=== PATIENT | male | born 1980 | race Caucasian/White ===

== ENCOUNTER 2025-07-31 16:36 | Inpatient (IN) | payer MEDICARE, SELFPAY ==
--- OUTSIDE RECORDS SUMMARY | 2025-06-19 07:00 | XMS_ITS | Encounter Summary ---
Author Organization [facility] Address [address] [place] [address]. [place] [address] Care Team Providers Care Manager Portable Name Role Phone RenayBrooklynn landaverde MIKE CREDIT COORDINATOR Primary Care Provider Helen Monterroso RN Unavailable Unavailab Carmela Heath APRN CREDIT COORDINATOR Unavailable [phone] Adrienne Evans ASSISTANT PROFESSOR OF BUSINESS CREDIT COORDINATOR Unavailable (Fgs), [facility] - [facility] Unavailable Sariah Nunez RN Unavailable [phone] Reason for Visit * Reason Comments Hospital F/U Encounter Details Date Type Department Care Team (Late st Contact Info) Description 06/19/2025 7:00 AM CDT Transitional Care Unit Visit [facility] [address] [place] [address] [phone] Pelon Millard MD [address] [place] [address] Decubitus ulcer of right ischial area, stage IV (H) (Primary Dx); Quadriplegia following spinal cord injury Social History Tobacco Use Types Packs/Day Years Used Date Smoking Tobacco: Former Cigarettes Q uit: 04/08/2016 Smokeless Tobacco: Never Alcohol Use Standard Drinks/Week Comments Yes 0 (1 standard drink = 0.6 oz pur e alcohol) social PHQ-2 Answer Date Recorded PHQ-2 Score 1 06/14/2024 Adolescent Education Answer Date Record ed Getting School Help Needed Not on file 07/17 Food Insecurity Answer Date Recorded Within the past 12 months, d id you worry that your food would run out before you got money to buy more? No 05/30/2025 Within the past 12 months, d id the food you bought just not last and you didn t have money to get more? No 05/30/2025 Housing Stability Answer Date Recorded Do you have housing? (Lisa solares is defined as stable permanent housing and does not include staying outside in a car, in a tent, in an abandoned building, in an overnight alf, or couch-surfing.) Yes 05/30/2025 Are you worried about losing your housing? No 05/30/2025 Financial Resource Strain Answer Date R ecorded Within the past 12 months, h ave you or your family members you live with been unable to get utilities (heat, electricity) when it was really needed? Yes 05/30/2025 Transportation Needs Answer Date Record ed Within the past 12 months, h as lack of transportation kept you from medical appointments, getting your medicines, non-medical meetings or appointments, work, or from getting things that you need? No 05/30/2025 Interpersonal Safety Answer Date Record ed Do you feel physically and e motionally safe where you currently live? Yes 05/30/2025 Within the past 12 months, h ave you been hit, slapped, kicked or otherwise physically hurt by someone? No 05/30/2025 Within the past 12 months, h ave you been humiliated or emotionally abused in other ways by your partner or ex-partner? No 05/30/2025 Sex and Gender Information Value Date Recorded Sex Assigned at Male 09/04/2021 2:10 PM LIGHT EQUIPMENT OPERATOR Legal Sex Male 4:30 AM LIGHT EQUIPMENT OPERATOR Gender Identity Male 09/04/2021 2:10 PM LIGHT EQUIPMENT OPERATOR Sexual Orientation Straight 09/04/2021 2: 10 PM LIGHT EQUIPMENT OPERATOR documented as of this encounter Last Filed Vital Signs Vital Sign Reading Time Taken Comments Blood Pressure 140/98 06/19/2025 7:03 AM CDT Pulse 83 06/19/2025 7:03 AM CDT Temperature 36.4 C (97.6 F) 06/19/2025 7:03 AM CDT Respiratory Rate 18 06/19/2025 7:03 AM CDT Oxygen Saturation 98% 06/19/2025 7:03 AM CDT Inhaled Oxygen Concentration - - Weight 67.4 kg (148 lb 9.6 oz) 06/19/2025 7:03 A M CDT Height 157.5 cm (5' 2) 06/19/2025 7:03 AM CDT Body Mass Index 27.18 06/19/2025 7:03 AM CDT documented in this encounter Progress Notes * Pelon Millard MD - 06/19/2025 7:00 AM CDT [facility] PRIMARY CARE PROVIDER AND CLINIC: Brooklynn Niño APRN [facility], [id number] [place] [address] Chief Complaint Patient presents with Hospital F/U [facility] Place of Service where encounter took place: [facility] Srinivas Palafox is a 45 year old (1980), admitted to the above facility from [facility]. Hospital stay 05/29/25 through 06/06/25.. Hospital course was reviewed by me, is as per the hospital discharge summary and ASSOCIATE MANAGER AFFILIATE MARKETING note Patient has a past medical history of quadriplegia secondary to a spinal cord injury 25 years ago, history of infected left hip ulcer 3 years ago, recent hospitalization for sepsis secondary to a right sacral decubitus ulcer status post I&D with wound VAC placed on discharge, who was readmittedfor recurrent sepsis, with failure of wound VAC management. 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 It was felt thathe would benefit from cares in a TCU. He was seen by infect disease, was discharged on cefpodoxime and metronidazole through 06/12/2025 Patient lives independently. Patient's status has been stable since admission to the TCU. He is followed by the wound care team with report that wound is healing. He needs to have pressure mapping for his wheelchair cushion. He reports feeling well, denies abdominal or back discomfort. He does experience frequent chills and sweats over his body for which he uses a physical education department chair with benefit CODE STATUS/ADVANCE DIRECTIVES DISCUSSION: Full Code CPR/Full code ALLERGIES: Allergies Allergen Reactions Tegaderm Transparent Dressing (Informational Only) Rash PAST MEDICAL HISTORY: Past Medical History: Diagnosis Date History of spinal cord injury Quadriplegia (H) PAST SURGICAL HISTORY: has a past surgical history that includes Open reduction internal fixation hip nailing (Left, 12/21/2014); Remove hardware rodding intramedullary femur (Left, 03/07/2021); Openreduction internal fixation hip nailing (Left, 03/07/2021); Remove hardware hip nailing (Left, 06/04/2022); Irrigation and debridement hip, combined (Left, 06/04/2022); Irrigation and debridement hip, combined (Left, 06/08/2022); Irrigation and debridement hip, combined (Left, 06/11/2022); IR Fine Needle Aspiration w Ultrasound (06/25/2022); picc insertion (Left, 07/20/2022); and Irrigation and debridement trunk, combined (Right, 05/17/2025). FAMILY HISTORY: family history includes Cancer in his father, maternal grandfather, paternal aunt, paternal grandfather, and paternal uncle. SOCIAL HISTORY: reports that he quit smoking about 9 years ago. His smoking use included cigarettes. He has never used smokeless tobacco. He reports current alcohol use. He reports that he does not use drugs. Patient's living condition: lives alone Current medications reviewed by me today Current Outpatient Medications Medication Sig Dispense Refill acetaminophen (TYLENOL) 325 MG tablet Take 2 tablets (650 mg) by mouth every 4 hours as needed for mild pain or other (and adjunct with moderate or severe pain or per patient request). baclofen (LIORESAL) 20 MG tablet Take 1 tablet (20 mg) by mouth 3 times daily as needed for muscle spasms. loperamide (IMODIUM) 2 MG capsule Take 1 capsule (2 mg) by mouth 4 times daily as needed for diarrhea. 30 capsule 0 multivitamin w/minerals (THERA-VIT-M) tablet Take 1 tablet by mouth daily. oxyCODONE (ROXICODONE) 5 MG tablet Take 1 tablet (5 mg) by mouth every 4 hours as needed for severepain (IF pain not managed with non-pharmacological and non- opioid interventions). 30 tablet 0 senna-docusate (SENOKOT-S/PERICOLACE) 8.6-50 MG tablet Take 1 tablet by mouth 2 times daily as needed for constipation. wound support modular (EXPEDITE) LIQD bottle Take 60 mLs by mouth daily. No current facility-administered medications for this visit. ROS: 10 point ROS of systems including Constitutional, Eyes, Respiratory, Cardiovascular, Gastroenterology, Genitourinary, Integumentary, Musculoskeletal, Psychiatric were all negative except for pertinent positives noted in my HPI. Vitals: BP (!) 140/98 Pulse 83 Temp 97.6 ??F (36.4 ??C) Resp 18 Ht 1.575 m (5' 2) Wt 67.4 kg (148 lb 9.6 oz) SpO2 98% BMI 27.18 kg/m?? Exam: Very pleasant, well-nourished appearing male, lying in bed. He is sleepy, easily awakens and is fully oriented HEENT: Oral mucosa moist Lungs clear CV RRR Abdomen soft, protuberant Extremities: No edema. Sacral/ischial area not examined me. Neuro: Fully oriented. Quadriparetic with no movement lower extremities. Patient is able to use upper extremities Lab/Diagnostic data: Most Recent 3 CBC's: Recent Labs Lab Test 06/01/25 0819 05/31/25 0709 05/30/25 0753 WBC 6.60 7.37 9.31 HGB 12.3* 12.3* 12.1* MCV 85.1 84.6 84.2 PLT 546* 561* 518* Most Recent 3 BMP's: Recent Labs Lab Test 06/01/25 0819 05/31/25 0709 05/30/25 0753 NA 138 138 137 POTASSIUM 4.4 4.5 4.3 3.9 CHLORIDE 102 103 103 CO2 23 23 22 BUN 12.6 11.8 14.3 CR 0.64* 0.69 0.80 ANIONGAP 13 12 12 FRANCISCO JAVIER 9.5 9.2 9.4 GLC 104* 106* 94 Most Recent 2 LFT's: Recent Labs Lab Test 05/29/25 1904 05/17/25 0049 AST 26 15 ALT 25 17 ALKPHOS 65 60 BILITOTAL 0.3 0.3 Most Recent Anemia Panel: Recent Labs Lab Test 06/01/25 0819 05/28/22 0803 05/27/22 0836 WBC 6.60 < > -- HGB 12.3* < > -- HCT 37.6* < > -- MCV 85.1 < > -- PLT 546* < > -- IRON -- -- 13* IRONSAT -- -- 5* FEB -- -- 238* ANGELINE -- -- 100 < > = values in this interval not displayed. ASSESSMENT/PLAN: (L89.314) Decubitus ulcer of right ischial area, stage IV (H) (primary encounter diagnosis) (L89.94, L08.9) Pressure injury, stage 4, with infection (H) Status post debridement 05/17/2025, but with failure of outpatient management with wound VAC Has completed course of antibiotics. No more surgical intervention planned at this time Plan: Continue APM. Therapy for wheelchair cushion mapping. House wound team to follow while patient is in TCU (G82.50) Quadriplegia following spinal cord injury (R53.81) Physical deconditioning Per patient, he does function well at home independently Plan: Therapies to work with patient regarding safe transfers Continue nutritional supplements. Continue baclofen for spasticity Monitor bowel and bladder function Pelon Millard MD documented in this encounter Plan of Treatment Not on file documented as of this encounter Visit Diagnoses Diagnosis Decubitus ulcer of right ischial area, stage IV (H)- Primary Quadriplegia following spinal cord injury Quadriplegia, unspecified documented in this encounter Care Teams Manager Portable Relationship Specialty Start Date End Date Brooklynn Niño APRN CREDIT COORDINATOR [id number] [address] PCP - General Family Practice 05/27/16 Helen Monterroso, RN Registered Nurse Infectious Diseases 06/25/22 Carmela Kumar APRN CREDIT COORDINATOR [address] [id number] Assigned PCP 06/26/24 Adrienne Evans APRN CREDIT COORDINATOR [facility] [place] [address] Nurse Practitioner Family Medicine 06/06/25 06/29/25 (Fgs), [address] [phone] 06/06/25 06/29/25 Sariah Nunez, RN [facility] 06/07/2507/04 documented as of this encounter
--- OUTSIDE RECORDS SUMMARY | 2025-06-26 07:00 | XMS_ITS | Encounter Summary ---
Author Organization [facility] Address [address] [place] [address] Care Team Providers Care Multicultural Internship Name Role Phone Brooklynn Niño MIKE SERVICE STATION ATTENDANT Primary Care Provider Helen Monterroso RN Unavailable Unavailab Carmela Heath APRN SERVICE STATION ATTENDANT Unavailable [phone] Adrienne Evans APRN SERVICE STATION ATTENDANT Unavailable (Fgs), [facility] - [place] Unavailable Sariah Nunez RN Unavailable [phone] Manjit Swanson MD Unavailable [phone] Reason for Visit * Reason Comments Discharge Summary Jail Encounter Details Date Type Department Care Team (Late st Contact Info) Description 06/26/2025 7:00 AM CDT Discharge Summary Jail [facility] [address] [place] [phone] Adrienne Evans APRN SERVICE STATION ATTENDANT [address] [place] [address] Discharge Summary Jail Social History Tobacco Use Types Packs/Day Years [...] in an abandoned building, in an overnight prison, or couch-surfing.) Yes 05/30/2025 Are you worried [...] Sex Assigned at Male 09/04/2021 2:10 PM DIORAMA MODEL MAKER Legal Sex Male 4:30 AM DIORAMA MODEL MAKER Gender Identity Male 09/04/2021 2:10 PM DIORAMA MODEL MAKER Sexual Orientation Straight 09/04/2021 2: 10 PM DIORAMA MODEL MAKER documented as of this encounter Last Filed Vital Signs Vital Sign Reading Time Taken Comments Blood Pressure 126/77 06/26/2025 9:07 AM CDT Pulse 76 06/26/2025 9:07 AM CDT Temperature 36.4 C (97.6 F) 06/26/2025 9:07 AM CDT Respiratory Rate 18 06/26/2025 9:07 AM CDT Oxygen Saturation 96% 06/26/2025 9:07 AM CDT Inhaled Oxygen Concentration - - Weight 67.6 kg (149 lb 1.6 oz) 06/26/2025 9:07 A M CDT Height 157.5 cm (5' 2) 06/26/2025 9:07 AM CDT Body Mass Index 27.27 06/26/2025 9:07 AM CDT documented in this encounter Progress Notes * Adrienne Evans APRN CNP - 06/26/2025 7:00 AM CDT [facility] DISCHARGE SUMMARY PATIENT'S NAME: Srinivas Palafox DATE OF : 1980 Place of Service where encounter took place: [facility]) [[id number]] PRIMARY CARE PROVIDER AND CLINIC RESPONSIBLE AFTER TRANSFER: Brooklynn Niño APRN SERVICE STATION ATTENDANT, [address] [place] [address] [facility] Provider Transferring providers: Adrienne Evans APRN CNP, Pelon Millard MD Recent Hospitalization/ED: [facility] Hospital stay 05/29/25 to 06/06/25. Date of SNF Admission: June 06, 2025 Date of SNF (anticipated) Discharge: June 29, 2025 Discharged to: previous independent home Cognitive Scores: Not tested Physical Function: Transfer Min -SBA Ambulation 0 UB dressing SUP LB dressing Min A DME: No new DME needed CODE STATUS/ADVANCE DIRECTIVES DISCUSSION: Full Code ALLERGIES: Tegaderm transparent dressing (informational only) NURSING FACILITY COURSE Medication Changes/Rationale: - Restarted vitamin D 50,000 units weekly dx vitamin D deficiency - Ok to resume home supply of cranberry supplement, calcium-vitamin D, tumeric Summary of nursing facility stay: PMH: quadriplegia secondary to spinal cord injury 25 years ago, infected left hip ulcer 3 years ago, recent admission for sepsis secondary to right gluteal, sacral decubitus ulcer with abscess statuspost debridement who presents with wound check. Recently hospitalized at [facility] from 05/16-05/24/2025 for sepsis secondary to infected sacral decubitus ulcer for which he underwent debridement on 05/17/2025 by general surgery. He was treated with IV Zosyn, seen by infectious disease. He had a wound VAC placed and was discharged with additional Augmentin for [address]. [address] [facility] 05/29-06/06/25 from wound clinic due to recurrent sepsis due to known infected sacral decubitus ulcer s/p debridement 05/17/25. ID consulted, treated with ceftriaxone and metronidazole then transitioned to cefpodoxime 400mg BID and metronidazole 500mg BID through 06/12/25. Transferred [facility] on 06/06/25. (L89.314) Decubitus ulcer of right ischial area, stage IV (H) (primary encounter diagnosis) (L89.94, L08.9) Pressure injury, stage 4, with infection (H) Comment: Chronic stage IV sacral pressure ulcer with recurrent infection/sepsis, s/p debridement on05/17/25. Completed cefpodoxime and metronidazole on 06/12/25. Plan: - Continue wound care to sacral pressure ulcer BID; plan to be seen by house wound care team on 06/28/25 - goal is to decrease dressing changes to every day. [facility] in home sales representative to assist with daily dressing changes. - Therapy completed pressure mapping of wheelchair cushion - Follow-up with Dr. Swanson (Wound Clinic) as directed (S46.011D) Traumatic tear of right rotator cuff, unspecified tear extent, subsequent encounter Comment: Chronic R shoulder pain r/t rotator cuff tear Plan: - Continue tylenol PRN, baclofen PRN, oxycodone PRN (G82.50) Quadriplegia following spinal cord injury (R53.81) Physical deconditioning Comment: Chronic quadriplegia secondary to spinal cord injury 25 years ago [facility] lives in house alone. Plan: - Patient discharging home, as well as [facility] home care services, including home PT, OT, RN, HANDMADE TILE ARTIST. Discharge Medications: MED REC REQUIRED Post Medication Reconciliation Status: discharge medications reconciled and changed, per note/orders Current Outpatient Medications Medication Sig Dispense Refill [...] bottle Take 60 mLs by mouth daily. MED REC REQUIRED Post Medication Reconciliation Status: discharge medications reconciled and changed, per note/orders Controlled medications: Medication: oxycodone , 15 tabs given to patient at the time of discharge to take home Past Medical History: Past Medical History: Diagnosis Date History of spinal cord injury Quadriplegia (H) Physical Exam: Vitals: BP 126/77 Pulse 76 Temp 97.6 ??F (36.4 ??C) Resp 18 Ht 1.575 m (5' 2) Wt 67.6 kg(149 lb 1.6 oz) SpO2 96% BMI 27.27 kg/m?? BMI: Body mass index is 27.27 kg/m??. GENERAL APPEARANCE: Alert, in no distress, appears healthy, oriented, cooperative RESP: no respiratory distress CV: no edema M/S: Gait and station abnormal , resting in bed. Quadriplegic. SKIN: Inspection of skin and subcutaneous tissue baseline NEURO: Cranial nerves 2-12 are normal tested and grossly at patient's baseline PSYCH: oriented X 3, affect and mood normal SNF labs: Recent labs in [facility] reviewed by me today. Most Recent 3 CBC's: Recent Labs Lab [...] 9.5 9.2 9.4 GLC 104* 106* 94 DISCHARGE PLAN: Follow up labs: No labs orders/due Medical Follow Up: Follow up with primary care provider in 2 weeks Follow-up with Dr. Swanson/ Wound Clinic as directed Discharge Services: Home Care: Occupational Therapy, Physical Therapy, Registered Nurse, and From: [facility] Discharge Instructions Verbalized to Patient at Discharge: Wound Care (Right IT Pressure Ulcer): 1. Cleanse with Vashe, pat dry. 2. Generously paint periwoundwith skin prep. 3. Pack site with 1 sheet of Vashe- moistened Kerlix. 4. Cover with ABD. Change twice/day. Notify your PCP/wound clinic if you have increased redness, swelling, tenderness, or drainage at your incision site. Notify PCP if you have a fever greater than 100.5 degrees. TOTAL DISCHARGE TIME: Greater than 30 minutes Electronically signed by: Adrienne Evans APRN CNP Documentation of Face to Face and Certification for Home Health Services I certify that services are/were furnished while this patient was under the care of a physician andthat a physician or an allowed non-physician practitioner (NPP), had a [id number]-tr-nsvy encounter that meets the physician [id number] encounter requirements. The encounter was in whole, or in part, related to the primary reason for home health. The patient is confined to his/her home and needs intermittent nursing home, physical therapy, speech-language pathology, or the continued need for occupational therapy. A plan of care has been established by a physician and is periodically reviewed by a physician. Date of [id number]-[id number] Encounter: 06/26/25. I certify that, based on my findings, the following services are medically necessary home health services: Nursing, Occupational Therapy, and Physical Therapy. My clinical findings support the need for the above skilled services because: Patient is bedbound due to: quadriplegia.. Patient to re-establish plan of care with their PCP within 7-10 days after leaving the facility to reestablish care. Medicare certified PECOS provider: Adrienne Evans APRN CNP Date: June 27, 2025 * Adrienne Evans APRN CNP - 06/26/2025 7:00 AM CDT [facility] Discharge Orders Name: Srinivas Palafox : 1980 Planned Discharge Date: 06/29/25 Discharged to: previous independent home MEDICAL FOLLOW UP Follow up with primary care provider in 2 weeks Follow-up with Dr. Swanson/ Wound Clinic as directed FUTURE LABS: No labs orders/due ORDER CHANGES: - Restarted vitamin D 50,000 units weekly dx vitamin D deficiency - Ok to resume home supply of cranberry supplement, calcium-vitamin D, tumeric DISCHARGE MEDICATIONS: The patient???s pharmacy is authorized to dispense a 30-day supply of medications. Refill requests should be directed to the primary provider, Brooklynn Niño. At discharge, the facility may send patient's remaining supply of controlled substances, specifically oxycodone #15 tabs. Current Outpatient Medications Medication Sig Dispense Refill acetaminophen (TYLENOL) 325 MG tablet Take 2 tablets (650 mg) by mouth every 4 hours as needed for mild pain or other (and adjunct with moderate or severe pain or per patient request). baclofen (LIORESAL) 20 MG tablet Take 1 tablet (20 mg) by mouth 3 times daily as needed for muscle spasms. 60 tablet 0 loperamide (IMODIUM) 2 MG capsule Take 1 [...] bottle Take 60 mLs by mouth daily. SERVICES: Home Care: Occupational Therapy, Physical Therapy, Registered Nurse, and From: [facility] ADDITIONAL INSTRUCTIONS: Wound Care (Right IT Pressure Ulcer): 1. Cleanse with Vashe, pat dry. 2. Generously paint periwoundwith skin prep. 3. Pack site with 1 sheet of Vashe- moistened Kerlix. 4. Cover with ABD. Change twice/day. Notify your PCP/wound clinic if you have increased redness, swelling, tenderness, or drainage at your incision site. Notify PCP if you have a fever greater than 100.5 degrees. Adrienne Evans APRN CNP This document was electronically signed on June 27, 2025 documented in this encounter Plan of Treatment Not on file documented as of this encounter Visit Diagnoses Diagnosis Decubitus ulcer of right ischial area, stage IV (H) [L89.314]- Primary Pressure injury, stage 4, with infection (H) Traumatic tear of right rotator cuff, unspecified tear extent, subsequent encounter Quadriplegia following spinal cord injury Quadriplegia, unspecified Physical deconditioning Debility, unspecified documented in this encounter Care Teams Multicultural Internship Relationship Specialty Start Date End Date Brooklynn Niño APRN CNP [address] [place] [address] PCP - General Family Practice 05/27/16 Helen Monterroso RN Registered Nurse Infectious Diseases 06/25/22 Carmela Kumar APRN CNP [address] [place] [address] Assigned PCP 06/26/24 Adrienne Evans APRN CNP [address] [place] [address] Nurse Practitioner Family Medicine 06/06/25 06/29/25 (Fgs), [facility] [address], [place] [id number] 06/06/25 06/29/25 Sariah Nunez, RN Clinic Roll Tender 06/07/2507/04 Manjit Swanson MD [address] [place] [address] [address], [place] [address] Assigned Pediatric Specialist Provider 06/26/25 documented as of this encounter
--- OUTSIDE RECORDS SUMMARY | 2025-07-05 18:00 | XMS_ITS | Encounter Summary ---
Author Organization [place] Address [address] [facility] [place] [address] Care Team Providers Care Reliability Engineer Name Role Phone Renay Brooklynn MCKEON F[employer]ELANCE MAKEUP ARTIST Primary Care Provider Helen Monterroso RN Unavailable Unavailab Carmela Heath APRN, CNP Unavailable [phone] Manjit Swanson MD Unavailable [phone] Reason for Visit * Reason Comments Urgent Care Sweating, fatigue, b griselda chills, fluctuating BP- 210/180. Pt states he not feeling well because of his pressure sores and he was seen 2 months ago for the same reason. Encounter Details Date Type Department Care Team (Late st Contact Info) Description 07/05/2025 6:00 PM CDT Office Visit [facility] [place] [address] [facility] [address] [place] [address] Jenelle Martinez MD [address] [place] [address] [place] [address] Quadriplegia following spinal cord injury (Primary Dx); Pressure injury of skin of right buttock, unspecified injury stage; Autonomic instability; Diaphoresis Social History Tobacco Use Types Packs/Day Years [...] in an abandoned building, in an overnight chcf, or couch-surfing.) Yes 05/30/2025 Are you worried [...] motionally safe where you currently live? Yes 07/06/2025 Within the past 12 months, h ave you been hit, slapped, kicked or otherwise physically hurt by someone? No 07/06/2025 Within the past 12 months, h ave you been humiliated or emotionally abused in other ways by your partner or ex-partner? No 07/06/2025 Sex and Gender Information Value Date Recorded Sex Assigned at Male 09/04/2021 2:10 PM LAW LIBRARIAN Legal Sex Male 4:30 AM LAW LIBRARIAN Gender Identity Male 09/04/2021 2:10 PM LAW LIBRARIAN Sexual Orientation Straight 09/04/2021 2: 10 PM LAW LIBRARIAN documented as of this encounter Last Filed Vital Signs Vital Sign Reading Time Taken Comments Blood Pressure 127/90 07/05/2025 6:28 PM CDT Pulse 112 07/05/2025 6:28 PM CDT Temperature 37.1 C (98.8 F) 07/05/2025 6:28 PM CDT Respiratory Rate 18 07/05/2025 6:28 PM CDT Oxygen Saturation 95% 07/05/2025 6:28 PM CDT Inhaled Oxygen Concentration - - Weight 72.6 kg (160 lb) 07/05/2025 6:28 PM CDT Height - - Body Mass Index 29.26 06/26/2025 9:07 AM CDT documented in this encounter Progress Notes * Shelbie Vallejo MA - 07/05/2025 6:00 PM CDT Urgent Care Clinic Visit Chief Complaint Patient presents with Urgent Care Sweating, fatigue, body chills, fluctuating BP- 210/180. Pt states he not feeling well because of his pressure sores. 07/05/2025 6:24 PM Additional Questions Roomed by shelbie russell Accompanied by Friend * Jenelle Martinez MD - 07/05/2025 6:00 PM CDT ASSESSMENT AND PLAN: ICD-10-CM 1. Quadriplegia following spinal cord injury G82.50 2. Pressure injury of skin of right buttock, unspecified injury stage L89.319 3. Autonomic instability G90.9 4. Diaphoresis R61 Patient paraplegia with symptoms of autonomic instability suggesting active serious infection. Currently diaphoretic for which he is using a blow dryer for his symptoms here in urgent care. Recent discharge for decubital ulcer care and more symptomatic when sitting up applying pressure tothe ulcer area. He is also more symptomatic throughout activities today that normally do not stresshis body. Referred to the ER for more thorough evaluation that can be offered here in urgent care especially since may be related to deep cubitus ulcers for which he may need a special wound nurse evaluation at the hospital and beyond scope of practice of providers here also discussed he may need to for other evaluation such as bladder infection and blood test that would need to be evaluated and reviewed today Assessment & Plan Pressure injury of skin of right buttock, unspecified injury stage: - Decubitus ulcer of right buttock present, previously debrided and currently appears improved per nursing assessment, but remains in a high-risk location. Potential for serious complications including tissue loss and need for surgical intervention if not properly managed. Advised transfer to emergency department for comprehensive assessment and possible inpatient care. Temperature and blood pressure instability with diaphoresis and dizziness: - Temperature instability, diaphoresis, and blood pressure fluctuations may indicate underlying acute illness requiring urgent evaluation. Advised transfer to emergency department for further workup. Patient referred to the emergency room. His friend will drive him by private transport. CC chart to PCP Jenelle Martinez MD [facility] Subjective Srinivas Palafox is a 45 year old who presents for Patient presents with: Urgent Care: Sweating, fatigue, body chills, fluctuating BP- 210/180. Pt states he not feeling wellbecause of his pressure sores and he was seen 2 months ago for the same reason. an established patient of [facility]. Consent was obtained from the patient to use an AI documentation tool in the creation of this note. Today's visit with a friend. Admitted from the ER May 29 for decubitus ulcer to the hospital. Subsequently transition to transitional care unit and discharged June 26, 2025 approximately 2 weeks ago He states this is the second time he was admitted for this ulcer. To the hospital History of Present Illness- Nikhil Palafox, 45 years with history of paraplegia Here today with concerns of symptoms that may suggest illness Possibly related to his decubitus ulcer - Current symptoms include sweating, shakes, dizziness (including sudden dizziness when lying down), decreased appetite over last two days - Large cut/pressure ulcer present on buttocks, previously debrided, described as shrinking but still in a bad spot - Sweats and shakes occur when sitting up on buttocks, resolve when lying down - Blood pressure was very high after shower, wound care, and dressing change; not usually affected by activity - In-home nurses advised seeking medical evaluation due to ulcer He has also had a history of UTIs. For treatment of his sweats he has been using a blow dryer. He brought a blow dryer here today during his clinic visit and had it running to help dry the wetness on his body and neck Review of Systems Patient Active Problem List Diagnosis Quadriplegia following spinal cord injury Closed displaced transverse fracture of shaft of left femur (H) Urethral catheter present for long-term use Osteomyelitis (H) Thigh abscess PICC line infection Left arm cellulitis Complication associated with peripherally inserted central catheter (PICC), initial encounter Decubitus ulcer of right ischial area, stage IV (H) Chills Sepsis (H) Objective BP (!) 127/90 (BP Location: Left arm, Patient Position: Sitting, Cuff Size: Adult Large) Pulse 112 Temp 98.8 ??F (37.1 ??C) (Oral) Resp 18 Wt 72.6 kg (160 lb) SpO2 95% BMI 29.26 kg/m?? Physical Exam Vitals reviewed. Constitutional: Appearance: He is diaphoretic. Comments: In wheelchair. Has blow dryer actively on pointing towards his upper chest and neck Neurological: Mental Status: He is alert. Physical Exam - Physical exam: - Diaphoretic - Clammy skin - Visible perspiration documented in this encounter Plan of Treatment Not on file documented as of this encounter Visit Diagnoses Diagnosis Quadriplegia following spinal cord injury- Primary Quadriplegia, unspecified Pressure injury of skin of right buttock, unspecified injury stage Autonomic instability Unspecified disorder of autonomic nervous system Diaphoresis Generalized hyperhidrosis documented in this encounter Care Teams Reliability Engineer Relationship Specialty Start Date End Date Brooklynn Niño APRN F[employer]ANCE [employer]UP ARTIST [address] [place] [address] PCP - General Family Practice 05/27/16 Helen Monterroso RN Registered Nurse Infectious Diseases 06/25/22 Carmela Kumar APRN [employer]IST [address] [place] [address] Assigned PCP 06/26/24 Manjit Swanson MD [facility] [address] Assigned Pediatric Specialist Provider 06/26/25 documented as of this encounter
--- OUTSIDE RECORDS SUMMARY | 2025-07-05 21:30 | XMS_ITS | Encounter Summary ---
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 see MAR Current care needs: IV abx, surgery consult for osteo, daily wound care, ID following. Oxygen requirements (liters/min and/or FiO2): none Respiratory status: Room air Vital signs (within last 30 minutes): Vitals: 07/06/25 0015 07/06/25 0030 07/06/25 0429 07/06/25 0838 BP: (!) 133/92 (!) 118/97 102/58 134/74 BP Location: Right arm Right arm Patient Position: Semi-Eng's Pulse: 88 97 100 79 Resp: 20 20 Temp: 98 ??F (36.7 ??C) 98.4 ??F (36.9 ??C) TempSrc: Oral Oral SpO2: 97% 98% 98% Focused assessment within last 30 minutes: A&Ox4. Denies pain. Patient quadriplegic, able to reposition self with arms, little use of hands due to contractures but is fairly independent. Wound care to right IT completed by WO. Patient uses condom cath at home and reports frequent issues with it falling off, so far we have been unsuccessful with using condom cath or our male external cath. Tolerating diet. ED Boarding Nurse name: Yojana Caceres RN RECEIVING UNIT ED HANDOFF REVIEW Above ED Nurse Handoff Report was reviewed: Yes Reviewed by: Natali Sotelo, RN on July 06, 2025 at 4:03 PM Hector Sky called the ED to inform them the note was read: No * Britta Peña DO - 07/06/2025 7:36 AM CDT Pt seen and examined in the ED. He was admitted earlier today [facility] was concerned about developing sepsis. H&P and admission notes reviewed in detail.Reports that he had some increased drainage from his wound but not malodorous. He reports he has felt sweaty for months while up on decub wound - no new change in these symptoms. No Fevers, SCHULTE, GI symptoms or URI symptoms. Gen surgery and ID consulted and pending. Will hold on abx for now. * Roopa Coyne RN - 07/06/2025 7:25 AM CDT Pt alert and orientedx4, RA.VSS. On Vancomycin, PIV infusing NS 100ml/hr. NPO for surgery consult. documented in this encounter H&P Notes * Kuldip Guerrero MD - 07/06/2025 4:28 AM CDT [facility] History and Physical - Hospitalist Service Date of Admission: 07/05/2025 Assessment & Plan Srinivas Palafox is a 45 year old male PMH significant for quadriplegia secondary to spinal cord injury 25 years ago, infected left hip ulcer 3 years ago, recent admission for sepsis secondary to right gluteal, sacral decubitus ulcer with abscess who presented to ED with 2 days history of not feeling well, fever, chilling sensation, profuse sweating, dizziness, loss of appetite and decreased urine output while using condom catheter and being admitted as an inpatient on 07/06/2025. Infected stage IV right sacral decubitus ulcer: POA Right ischial decubitus ulceration, with associated chronic osteomyelitis of the right ischial tuberosity Quadriplegia - Patient with known infected right ischial decubitus ulceration and associated osteomyelitis of the right ischial tuberosity. - He had prior debridement and also had wound VAC in the past. - He was treated with different antibiotics in the IV form in hospital and oral antibiotic as an outpatient. - The osteomyelitis seem to be chronic due to overlying stage IV decubitus ulcer. -Patient was afebrile, hemodynamically stable, on presentation was tachycardic now resolved with - Will treat with IV antibiotic vancomycin and Zosyn for now, likely will need antibiotic de-escalation soon as this is chronic osteomyelitis. He may need bone debridement and incision debridement ofthe wound. - Infectious disease and surgery will be consulted. - Will keep patient n.p.o. until he is seen by surgery. - Continue gentle IV fluid hydration. - CRP increased to 157, baseline was 19. - Procalcitonin 0.09, unlikely for patient to have systemic infection as lactate is also normal. -Patient also has chilling sensation and profuse sweating. - Not clear if this is related to infection or due to dysautonomia. - WOC consult. - Quadriplegia following a spinal cord injury about 25 years ago. 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 -He is able to use his arms, however has contracture of his hands, not able to use his fingers. -He is wheelchair-bound. -Social service for safe discharge plan and needs. - Patient was sitting sensation PHN induration, Diet: NPO at the patient is seen by surgery. DVT Prophylaxis: Enoxaparin (Lovenox) SQ Marshall Catheter: Not present Lines: None Cardiac Monitoring: None Code Status: Full code Clinically Significant Risk Factors Present on Admission # Hyponatremia: Lowest Na = 132 mmol/L in last 2 days, will monitor as appropriate # Hypochloremia: Lowest Cl = 94 mmol/L in last 2 days, will monitor as appropriate # Overweight: Estimated body mass index is 29.26 kg/m?? as calculated from the following: Height as of 06/26/25: 1.575 m (5' 2). Weight as of an earlier encounter on 07/05/25: 72.6 kg (160 lb). # Financial/Environmental Concerns: Disposition Plan Medically Ready for Discharge: Anticipated in 2-4 Days I discussed with patient at length the plan of care, all patient's question and concerns addressed. Kuldip Guerrero MD Hospitalist Service [facility] Securely message with [employer] (more info) Text page via [facility] Paging/Directory Chief Complaint Chilling sensation, decubitus ulcer check. History is obtained from the patient. History of Present Illness Srinivas Palafox is a 45 year old male with PMH significant for quadriplegia secondary to spinal cord injury 25 years ago, infected left hip ulcer 3 years ago, recent admission for sepsis secondary to right gluteal, sacral decubitus ulcer with abscess. He was admitted to this hospital from 05/29 to 06/06 with recurrent sepsis in setting of known infected sacral decubitus ulcer and underwent debridement. MRI done at the time also showed ischial decubitus ulceration with associated osteomyelitis of the right ischial tuberosity. Patient was also evaluated by surgery and also by ID at the time. He was treated with IV Rocephin and Flagyl while in the hospital and transition to oral cefpodoxime and Flagyl and discharged to TCU where he completed his oral antibiotic on 06/12. Patient was then discharged to home from [facility] where he lives alone, does most of his daily activities by himself. He is quadriplegic, able to use his arms, but has significant contracture of his handsand unable to use his fingers. Patient was relatively at his baseline state of health until 2 days ago when he started to feel unwell he developed chilling sensation, profuse sweating, dizziness, loss of appetite and decreased urine output and concerned and came to the ED for evaluation. Patient uses a condom catheter at home, there was no associated flank pain, dysuria or urinary urgency. He also denied any nausea, vomiting, or diarrhea. No cough, runny nose or sore throat. He denied any significant discharge or any foul-smelling from his decubitus ulcer. ED workup: Sodium 132, potassium 4.2, bicarb 20, BUN 17, creatinine 0.6. Anion gap is 18, calcium 9.6. CBC unremarkable. UA negative. Blood culture pending, CRP increased to 157 from baseline of 19 during his recent admission. Lactate is 1.6, procalcitonin 0.09. ED treatment: Zosyn and vancomycin Past Medical History Past Medical History: Diagnosis Date History of spinal cord injury Quadriplegia (H) Recurrent sepsis. Osteomyelitis and infected sacral decubitus. Quadriplegia. Spinal cord injury. Decubital ulcer. Osteomyelitis. Sepsis. Thigh abscess Ureteral catheter Past Surgical History Past Surgical History: Procedure Laterality Date IR FINE NEEDLE ASPIRATION W ULTRASOUND 06/25/2022 IRRIGATION AND DEBRIDEMENT HIP, COMBINED Left 06/04/2022 Procedure: IRRIGATION AND DEBRIDEMENT, LEFT HIP, Wound Vac Placement; Surgeon: Jose Cherry MD; Location: [facility] IRRIGATION AND DEBRIDEMENT HIP, COMBINED Left 06/08/2022 Procedure: Left hip irrigation and debridement with wound vac application x 2; Surgeon: Jose Cherry MD; Location: [facility] IRRIGATION AND DEBRIDEMENT HIP, COMBINED Left 06/11/2022 Procedure: IRRIGATION AND DEBRIDEMENT, LEFT HIP; Surgeon: Jose Cherry MD; Location: [facility] OR IRRIGATION AND DEBRIDEMENT TRUNK, COMBINED Right 05/17/2025 Procedure: Debridement of right gluteal abscess; Surgeon: Surendra Amato MD; Location: [facility] OR OPEN REDUCTION INTERNAL FIXATION HIP NAILING Left 12/21/2014 Procedure: OPEN REDUCTION INTERNAL FIXATION HIP NAILING; Surgeon: Ari Wells MD; Location: [facility] OPEN REDUCTION INTERNAL FIXATION HIP NAILING Left 03/07/2021 Procedure: TO ANTEGRADE NAILING FOR CLOSED DISPLACED SUBTROCHANTERIC FRACTURE OF LEFT FEMUR; Surgeon: Aannt Camacho MD; Location: [facility] OR PICC INSERTION Left 07/20/2022 basilic 46 cm total REMOVE HARDWARE HIP NAILING Left 06/04/2022 Procedure: REMOVAL, LEFT ORTHOPEDIC NAIL, HIP; Surgeon: Jose Cherry MD; Location: [facility] OR REMOVE HARDWARE RODDING INTRAMEDULLARY FEMUR Left 03/07/2021 Procedure: REMOVAL OF LEFT FEMUR INTRAMEDULLARY; Surgeon: Anant Camacho MD; Location: [facility] OR Prior to Admission Medications Prior to Admission Medications Prescriptions Last Dose Informant Patient Reported? Taking? acetaminophen (TYLENOL) 325 MG tablet No No Sig: Take 2 tablets (650 mg) by mouth every 4 hours as needed for mild pain or other (and adjunct with moderate or severe pain or per patient request). Patient not taking: Reported on 07/05/2025 baclofen (LIORESAL) 20 MG tablet No No Sig: Take 1 tablet (20 mg) by mouth 3 times daily as needed for muscle spasms. Patient not taking: Reported on 07/05/2025 loperamide (IMODIUM) 2 MG capsule No No Sig: Take 1 capsule (2 mg) by mouth 4 times daily as needed for diarrhea. Patient not taking: Reported on 07/05/2025 multivitamin w/minerals (THERA-VIT-M) tablet No No Sig: Take 1 tablet by mouth daily. Patient not taking: Reported on 07/05/2025 oxyCODONE (ROXICODONE) 5 MG tablet No No Sig: Take 1 tablet (5 mg) by mouth every 4 hours as needed for severe pain (IF pain not managed with non-pharmacological and non-opioid interventions). Patient not taking: Reported on 07/05/2025 senna-docusate (SENOKOT-S/PERICOLACE) 8.6-50 MG tablet No No Sig: Take 1 tablet by mouth 2 times daily as needed for constipation. Patient not taking: Reported on 07/05/2025 wound support modular (EXPEDITE) LIQD bottle No No Sig: Take 60 mLs by mouth daily. Patient not taking: Reported on 07/05/2025 Facility-Administered Medications: None Review of Systems The 5 point Review of Systems is negative other than noted in the HPI or here. Physical Exam Vital Signs: Temp: 97 ??F (36.1 ??C) Temp src: Temporal BP: (!) 118/97 Pulse: 97 Resp: 22 SpO2: 97 % Weight: 0 lbs 0 oz General Appearance: Awake and alert, comfortable, pleasant and cooperative, not in distress Respiratory: Good air entry bilaterally, no wheezing, crackles or rhonchi Cardiovascular: Sinus tubular, no gallop or murmur GI: Soft, nontender, nondistended, positive bowel sound Skin: No rash or exanthems Extremity: Quadriplegic, able to use his arms, significant contracture of his hands. Medical Decision Making 65 MINUTES SPENT BY ME on the date of service doing chart review, history, exam, documentation & further activities per the note. Data Imaging results reviewed over the past 24 hrs: Recent Results (from the past 24 hours) CT Abdomen Pelvis w Contrast Narrative EXAM: CT ABDOMEN PELVIS W CONTRAST LOCATION: [facility] DATE: 07/05/2025 INDICATION: Abdominal pain, eval for sepsis. COMPARISON: 05/16/2025. TECHNIQUE: CT scan of the abdomen and pelvis was performed following injection of IV contrast. Multiplanar reformats were obtained. Dose reduction techniques were used. CONTRAST: 86 mL Omnipaque-350. FINDINGS: LOWER CHEST: Normal. HEPATOBILIARY: Normal. PANCREAS: Normal. SPLEEN: Normal. ADRENAL GLANDS: Normal. KIDNEYS/BLADDER: There is no hydronephrosis. The urinary bladder is very distended. There is mild diffuse urinary bladder wall thickening. BOWEL: There is a large amount of gas and stool throughout the colon. No bowel obstruction or inflammation. No free intraperitoneal gas or fluid. LYMPH NODES: Normal. VASCULATURE: Atherosclerotic calcification of the aorta and its branches. No aneurysm. PELVIC ORGANS: Normal. MUSCULOSKELETAL: There is a decubitus ulcer over the right ischium. There is sclerosis of the bone of the ischium suggesting osteomyelitis. There is a 3.7 x 1.3 cm gas and fluid collection along the ulcer tract. Postoperative change in the left femur. Impression IMPRESSION: 1. Right decubitus ulcer with possible osteomyelitis of the ischium. 2. Large amount of gas and stool throughout the colon. No bowel obstruction or inflammation. 3. Mild diffuse urinary bladder wall thickening is a nonspecific finding but can be seen with cystitis. There is no hydronephrosis. XR Chest 1 View Narrative EXAM: XR CHEST 1 VIEW LOCATION: [facility] DATE: 07/05/2025 INDICATION: Fever COMPARISON: 06/17/2022 Impression IMPRESSION: Negative chest. Recent Labs Lab 07/05/25 2157 WBC 9.49 HGB 13.8 MCV 82.2 PLT 587* NA 132* POTASSIUM 4.2 CHLORIDE 94* CO2 20* BUN 17.8 CR 0.60* ANIONGAP 18* FRANCISCO JAVIER 9.6 GLC 111* documented in this encounter Consult Notes * Cely Madison LSW - 07/07/2025 11:59 AM CDTAssociated Order(s): CARE MANAGEMENT / SOCIAL WORK IP CONSULT Care Management Initial Consult General Information Assessment completed with: Nikhil Renteria Type of CM/SW Visit: Initial Assessment Primary Care Provider verified and updated as needed: Yes Readmission within the last 30 days: no previous admission in last 30 days, current reason for admission unrelated to previous admission Return Category: Exacerbation of disease Reason for Consult: discharge planning Advance Care Planning: Advance Care Planning Reviewed: no concerns identified Communication Assessment Patient's communication style: spoken language (Sammarinese or Bilingual) Hearing Difficulty or Deaf: no Wear Glasses or Blind: no Cognitive Cognitive/Neuro/Behavioral: WDL Living Environment: People in home: alone Current living Arrangements: house Able to return to prior arrangements: yes Family/Social Support: Care provided by: self Provides care for: no one Marital Status: Support system: Parent(s), Sibling(s) Description of Support System: Involved, Supportive Support Assessment: Adequate family and caregiver support, Adequate social supports Current Resources: Patient receiving home care services: Yes Skilled Home Care Services: Prison, Occupational Therapy (WOC RN) Community Resources: Home Care Equipment currently used at home: wheelchair, power Supplies currently used at home: Wound Care Supplies Employment/Financial: Financial Concerns: none Referral to Financial Worker: No Does the patient's insurance plan have a 3 day qualifying hospital stay waiver? No Lifestyle & Psychosocial Needs: Social Drivers of Health Food Insecurity: Low Risk (05/30/2025) Food Insecurity Within the past 12 months, did you worry that your food would run out before you got money to buy more?: No Within the past 12 months, did the food you bought just not last and you didn???t have money to getmore?: No Depression: Not at risk (06/14/2024) PHQ-2 PHQ-2 Score: 1 Housing Stability: Low Risk (05/30/2025) Housing Stability Do you have housing? : Yes Are you worried about losing your housing?: No Tobacco Use: Medium Risk (07/05/2025) Patient History Smoking Tobacco Use: Former Smokeless Tobacco Use: Never Passive Exposure: Not on file Financial Resource Strain: High Risk (05/30/2025) Financial Resource Strain Within the past 12 months, have you or your family members you live with been unable to get utilities (heat, electricity) when it was really needed?: Yes Alcohol Use: Not on file Transportation Needs: Low Risk (05/30/2025) Transportation Needs Within the past 12 months, has lack of transportation kept you from medical appointments, getting your medicines, non-medical meetings or appointments, work, or from getting things that you need?: No Physical Activity: Not on file Interpersonal Safety: Low Risk (07/06/2025) Interpersonal Safety Do you feel physically and emotionally safe where you currently live?: Yes Within the past 12 months, have you been hit, slapped, kicked or otherwise physically hurt by someone?: No Within the past 12 months, have you been humiliated or emotionally abused in other ways by your partner or ex-partner?: No Stress: Not on file Social Connections: Not on file Health Literacy: Not on file Functional Status: Prior to admission patient needed assistance: Dependent ADLs:: Wheelchair-independent Dependent IADLs:: Independent Mental Health Status: Mental Health Status: No Current Concerns Chemical Dependency Status: Chemical Dependency Status: No Current Concerns Values/Beliefs: Spiritual, Cultural Beliefs, Yarsani Practices, Values that affect care: Values/Beliefs Comment: Philip Discussed ???Partnership in Safe Discharge Planning??? document with patient/family: No Additional Information: Sw met with the pt for baseline status information and discharge planning. Pt was resting in bed when Sw arrived. Pt contributed appropriately to the conversation. Pt is independent at baseline. He uses a power w/c for mobility. Pt stated that he recently discharged from [facility] and is open to [facility] for WOC RN and OT services. Sw explained that if he were to go back to [facility]CU, he would have a copay. He reported that he cannot afford that. He is agreeable to going back home with resumption of HCRN, OT, and adding a HC Sw. He receives daily wound care services from HC. He said that he is establishing care at the [facility] clinic in [place]. Sw sent the referral to [facility] and requested increased services P: [phone] F: [phone]. Pt reports that his van and electric w/c are at the hospital, so he can drive himself home. Sw also provided him with additional [facility] resources, per his request. Sw addressed his questions and concerns. Next Steps: Sw will continue with discharge planning and will be available as needed until discharge. NATE Arreola, [facility] Inpatient Care Coordination [facility] [phone] * Frank Joy RN - 07/06/2025 10:27 AM CDTAssociated Order(s): WOUND OSTOMY CONTINENCE NURSE IP CONSULT Images from the original note were not included. [facility] Nurse Inpatient Assessment Consulted for: Right buttocks [facility] nurse follow-up plan: weekly Patient History (according to provider note(s): Srinivas Palafox is a 45 year old male H significant for quadriplegia secondary to spinal cord injury 25 years ago, infected left hip ulcer 3 years ago, recent admission for sepsis secondary to right gluteal, sacral decubitus ulcer with abscess who presented to ED with 2 days history of not feeling well, fever, chilling sensation, profuse sweating, dizziness, loss of appetite and decreased urine output while using condom catheter and being admitted as an inpatient on 07/06/2025. Assessment: Areas visualized during today's visit: Focused: Pressure Injury Location: Right IT Last photo: 07/06/25 Wound type: Pressure Injury Pressure Injury Stage: 4, present on admission Wound history/plan of care: Patient with wound starting about 2 and half months ago. Wound was debrided on 05/17/25. Patient reports wound was doing ok but had a large increase in drainage over the last week. Wound base: 95 % Granulation tissue and Fibrin, 5 % Bone Palpation of the wound bed: normal Drainage: large Description of drainage: serosanguinous Measurements (length x width x depth, in cm) 3 x 4 x 7 cm Tunneling N/A Undermining (deep in base of wound) up to 3 cm from 9-12 o'clock Periwound skin: Scar tissue Color: pink Temperature: normal Odor: none Pain: moderate Pain intervention prior to dressing change: slow and gentle cares Treatment goal: Heal and Infection control/prevention STATUS: initial assessment Supplies ordered: ordered Vashe, Mextra My PI Risk Assessment Sensory Perception: 2 - Very Limited Moisture: 2 - Very moist Activity: 2 - Chairfast Mobility: 3 - Slightly limited Nutrition: 3 - Adequate Friction/Shear: 2 - Potential problem TOTAL: 14 Treatment Plan: Right IT wound(s): Daily and prn if saturated Cleanse with Vashe Pack with Vashe moistened gauze (making sure to pack into undermining in base of wound) Cover with Metra 5x5 ([facility]#[id number]) Pressure Injury Prevention (PIP) Plan: If patient is declining pressure injury prevention interventions: Explore reason why and address patient's concerns, Educate on pressure injury risk and prevention intervention(s), If patient is still declining, document informed refusal , and Ensure Care team is aware ( provider, charge nurse, etc) Mattress: Follow bed algorithm, add Low Air Loss (Air+) mattress pump if skin is very moist or constantly moist. HOB: Maintain at or below 30 degrees, unless contraindicated Repositioning in bed: Left/right positioning; avoid supine Heels: Pillows under calves Protective Dressing: None Chair positioning: Chair cushion (#[id number]) If patient has a buttock pressure injury, or high risk for PI use chair cushion or SPS. Moisture Management: Avoid brief in bed Under Devices: Inspect skin under all medical devices during skin inspection , Ensure tubes are stabilized without tension, and Ensure patient is not lying on medical devices or equipment when repositioned Ask provider to discontinue device when no longer needed. Orders: Written RECOMMEND PRIMARY TEAM ORDER: None, at this time Education provided: importance of repositioning, plan of care, and Off-loading pressure Discussed plan of care with: Patient and Nurse Notify WOC if wound(s) deteriorate. Nursing to notify the Provider(s) and re-consult the [facility] Nurse if new skin concern. DATA: Current support surface: Standard ED cart Containment of urine/stool: Incontinence Protocol BMI: There is no height or weight on file to calculate BMI. Active diet order: Orders Placed This Encounter Regular Diet Adult Output: No intake/output data recorded. Labs: Recent Labs Lab 07/05/25 2157 HGB 13.8 WBC 9.49 Pressure injury risk assessment: Sensory Perception: 2-->very limited Moisture: 3-->occasionally moist Activity: 2-->chairfast Mobility: 2-->very limited Nutrition: 3-->adequate Friction and Shear: 2-->potential problem Mario Score: 14 Frank Joy RN CWOCN Contact Via [facility] Nurse ([place]) Dept. Office Number: [phone] * Alberto Zuniga MD - 07/06/2025 9:24 AM CDTAssociated Order(s): INFECTIOUS DISEASES IP CONSULT [facility] Infectious Disease Consultation Date of Admission: 07/05/2025 Date of Consult (When I saw the patient): 07/06/25 Assessment & Plan Srinivas Palafox is a 45 year old male who was admitted on 07/05/2025. 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 Discharged on 14 days of cefpodoxime and metronidazole. Readmitted on 07/05 for sepsis, chills, and urinary retention. Imaging with CT showing possible osteo in the ischium. Potential bladder wall thickening, concern for potential cystitis. UA grossly normal. COVID, RSV, flu negative. Patient was started on vancomycin and piperacillin/tazobactam. Wound looks grossly clean at this time without drainage or erythema. Would switch to ampicillin/sulbactam at this time. At time of discharge could switch to amoxicillin/clavulanic acid to complete a 10 day course in total. Recommendations: Discontinue vancomycin Discontinue piperacillin/tazobactam Start ampicillin/sulbactam 3g Q 6 Hrs Can switch to amoxicillin/clavulanic acid 875/125 BID at time of discharge to complete 10 day course - end date of 07/14/25 ID to follow Limited availability to see over weekend If still in hospital on 07/09 will see Alberto Zuniga MD Infectious Diseases [facility] [phone] 07/06/25 Reason for Consult Reason for consult: I was asked to evaluate this patient for sweats, chills, potential infection. Primary Care Physician Brooklynn Madsen Chief Complaint Chills, sweats History is obtained from the patient and medical records History of Present Illness Srinivas Palafox is a 45 year old male who presents with chills, sweats, lakc of appetite who presented to the ED. 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 Completed 14 days of oral antibiotics on 06/12 post debridement. Cultures were growing bacteroides and fusobacterium. Past Medical History I have reviewed this patient's medical history and updated it with pertinent information if needed. Past Medical History: Diagnosis Date History of spinal cord injury Quadriplegia (H) Past Surgical History I have reviewed this patient's surgical history and updated it with pertinent information if needed. Past Surgical History: Procedure Laterality Date IR FINE NEEDLE ASPIRATION W ULTRASOUND 06/25/2022 IRRIGATION AND DEBRIDEMENT HIP, COMBINED Left 06/04/2022 Procedure: IRRIGATION AND DEBRIDEMENT, LEFT HIP, Wound Vac Placement; Surgeon: Jose Cherry MD; Location: [facility] IRRIGATION AND DEBRIDEMENT HIP, COMBINED Left 06/08/2022 Procedure: Left hip irrigation and debridement with wound vac application x 2; Surgeon: Jose Cherry MD; Location: [facility] IRRIGATION AND DEBRIDEMENT HIP, COMBINED Left 06/11/2022 Procedure: IRRIGATION AND DEBRIDEMENT, LEFT HIP; Surgeon: Jose Cherry MD; Location: [facility] IRRIGATION AND DEBRIDEMENT TRUNK, COMBINED Right 05/17/2025 Procedure: Debridement of right gluteal abscess; Surgeon: Surendra Amato MD; Location: [facility] OPEN REDUCTION INTERNAL FIXATION HIP NAILING Left 12/21/2014 Procedure: OPEN REDUCTION INTERNAL FIXATION HIP NAILING; Surgeon: Ari Wells MD; Location: [facility] OPEN REDUCTION INTERNAL FIXATION HIP NAILING Left 03/07/2021 Procedure: TO ANTEGRADE NAILING FOR CLOSED DISPLACED SUBTROCHANTERIC FRACTURE OF LEFT FEMUR; Surgeon: Anant Camacho MD; Location: [facility] OR PICC INSERTION Left 07/20/2022 basilic 46 cm total REMOVE HARDWARE HIP NAILING Left 06/04/2022 Procedure: REMOVAL, LEFT ORTHOPEDIC NAIL, HIP; Surgeon: Jose Cherry MD; Location: [facility] REMOVE HARDWARE RODDING INTRAMEDULLARY FEMUR Left 03/07/2021 Procedure: REMOVAL OF LEFT FEMUR INTRAMEDULLARY; Surgeon: Anant Camacho MD; Location: [facility] OR Prior to Admission Medications Prior to Admission Medications Prescriptions Last Dose Informant Patient Reported? Taking? CRANBERRY PO Past Week Yes Yes Sig: Take 1 tablet by mouth daily. TURMERIC PO Past Week Yes Yes Sig: Take 1 capsule by mouth daily. UNKNOWN TO PATIENT Past Week Yes Yes Sig: Take 1 tablet by mouth daily. Patient unsure of name but thought something like Hibiscus - uses for urinary issues VITAMIN D PO Past Week Yes Yes Sig: Take 1 tablet by mouth every 7 days. Takes on Wednesday-doesn't know strength Facility-Administered Medications: None Allergies Allergies Allergen Reactions Tegaderm Transparent Dressing (Informational Only) Rash Immunization History Immunization History Administered Date(s) Administered Flu, Unspecified 06/16/2019 Historical DTP/aP 1978, 1978, 02/18/1979, 04/11/1980, 03/14/1984 Influenza Vaccine, 6+MO IM (QUADRIVALENT W/PRESERVATIVES) 09/04/2014 MMR (MMRII) 01/18/1980, 12/29/1995 OPV, trivalent, live 1978, 1978, 04/11/1980, 04/15/1984 TDAP (Adacel,Boostrix) 06/14/2024 TDAP Vaccine (Adacel) 06/12/2010 Td (Adult), Adsorbed 12/29/1995 Social History I have reviewed this patient's social history and updated it with pertinent information if needed. Srinivas Palafox reports that he quit smoking about 9 years ago. His smoking use included cigarettes. He has never used smokeless tobacco. He reports current alcohol use. He reports that he does not use drugs. Family History I have reviewed this patient's family history and updated it with pertinent information if needed. Family History Problem Relation Age of Onset Cancer Father Skin cancer Cancer Paternal Grandfather Skin Cancer Paternal Aunt 2 aunts-Skin Cancer Paternal Uncle 2 uncles-Skin Cancer Maternal Grandfather Review of Systems The 10 point Review of Systems is negative Physical Exam Temp: 98.4 ??F (36.9 ??C) Temp src: Oral BP: 134/74 Pulse: 79 Resp: 20 SpO2: 98 % O2 Device: None (Room air) Vital Signs with Ranges Temp: [97 ??F (36.1 ??C)-98.8 ??F (37.1 ??C)] 98.4 ??F (36.9 ??C) Pulse: [79-118] 79 Resp: [18-22] 20 BP: (102-134)/(58-97) 134/74 SpO2: [95 %-100 %] 98 % 0 lbs 0 oz There is no height or weight on file to calculate BMI. GENERAL APPEARANCE: awake EYES: Eyes grossly normal to inspection NECK: no adenopathy RESP: lungs clear CV: regular rates and rhythm LYMPHATICS: normal ant/post cervical and supraclavicular nodes ABDOMEN: soft, nontender MS: extremities normal SKIN: Right buttocks wound covered - opened. Wound without purulent drainage or surrounding erythema Data All laboratory and imaging data in the past 24 hours reviewed No results for input(s): CULT in the last 168 hours. Recent Labs Lab Test 03/27/20 1300 11/30/19 0906 06/19/19 1539 05/18/19 0300 05/15/19 1225 10/13/18 1424 12/31/17 0031 12/30/17 2318 12/30/17 2258 CULT >100,000 colonies/mL Citrobacter koseri * >100,000 colonies/mL Enterococcus faecalis * <10,000 colonies/mL mixed urogenital wili Susceptibility testing not routinely done 50,000 to 100,000 colonies/mL Enterococcus faecalis * <10,000 colonies/mL mixed urogenital wili No growth 10,000 to 50,000 colonies/mL Proteus mirabilis * >100,000 colonies/mL Proteus mirabilis * 10,000 to 50,000 colonies/mL mixed urogenital wili Susceptibility testing not routinely done No growth Single colony Coagulase negative Staphylococcus Susceptibility testing not routinely done * All cultures: No results for input(s): CULTURE in the last 168 hours. Blood culture: Results for orders placed or performed during the hospital encounter of 05/29/25 Blood Culture Peripheral blood (BC) Arm, Left Collection Time: 05/29/25 9:28 PM Specimen: Arm, Left; Peripheral blood (BC) Result Value Ref Range Culture No Growth Blood Culture Peripheral blood (BC) Arm, Right Collection Time: 05/29/25 8:55 PM Specimen: Arm, Right; Peripheral blood (BC) Result Value Ref Range Culture No Growth Results for orders placed or performed during the hospital encounter of 05/16/25 Blood Culture Peripheral blood (BC) Arm, Right Collection Time: 05/17/25 12:27 AM Specimen: Arm, Right; Peripheral blood (BC) Result Value Ref Range Culture No Growth Blood Culture Peripheral blood (BC) Arm, Left Collection Time: 05/16/25 11:04 PM Specimen: Arm, Left; Peripheral blood (BC) Result Value Ref Range Culture No Growth Results for orders placed or performed during the hospital encounter of 07/03/22 Blood Culture Line, venous Collection Time: 07/03/22 3:56 PM Specimen: Line, venous; Blood Result Value Ref Range Culture No Growth Blood Culture Arm, Right Collection Time: 07/03/22 3:36 PM Specimen: Arm, Right; Blood Result Value Ref Range Culture No Growth Results for orders placed or performed during the hospital encounter of 06/24/22 Blood Culture Arm, Right Collection Time: 06/29/22 8:29 PM Specimen: Arm, Right; Blood Result Value Ref Range Culture No Growth Blood Culture Arm, Left Collection Time: 06/29/22 8:29 PM Specimen: Arm, Left; Blood Result Value Ref Range Culture No Growth Results for orders placed or performed in visit on 06/16/22 Blood Culture Line, Other Collection Time: 06/16/22 2:26 PM Specimen: Line, Other; Blood Result Value Ref Range Culture No Growth Results for orders placed or performed during the hospital encounter of 05/26/22 Blood Culture Arm, Left Collection Time: 05/26/22 9:23 PM Specimen: Arm, Left; Blood Result Value Ref Range Culture No Growth Blood Culture Peripheral Blood Collection Time: 05/26/22 9:00 PM Specimen: Peripheral Blood Result Value Ref Range Culture No Growth Results for orders placed or performed during the hospital encounter of 12/30/17 Blood culture Collection Time: 12/30/17 11:18 PM Specimen: Arm, Left; Blood Left Arm Result Value Ref Range Specimen Description Blood Left Arm Special Requests Aerobic and anaerobic bottles received Culture Micro No growth Blood culture Collection Time: 12/30/17 10:50 PM Specimen: Arm, Right; Blood Right Arm Result Value Ref Range Specimen Description Blood Right Arm Special Requests Aerobic and anaerobic bottles received Culture Micro No growth Results for orders placed or performed during the hospital encounter of 12/20/14 Blood culture Collection Time: 12/20/14 8:18 PM Specimen: Blood Result Value Ref Range Specimen Description Blood Left Arm Special Requests Aerobic and anaerobic bottles received Culture Micro No growth Micro Report Status FINAL 12/26/2014 Urine culture: Results for orders placed or performed in visit on 04/24/25 Urine Culture Collection Time: 04/24/25 6:40 PM Specimen: Urine, Clean Catch Result Value Ref Range Culture >100,000 CFU/mL Klebsiella oxytoca (A) Culture 50,000-100,000 CFU/mL Streptococcus anginosus (A) Susceptibility Klebsiella oxytoca - VISHNU Ampicillin* Resistant * Intrinsically Resistant Ampicillin/ Sulbactam 16 Intermediate ug/mL Piperacillin/Tazobactam <=4 Susceptible ug/mL Cefazolin >=32 Resistant ug/mL Ceftazidime <=0.5 Susceptible ug/mL Ceftriaxone <=0.25 Susceptible ug/mL Cefepime <=0.12 Susceptible ug/mL Gentamicin <=1 Susceptible ug/mL Ciprofloxacin <=0.06 Susceptible ug/mL Levofloxacin <=0.12 Susceptible ug/mL Nitrofurantoin <=16 Susceptible ug/mL Trimethoprim/Sulfamethoxazole <=1/19 Susceptible ug/mL Results for orders placed or performed in visit on 08/10/23 Urine Culture Collection Time: 08/10/23 5:30 PM Specimen: Urine, Catheter Result Value Ref Range Culture 10,000-50,000 CFU/mL Gram negative bacilli (A) Culture 10,000-50,000 CFU/mL Gram negative bacilli (A) Culture 10,000-50,000 CFU/mL Gram negative bacilli (A) Culture 10,000-50,000 CFU/mL Gram negative bacilli (A) Results for orders placed or performed during the hospital encounter of 05/27/22 Urine Culture Collection Time: 05/30/22 8:35 AM Specimen: Urine, Marshall Catheter Result Value Ref Range Culture No Growth Results for orders placed or performed in visit on 03/18/22 Urine Culture Collection Time: 03/18/22 5:53 PM Specimen: Urine, Clean Catch Result Value Ref Range Culture >100,000 CFU/mL Mixture of urogenital wili Results for orders placed or performed in visit on 12/18/21 Urine Culture Collection Time: 12/19/21 5:37 PM Specimen: Urine, Clean Catch Result Value Ref Range Culture 10,000-50,000 CFU/mL Providencia rettgeri (A) Susceptibility Providencia rettgeri - VISHNU Ampicillin* Resistant * Intrinsically Resistant Ampicillin/ Sulbactam 4.0 Susceptible ug/mL Piperacillin/Tazobactam <=4.0 Susceptible ug/mL Cefazolin* >=64.0 Resistant ug/mL * Cefazolin VISHNU breakpoints are for the treatment of uncomplicated urinary tract infections. For the treatment of systemic infections, please contact the laboratory for additional testing. Intrinsically Resistant Ceftazidime <=1.0 Susceptible ug/mL Ceftriaxone <=1.0 Susceptible ug/mL Cefepime <=1.0 Susceptible ug/mL Gentamicin <=1.0 Susceptible ug/mL Tobramycin <=1.0 Susceptible ug/mL Ciprofloxacin <=0.25 Susceptible ug/mL Levofloxacin 0.25 Susceptible ug/mL Nitrofurantoin* 128.0 Resistant ug/mL * Intrinsically Resistant Trimethoprim/Sulfamethoxazole <=1/19 Susceptible ug/mL Results for orders placed or performed in visit on 03/27/20 Urine Culture Aerobic Bacterial Collection Time: 03/27/20 1:00 PM Specimen: Midstream Urine Result Value Ref Range Specimen Description Midstream Urine Culture Micro >100,000 colonies/mL Citrobacter koseri (A) Susceptibility Citrobacter koseri - VISHNU Cefazolin* <=4 Susceptible ug/mL * Cefazolin VISHNU breakpoints are for the treatment of uncomplicated urinary tract infections. For the treatment of systemic infections, please contact the laboratory for additional testing. Cefoxitin <=4 Susceptible ug/mL Ceftazidime <=1 Susceptible ug/mL Ceftriaxone <=1 Susceptible ug/mL Ciprofloxacin <=0.25 Susceptible ug/mL Gentamicin <=1 Susceptible ug/mL Levofloxacin <=0.12 Susceptible ug/mL Nitrofurantoin 32 Susceptible ug/mL Tobramycin <=1 Susceptible ug/mL Trimethoprim/Sulfamethoxazole <=1/19 Susceptible ug/mL Piperacillin/Tazo <=4 Susceptible ug/mL Cefepime <=1 Susceptible ug/mL Results for orders placed or performed in visit on 11/30/19 Urine Culture Aerobic Bacterial Collection Time: 11/30/19 9:06 AM Specimen: Midstream Urine Result Value Ref Range Specimen Description Midstream Urine Culture Micro >100,000 colonies/mL Enterococcus faecalis (A) Culture Micro <10,000 colonies/mL mixed urogenital wili Susceptibility testing not routinely done Susceptibility Enterococcus faecalis - VISHNU Ampicillin <=2 Susceptible ug/mL Nitrofurantoin <=16 Susceptible ug/mL Penicillin 8 Susceptible ug/mL Vancomycin 1 Susceptible ug/mL Results for orders placed or performed in visit on 06/19/19 Urine Culture Aerobic Bacterial Collection Time: 06/19/19 3:39 PM Specimen: Urine clean catch; Midstream Urine Result Value Ref Range Specimen Description Midstream Urine Culture Micro (A) 50,000 to 100,000 colonies/mL Enterococcus faecalis Culture Micro <10,000 colonies/mL mixed urogenital wili Susceptibility Enterococcus faecalis - VISHNU Ampicillin <=2 Susceptible ug/mL Nitrofurantoin <=16 Susceptible ug/mL Penicillin 4 Susceptible ug/mL Vancomycin <=0.5 Susceptible ug/mL Results for orders placed or performed during the hospital encounter of 05/18/19 Urine Culture Aerobic Bacterial Collection Time: 05/18/19 3:00 AM Specimen: Catheterized Urine Result Value Ref Range Specimen Description Catheterized Urine Special Requests Specimen received in preservative Culture Micro No growth Results for orders placed or performed in visit on 05/15/19 Urine Culture Aerobic Bacterial Collection Time: 05/15/19 12:25 PM Specimen: Midstream Urine Result Value Ref Range Specimen Description Midstream Urine Culture Micro 10,000 to 50,000 colonies/mL Proteus mirabilis (A) Susceptibility Proteus mirabilis - VISHNU Ampicillin <=2 Susceptible ug/mL Cefazolin* <=4 Susceptible ug/mL * Cefazolin VISHNU breakpoints are for the treatment of uncomplicated urinary tract infections. For the treatment of systemic infections, please contact the laboratory for additional testing. Cefoxitin <=4 Susceptible ug/mL Ceftazidime <=1 Susceptible ug/mL Ceftriaxone <=1 Susceptible ug/mL Ciprofloxacin <=0.25 Susceptible ug/mL Gentamicin <=1 Susceptible ug/mL Levofloxacin <=0.12 Susceptible ug/mL Nitrofurantoin* 128 Resistant ug/mL * Intrinsically Resistant Tobramycin <=1 Susceptible ug/mL Trimethoprim/Sulfamethoxazole <=1/ Susceptible ug/mL Ampicillin/Sulbactam <=2 Susceptible ug/mL Piperacillin/Tazo <=4 Susceptible ug/mL Cefepime <=1 Susceptible ug/mL Results for orders placed or performed in visit on 10/13/18 Urine Culture Aerobic Bacterial Collection Time: 10/13/18 2:24 PM Specimen: Catheterized Urine Result Value Ref Range Specimen Description Catheterized Urine Culture Micro >100,000 colonies/mL Proteus mirabilis (A) Susceptibility Proteus mirabilis - VISHNU Ampicillin <=2 Susceptible ug/mL Cefazolin* <=4 Susceptible ug/mL * Cefazolin VISHNU breakpoints are for the treatment of uncomplicated urinary tract infections. For the treatment of systemic infections, please contact the laboratory for additional testing. Cefoxitin <=4 Susceptible ug/mL Ceftazidime <=1 Susceptible ug/mL Ceftriaxone <=1 Susceptible ug/mL Ciprofloxacin <=0.25 Susceptible ug/mL Gentamicin <=1 Susceptible ug/mL Levofloxacin <=0.12 Susceptible ug/mL Nitrofurantoin* 256 Resistant ug/mL * Intrinsically Resistant Tobramycin <=1 Susceptible ug/mL Trimethoprim/Sulfamethoxazole <=10/22 Susceptible ug/mL Ampicillin/Sulbactam <=2 Susceptible ug/mL Piperacillin/Tazo <=4 Susceptible ug/mL Cefepime <=1 Susceptible ug/mL Results for orders placed or performed during the hospital encounter of 12/30/17 Urine Culture Aerobic Bacterial Collection Time: 12/31/17 12:31 AM Specimen: Midstream Urine Result Value Ref Range Specimen Description Midstream Urine Special Requests Specimen received in preservative Culture Micro 10,000 to 50,000 colonies/mL mixed urogenital wili Susceptibility testing not routinely done Results for orders placed or performed in visit on 10/01/17 Urine Culture Aerobic Bacterial Collection Time: 10/01/17 11:17 AM Specimen: Midstream Urine Result Value Ref Range Specimen Description Midstream Urine Culture Micro (A) >100,000 colonies/mL Providencia (Proteus) rettgeri Culture Micro (A) >100,000 colonies/mL Strain 2 Providencia (Proteus) rettgeri Susceptibility Providencia rettgeri - VISHNU Ampicillin >=32 Resistant ug/mL Cefazolin* >=64 Resistant ug/mL * Cefazolin VISHNU breakpoints are for the treatment of uncomplicated urinary tract infections. For the treatment of systemic infections, please contact the laboratory for additional testing. Cefoxitin <=4 Susceptible ug/mL Ceftazidime <=1 Susceptible ug/mL Ceftriaxone <=1 Susceptible ug/mL Ciprofloxacin 0.5 Susceptible ug/mL Gentamicin <=1 Susceptible ug/mL Levofloxacin 2 Susceptible ug/mL Nitrofurantoin 256 Resistant ug/mL Tobramycin <=1 Susceptible ug/mL Trimethoprim/Sulfamethoxazole <=1/19 Susceptible ug/mL Ampicillin/Sulbactam 4 Susceptible ug/mL Piperacillin/Tazo <=4 Susceptible ug/mL Cefepime <=1 Susceptible ug/mL Providencia rettgeri - VISHNU Ampicillin >=32 Resistant ug/mL Cefazolin* >=64 Resistant ug/mL * Cefazolin VISHNU breakpoints are for the treatment of uncomplicated urinary tract infections. For the treatment of systemic infections, please contact the laboratory for additional testing.Cefazolin VISHNU breakpoints are for the treatment of uncomplicated urinary tract infections. For the treatment of systemic infections, please contact the laboratory for additional testing. Cefoxitin <=4 Susceptible ug/mL Ceftazidime <=1 Susceptible ug/mL Ceftriaxone <=1 Susceptible ug/mL Ciprofloxacin 0.5 Susceptible ug/mL Gentamicin <=1 Susceptible ug/mL Levofloxacin 2 Susceptible ug/mL Nitrofurantoin 256 Resistant ug/mL Tobramycin <=1 Susceptible ug/mL Trimethoprim/Sulfamethoxazole <=1/19 Susceptible ug/mL Ampicillin/Sulbactam 4 Susceptible ug/mL Piperacillin/Tazo <=4 Susceptible ug/mL Cefepime <=1 Susceptible ug/mL Results for orders placed or performed in visit on 05/28/16 Urine Culture Aerobic Bacterial Collection Time: 05/28/16 9:17 AM Specimen: Urine Result Value Ref Range Specimen Description Midstream Urine Culture Micro (A) >100,000 colonies/mL Serratia marcescens 10,000 to 50,000 colonies/mL urogenital wili Susceptibility testing not routinely done Micro Report Status FINAL 05/31/2016 Organism: >100,000 colonies/mL Serratia marcescens Susceptibility >100,000 colonies/ml serratia marcescens (vishnu) - (no method available) Ampicillin >=32 Resistant ug/mL Cefazolin Value in next row ug/mL >=64 ResistantCefazolin VISHNU breakpoints are for the treatment of uncomplicated urinary tract infections. For the treatment of systemic infections, please contact the laboratory for additional testing. Cefoxitin Value in next row ug/mL >=64 ResistantCefazolin VISHNU breakpoints are for the treatment of uncomplicated urinary tract infections. For the treatment of systemic infections, please contact the laboratory for additional testing. Ceftazidime Value in next row ug/mL >=64 ResistantCefazolin VISHNU breakpoints are for the treatment of uncomplicated urinary tract infections. For the treatment of systemic infections, please contact the laboratory for additional testing. Ceftriaxone Value in next row ug/mL >=64 ResistantCefazolin VISHNU breakpoints are for the treatment of uncomplicated urinary tract infections. For the treatment of systemic infections, please contact the laboratory for additional testing. Ciprofloxacin Value in next row ug/mL >=64 ResistantCefazolin VISHNU breakpoints are for the treatment of uncomplicated urinary tract infections. For the treatment of systemic infections, please contact the laboratory for additional testing. Gentamicin Value in next row ug/mL >=64 ResistantCefazolin VISHNU breakpoints are for the treatment of uncomplicated urinary tract infections. For the treatment of systemic infections, please contact the laboratory for additional testing. Levofloxacin Value in next row ug/mL >=64 ResistantCefazolin VISHNU breakpoints are for the treatment of uncomplicated urinary tract infections. For the treatment of systemic infections, please contact the laboratory for additional testing. Nitrofurantoin Value in next row ug/mL >=64 ResistantCefazolin VISHNU breakpoints are for the treatment of uncomplicated urinary tract infections. For the treatment of systemic infections, please contact the laboratory for additional testing. Tobramycin Value in next row ug/mL >=64 ResistantCefazolin VISHNU breakpoints are for the treatment of uncomplicated urinary tract infections. For the treatment of systemic infections, please contact the laboratory for additional testing. Trimethoprim/Sulfamethoxazole Value in next row ug/mL >=64 ResistantCefazolin VISHNU breakpoints are for the treatment of uncomplicated urinary tract infections. For the treatment of systemic infections, please contact the laboratory for additional testing. Ampicillin/Sulbactam Value in next row ug/mL >=64 ResistantCefazolin VISHNU breakpoints are for the treatment of uncomplicated urinary tract infections. For the treatment of systemic infections, please contact the laboratory for additional testing. Cefepime Value in next row ug/mL >=64 ResistantCefazolin VISHNU breakpoints are for the treatment of uncomplicated urinary tract infections. For the treatment of systemic infections, please contact the laboratory for additional testing. Piperacillin/Tazo Value in next row ug/mL >=64 ResistantCefazolin VISHNU breakpoints are for the treatment of uncomplicated urinary tract infections. For the treatment of systemic infections, please contact the laboratory for additional testing. Results for orders placed or performed in visit on 04/11/15 Urine Culture Aerobic Bacterial Collection Time: 04/11/15 2:49 PM Specimen: Urine Result Value Ref Range Specimen Description Midstream Urine Culture Micro (A) 50,000 to 100,000 colonies/mL Escherichia coli 10,000 to 50,000 colonies/mL Strain 2 Escherichia coli Micro Report Status FINAL 04/15/2015 Organism: 50,000 to 100,000 colonies/mL Escherichia coli Organism: 10,000 to 50,000 colonies/mL Strain 2 Escherichia coli Susceptibility 10,000 to 50,000 colonies/ml strain 2 escherichia coli (vishnu) - (no method available) Ampicillin >=32 Resistant ug/mL Cefazolin <=4 Susceptible ug/mL Cefoxitin <=4 Susceptible ug/mL Ceftazidime <=1 Susceptible ug/mL Ceftriaxone <=1 Susceptible ug/mL Ciprofloxacin <=0.25 Susceptible ug/mL Gentamicin >=16 Resistant ug/mL Levofloxacin <=0.12 Susceptible ug/mL Nitrofurantoin <=16 Susceptible ug/mL Tobramycin 4 Susceptible ug/mL Trimethoprim/Sulfamethoxazole >=16/304 Resistant ug/mL Ampicillin/Sulbactam 4 Susceptible ug/mL Piperacillin/Tazo <=4 Susceptible ug/mL Cefepime <=1 Susceptible ug/mL 50,000 to 100,000 colonies/ml escherichia coli (vishnu) - (no method available) Ampicillin >=32 Resistant ug/mL Cefazolin <=4 Susceptible ug/mL Cefoxitin <=4 Susceptible ug/mL Ceftazidime <=1 Susceptible ug/mL Ceftriaxone <=1 Susceptible ug/mL Ciprofloxacin <=0.25 Susceptible ug/mL Gentamicin >=16 Resistant ug/mL Levofloxacin <=0.12 Susceptible ug/mL Nitrofurantoin <=16 Susceptible ug/mL Tobramycin 8 Intermediate ug/mL Trimethoprim/Sulfamethoxazole >=16/304 Resistant ug/mL Ampicillin/Sulbactam 16 Intermediate ug/mL Piperacillin/Tazo <=4 Susceptible ug/mL Cefepime <=1 Susceptible ug/mL Results for orders placed or performed during the hospital encounter of 12/20/14 Urine Culture Aerobic Bacterial Collection Time: 12/21/14 2:55 AM Result Value Ref Range Specimen Description Catheterized Urine Special Requests Specimen received in preservative Culture Micro <10,000 colonies/mL Escherichia coli (A) Micro Report Status FINAL 12/24/2014 Organism: <10,000 colonies/mL Escherichia coli Susceptibility <10,000 colonies/ml escherichia coli (vishnu) - (no method available) Ampicillin >=32 Resistant ug/mL Cefazolin 32 Resistant ug/mL Cefoxitin <=4 Susceptible ug/mL Ceftazidime <=1 Susceptible ug/mL Ceftriaxone <=1 Susceptible ug/mL Ciprofloxacin >=4 Resistant ug/mL Gentamicin >=16 Resistant ug/mL Levofloxacin >=8 Resistant ug/mL Nitrofurantoin <=16 Susceptible ug/mL Tobramycin >=16 Resistant ug/mL Trimethoprim/Sulfamethoxazole <=1/19 Susceptible ug/mL Ampicillin/Sulbactam >=32 Resistant ug/mL Piperacillin/Tazo 64 Intermediate ug/mL Cefepime <=1 Susceptible ug/mL Urine Culture Aerobic Bacterial Collection Time: 12/20/14 11:00 PM Result Value Ref Range Specimen Description Unspecified Urine Special Requests Specimen received in preservative Culture Micro >100,000 colonies/mL Escherichia coli (A) Micro Report Status FINAL 12/23/2014 Organism: >100,000 colonies/mL Escherichia coli Susceptibility >100,000 colonies/ml escherichia coli (vishnu) - (no method available) Ampicillin >=32 Resistant ug/mL Cefazolin 32 Resistant ug/mL Cefoxitin <=4 Susceptible ug/mL Ceftazidime <=1 Susceptible ug/mL Ceftriaxone <=1 Susceptible ug/mL Ciprofloxacin >=4 Resistant ug/mL Gentamicin >=16 Resistant ug/mL Levofloxacin >=8 Resistant ug/mL Nitrofurantoin <=16 Susceptible ug/mL Tobramycin >=16 Resistant ug/mL Trimethoprim/Sulfamethoxazole <=1/19 Susceptible ug/mL Ampicillin/Sulbactam >=32 Resistant ug/mL Piperacillin/Tazo 64 Intermediate ug/mL Cefepime <=1 Susceptible ug/mL Results for orders placed or performed in visit on 02/05/11 URINE CULTURE Collection Time: 02/05/11 11:05 AM Result Value Ref Range Specimen Description Midstream Urine Culture Micro >100,000 colonies/mL Citrobacter freundii Micro Report Status FINAL 02/07/2011 Susceptibility >100,000 colonies/ml citrobacter freundii (vishnu) - (no method available) Cefazolin 32 Resistant Cefoxitin >=64 Resistant Ceftriaxone <=1 Susceptible Ciprofloxacin <=0.25 Susceptible Gentamicin <=1 Susceptible Levofloxacin <=0.12 Susceptible Nitrofurantoin 32 Susceptible Tobramycin <=1 Susceptible Trimethoprim/Sulfamethoxazole <=1/19 Susceptible Results for orders placed or performed in visit on 02/15/09 Urine culture Collection Time: 02/15/09 7:46 PM Result Value Ref Range Specimen Description Catheterized Urine Culture Micro >100,000 colonies/mL Klebsiella pneumoniae Micro Report Status FINAL 02/17/2009 Susceptibility >100,000 colonies/ml klebsiella pneumoniae (vishnu) - (no method available) Ampicillin >=32 Resistant Amoxicillin/Clav Susceptible AMPICILLIN/SUBLACTAM 8 Susceptible Ceftriaxone <=1 Susceptible Cefotaxime Susceptible Cefoxitin <=4 Susceptible Cefazolin <=4 Susceptible Ciprofloxacin <=0.25 Susceptible Nitrofurantoin 128 Resistant Gentamicin <=1 Susceptible Levofloxacin <=0.12 Susceptible Piperacillin/Tazo <=4 Susceptible Trimethoprim/Sulfamethoxazole <=1/19 Susceptible Tobramycin <=1 Susceptible Results for orders placed or performed in visit on 03/19/08 Urine culture Collection Time: 03/19/08 3:35 PM Result Value Ref Range Specimen Description Midstream Urine Culture Micro >100,000 colonies/mL Proteus vulgaris Micro Report Status FINAL 03/23/2008 Susceptibility 10 to 50,000 colonies/ml escherichia coli (vishnu) - (no method available) Ampicillin 8 Susceptible Amoxicillin/Clav 4 Susceptible Ceftriaxone <=1 Susceptible Cefotaxime Deduced Susceptible Cefazolin <=4 Susceptible Ciprofloxacin <=0.25 Susceptible Nitrofurantoin 32 Susceptible Gentamicin <=1 Susceptible Levofloxacin <=0.25 Susceptible Trimethoprim/Sulfamethoxazole <=1/19 Susceptible Ticarcillin <=8 Susceptible Ticarcillin/Clav <=8 Susceptible Tobramycin <=1 Susceptible Cefuroxime Axetil 16 Intermediate >100,000 colonies/ml proteus vulgaris (vishnu) - (no method available) Ampicillin >=32 Resistant Amoxicillin/Clav 4 Susceptible Ceftriaxone <=1 Susceptible Cefotaxime Deduced Susceptible Cefazolin >=64 Resistant Ciprofloxacin <=0.25 Susceptible Nitrofurantoin 128 Resistant Gentamicin <=1 Susceptible Levofloxacin <=0.25 Susceptible Trimethoprim/Sulfamethoxazole <=1/19 Susceptible Ticarcillin <=8 Susceptible Ticarcillin/Clav <=8 Susceptible Tobramycin <=1 Susceptible Cefuroxime Sodium >=64 Resistant Cefuroxime Axetil >=64 Resistant Results for orders placed or performed in visit on 12/06/06 Urine culture Collection Time: 12/06/06 1:10 PM Result Value Ref Range Specimen Description Catheterized Urine Culture Micro >100,000 colonies/mL Staphylococcus aureus Micro Report Status FINAL [id number] Susceptibility >100,000 colonies/ml staphylococcus aureus (vishnu) - (no method available) Cefazolin <=4 Susceptible Clindamycin <=0.25 Susceptible Erythromycin 0.5 Susceptible Nitrofurantoin <=16 Susceptible Gentamicin <=0.5 Susceptible Levofloxacin >=8 Resistant Oxacillin <=0.25 Susceptible Penicillin >=0.5 Resistant Trimethoprim/Sulfamethoxazole Susceptible Comment:* See comment below * Clindamycin and Erythromycin are not routinely prescribed for isolates from the urinary tract. Vancomycin <=1 Susceptible * Viviana Connell MD - 07/06/2025 8:19 AM CDTAssociated Order(s): SURGERY GENERAL IP CONSULT General Surgery Consultation Srinivas Palafox Age: [age] year old Date of : 1980 Date of Admission: 07/05/2025 Reason for consult: Decubitus ulcer Requesting physician: Gunjan Yan Assessment and Plan: Assessment: Srinivas Palafox is a 45 year old male with a chronic decubitus wound. Patient having subjective fevers and fatigue. He underwent debridement with Dr. Amato on 05/17 and has been having excellent wound cares since then. Wound appears healthy and no indication for soft tissue debridement Comorbidities: has a past medical history of History of spinal cord injury and Quadriplegia (H). Plan: No plans for debridement from general surgery Discussed case with orthopedic colleges, no indication for bone debridment Agree with consult to infectious disease and WOC Chief Complaint: Wound History is obtained from the patient History of Present Illness: Srinivas Palafox is a 45 year old who developed worsening fatigue and subjective fevers. Denies issues with wound as noted from his wound care team. Past Medical History: has a past medical history of History of spinal cord injury and Quadriplegia (H). Past Surgical History: Past Surgical History: Procedure Laterality Date IR FINE NEEDLE ASPIRATION W ULTRASOUND 06/25/2022 IRRIGATION AND DEBRIDEMENT HIP, COMBINED Left 06/04/2022 Procedure: IRRIGATION AND DEBRIDEMENT, LEFT HIP, Wound Vac Placement; Surgeon: Jose Cherry MD; Location: [facility] IRRIGATION AND DEBRIDEMENT HIP, COMBINED Left 06/08/2022 Procedure: Left hip irrigation and debridement with wound vac application x 2; Surgeon: Jose Cherry MD; Location: [facility] IRRIGATION AND DEBRIDEMENT HIP, COMBINED Left 06/11/2022 Procedure: IRRIGATION AND DEBRIDEMENT, LEFT HIP; Surgeon: Jose Cherry MD; Location: [facility] IRRIGATION AND DEBRIDEMENT TRUNK, COMBINED Right 05/17/2025 Procedure: Debridement of right gluteal abscess; Surgeon: Surendra Amato MD; Location: [facility] OR OPEN REDUCTION INTERNAL FIXATION HIP NAILING Left 12/21/2014 Procedure: OPEN REDUCTION INTERNAL FIXATION HIP NAILING; Surgeon: Ari Wells MD; Location: [facility] OPEN REDUCTION INTERNAL FIXATION HIP NAILING Left 03/07/2021 Procedure: TO ANTEGRADE NAILING FOR CLOSED DISPLACED SUBTROCHANTERIC FRACTURE OF LEFT FEMUR; Surgeon: Anant Camacho MD; Location: [facility] OR PICC INSERTION Left 07/20/2022 basilic 46 cm total REMOVE HARDWARE HIP NAILING Left 06/04/2022 Procedure: REMOVAL, LEFT ORTHOPEDIC NAIL, HIP; Surgeon: Jose Cherry MD; Location: [facility] REMOVE HARDWARE RODDING INTRAMEDULLARY FEMUR Left 03/07/2021 Procedure: REMOVAL OF LEFT FEMUR INTRAMEDULLARY; Surgeon: Anant Camacho MD; Location: OR Social History: Social History Tobacco Use Smoking status: Former Current packs/day: 0.00 Types: Cigarettes Quit date: 04/08/2016 Years since quittin.2 Smokeless tobacco: Never Substance Use Topics Alcohol use: Yes Comment: social Family History: Family history reviewed and is not pertinent. Allergies: Allergies Allergen Reactions Tegaderm Transparent Dressing (Informational Only) Rash Medications: Current Facility-Administered Medications Medication Dose Route Frequency Provider Last Rate Last Admin acetaminophen (TYLENOL) tablet 650 mg 650 mg Oral Q4H PRN Kuldip Guerrero MD Or acetaminophen (TYLENOL) Suppository 650 mg 650 mg Rectal Q4H PRN Kuldip Guerrero MD artificial saliva (BIOTENE MT) solution 1 spray 1 spray Mouth/Throat 4x Daily Kuldip Guerrero MD baclofen (LIORESAL) tablet 20 mg 20 mg Oral TID PRN Kuldip Guerrero MD benzocaine-menthol (CHLORASEPTIC) 6-10 MG lozenge 1 lozenge 1 lozenge Buccal Q1H PRN Kuldip Guerrero MD calcium carbonate (TUMS) chewable tablet 1,000 mg 1,000 mg Oral 4x Daily PRN Kuldip Guerrero MD enoxaparin ANTICOAGULANT (LOVENOX) injection 40 mg 40 mg Subcutaneous Q24H Kuldip Guerrero MD lidocaine (LMX4) cream Topical Q1H PRN Kuldip Guerrero MD lidocaine 1 % 0.1-1 mL 0.1-1 mL Other Q1H PRN Kuldip Guerrero MD melatonin tablet 5 mg 5 mg Oral At Bedtime PRN Kuldip Guerrero MD menthol-zinc oxide (CALMOSEPTINE) 0.44-20.6 % ointment OINT Topical 4x Daily PRN Kuldip Guerrero MD miconazole (MICATIN) 2 % powder Topical BID PRN Kuldip Guerrero MD ondansetron (ZOFRAN ODT) ODT tab 4 mg 4 mg Oral Q6H PRN Kuldip Guerrero MD Or ondansetron (ZOFRAN) injection 4 mg 4 mg Intravenous Q6H PRN Kuldip Guerrero MD piperacillin-tazobactam (ZOSYN) 3.375 g vial to attach to NS 100 mL bag 3.375 g Intravenous Q6H Kuldip Guerrero MD prochlorperazine (COMPAZINE) injection 10 mg 10 mg Intravenous Q6H PRN Kuldip Guerrero MD Or prochlorperazine (COMPAZINE) tablet 10 mg 10 mg Oral Q6H PRN Kuldip Guerrero MD senna-docusate (SENOKOT-S/PERICOLACE) 8.6-50 MG per tablet 1 tablet 1 tablet Oral BID PRN Kuldip Guerrero MD Or senna-docusate (SENOKOT-S/PERICOLACE) 8.6-50 MG per tablet 2 tablet 2 tablet Oral BID PRN Kuldip Guerrero MD sodium chloride (PF) 0.9% PF flush 3 mL 3 mL Intracatheter Q8H Kuldip Guerrero MD 3 mL at 07/06/25 0451 sodium chloride (PF) 0.9% PF flush 3 mL 3 mL Intracatheter q1 min prn Kuldip Guerrero MD sodium chloride (PF) 0.9% PF flush 3 mL 3 mL Intracatheter q1 min prn Anthony Rocha MD sodium chloride (PF) 0.9% PF flush 3 mL 3 mL Intracatheter Q8H Anthony Rocha MD sodium chloride 0.9 % infusion Intravenous Continuous Kuldip Guerrero MD 100 mL/hr at 07/06/25 0616 New Bag at 07/06/25 0616 vancomycin (VANCOCIN) 1,500 mg in 0.9% NaCl 250 mL intermittent infusion 1,500 mg Intravenous Q12H Kuldip Guerrero MD wound support modular (EXPEDITE) bottle 60 mL 60 mL Oral Daily Kuldip Guerrero MD Current Outpatient Medications Medication Sig Dispense Refill acetaminophen (TYLENOL) 325 MG tablet Take 2 tablets (650 mg) by mouth every 4 hours as needed for mild pain or other (and adjunct with moderate or severe pain or per patient request). (Patient not taking: Reported on 07/05/2025) baclofen (LIORESAL) 20 MG tablet Take 1 tablet (20 mg) by mouth 3 times daily as needed for muscle spasms. (Patient not taking: Reported on 07/05/2025) 60 tablet 0 loperamide (IMODIUM) 2 MG capsule Take 1 capsule (2 mg) by mouth 4 times daily as needed for diarrhea. (Patient not taking: Reported on 07/05/2025) 30 capsule 0 multivitamin w/minerals (THERA-VIT-M) tablet Take 1 tablet by mouth daily. (Patient not taking: Reported on 07/05/2025) oxyCODONE (ROXICODONE) 5 MG tablet Take 1 tablet (5 mg) by mouth every 4 hours as needed for severepain (IF pain not managed with non-pharmacological and non- opioid interventions). (Patient not taking: Reported on 07/05/2025) 30 tablet 0 senna-docusate (SENOKOT-S/PERICOLACE) 8.6-50 MG tablet Take 1 tablet by mouth 2 times daily as needed for constipation. (Patient not taking: Reported on 07/05/2025) wound support modular (EXPEDITE) LIQD bottle Take 60 mLs by mouth daily. (Patient not taking: Reported on 07/05/2025) Current Facility-Administered Medications Medication Dose Route Frequency Provider Last Rate Last Admin artificial saliva (BIOTENE MT) solution 1 spray 1 spray Mouth/Throat 4x Daily Kuldip Guerrero MD enoxaparin ANTICOAGULANT (LOVENOX) injection 40 mg 40 mg Subcutaneous Q24H Kuldip Guerrero MD piperacillin-tazobactam (ZOSYN) 3.375 g vial to attach to NS 100 mL bag 3.375 g Intravenous Q6H Kuldip Guerrero MD sodium chloride (PF) 0.9% PF flush 3 mL 3 mL Intracatheter Q8H Kuldip Guerrero MD 3 mL at 07/06/25 0451 sodium chloride (PF) 0.9% PF flush 3 mL 3 mL Intracatheter Q8H Anthony Rocha MD vancomycin (VANCOCIN) 1,500 mg in 0.9% NaCl 250 mL intermittent infusion 1,500 mg Intravenous Q12H Kuldip Guerrero MD wound support modular (EXPEDITE) bottle 60 mL 60 mL Oral Daily Kuldip Guerrero MD Review of Systems: The 10 point review of systems is negative other than noted in the HPI. Physical Exam: BP 102/58 (BP Location: Right arm, Patient Position: Semi-Eng's) Pulse 100 Temp 98 ??F (36.7??C) (Oral) Resp 20 SpO2 98% General - Well developed, well nourished male in no apparent distress HEENT: Head normocephalic and atraumatic, pupils equal and round, conjunctivae clear, no scleral icterus, mucous membranes moist, external ears and nose normal Neck: Supple without thyromegaly or masses Lymphatic: No cervical, or supraclavicular lymphadenopathy Lungs: Clear to auscultation bilaterally Heart: regular rate and rhythm, no murmurs Abdomen: Soft, nontender Extremities: Warm without edema, 3x3x5 cm wound with large amount of exudate over chronic granulation tissue, no obvious necrosis Neurologic: nonfocal Psychiatric: Mood and affect appropriate Skin: Without lesions, rashes, or juandice Data: Lab Results Component Value Date WBC 9.49 07/05/2025 WBC 8.7 03/07/2021 Lab Results Component Value Date HGB 13.8 07/05/2025 HGB 7.9 03/09/2021 Lab Results Component Value Date PLT 587 07/05/2025 PLT 285 03/07/2021 Last Basic Metabolic Panel: Lab Results Component Value Date NA 132 07/05/2025 NA 137 03/06/2021 Lab Results Component Value Date POTASSIUM 4.2 07/05/2025 POTASSIUM 3.9 06/29/2022 POTASSIUM 3.9 03/06/2021 Lab Results Component Value Date CHLORIDE 94 07/05/2025 CHLORIDE 107 06/29/2022 CHLORIDE 106 03/06/2021 Lab Results Component Value Date FRANCISCO JAVIER 9.6 07/05/2025 FRANCISCO JAVIER 8.3 03/06/2021 Lab Results Component Value Date CO2 20 07/05/2025 CO2 23 06/29/2022 CO2 25 03/06/2021 Lab Results Component Value Date BUN 17.8 07/05/2025 BUN 16 06/29/2022 BUN 14 03/06/2021 Lab Results Component Value Date CR 0.60 07/05/2025 CR 0.57 03/08/2021 Lab Results Component Value Date GLC 111 07/05/2025 GLC 189 05/17/2025 GLC 107 06/29/2022 GLC 121 03/08/2021 Imaging: All imaging studies reviewed by me. Results for orders placed or performed during the hospital encounter of 07/05/25 CT Abdomen Pelvis w Contrast Narrative EXAM: CT ABDOMEN PELVIS W CONTRAST LOCATION: [facility] DATE: 07/05/2025 INDICATION: Abdominal pain, eval for sepsis. COMPARISON: 05/16/2025. TECHNIQUE: CT scan of the abdomen and pelvis was performed following injection of IV contrast. Multiplanar reformats were obtained. Dose reduction techniques were used. CONTRAST: 86 mL Omnipaque-350. FINDINGS: LOWER CHEST: Normal. HEPATOBILIARY: Normal. PANCREAS: Normal. SPLEEN: Normal. ADRENAL GLANDS: Normal. KIDNEYS/BLADDER: There is no hydronephrosis. The urinary bladder is very distended. There is mild diffuse urinary bladder wall thickening. BOWEL: There is a large amount of gas and stool throughout the colon. No bowel obstruction or inflammation. No free intraperitoneal gas or fluid. LYMPH NODES: Normal. VASCULATURE: Atherosclerotic calcification of the aorta and its branches. No aneurysm. PELVIC ORGANS: Normal. MUSCULOSKELETAL: There is a decubitus ulcer over the right ischium. There is sclerosis of the bone of the ischium suggesting osteomyelitis. There is a 3.7 x 1.3 cm gas and fluid collection along the ulcer tract. Postoperative change in the left femur. Impression IMPRESSION: 1. Right decubitus ulcer with possible osteomyelitis of the ischium. 2. Large amount of gas and stool throughout the colon. No bowel obstruction or inflammation. 3. Mild diffuse urinary bladder wall thickening is a nonspecific finding but can be seen with cystitis. There is no hydronephrosis. XR Chest 1 View Narrative EXAM: XR CHEST 1 VIEW LOCATION: [facility] DATE: 07/05/2025 INDICATION: Fever COMPARISON: 06/17/2022 Impression IMPRESSION: Negative chest. This note was created using voice recognition software. Undetected word substitutions or other errors may have occurred. Viviana Connell MD Time spent with the patient, reviewing the EMR, reviewing laboratory and imaging studies, more than50% of which was counseling and coordinating care: 30 minutes. documented in this encounter ED Notes * Marilee King RN - 07/06/2025 3:48 AM CDT Bed: ED30 Expected date: Expected time: Means of arrival: Comments: ED 09 * Howard Reinoso RN - 07/06/2025 2:52 AM CDT [facility] ED Nurse Handoff Report ED Chief complaint: No chief complaint on file. . ED Diagnosis: Final diagnoses: Osteomyelitis of other site, unspecified type (H) Pressure injury of sacral region, stage 4 (H) Allergies: Allergies Allergen Reactions Tegaderm Transparent Dressing (Informational Only) Rash Code Status: Full Code Activity level - Baseline/Home: in bed. Activity Level - Current: in bed. Lift room needed: No. Bariatric: No Log Handler Needed: No Isolation: No. Infection: Not Applicable. Respiratory status: Room air Vital Signs (within 30 minutes): Vitals: 07/05/25 2345 07/06/25 0000 07/06/25 0015 07/06/25 0030 BP: 119/76 (!) 123/90 (!) 133/92 (!) 118/97 Pulse: 98 99 88 97 Resp: Temp: TempSrc: SpO2: 96% 95% 97% Cardiac Rhythm: , Pain level: Patient confused: No. Patient Falls Risk: mobility aid in reach. Elimination Status: Has voided Patient Report - Initial Complaint: Chills. Focused Assessment: Srinivas Palafox is a 45 year old male with a history of a spinal cord injury and sepsis who presents to the ED for evaluation of chills and urinary retention. The patient reportsthat two days ago he began to feel unwell. He states that yesterday he developed an onset of chills, profuse sweating, abdominal pain, dizziness, loss of appetite, and urinary retention, prompting his visit to the ED today. Of note, the patient uses a condom catheter at home. He has had no urinary output even when using the catheter. The patient denies rashes, irregular bowel movements, nausea, vomiting, and shortness of breath. He has not had any complications with his decubital ulcer. Abnormal Results: Labs Ordered and Resulted from Time of ED Arrival to Time of ED Departure BASIC METABOLIC PANEL (LIMITED OCCURRENCES) - Abnormal Result Value Sodium 132 (*) Potassium 4.2 Chloride 94 (*) Carbon Dioxide (CO2) 20 (*) Anion Gap 18 (*) Urea Nitrogen 17.8 Creatinine 0.60 (*) GFR Estimate >90 Calcium 9.6 Glucose 111 (*) CBC WITH PLATELETS AND DIFFERENTIAL - Abnormal WBC Count 9.49 RBC Count 4.83 Hemoglobin 13.8 Hematocrit 39.7 (*) MCV 82.2 MCH 28.6 MCHC 34.8 RDW 15.2 (*) Platelet Count 587 (*) % Neutrophils 70.8 % Lymphocytes 16.0 % Monocytes 11.3 % Eosinophils 0.9 % Basophils 0.6 % Immature Granulocytes 0.4 NRBCs per 100 WBC 0.0 Absolute Neutrophils 6.71 Absolute Lymphocytes 1.52 Absolute Monocytes 1.07 Absolute Eosinophils 0.09 Absolute Basophils 0.06 Absolute Immature Granulocytes 0.04 Absolute NRBCs <0.03 ISTAT GASES LACTATE VENOUS POCT - Abnormal Lactic Acid POCT 1.6 Bicarbonate Venous POCT 23 O2 Sat, Venous POCT 87 (*) pCO2 Venous POCT 27 (*) pH Venous POCT 7.53 (*) pO2 Venous POCT 46 ROUTINE UA WITH MICROSCOPIC REFLEX TO CULTURE - Abnormal Color Urine Yellow Appearance Urine Clear Glucose Urine Negative Bilirubin Urine Negative Ketones Urine Negative Specific [place]seley Urine 1.005 Blood Urine Negative pH Urine 6.5 Protein Albumin Urine 30 (*) Urobilinogen Urine Normal Nitrite Urine Negative Leukocyte Esterase Urine Negative Bacteria Urine Few (*) Mucus Urine Present (*) RBC Urine 2 WBC Urine 1 Squamous Epithelials Urine <1 ERYTHROCYTE SEDIMENTATION RATE AUTO - Abnormal Erythrocyte Sedimentation Rate 64 (*) CRP INFLAMMATION - Abnormal CRP Inflammation 157.08 (*) PROCALCITONIN - Normal Procalcitonin 0.09 INFLUENZA A/B, RSV AND SARS-COV2 PCR - Normal Influenza A PCR Negative Influenza B PCR Negative RSV PCR Negative SARS CoV2 PCR Negative BLOOD CULTURE BLOOD CULTURE XR Chest 1 View Final Result IMPRESSION: Negative chest. CT Abdomen Pelvis w Contrast Final Result IMPRESSION: 1. Right decubitus ulcer with possible osteomyelitis of the ischium. 2. Large amount of gas and stool throughout the colon. No bowel obstruction or inflammation. 3. Mild diffuse urinary bladder wall thickening is a nonspecific finding but can be seen with cystitis. There is no hydronephrosis. Treatments provided: IVF, IV Antibiotics Family Comments: NA OBS brochure/video discussed/provided to patient: N/A ED Medications: Medications sodium chloride (PF) 0.9% PF flush 3 mL (has no administration in time range) sodium chloride (PF) 0.9% PF flush 3 mL (has no administration in time range) piperacillin-tazobactam (ZOSYN) 4.5 g vial to attach to NS 100 mL bag (has no administration in time range) sodium chloride 0.9% BOLUS 1,000 mL (0 mLs Intravenous Stopped 07/06/25 0151) Followed by sodium chloride 0.9% BOLUS 1,000 mL (0 mLs Intravenous Stopped 07/06/25 0151) Followed by sodium chloride 0.9% BOLUS 250 mL (0 mLs Intravenous Stopped 07/06/25 0151) sodium chloride 0.9 % bag for CT scan flush (61 mLs Intravenous $Given 07/05/25 2313) iohexol (OMNIPAQUE) 350 MG/ML injectable solution 500 mL (86 mLs Intravenous $Given 07/05/25 2312) Drips infusing: No For the majority of the shift this patient was Green. Interventions performed were NA. Sepsis treatment initiated: No Cares/treatment/interventions/medications to be completed following ED care: IV Antibiotic, See Admit Orders ED Nurse Name: Howard Reinoso RN 2:53 AM * Bethany Gerber RN - 07/06/2025 2:17 AM CDT Bed: ED09 Expected date: Expected time: Means of arrival: Comments: ED36 * Anthony Rocha MD - 07/05/2025 10:48 PM CDT Emergency Department Note History of Present Illness Chief Complaint Chills and Urinary Retention HPI Srinivas Palafox is a 45 year old male with a history of a spinal cord injury and sepsis who presents to the ED for evaluation of chills and urinary retention. The patient reports that two days ago he began to feel unwell. He states that yesterday he developed an onset of chills, profuse sweating, a bdominal pain, dizziness, loss of appetite, and urinary retention, prompting his visit to the ED today. Of note, the patient uses a condom catheter at home. He has had no urinary output even when using the catheter. The patient denies rashes, irregular bowel movements, nausea, vomiting, and shortness of breath. He has not had any complications with his decubital ulcer. Independent Historian None Review of External Notes 06/06 discharge summary for osteo. Past Medical History Medical History and Problem List Quadriplegia Spinal cord injury Decubital ulcer Osteomyelitis Sepsis Thigh abscess Ureteral catheter Medications The patient is currently on no regular medications. Surgical History Left Hip ORIF Left Femur ORIF Hardware Removal, Left Hip and Femur PICC Insertion Fine Needle Aspiration Physical Exam Patient Vitals for the past 24 hrs: BP Temp Temp src Pulse Resp SpO2 07/06/25 0030 (!) 118/97 -- -- 97 -- -- 07/06/25 0015 (!) 133/92 -- -- 88 -- 97 % 07/06/25 0000 (!) 123/90 -- -- 99 -- 95 % 07/05/25 2345 119/76 -- -- 98 -- 96 % 07/05/25 2330 113/80 -- -- 102 -- 97 % 07/05/254 (!) 105/95 97 ??F (36.1 ??C) Temporal 118 22 100 % 07/05/253 (!) 105/95 -- -- 118 22 -- Physical Exam Constitutional: General: He is not in acute distress. Appearance: Normal appearance. He is diaphoretic. He is not ill-appearing. HENT: Head: Normocephalic and atraumatic. Nose: Nose normal. No congestion. Mouth/Throat: Mouth: Mucous membranes are moist. Pharynx: Oropharynx is clear. Eyes: Extraocular Movements: Extraocular movements intact. Conjunctiva/sclera: Conjunctivae normal. Pupils: Pupils are equal, round, and reactive to light. Cardiovascular: Rate and Rhythm: Normal rate and regular rhythm. Pulses: Normal pulses. Heart sounds: Normal heart sounds. No murmur heard. Pulmonary: Effort: Pulmonary effort is normal. No respiratory distress. Breath sounds: Normal breath sounds. No wheezing. Abdominal: General: Abdomen is flat. Bowel sounds are normal. Tenderness: There is no abdominal tenderness. There is no guarding or rebound. Musculoskeletal: General: No swelling or tenderness. Normal range of motion. Cervical back: Normal range of motion. No rigidity. Right lower leg: No edema. Left lower leg: No edema. Skin: General: Skin is warm. Capillary Refill: Capillary refill takes less than 2 seconds. Findings: No erythema or lesion. Comments: Right sacral decubitus ulcer similar to previous photos is >5cm deep, has packing in place no purulent drainage Neurological: General: No focal deficit present. Mental Status: He is alert and oriented to person, place, and time. Cranial Nerves: No cranial nerve deficit. Motor: No weakness. Diagnostics Lab Results Labs Ordered and Resulted from Time of ED Arrival to Time of ED Departure BASIC METABOLIC PANEL (LIMITED OCCURRENCES) - Abnormal Result Value Sodium 132 (*) Potassium 4.2 Chloride 94 (*) Carbon Dioxide (CO2) 20 (*) Anion Gap 18 (*) Urea Nitrogen 17.8 Creatinine 0.60 (*) GFR Estimate >90 Calcium 9.6 Glucose 111 (*) CBC WITH PLATELETS AND DIFFERENTIAL - Abnormal WBC Count 9.49 RBC Count 4.83 Hemoglobin 13.8 Hematocrit 39.7 (*) MCV 82.2 MCH 28.6 MCHC 34.8 RDW 15.2 (*) Platelet Count 587 (*) % Neutrophils 70.8 % Lymphocytes 16.0 % Monocytes 11.3 % Eosinophils 0.9 % Basophils 0.6 % Immature Granulocytes 0.4 NRBCs per 100 WBC 0.0 Absolute Neutrophils 6.71 Absolute Lymphocytes 1.52 Absolute Monocytes 1.07 Absolute Eosinophils 0.09 Absolute Basophils 0.06 Absolute Immature Granulocytes 0.04 Absolute NRBCs <0.03 ISTAT GASES LACTATE VENOUS POCT - Abnormal Lactic Acid POCT 1.6 Bicarbonate Venous POCT 23 O2 Sat, Venous POCT 87 (*) pCO2 Venous POCT 27 (*) pH Venous POCT 7.53 (*) pO2 Venous POCT 46 ROUTINE UA WITH MICROSCOPIC REFLEX TO CULTURE - Abnormal Color Urine Yellow Appearance Urine Clear Glucose Urine Negative Bilirubin Urine Negative Ketones Urine Negative Specific Broseley Urine 1.005 Blood Urine Negative pH Urine 6.5 Protein Albumin Urine 30 (*) Urobilinogen Urine Normal Nitrite Urine Negative Leukocyte Esterase Urine Negative Bacteria Urine Few (*) Mucus Urine Present (*) RBC Urine 2 WBC Urine 1 Squamous Epithelials Urine <1 ERYTHROCYTE SEDIMENTATION RATE AUTO - Abnormal Erythrocyte Sedimentation Rate 64 (*) CRP INFLAMMATION - Abnormal CRP Inflammation 157.08 (*) PROCALCITONIN - Normal Procalcitonin 0.09 INFLUENZA A/B, RSV AND SARS-COV2 PCR - Normal Influenza A PCR Negative Influenza B PCR Negative RSV PCR Negative SARS CoV2 PCR Negative BLOOD CULTURE BLOOD CULTURE Imaging XR Chest 1 View Final Result IMPRESSION: Negative chest. CT Abdomen Pelvis w Contrast Final Result IMPRESSION: 1. Right decubitus ulcer with possible osteomyelitis of the ischium. 2. Large amount of gas and stool throughout the colon. No bowel obstruction or inflammation. 3. Mild diffuse urinary bladder wall thickening is a nonspecific finding but can be seen with cystitis. There is no hydronephrosis. Independent Interpretation None ED Course Medications Administered Medications sodium chloride (PF) 0.9% PF flush 3 mL (has no administration in time range) sodium chloride (PF) 0.9% PF flush 3 mL (has no administration in time range) piperacillin-tazobactam (ZOSYN) 4.5 g vial to attach to NS 100 mL bag (has no administration in time range) sodium chloride 0.9% BOLUS 1,000 mL (0 mLs Intravenous Stopped 07/06/25 015) Followed by sodium chloride 0.9% BOLUS 1,000 mL (0 mLs Intravenous Stopped 07/06/25 015) Followed by sodium chloride 0.9% BOLUS 250 mL (0 mLs Intravenous Stopped 07/06/25150) sodium chloride 0.9 % bag for CT scan flush (61 mLs Intravenous $Given 07/05/252312) iohexol (OMNIPAQUE) 350 MG/ML injectable solution 500 mL (86 mLs Intravenous $Given 07/05/252311) Procedures Procedures Discussion of Management Infectious disease, Dr. Zuniga Hospitalist, Will admit ED Course ED Course as of 07/06/25 0250 Krystina Jul 05, [id number] I obtained history and examined the patient as noted above. 2232 Lactic Acid POCT: 1.6 2241 WBC: 9.49 224 Hemoglobin: 13.8 Fri Jul 06, 2025 0007 Temp: 97 ??F (36.1 ??C) 0017 06/06 discharge summary -MRI shows right ischial decubitus ulceration with associated osteomyelitis of the right ischial tuberosity with no evidence of abscess or osteonecrosis. -Consulted general surgery to evaluate the wound. Soft tissue/wound bed appears clean without necrosis. No plans for bone debridement at this time. At the very least, patient will need increased cares outside of the hospital which at this point he cannot provide for himself at home with daily dressing changes recommended by his outpatient wound care nurse. Discharged to TCU for ongoing wound care. -ID consulted, was on ceftriaxone and metronidazole but now transitioned to cefpodoxime 400 mg PO BID and metronidazole 500 mg PO BID through end of 06/12. -WOC Consulted. Per wound clinic physician: The wound appears healthy with no sign of infection. Wound bed: granulation tissue. Periwound: healthy intact skin. He has a cavitary wound over the rightischial tuberosity. I do not palpate any exposed bone at the base of the wound today. 0049 UA with Microscopic reflex to Culture(!) No evidence of UTI 0231 Unable to reach infectious disease. Will admit for observation and recommendations in the AM. Additional Documentation None Medical Decision Making / Diagnosis [facility] Diagnoses: IV Antibiotics given and/or elevated Lactate of 1.6 and no sepsis note found - Delete this reminder and enter the sepsis note or '.edcms' before signing chart.>>>None MIPS None [facility] Srinivas Palafox is a 45 year old male presenting emergency department with concerns for infection.Vitals reviewed he is mildly tachycardic on presentation to 118 bpm providers vitals otherwise stable and he is afebrile. Patient is diaphoretic on examination but otherwise well-appearing. No abdominal pain. History of UTI in the past. Denies cough. Sacral decubitus ulcer overall well- appearing. Acute differential could include urinary tract infection, viral infection, pneumonia, intra-abdominalinfection, osteomyelitis. Will obtain CT scan of his abdomen pelvis for evaluation of ongoing infection CBC CMP lactic acid reviewed overall workup. CT scan did come back positive for possible osteomyelitis which patient was just treated for in the hospital and discharged on 06/06 and continued antibiotics until 06/12. Added on CRP and sed rate for evaluation. Patient has had elevation of his CRP to157 and ESR of 64 here in the emergency department Pro-Francisco Javier is 0.09. Patient continued with cefpodoxime mean for 100 mg twice daily as well as Flagyl 500 mg twice daily through 06/12. Following up with wound care as planned, had noted improvement of the wound. will discuss care with infectious diseasegiven complex recent history and elevated inflammatory markers. I do not see evidence of sepsis with his normal lactic and normal white blood cell count. Did order fluids for resuscitation. Discussed care with hospitalist who is agreement to admit patient to inpatient status until furtherevaluation by infectious disease or surgical specialties. Will give him a dose of Zosyn as well as vancomycin in the emergency department empirically for treatment. Patient agreeable with admission. Disposition The patient was admitted to the hospital. Diagnosis ICD-10-CM 1. Osteomyelitis of other site, unspecified type (H) M86.9 2. 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 Anthony Rocha MD 07/06/25 0250 * Mayra Joseph RN - 07/05/2025 9:25 PM CDT Patient presents to ED d/t possible infection. Reports has been having symptoms of autonomic instability symptoms . Hx quadriplegia .Blood pressure upto 200's. Has been complaining of diaphoresis, chills . Denies fever. Recently discharged from TCU on Wednesday d/t decubital ulcer care . C/o dizzinesswith positional changes Denies urinary symptoms, but reported dark urine. Denies nausea, vomiting, SOB. documented in this encounter Miscellaneous Notes * Plan of Care - Swapna Salvador RN - 07/08/2025 3:23 PM CDT End of Shift Summary For vital signs and complete assessments, please see documentation flowsheets. Pertinent assessments: Pt A&Ox4. VSS on RA. Afebrile. Denies pain, N/V, SOB. Wound cares done to R IT. R lateral blister intact and receeding from outline. Pt transferring self to wheelchair. Discharge Note Patient discharged to: home Accompanied by: none Prescriptions: filled and sent with pt Belongings reviewed and sent with patient. Discharge instructions given to patient, questions answered. Problem: Adult Inpatient Plan of Care Goal: Plan of Care Review Description: The Plan of Care Review/Shift note should be completed every shift. The Outcome Evaluation is a brief statement about your assessment that the patient is improving, declining, or no change. This information will be displayed automatically on your shift note. Outcome: Met Flowsheets (Taken 07/08/2025 1523) Outcome Evaluation: afebrile, denies pain. Plan of Care Reviewed With: patient Overall Patient Progress: improving Goal: Patient-Specific Goal (Individualized) Description: You can add care plan individualizations to a care plan. Examples of Individualizationmight be: Parent requests to be called daily at 9am for status, I have a hard time hearing out of my right ear, or Do not touch me to wake me up as it startles me. Outcome: Met Goal: Absence of Hospital-Acquired Illness or Injury Outcome: Met Intervention: Identify and Manage Fall Risk Recent Flowsheet Documentation Taken 07/08/2025 09 by Swapna Salvador RN Safety Promotion/Fall Prevention: activity supervised assistive device/personal items within reach clutter free environment maintained nonskid shoes/slippers when out of bed patient and family education room near nurse's station room organization consistent safety round/check completed supervised activity Intervention: Prevent Skin Injury Recent Flowsheet Documentation Taken 07/08/2025899 by Swapna Salvador RN Body Position: position changed independently Intervention: Prevent Infection Recent Flowsheet Documentation Taken 07/08/2025899 by Swapna Salvador RN Infection Prevention: hand hygiene promoted rest/sleep promoted single patient room provided Goal: Optimal Comfort and Wellbeing Outcome: Met Goal: Readiness for Transition of Care Outcome: Met Problem: Wound Goal: Optimal Coping Outcome: Met Goal: Optimal Functional Ability Outcome: Met Goal: Absence of Infection Signs and Symptoms Outcome: Met Goal: Improved Oral Intake Outcome: Met Goal: Optimal Pain Control and Function Outcome: Met Goal: Skin Health and Integrity Outcome: Met Intervention: Optimize Skin Protection Recent Flowsheet Documentation Taken 07/08/2025899 by Swapna Salvador RN Head of Bed (HOB) Positioning: HOB at 20-30 degrees Goal: Optimal Wound Healing Outcome: Met Problem: Infection Goal: Absence of Infection Signs and Symptoms Outcome: Met Problem: Skin Injury Risk Increased Goal: Skin Health and Integrity Outcome: Met Intervention: Plan: Nurse Driven Intervention: Moisture Management Recent Flowsheet Documentation Taken 07/08/2025899 by Swapna Salvador RN Moisture Interventions: Encourage regular toileting Incontinence pad Intervention: Plan: Nurse Driven Intervention: Friction and Shear Recent Flowsheet Documentation Taken 07/08/2025899 by Swapna Salvador RN Friction/Shear Interventions: HOB 30 degrees or less Intervention: Optimize Skin Protection Recent Flowsheet Documentation Taken 07/08/2025899 by Swapna Salvador RN Head of Bed (HOB) Positioning: HOB at 20-30 degrees Goal Outcome Evaluation: Plan of Care Reviewed With: patient Overall Patient Progress: improvingOverall Patient Progress: improving Outcome Evaluation: afebrile, denies pain. * Plan of Care - Karen Muhammad RN - 07/08/2025 6:10 AM CDT End of Shift Summary For vital signs and complete assessments, please see documentation flowsheets. Pertinent assessments: Care assumed [id number]. A&O x4. VSS on RA. Denies N/V, SOB. Reporting minimal R shoulder and sacrum pain, declined intervention. Up Ax2 with lift, WC bound at baseline. Incont. Pt diaphoretic, bear hug in place. Right side back redness with weeping blister, site marked. Right sacrum wound dressing CDI, packing replaced. Tolerating a regular diet. No PIV access, MD aware. Major Shift Events: Uneventful Treatment Plan: Wound cares, pain management, Augmentin, discharge pending Bedside Nurse: Karen Muhammad RN Goal Outcome Evaluation: Overall Patient Progress: no changeOverall Patient Progress: no change Outcome Evaluation: Denies pain, PO abx Problem: Adult Inpatient Plan of Care Goal: Plan of Care Review Description: The Plan of Care Review/Shift note should be completed every shift. The Outcome Evaluation is a brief statement about your assessment that the patient is improving, declining, or no change. This information will be displayed automatically on your shift note. Outcome: Progressing Flowsheets (Taken 07/08/2025608) Outcome Evaluation: Denies pain, PO abx Overall Patient Progress: no change Goal: Patient-Specific Goal (Individualized) Description: You can add care plan individualizations to a care plan. Examples of Individualizationmight be: Parent requests to be called daily at 9am for status, I have a hard time hearing out of my right ear, or Do not touch me to wake me up as it startles me. Outcome: Progressing Goal: Absence of Hospital-Acquired Illness or Injury Outcome: Progressing Intervention: Identify and Manage Fall Risk Recent Flowsheet Documentation Taken 07/08/2025244 by Karen Muhammad RN Safety Promotion/Fall Prevention: activity supervised assistive device/personal items within reach clutter free environment maintained nonskid shoes/slippers when out of bed patient and family education room near nurse's station room organization consistent safety round/check completed supervised activity Intervention: Prevent Skin Injury Recent Flowsheet Documentation Taken 07/08/2025244 by Karen Muhammad RN Body Position: position changed independently Skin Protection: adhesive use limited incontinence pads utilized Intervention: Prevent and Manage VTE (Venous Thromboembolism) Risk Recent Flowsheet Documentation Taken 07/08/2025244 by Karen Muhammad RN VTE Prevention/Management: SCDs off (sequential compression devices) Intervention: Prevent Infection Recent Flowsheet Documentation Taken 07/08/2025244 by Karen Muhammad RN Infection Prevention: cohorting utilized hand hygiene promoted rest/sleep promoted single patient room provided Goal: Optimal Comfort and Wellbeing Outcome: Progressing Intervention: Monitor Pain and Promote Comfort Recent Flowsheet Documentation Taken 07/08/2025244 by Karen Muhammad RN Pain Management Interventions: declines Goal: Readiness for Transition of Care Outcome: Progressing Problem: Wound Goal: Optimal Coping Outcome: Progressing Intervention: Support Patient and Family Response Recent Flowsheet Documentation Taken 07/08/2025244 by Karen Muhammad RN Family/Support System Care: self-care encouraged Goal: Optimal Functional Ability Outcome: Progressing Intervention: Optimize Functional Ability Recent Flowsheet Documentation Taken 07/08/2025244 by Karen Muhammad RN Assistive Device Utilized: lift device Activity Management: activity adjusted per tolerance Activity Assistance Provided: assistance, 1 person Goal: Absence of Infection Signs and Symptoms Outcome: Progressing Goal: Improved Oral Intake Outcome: Progressing Intervention: Promote and Optimize Oral Intake Recent Flowsheet Documentation Taken 07/08/2025244 by Karen Muhammad RN Oral Nutrition Promotion: rest periods promoted Goal: Optimal Pain Control and Function Outcome: Progressing Intervention: Prevent or Manage Pain Recent Flowsheet Documentation Taken 07/08/2025244 by Karen Muhammad RN Pain Management Interventions: declines Sleep/Rest Enhancement: awakenings minimized consistent schedule promoted noise level reduced regular sleep/rest pattern promoted room darkened Goal: Skin Health and Integrity Outcome: Progressing Intervention: Optimize Skin Protection Recent Flowsheet Documentation Taken 07/08/2025244 by Karen Muhammad RN Pressure Reduction Devices: positioning supports utilized Activity Management: activity adjusted per tolerance Head of Bed (HOB) Positioning: HOB at 20-30 degrees Goal: Optimal Wound Healing Outcome: Progressing Intervention: Promote Wound Healing Recent Flowsheet Documentation Taken 07/08/2025244 by Karen Muhammad RN Sleep/Rest Enhancement: awakenings minimized consistent schedule promoted noise level reduced regular sleep/rest pattern promoted room darkened Problem: Infection Goal: Absence of Infection Signs and Symptoms Outcome: Progressing Problem: Skin Injury Risk Increased Goal: Skin Health and Integrity Outcome: Progressing Intervention: Plan: Nurse Driven Intervention: Positioning Recent Flowsheet Documentation Taken 07/08/2025244 by Karen Muhammad RN Plan: Positioning Interventions: REPOSITION Left/Right (No supine) q2h HOB 30 degrees or less Intervention: Plan: Nurse Driven Intervention: Moisture Management Recent Flowsheet Documentation Taken 07/08/2025244 by Karen Muhammad RN Moisture Interventions: Encourage regular toileting Incontinence pad Intervention: Plan: Nurse Driven Intervention: Friction and Shear Recent Flowsheet Documentation Taken 07/08/2025244 by Karen Muhammad RN Friction/Shear Interventions: HOB 30 degrees or less Intervention: Optimize Skin Protection Recent Flowsheet Documentation Taken 07/08/2025244 by Karen Muhammad RN Pressure Reduction Devices: positioning supports utilized Skin Protection: adhesive use limited incontinence pads utilized Activity Management: activity adjusted per tolerance Head of Bed (HOB) Positioning: HOB at 20-30 degrees Intervention: Promote and Optimize Oral Intake Recent Flowsheet Documentation Taken 07/08/2025244 by Karen Muhammad RN Oral Nutrition Promotion: rest periods promoted * Plan of Care - Keith Luevano RN - 07/07/2025 10:51 PM CDT To Do: End of Shift Summary For vital signs and complete assessments, please see documentation flowsheets. Pertinent assessments: A&O x4. VSS on RA. Up Ax2 with lift, w/c at baseline. Denies n/v, SOB. PRN baclofen given for spasms. Incontinent bowel and bladder, had x1 bm. Blister on right side slightly weeping, MICHAEL. Treatment Plan: Wound cares, pain management, Augmentin, discharge 07/09 Bedside Nurse: Keith Luevano RN Problem: Adult Inpatient Plan of Care Goal: Plan of Care Review Description: The Plan of Care Review/Shift note should be completed every shift. The Outcome Evaluation is a brief statement about your assessment that the patient is improving, declining, or no change. This information will be displayed automatically on your shift note. Outcome: Progressing Flowsheets (Taken 07/07/2025 2251) Plan of Care Reviewed With: patient Overall Patient Progress: improving Goal: Patient-Specific Goal (Individualized) Description: You can add care plan individualizations to a care plan. Examples of Individualizationmight be: Parent requests to be called daily at 9am for status, I have a hard time hearing out of my right ear, or Do not touch me to wake me up as it startles me. Outcome: Progressing Goal: Absence of Hospital-Acquired Illness or Injury Outcome: Progressing Intervention: Identify and Manage Fall Risk Recent Flowsheet Documentation Taken 07/07/20251548 by Keith Luevano RN Safety Promotion/Fall Prevention: activity supervised safety round/check completed assistive device/personal items within reach Intervention: Prevent Skin Injury Recent Flowsheet Documentation Taken 07/07/20252035 by Keith Luevano RN Body Position: turned Taken 07/07/20251548 by Keith Luevano RN Body Position: position changed independently turned side-lying Intervention: Prevent and Manage VTE (Venous Thromboembolism) Risk Recent Flowsheet Documentation Taken 07/07/20251548 by Keith Luevano RN VTE Prevention/Management: SCDs off (sequential compression devices) Intervention: Prevent Infection Recent Flowsheet Documentation Taken 07/07/2025 154 by Keith Luevano RN Infection Prevention: rest/sleep promoted Goal: Optimal Comfort and Wellbeing Outcome: Progressing Goal: Readiness for Transition of Care Outcome: Progressing Problem: Wound Goal: Optimal Coping Outcome: Progressing Goal: Optimal Functional Ability Outcome: Progressing Intervention: Optimize Functional Ability Recent Flowsheet Documentation Taken 07/07/20252035 by Keith Luevano RN Activity Assistance Provided: assistance, 1 person Taken 07/07/20251548 by Keith Luevano RN Activity Assistance Provided: assistance, 1 person Goal: Absence of Infection Signs and Symptoms Outcome: Progressing Goal: Improved Oral Intake Outcome: Progressing Goal: Optimal Pain Control and Function Outcome: Progressing Goal: Skin Health and Integrity Outcome: Progressing Intervention: Optimize Skin Protection Recent Flowsheet Documentation Taken 07/07/20251548 by Keith Luevano RN Head of Bed (HOB) Positioning: HOB at 20-30 degrees Goal: Optimal Wound Healing Outcome: Progressing Problem: Infection Goal: Absence of Infection Signs and Symptoms Outcome: Progressing Problem: Skin Injury Risk Increased Goal: Skin Health and Integrity Outcome: Progressing Intervention: Plan: Nurse Driven Intervention: Moisture Management Recent Flowsheet Documentation Taken 07/07/20252035 by Keith Leuvano RN Bathing/Skin Care: incontinence care Taken 07/07/2025 1549 by Keith Luevano RN Bathing/Skin Care: incontinence care Intervention: Optimize Skin Protection Recent Flowsheet Documentation Taken 07/07/2025 1549 by Keith Luevano RN Head of Bed (HOB) Positioning: HOB at 20-30 degrees Goal Outcome Evaluation: Plan of Care Reviewed With: patient Overall Patient Progress: improving * Plan of Care - Natali Sotelo RN - 07/07/2025 2:13 PM CDT Goal Outcome Evaluation: Pertinent assessments: Pt A&O x4. VSS on RA. Up Ax2 with lift, W/C baseline. Denies N/V, SOB. Reporting minimal R shoulder and sacrum pain, declined intervention. Incont, BS active. Pt diaphoretic at times, bear hug in place. Right side back redness with blister, site marked. Right sacrum woundcares done, dressing CDI. Tolerating a regular diet. No PIV access, MD aware. Right back red with large blister, open to air. Major Shift Events: none Treatment Plan: Wound cares, pain management, Augmentin, discharge 07/09 Bedside Nurse: Natali Sotelo RN Problem: Adult Inpatient Plan of Care Goal: Plan of Care Review Description: The Plan of Care Review/Shift note should be completed every shift. The Outcome Evaluation is a brief statement about your assessment that the patient is improving, declining, or no change. This information will be displayed automatically on your shift note. Outcome: Progressing Flowsheets (Taken 07/07/2025 1413) Outcome Evaluation: no pain or nausea. Plan of Care Reviewed With: patient Overall Patient Progress: improving Goal: Patient-Specific Goal (Individualized) Description: You can add care plan individualizations to a care plan. Examples of Individualizationmight be: Parent requests to be called daily at 9am for status, I have a hard time hearing out of my right ear, or Do not touch me to wake me up as it startles me. Outcome: Progressing Goal: Absence of Hospital-Acquired Illness or Injury Outcome: Progressing Intervention: Identify and Manage Fall Risk Recent Flowsheet Documentation Taken 07/07/2025 1000 by Natali Sotelo RN Safety Promotion/Fall Prevention: activity supervised room near nurse's station safety round/check completed Intervention: Prevent Skin Injury Recent Flowsheet Documentation Taken 07/07/2025 1000 by Natali Sotelo RN Body Position: position changed independently Intervention: Prevent and Manage VTE (Venous Thromboembolism) Risk Recent Flowsheet Documentation Taken 07/07/2025 1000 by Natali Sotelo RN VTE Prevention/Management: SCDs off (sequential compression devices) Intervention: Prevent Infection Recent Flowsheet Documentation Taken 07/07/2025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 and stool throughout the colon. No bowelobstruction or inflammation. 3. Mild diffuse urinary bladder wall thickening is a nonspecific findingbut can be seen with cystitis. There is no hydronephrosis. Anthony Rocha MD IM CT ORDERABLES Final Result * Influenza A/B, RSV and SARS-CoV2 PCR (COVID-19) Nasopharyngeal (07/05/2025 10:47 PM CDT) Pathologist [facility] Influenza A PCR Negative Negative 07/05/2025 11:34 PM CDT [facility] Influenza B PCR Negative Negative 07/05/2025 11:34 PM CDT [facility] RSV PCR Negative Negative 07/05/2025 11:34 PM CDT [facility] SARS CoV2 PCR Negative Negative 07/05/2025 11:34 PM CDT LABORATORY Comment:NEGATIVE: SARS-CoV-2 (COVID-19) RNA not detected, presumed negative. Swab NASOPHARYNGEAL STRUCTURE / Unknown Non-blood Collection / Unknown 07/05/2025 10:47 PM CDT 07/05/2025 10:56 PM CDT [facility] - 07/05/2025 11:34 PM CDT Testing was performed using the Xpert Xpress CoV2/Flu/RSV Assay on the [employer] GeneXpert Instrument. This test should be ordered for the detection of SARS- CoV2, influenza, and RSV viruses in individuals with signs and symptoms of respiratory tract infection. This test is for in vitro diagnostic use under the [place] FDA for laboratories certified under CLIA to perform high or moderate complexity testing. This test has been [place] FDA cleared. A negative result does not rule out the presence of PCR inhibitors in the specimen or target RNA in concentration below the limit of detection for the assay. If only one viral target is positive but coinfection with multiple targets is suspected, the sample should be re-tested with another FDA cleared, approved, or authorized test, if coninfection would change clinical management. This test was validated by the [facility]. These laboratories are certified under the Clinical Laboratory Improvement Amendments of 1988 (CLIA-88) as qualified to perfom high complexity laboratory testing. Anthony Rocha MD LAB - MICRO GENERAL ORDERABLES F inal Result [facility] [address] Lab (1st floor, no room number) [place] [address], [facility] * Blood Culture Peripheral blood (BC) Arm, Right (07/05/2025 10:46 PM CDT) Culture No Growth 07/11/2025 2:46 AM CDT [facility] Peripheral blood (BC) STRUCTURE OF RIGHT UPPER LIMB / Unknown Venipuncture / Unknown 07/05/2025 10:46 PM CDT 07/05/2025 10:54 PM CDT Anthony Rocha MD LAB - MICRO GENERAL ORDERABLES F inal Result [facility] Inf. Diseases Diag. Lab [address] [facility], [address] [address] * Blood Culture Peripheral blood (BC) Wrist, Left (07/05/2025 10:44 PM CDT) Culture No Growth 07/11/2025 12:16 AM CDT [facility] Peripheral blood (BC) STRUCTURE OF LEFT WRIST REGION / Unknown Venipuncture / Unknown 07/05/2025 10:44 PM CDT 07/05/2025 10:49 PM CDT Narrative [facility] - 07/11/2025 12:16 AM CDT Only an Aerobic Blood Culture Bottle was collected, interpret results with caution. Anthony Rocha MD LAB - MICRO GENERAL ORDERABLES F inal Result [facility] Inf. Diseases Diag. Lab [address] [facility], [address] [address] * (ABNORMAL) iStat Gases (lactate) venous, POCT (07/05/2025 10:03 PM CDT) Lactic Acid POCT 1.6 0.7 - 2.0 mmol/L 07/05/2025 10:10 PM CDT [facility] POC Bicarbonate Venous POCT 23 21 - 28 mmol/L 07/05/2025 10:10 PM CDT [facility] POC O2 Sat, Venous POCT 87(H) 70 - 75 % 07/05/2025 10:10 PM CDT [facility] POC pCO2 Venous POCT 27(L) 40 - 50 mm Hg 07/05/2025 10:10 PM CDT [facility] POC pH Venous POCT 7.53(H) 7.32 - 7.43 07/05/2025 10:10 PM CDT [facility] POC pO2 Venous POCT 46 25 - 47 mm Hg 07/05/2025 10:10 PM CDT [facility] POC Blood, venous BLOOD SPECIMEN / Unknown 07/05/2025 10:03 PM CDT 07/05/2025 10:10 PM CDT us Anthony Rocha MD LAB - BEAKER POCT Final Result LABORATORY [facility] Lab [address] Lab (1st floor, no room number) [place] [address] * (ABNORMAL) CRP inflammation (07/05/2025 9:57 PM CDT) CRP Inflammation 157.08(H) <5.00 mg/L 07/06/2025 12:51 AM CDT [facility] Blood BLOOD SPECIMEN / Unknown Venipuncture / Unknown 07/05/2025 9:57 PM CDT 07/05/2025 10:11 PM CDT us Anthony Rocha MD LAB - BLOOD ORDERABLES Final Res ult LABORATORY [facility] Lab [address] Lab (1st floor, no room number) [place] [address] * (ABNORMAL) Erythrocyte sedimentation rate auto (07/05/2025 9:57 PM CDT) Erythrocyte Sedimentation Rate 64(H) 0 - 15 mm/hr 07/06/2025 12:54 AM CDT LABORATORY Blood BLOOD SPECIMEN / Unknown Venipuncture / Unknown 07/05/2025 9:57 PM CDT 07/05/2025 10:11 PM CDT us Anthony Rocha MD LAB - BLOOD ORDERABLES Final Res ult LABORATORY [facility] [address] [facility] Lab (1st floor, no room number) [place] [address] * Procalcitonin (07/05/2025 9:57 PM CDT) Pathologist [facility] Procalcitonin 0.09 <0.50 ng/mL 07/05/2025 11:46 PM CDT LABORATORY Comment: Interpretation and Recommendations <0.5 ng/mL: Systemic bacterial infection unlikely. Local bacterial infection is possible. 0.5-1.99 ng/mL: Systemic bacterial infection possible, but various other conditions are known to induce PCT as well. >=2.00 ng/mL: Systemic bacterial infection likely, unless other causes are known. Decision to start antibiotics should not be based on procalcitonin level alone. See Procalcitonin Guidance document for more details. [email or web address] Factors that may affect PCT levels (not all-inclusive): - Increased PCT level Severe trauma/angela Invasive surgery Cooling therapy after cardiac arrest/surgery Treatment with agents which stimulate cytokines Acute kidney injury Chronic kidney disease and end stage renal disease Acute graft vs host disease Non-specific shock causing decreased organ perfusion and/or infarction - Normal or unchanged PCT level Early in infections (if low and infection is suspected, repeating in 6-12 hours is recommended) Chronic infections (endocarditis, osteomyelitis, prosthetic device/graft infections) Localized infections (cellulitis, wound infections, intra-abdominal abscess) Note: PCT has not been extensively studied in /, pediatrics, severe immunosuppression, and cystic fibrosis. Blood BLOOD SPECIMEN / Unknown Venipuncture / Unknown 07/05/2025 9:57 PM CDT 07/05/2025 10:11 PM CDT us Anthony Rocha MD LAB - BLOOD ORDERABLES Final Res ult [facility] [address] Lab (1st floor, no room number) [place] [address] * Extra Green Top ([place] Heparin) ON ICE (07/05/2025 9:57 PM CDT) Hold Specimen [facility] 07/05/2025 11:18 PM CDT [facility] Blood STRUCTURE OF RIGHT UPPER LIMB / Unknown Venipuncture / Unknown 07/05/2025 9:57 PM CDT 07/05/2025 10:11 PM CDT us Anthony Rocha MD LAB - BLOOD ORDERABLES Final Res ult Performing Organization Address City/[facility]/ZIP Co de Phone Number [facility] Lab [address] Lab (1st floor, no room number) [place] [address], [facility] * Extra Red Top Tube (07/05/2025 9:57 PM CDT) Hold Specimen [facility] 07/05/2025 11:18 PM CDT LABORATORY Blood STRUCTURE OF RIGHT UPPER LIMB / Unknown Venipuncture / Unknown 07/05/2025 9:57 PM CDT 07/05/2025 10:11 PM CDT us Anthony Rocha MD LAB - BLOOD ORDERABLES Final Res ult [facility] Lab [address] Lab (1st floor, no room number) [place] [address] * Extra Blue Top Tube (07/05/2025 9:57 PM CDT) Hold Specimen [facility] 07/05/2025 11:18 PM CDT [facility] Blood STRUCTURE OF RIGHT UPPER LIMB / Unknown Venipuncture / Unknown 07/05/2025 9:57 PM CDT 07/05/2025 10:11 PM CDT us Anthony Rocha MD LAB - BLOOD ORDERABLES Final Res ult [facility] [address] Lab (1st floor, no room number) [place] [address] * (ABNORMAL) CBC with platelets and differential (07/05/2025 9:57 PM CDT) WBC Count 9.49 4.00 - 11.00 10e3/uL 07/05/2025 10:15 PM CDT [facility] RBC Count 4.83 4.40 - 5.90 10e6/uL 07/05/2025 10:15 PM CDT [facility] Hemoglobin 13.8 13.3 - 17.7 g/dL 07/05/2025 10:15 PM CDT [facility] Hematocrit 39.7(L) 40.0 - 53.0 % 07/05/2025 10:15 PM CDT [facility] MCV 82.2 78.0 - 100.0 fL 07/05/2025 10:15 PM CDT [facility] MCH 28.6 26.5 - 33.0 pg 07/05/2025 10:15 PM CDT [facility] MCHC 34.8 31.5 - 36.5 g/dL 07/05/2025 10:15 PM CDT [facility] RDW 15.2(H) 10.0 - 15.0 % 07/05/2025 10:15 PM CDT [facility] Platelet Count 587(H) 150 - 450 10e3/uL 07/05/2025 10:15 PM CDT [facility] % Neutrophils 70.8 % 07/05/2025 10:15 PM CDT [facility] % Lymphocytes 16.0 % 07/05/2025 10:15 PM CDT [facility] % Monocytes 11.3 % 07/05/2025 10:15 PM CDT [facility] % Eosinophils 0.9 % 07/05/2025 10:15 PM CDT [facility] % Basophils 0.6 % 07/05/2025 10:15 PM CDT [facility] % Immature Granulocytes 0.4 % 07/05/2025 10:15 PM CDT [facility] NRBCs per 100 WBC 0.0 <1.0 /100 025 10:15 PM CDT [facility] Absolute Neutrophils 6.71 1.60 - 8.30 10e3/uL 07/05/2025 10:15 PM CDT [facility] Absolute Lymphocytes 1.52 0.80 - 5.30 10e3/uL 07/05/2025 10:15 PM CDT [facility] Absolute Monocytes 1.07 0.00 - 1.30 10e3/uL 07/05/2025 10:15 PM CDT [facility] Absolute Eosinophils 0.09 0.00 - 0.70 10e3/uL 07/05/2025 10:15 PM CDT [facility] Absolute Basophils 0.06 0.00 - 0.20 10e3/uL 07/05/2025 10:15 PM CDT [facility] Absolute Immature Granulocytes 0.04 <=0.40 10e3/uL 07/05/2025 10:15 PM CDT [facility] Absolute NRBCs <0.03 10e3/uL 07/05/2025 10:15 PM CDT [facility] Blood BLOOD SPECIMEN / Unknown Venipuncture / Unknown 07/05/2025 9:57 PM CDT 07/05/2025 10:11 PM CDT us Anthony Rocha MD LAB - BLOOD ORDERABLES Final Res ult [facility] [address] Lab (1st floor, no room number) [place] [address], [facility] * (ABNORMAL) Basic Metabolic Panel (Limited Occurrences) (07/05/2025 9:57 PM CDT) Sodium 132(L) 135 - 145 mmol/L 07/05/2025 10:51 PM CDT LABORATORY Potassium 4.2 3.4 - 5.3 mmol/L 07/05/2025 10:51 PM CDT LABORATORY Chloride 94(L) 98 - 107 mmol/L 07/05/2025 10:51 PM CDT LABORATORY Carbon Dioxide (CO2) 20(L) 22 - 29 mmol/L 07/05/2025 10:51 PM CDT LABORATORY Anion Gap 18(H) 7 - 15 mmol/L 07/05/2025 10:51 PM CDT LABORATORY Urea Nitrogen 17.8 6.0 - 20.0 mg/dL 07/05/2025 10:51 PM CDT LABORATORY Creatinine 0.60(L) 0.67 - 1.17 mg/dL 07/05/2025 10:51 PM CDT LABORATORY GFR Estimate >90 >60 mL/min/1.7 3m2 07/05/2025 10:51 PM CDT LABORATORY Comment:eGFR calculated usin g 2020 CKD-EPI equation. Calcium 9.6 8.8 - 10.4 mg/dL 07/05/2025 10:51 PM CDT LABORATORY Glucose 111(H) 70 - 99 mg/dL 07/05/2025 10:51 PM CDT LABORATORY Blood BLOOD SPECIMEN / Unknown Venipuncture / Unknown 07/05/2025 9:57 PM CDT 07/05/2025 10:11 PM CDT us Anthony Rocha MD LAB - BLOOD ORDERABLES Final Res ult [facility] [address] [facility] Lab (1st floor, no room number) [place] [address], [facility] documented in this encounter Visit Diagnoses Diagnosis Osteomyelitis of other site, unspecified type (H)- Primary Osteomyelitis of other site, unspecified type (H) Pressure injury of sacral region, 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 ischial area, stage IV (H) [L89.314] documented in this encounter Admitting Diagnoses Diagnosis Osteomyelitis of other site, unspecified type (H) documented in this encounter Administered Medications Inactive Administered Medications - up to 3 most recent administrations Medication Order MAR Action Action Date Dose Rate Site 0.9% sodium chloride + KCl 20 mEq/L infusion at 75 mL/hr, Intravenous, CONTINUOUS, Starting on Wed07/06/25 at 1800, Until 07/07/25 at 0027 Restarted 07/06/2025 10:00 PM CDT 75 mL/hr $New Bag 07/06/2025 6:30 PM CDT 75 mL/hr acetaminophen (TYLENOL) Suppository 650 mg 650 mg, Rectal, EVERY 4 HOURS PRN, mild pain, and adjunct with moderate or severe pain or per patient request, Starting on Wed07/06/25 at 0429, Alternate with ibuprofen if ordered. Maximum acetaminophen dose from all sources = 75 mg/kg/day not to exceed 4 grams/day. acetaminophen (TYLENOL) tablet 650 mg 650 mg, Oral, EVERY 4 HOURS PRN, mild pain, and adjunct with moderate or severe pain or per patient request, Starting on Wed07/06/25 at 0429, Alternate with ibuprofen if ordered. Maximum acetaminophen dose from all sources = 75 mg/kg/day not to exceed 4 grams/day. amoxicillin-clavulanate (AUGMENTIN) 875-125 MG per tablet 1 tablet Routine, 1 tablet, Oral, EVERY 12 HOURS SCHEDULED, First dose on 07/07/25 at 0030, Indications: Skin and Soft Tissue InfectionIndications:Skin and Soft Tissue Infection $Given 07/08/2025 10:29 AM CDT 1 tablet $Given 07/07/2025 8:24 PM CDT 1 tablet $Given 07/07/2025 9:48 AM CDT 1 tablet ampicillin-sulbactam (UNASYN) 3 g vial to attach to NS 100 mL bag Routine, 3 g, Intravenous, EVERY 6 HOURS, First dose on Wed07/06/25 at 1210, Indications: Skin and Soft Tissue InfectionIndications:Skin and Soft Tissue Infection $New Bag 07/06/2025 6:02 PM CDT 3 g $New Bag 07/06/2025 1:07 PM CDT 3 g baclofen (LIORESAL) tablet 20 mg 20 mg, Oral, 3 TIMES DAILY PRN, muscle spasms, Starting on 07/07/25 at 2001 $Given 07/07/2025 10:15 PM CDT 20 mg enoxaparin ANTICOAGULANT (LOVENOX) injection 40 mg 40 mg, Subcutaneous, EVERY 24 HOURS, First dose on Wed07/06/25 at 0800, Contact provider if platelet count drops by 50% or more after enoxaparin initiation OR if platelet count falls below 50 x 10e3/uL $Given 07/07/2025 9:48 AM CDT 40 m g $Given 07/06/2025 10:17 AM CDT 40 mg HYDROmorphone (DILAUDID) injection 0.2 mg 0.2 mg, Intravenous, EVERY 3 HOURS PRN, severe pain, Starting on Wed07/06/25 at 1730, For 3 doses iohexol (OMNIPAQUE) 350 MG/ML injectable solution 500 mL 500 mL, Intravenous, ONCE, On Krystina 07/05/25 at 2315, For 1 dose $Given 07/05/2025 11:12 PM CDT 86 mLs naloxone (NARCAN) injection 0.2 mg 0.2 mg, Intravenous, EVERY 2 MIN PRN, opioid reversal, Starting on Wed07/06/25 at 1729, Administer intravenous route when available and notify provider when administered. For unintended sedation or respiratory depression if all of the below criteria are met: ~ respiratory rate LESS than or EQUAL to 8. ~SaO2 less than 92% and or/end-tidal CO2 is greater than 50. ~ the patient is receiving an opioid, has unintended sedations assessed as RASS (-3), and is currently not on mechanical ventilation. RASS scale moderate (-3) is movement or eye opening to voice but no eye contact. Patient Monitoring Once the patient has demonstrated a response to the naloxone, continue to monitor respiratory rate, depth, oxygen saturation and end-tidal CO2 (if available) every 15 minutes x 2, then every 30 minutes x 2, then every 1 hour x 1 after each naloxone dose. Consider transfer to ICU if patient respiratory parameters have not improved after 4 naloxone doses. naloxone (NARCAN) injection 0.2 mg 0.2 mg, Intramuscular, EVERY 2 MIN PRN, opioid reversal, Starting on Wed07/06/25 at 1729, Administer intramuscular if an intravenous route is not available and notify provider when administered. For unintended sedation or respiratory depression if all of the below criteria are met: ~ respiratory rate LESS than or EQUAL to 8. ~SaO2 less than 92% and or/end-tidal CO2 is greater than 50. ~ the patient is receiving an opioid, has unintended sedations assessed as RASS (-3), and is currently not on mechanical ventilation. RASS scale moderate (-3) is movement or eye opening to voice but no eye contact. Patient Monitoring Once the patient has demonstrated a response to the naloxone, continue to monitor respiratory rate, depth, oxygen saturation and end-tidal CO2 (if available) every 15 minutes x 2, then every 30 minutes x 2, then every 1 hour x 1 after each naloxone dose. Consider transfer to ICU if patient respiratory parameters have not improved after 4 naloxone doses. naloxone (NARCAN) injection 0.4 mg 0.4 mg, Intravenous, EVERY 2 MIN PRN, opioid reversal, Starting on Wed07/06/25 at 1729, Administer intravenous route when available and notify provider when administered. For unintended sedation or respiratory depression if all of the below criteria are met: ~ respiratory rate LESS than or EQUAL to 8. ~ SaO2 less than 92% and or/end-tidal CO2 is greater than 50. ~ the patient is receiving an opioid, has unintended sedation assessed as RASS (-4) or (-5) and patient is currently not on mechanical ventilation. RASS scale (-4) is deep sedation with no response to voice but movement or eye opening to physical stimulation. RASS scale (-5) is unarousable. Patient Monitoring Once the patient has demonstrated a response to the naloxone, continue to monitor respiratory rate, depth, oxygen saturation and end-tidal CO2 (if available) every 15 minutes x 2, then every 30 minutes x 2, then every 1 hour x 1 after each naloxone dose. Consider transfer to ICU if patient respiratory parameters have not improved after 4 naloxone doses. naloxone (NARCAN) injection 0.4 mg 0.4 mg, Intramuscular, EVERY 2 MIN PRN, opioid reversal, Starting on Wed07/06/25 at 1729, Administer intramuscular if an intravenous route is not available and notify provider when administered. For unintended sedation or respiratory depression if all of the below criteria are met: ~ respiratory rate LESS than or EQUAL to 8. ~ SaO2 less than 92% and or/end-tidal CO2 is greater than 50. ~ the patient is receiving an opioid, has unintended sedation assessed as RASS (-4) or (-5) and patient is currently not on mechanical ventilation. RASS scale (-4) is deep sedation with no response to voice but movement or eye opening to physical stimulation. RASS scale (-5) is unarousable. Patient Monitoring Once the patient has demonstrated a response to the naloxone, continue to monitor respiratory rate, depth, oxygen saturation and end-tidal CO2 (if available) every 15 minutes x 2, then every 30 minutes x 2, then every 1 hour x 1 after each naloxone dose. Consider transfer to ICU if patient respiratory parameters have not improved after 4 naloxone doses. ondansetron (ZOFRAN ODT) ODT tab 4 mg 4 mg, Oral, EVERY 6 HOURS PRN, nausea/vomiting - 1st line, Starting on Wed07/06/25 at 0429, This is Step 1 of nausea and vomiting management. If nausea not resolved in 15 minutes, go to Step 2 prochlorperazine (COMPAZINE). With dry hands, peel back foil backing and gently remove tablet. Do not push oral disintegrating tablet through foil backing. Administer immediately on tongue and oral disintegrating tablet dissolves in seconds, then swallow with saliva. Liquid not required. ondansetron (ZOFRAN) injection 4 mg 4 mg, Intravenous, EVERY 6 HOURS PRN, nausea/vomiting - 1st line, Administer over 2-5 Minutes, Starting on Wed07/06/25 at 0429, Give IF patient unable to tolerate oral medication. This is Step 1 of nausea and vomiting management. If nausea not resolved in 15 minutes, go to Step 2 prochlorperazine (COMPAZINE). oxyCODONE (ROXICODONE) tablet 5 mg 5 mg, Oral, EVERY 4 HOURS PRN, moderate pain, Starting on Wed07/06/25 at 1727 $Given 07/06/2025 5:59 PM CDT 5 mg oxyCODONE IR (ROXICODONE) 2.5 mg, oxyCODONE (ROXICODONE) 5 mg 7.5 mg, Oral, EVERY 4 HOURS PRN, severe pain, Starting on Wed07/06/25 at 1727 piperacillin-tazobactam (ZOSYN) 4.5 g vial to attach to NS 100 mL bag Routine, 4.5 g, Intravenous, ONCE, On Wed07/06/25 at 0250, For 1 dose, Lactated Ringer's solution is not compatible with piperacillin-tazobactam for injection., Indications: OsteomyelitisIndications:Osteomyelitis $New Bag 07/06/2025 3:01 AM CDT 4.5 g prochlorperazine (COMPAZINE) injection 10 mg 10 mg, Intravenous, EVERY 6 HOURS PRN, nausea/vomiting - 2nd line, Administer over 1-2 Minutes, Starting on Wed07/06/25 at 0429, IF patient unable to tolerate oral medication. This is Step 2 of nausea and vomiting management. Give if nausea not resolved 15 minutes after giving ondansetron (ZOFRAN). prochlorperazine (COMPAZINE) tablet 10 mg 10 mg, Oral, EVERY 6 HOURS PRN, nausea/vomiting - 2nd line, Starting on Wed07/06/25 at 0429, This is Step 2 of nausea and vomiting management. Give if nausea not resolved 15 minutes after giving ondansetron (ZOFRAN). senna-docusate (SENOKOT-S/PERICOLACE) 8.6-50 MG per tablet 1 tablet 1 tablet, Oral, 2 TIMES DAILY PRN, constipation, Starting on Wed07/06/25 at 0429, If no bowel movement in 24 hours, increase to 2 tablets by mouth. IF more than 1 constipation PRN medication is ordered, administer step-riley as indicated, moving to the next step ONLY if prior step ineffective. Step 1: senna-docusate (SENOKOT-S; PERICOLACE) OR bisacodyl (DULCOLAX) EC tablet Step 2: polyethylene glycol (MIRALAX/GLYCOLAX) Step 3: bisacodyl (DULCOLAX) suppository Step 4: enema Hold for loose stools. senna-docusate (SENOKOT-S/PERICOLACE) 8.6-50 MG per tablet 2 tablet 2 tablet, Oral, 2 TIMES DAILY PRN, constipation, Starting on Wed07/06/25 at 0429, IF more than 1 constipation PRN medication is ordered, administer step-riley as indicated, moving to the next step ONLY if prior step ineffective. Step 1: senna-docusate (SENOKOT-S; PERICOLACE) OR bisacodyl (DULCOLAX) EC tablet Step 2: polyethylene glycol (MIRALAX/GLYCOLAX) Step 3: bisacodyl (DULCOLAX) suppository Step 4: enema Hold for loose stools. sodium chloride (PF) 0.9% PF flush 3 mL 3 mL, Intracatheter, EVERY 1 MIN PRN, line flush, for peripheral IV flush post IV meds or to ensure patency., Starting on Krystina 07/05/25 at 2232 sodium chloride (PF) 0.9% PF flush 3 mL 3 mL, Intracatheter, EVERY 8 HOURS, First dose on Krystina 07/05/25 at 2235, And PRN, to lock peripheral IV dormant line. sodium chloride (PF) 0.9% PF flush 3 mL 3 mL, Intracatheter, EVERY 8 HOURS, First dose on Wed07/06/25 at 0430, to lock peripheral IV dormant line $Given 07/06/2025 1:07 PM CDT 3 mLs $Given 07/06/2025 4:51 AM CDT 3 mLs sodium chloride 0.9 % bag for CT scan flush Intravenous, 100 mL, ONCE, On Krystina 07/05/25 at 2315, For 1 dose, This entry is for use by Radiology to intermittently used as a flush in patients receiving a CT scan. $Given 07/05/2025 11:13 PM CDT 61 mLs sodium chloride 0.9 % infusion at 100 mL/hr, Intravenous, CONTINUOUS, With n.p.o., Starting on Wed07/06/25 at 0430, Until Wed07/06/25 at 1804, On hold since Wed07/06/2025 at 0951 until manually unheld Rate/Dose Verify 07/06/2025 7:30 AM CDT 100 mL/hr $New Bag 07/06/2025 6:16 AM CDT 100 mL/hr sodium chloride 0.9% BOLUS 1,000 mL Intravenous, 1,000 mL, ONCE, at 1,000 mL/hr, Administer over 1 Hours, On Krystina 07/05/25 at 2235, For 1 dose, Bolus 1 L at a time as rapidly as possible. Reassess for symptoms of fluid overload (hypoxia, crackles, worsening pulse ox) after each liter and notify provider with concerns. Target Volume: Multiple bags ordered for total of 2250 mL. $New Bag 07/05/2025 11:49 PM CDT 1,000 mLs 1000 mL/hr sodium chloride 0.9% BOLUS 1,000 mL Intravenous, 1,000 mL, ONCE, at 1,000 mL/hr, Administer over 1 Hours, On Krystina 07/05/25 at 2235, For 1 dose, Bolus 1 L at a time as rapidly as possible. Reassess for symptoms of fluid overload (hypoxia, crackles, worsening pulse ox) after each liter and notify provider with concerns. Target Volume: Multiple bags ordered for total of 2250 mL. $New Bag 07/05/2025 10:42 PM CDT 1,000 mLs 1000 mL/hr sodium chloride 0.9% BOLUS 250 mL Intravenous, 250 mL, ONCE, at 1,000 mL/hr, Administer over 15 Minutes, On Krystina 07/05/25 at 2235, For 1 dose, Bolus as rapidly as possible. Reassess for symptoms of fluid overload (hypoxia, crackles, worsening pulse ox) and notify provider with concerns. Target Volume: Multiple bags ordered for total of 2250 mL. $T4 Media 07/05/2025 11:50 PM CDT 250 mLs 1000 mL/hr vancomycin (VANCOCIN) 1,750 mg in 0.9% NaCl 500 mL intermittent infusion Routine, 1,750 mg (rounded from 1,815 mg = 25 mg/kg 72.6 kg), Intravenous, ONCE, On Wed07/06/25 at 0255, For 1 dose, Per Pharmacy Vancomycin Dosing Service. Infuse doses less than 1,250 mg over 1 hour. Infuse doses between 1,250 mg and less than 1,750 mg over 90 minutes. Infuse doses 1,750 mg and above over 2 hours., Indications: OsteomyelitisIndications:Osteomy elitis $New Bag 07/06/2025 4:46 AM CDT 1,750 mg wound support modular (EXPEDITE) bottle 60 mL 60 mL, Oral, DAILY, First dose on Wed07/06/25 at 0800, Oral: Administer dose directly or pour into a cup depending upon patient/resident need/preference. No mixing/diluting required. Tube Feeding: Administer dose into a cup. Mix with 30 mL of water, stir to combine/disperse. Use a syringe and infuse through feeding tube slowly. Flush with 30 mL of water before and after administration. SUPPLIED BY NUTRITION DEPARTMENT. $Given 07/07/2025 11:37 AM CDT 60 mLs $Given 07/06/2025 10:48 AM CDT 60 mLs documented in this encounter Active and Recently Administered Medications Times are shown in CDT. Scheduled Medication Order 07/06/2025 07/07/2025 07/08/2025 amoxicillin-clavulanate (AUGMENTIN) 875-125 MG per tablet 1 tablet Routine, 1 tablet, Oral, EVERY 12 HOURS SCHEDULED, First dose on Wed07/07/25 at 0030, Indications: Skin and Soft Tissue Infection 0058 ($Given - Provider: Karen Muhammad RN)0948 ($Given - Provider: Natali Sotelo RN)202 ($Given - Provider: Keith Luevano RN) 1029 ($Given - Provider: Swapna Salvador RN) ampicillin-sulbactam (UNASYN) 3 g vial to attach to NS 100 mL bag (CANCELED) Routine, 3 g, Intravenous, EVERY 6 HOURS, First dose on Wed07/06/25 at 1210, Indications: Skin and Soft Tissue Infection 1307 ($New Bag - Provider: Yojana Caceres RN)1348 (Stopped - Provider: Yojana Caceres RN)1802 ($New Bag - Provider: Natali Sotelo RN) 0039 (Canceled Entry - Provider: Karen Muhammad RN) artificial saliva (BIOTENE MT) solution 1 spray 1 spray, Mouth/Throat, 4 TIMES DAILY, First dose on Wed07/06/25 at 0800 1019 (Not Given - Provider: Yojana Caceres RN - Reason: Medication not available)1311 (Not Given - Provider: Yojana Caceres RN - Reason: Patient/family refused)1600 (Not Given - Provider: Amy Cuevas RN - Reason: Patient/family refused)202 (Not Given - Provider: Karen Muhammad RN - Reason: Patient/family refused) 1014 (Not Given - Provider: Natali Sotelo RN - Reason: Patient/family refused)1139 (Not Given - Provider: Natali Sotelo RN - Reason: Patient/family refused)1548 (Not Given - Provider: Keith Luevano RN - Reason: Patient/family refused)2026 (Not Given - Provider: Keith Luevano RN - Reason: Patient/family refused) 0733 (Not Given - Provider: Swapna Salvador RN - Reason: Patient/family refused)1200 (Not Given - Provider: Swapna Salvador RN - Reason: Patient/family refused)1600 (Not Given - Provider: Swapna Salvador RN - Reason: Patient/family refused) enoxaparin ANTICOAGULANT (LOVENOX) injection 40 mg 40 mg, Subcutaneous, EVERY 24 HOURS, First dose on Wed07/06/25 at 0800, Contact provider if platelet count drops by 50% or more after enoxaparin initiation OR if platelet count falls below 50 x 10e3/uL 1017 ($Given - Provider: Yojana Caceres RN) 0948 ($Given - Provider: Natali Sotelo RN) 1038 (Not Given - Provider: Swapna Salvador RN - Reason: Patient/family refused) piperacillin-tazobactam (ZOSYN) 4.5 g vial to attach to NS 100 mL bag (COMPLETED) Routine, 4.5 g, Intravenous, ONCE, On Wed07/06/25 at 0250, For 1 dose, Lactated Ringer's solution is not compatible with piperacillin-tazobactam for injection., Indications: Osteomyelitis 0301 ($New Bag - Provider: Howard Reinoso RN)0700 (Stopped - Provider: Yojana Caceres RN - Comment: stopped prior to shift) sodium chloride (PF) 0.9% PF flush 3 mL 3 mL, Intracatheter, EVERY 8 HOURS, First dose on Wed07/05/25 at 2235, And PRN, to lock peripheral IV dormant line. 0700 (Not Given - Provider: Yojana Caceres RN - Reason: IV Infusing)1600 (Canceled Entry - Provider: Amy Cuevas RN)2235 (Not Given - Provider: Karen Muhammad RN - Reason: Other - Comment: duplicate order) 0635 (Not Given - Provider: Karen Muhammad RN - Reason: No IV Access)1356 (Canceled Entry - Provider: Natali Sotelo RN)2143 (Not Given - Provider: Keith Luevano RN - Reason: No IV Access) 0635 (Not Given - Provider: Karen Muhammad RN - Reason: No IV Access)1435 (Not Given - Provider: Swapna Salvador RN - Reason: No IV Access) sodium chloride (PF) 0.9% PF flush 3 mL 3 mL, Intracatheter, EVERY 8 HOURS, First dose on Wed07/06/25 at 0430, to lock peripheral IV dormant line 0451 ($Given - Provider: Roopa Coyne RN)1307 ($Given - Provider: Yojana Caceres RN)202 (Not Given - Provider: Karen Muhammad RN - Reason: IV Infusing) 0430 (Not Given - Provider: Karen Muhammad RN - Reason: No IV Access)1139 (Canceled Entry - Provider: Natali Sotelo RN)2026 (Not Given - Provider: Keith Luevano RN - Reason: No IV Access) 0430 (Not Given - Provider: Karen Muhammad RN - Reason: No IV Access)1230 (Not Given - Provider: Swapna Salvador RN - Reason: No IV Access) vancomycin (VANCOCIN) 1,750 mg in 0.9% NaCl 500 mL intermittent infusion (COMPLETED) Routine, 1,750 mg (rounded from 1,815 mg = 25 mg/kg 72.6 kg), Intravenous, ONCE, On Wed07/06/25 at 0255, For 1 dose, Per Pharmacy Vancomycin Dosing Service. Infuse doses less than 1,250 mg over 1 hour. Infuse doses between 1,250 mg and less than 1,750 mg over 90 minutes. Infuse doses 1,750 mg and above over 2 hours., Indications: Osteomyelitis 0446 ($New Bag - Provider: Roopa Coyne RN)0700 (Stopped - Provider: Yojana Caceres RN) wound support modular (EXPEDITE) bottle 60 mL 60 mL, Oral, DAILY, First dose on Wed07/06/25 at 0800, Oral: Administer dose directly or pour into a cup depending upon patient/resident need/preference. No mixing/diluting required. Tube Feeding: Administer dose into a cup. Mix with 30 mL of water, stir to combine/disperse. Use a syringe and infuse through feeding tube slowly. Flush with 30 mL of water before and after administration. SUPPLIED BY NUTRITION DEPARTMENT. 1048 ($Given - Provider: Yojana Caceres RN) 1137 ($Given - Provider: Natali Sotelo RN) 0900 (Not Given - Provider: Swapna Salvador RN - Reason: Medication not available) Continuous Medication Order 07/06/2025 07/07/2025 07/08/2025 0.9% sodium chloride + KCl 20 mEq/L infusion (CANCELED) at 75 mL/hr, Intravenous, CONTINUOUS, Starting on Wed07/06/25 at 1800, Until Wed07/07/25 at 0027 1830 ($New Bag - Provider: Natali Sotelo, ZIGGY)2050 (Stopped - Provider: Karen Muhammad RN)2200 (Restarted - Provider: Karen Muhammad RN)2354 (Stopped - Provider: Karen Muhammad RN) sodium chloride 0.9 % infusion (CANCELED) at 100 mL/hr, Intravenous, CONTINUOUS, With n.p.o., Starting on Wed07/06/25 at 0430, Until Wed07/06/25 at 1804, On hold since Wed07/06/2025 at 0951 until manually unheld 0616 ($New Bag - Provider: Roopa Coyne RN)0730 (Rate/Dose Verify - Provider: Yojana Caceres RN)0951 (Held by provider - Provider: Britta Peña DO - Reason: Other)1016 (Stopped - Provider: Yojana Caceres RN)1804 (Unheld by provider - Provider: Britta Peña DO) PRN Medication Order 07/06/2025 07/07/2025 07/08/2025 acetaminophen (TYLENOL) Suppository 650 mg(Linked Group 1) 650 mg, Rectal, EVERY 4 HOURS PRN, mild pain, and adjunct with moderate or severe pain or per patient request, Starting on Wed07/06/25 at 0429, Alternate with ibuprofen if ordered. Maximum acetaminophen dose from all sources = 75 mg/kg/day not to exceed 4 grams/day. acetaminophen (TYLENOL) tablet 650 mg(Linked Group 1) 650 mg, Oral, EVERY 4 HOURS PRN, mild pain, and adjunct with moderate or severe pain or per patient request, Starting on Wed07/06/25 at 0429, Alternate with ibuprofen if ordered. Maximum acetaminophen dose from all sources = 75 mg/kg/day not to exceed 4 grams/day. baclofen (LIORESAL) tablet 20 mg 20 mg, Oral, 3 TIMES DAILY PRN, muscle spasms, Starting on Wed07/07/25 at 2001 2215 ($Given - Provider: Keith Luevano RN) benzocaine-menthol (CHLORASEPTIC) 6-10 MG lozenge 1 lozenge 1 lozenge, Buccal, EVERY 1 HOUR PRN, sore throat, without fever, Starting on Wed07/06/25 at 0429 calcium carbonate (TUMS) chewable tablet 1,000 mg 1,000 mg, Oral, 4 TIMES DAILY PRN, heartburn, Starting on Wed07/06/25 at 0429 HYDROmorphone (DILAUDID) injection 0.2 mg 0.2 mg, Intravenous, EVERY 3 HOURS PRN, severe pain, Starting on Wed07/06/25 at 1730, For 3 doses lidocaine (LMX4) cream Topical, EVERY 1 HOUR PRN, pain, with VAD insertion, Starting on Wed07/06/25 at 042, Apply at least 30 minutes prior to VAD insertion in divided doses as needed for size of site for insertion. MAX Dose: 2.5 g ( of 5 g tube) Do NOT give if patient has a history of allergy to any local anesthetic or any aaron product. Do NOT use both lidocaine intradermal/subcutaneous injection and the lidocaine cream on the same site. lidocaine 1 % 0.1-1 mL 0.1-1 mL, Other, EVERY 1 HOUR PRN, mild pain with VAD insertion, Starting on Wed07/06/25 at 0429, MAX dose 1 mL subcutaneous OR intradermal along the side of the vein in divided doses as needed for VAD insertion. Do NOT give if patient has a history of allergy to any local anesthetic or any aaron product. Do NOT use both lidocaine intradermal/subcutaneous injection and the lidocaine cream on the same site. melatonin tablet 5 mg 5 mg, Oral, AT BEDTIME PRN, sleep, Starting on Wed07/06/25 at 0429, Do not give unless at least 6 hours of uninterrupted sleep is expected. If patient has multiple medications ordered PRN sleep/insomnia, offer melatonin first. menthol-zinc oxide (CALMOSEPTINE) 0.44-20.6 % ointment OINT Topical, 4 TIMES DAILY PRN, skin protection, Starting on Wed07/06/25 at 0429, Apply pea-size amount for skin irritation. miconazole (MICATIN) 2 % powder Topical, 2 TIMES DAILY PRN, candidiasis/intertrigo, Starting on Wed07/06/25 at 042, To skin folds naloxone (NARCAN) injection 0.2 mg(Linked Group 2) 0.2 mg, Intravenous, EVERY 2 MIN PRN, opioid reversal, Starting on Wed07/06/25 at 172, Administer intravenous route when available and notify provider when administered. For unintended sedation or respiratory depression if all of the below criteria are met: ~ respiratory rate LESS than or EQUAL to 8. ~SaO2 less than 92% and or/end-tidal CO2 is greater than 50. ~ the patient is receiving an opioid, has unintended sedations assessed as RASS (-3), and is currently not on mechanical ventilation. RASS scale moderate (-3) is movement or eye opening to voice but no eye contact. Patient Monitoring Once the patient has demonstrated a response to the naloxone, continue to monitor respiratory rate, depth, oxygen saturation and end-tidal CO2 (if available) every 15 minutes x 2, then every 30 minutes x 2, then every 1 hour x 1 after each naloxone dose. Consider transfer to ICU if patient respiratory parameters have not improved after 4 naloxone doses. naloxone (NARCAN) injection 0.2 mg(Linked Group 2) 0.2 mg, Intramuscular, EVERY 2 MIN PRN, opioid reversal, Starting on Wed07/06/25 at 172, Administer intramuscular if an intravenous route is not available and notify provider when administered. For unintended sedation or respiratory depression if all of the below criteria are met: ~ respiratory rate LESS than or EQUAL to 8. ~SaO2 less than 92% and or/end-tidal CO2 is greater than 50. ~ the patient is receiving an opioid, has unintended sedations assessed as RASS (-3), and is currently not on mechanical ventilation. RASS scale moderate (-3) is movement or eye opening to voice but no eye contact. Patient Monitoring Once the patient has demonstrated a response to the naloxone, continue to monitor respiratory rate, depth, oxygen saturation and end-tidal CO2 (if available) every 15 minutes x 2, then every 30 minutes x 2, then every 1 hour x 1 after each naloxone dose. Consider transfer to ICU if patient respiratory parameters have not improved after 4 naloxone doses. naloxone (NARCAN) injection 0.4 mg(Linked Group 2) 0.4 mg, Intravenous, EVERY 2 MIN PRN, opioid reversal, Starting on Wed07/06/25 at 1729, Administer intravenous route when available and notify provider when administered. For unintended sedation or respiratory depression if all of the below criteria are met: ~ respiratory rate LESS than or EQUAL to 8. ~ SaO2 less than 92% and or/end-tidal CO2 is greater than 50. ~ the patient is receiving an opioid, has unintended sedation assessed as RASS (-4) or (-5) and patient is currently not on mechanical ventilation. RASS scale (-4) is deep sedation with no response to voice but movement or eye opening to physical stimulation. RASS scale (-5) is unarousable. Patient Monitoring Once the patient has demonstrated a response to the naloxone, continue to monitor respiratory rate, depth, oxygen saturation and end-tidal CO2 (if available) every 15 minutes x 2, then every 30 minutes x 2, then every 1 hour x 1 after each naloxone dose. Consider transfer to ICU if patient respiratory parameters have not improved after 4 naloxone doses. naloxone (NARCAN) injection 0.4 mg(Linked Group 2) 0.4 mg, Intramuscular, EVERY 2 MIN PRN, opioid reversal, Starting on Wed07/06/25 at 1729, Administer intramuscular if an intravenous route is not available and notify provider when administered. For unintended sedation or respiratory depression if all of the below criteria are met: ~ respiratory rate LESS than or EQUAL to 8. ~ SaO2 less than 92% and or/end-tidal CO2 is greater than 50. ~ the patient is receiving an opioid, has unintended sedation assessed as RASS (-4) or (-5) and patient is currently not on mechanical ventilation. RASS scale (-4) is deep sedation with no response to voice but movement or eye opening to physical stimulation. RASS scale (-5) is unarousable. Patient Monitoring Once the patient has demonstrated a response to the naloxone, continue to monitor respiratory rate, depth, oxygen saturation and end-tidal CO2 (if available) every 15 minutes x 2, then every 30 minutes x 2, then every 1 hour x 1 after each naloxone dose. Consider transfer to ICU if patient respiratory parameters have not improved after 4 naloxone doses. ondansetron (ZOFRAN ODT) ODT tab 4 mg(Linked Group 3) 4 mg, Oral, EVERY 6 HOURS PRN, nausea/vomiting - 1st line, Starting on Wed07/06/25 at 0429, This is Step 1 of nausea and vomiting management. If nausea not resolved in 15 minutes, go to Step 2 prochlorperazine (COMPAZINE). With dry hands, peel back foil backing and gently remove tablet. Do not push oral disintegrating tablet through foil backing. Administer immediately on tongue and oral disintegrating tablet dissolves in seconds, then swallow with saliva. Liquid not required. ondansetron (ZOFRAN) injection 4 mg(Linked Group 3) 4 mg, Intravenous, EVERY 6 HOURS PRN, nausea/vomiting - 1st line, Administer over 2-5 Minutes, Starting on Wed07/06/25 at 0429, Give IF patient unable to tolerate oral medication. This is Step 1 of nausea and vomiting management. If nausea not resolved in 15 minutes, go to Step 2 prochlorperazine (COMPAZINE). oxyCODONE (ROXICODONE) tablet 5 mg 5 mg, Oral, EVERY 4 HOURS PRN, moderate pain, Starting on Wed07/06/25 at 1727 1759 ($Given - Provider: Natali Sotelo RN) oxyCODONE IR (ROXICODONE) 2.5 mg, oxyCODONE (ROXICODONE) 5 mg 7.5 mg, Oral, EVERY 4 HOURS PRN, severe pain, Starting on Wed07/06/25 at 1727 1845 (Not Given - Provider: Natali Sotelo RN - Reason: Other - Comment: gave 5 mg) prochlorperazine (COMPAZINE) injection 10 mg(Linked Group 4) 10 mg, Intravenous, EVERY 6 HOURS PRN, nausea/vomiting - 2nd line, Administer over 1-2 Minutes, Starting on Wed07/06/25 at 0429, IF patient unable to tolerate oral medication. This is Step 2 of nausea and vomiting management. Give if nausea not resolved 15 minutes after giving ondansetron (ZOFRAN). prochlorperazine (COMPAZINE) tablet 10 mg(Linked Group 4) 10 mg, Oral, EVERY 6 HOURS PRN, nausea/vomiting - 2nd line, Starting on Wed07/06/25 at 0429, This is Step 2 of nausea and vomiting management. Give if nausea not resolved 15 minutes after giving ondansetron (ZOFRAN). senna-docusate (SENOKOT-S/PERICOLACE) 8.6-50 MG per tablet 1 tablet(Linked Group 5) 1 tablet, Oral, 2 TIMES DAILY PRN, constipation, Starting on Wed07/06/25 at 0429, If no bowel movement in 24 hours, increase to 2 tablets by mouth. IF more than 1 constipation PRN medication is ordered, administer step-riley as indicated, moving to the next step ONLY if prior step ineffective. Step 1: senna-docusate (SENOKOT-S; PERICOLACE) OR bisacodyl (DULCOLAX) EC tablet Step 2: polyethylene glycol (MIRALAX/GLYCOLAX) Step 3: bisacodyl (DULCOLAX) suppository Step 4: enema Hold for loose stools. senna-docusate (SENOKOT-S/PERICOLACE) 8.6-50 MG per tablet 2 tablet(Linked Group 5) 2 tablet, Oral, 2 TIMES DAILY PRN, constipation, Starting on Wed07/06/25 at 0429, IF more than 1 constipation PRN medication is ordered, administer step-riley as indicated, moving to the next step ONLY if prior step ineffective. Step 1: senna-docusate (SENOKOT-S; PERICOLACE) OR bisacodyl (DULCOLAX) EC tablet Step 2: polyethylene glycol (MIRALAX/GLYCOLAX) Step 3: bisacodyl (DULCOLAX) suppository Step 4: enema Hold for loose stools. sodium chloride (PF) 0.9% PF flush 3 mL 3 mL, Intracatheter, EVERY 1 MIN PRN, line flush, for peripheral IV flush post IV meds or to ensure patency., Starting on Wed07/05/25 at 2232 sodium chloride (PF) 0.9% PF flush 3 mL 3 mL, Intracatheter, EVERY 1 MIN PRN, line flush, other, to ensure patency or to lock dormant line, Starting on Wed07/06/25 at 0429 Linked Groups Order Group 1: acetaminophen (TYLENOL) tablet 650 mgJump to med 650 mg, Oral, EVERY 4 HOURS PRN, mild pain, and adjunct with moderate or severe pain or per patient request, Starting on Wed07/06/25 at 042, Alternate with ibuprofen if ordered. Maximum acetaminophen dose from all sources = 75 mg/kg/day not to exceed 4 grams/day. Or acetaminophen (TYLENOL) Suppository 650 mgJump to med 650 mg, Rectal, EVERY 4 HOURS PRN, mild pain, and adjunct with moderate or severe pain or per patient request, Starting on Wed07/06/25 at 042, Alternate with ibuprofen if ordered. Maximum acetaminophen dose from all sources = 75 mg/kg/day not to exceed 4 grams/day. Group 2: naloxone (NARCAN) injection 0.2 mgJump to med 0.2 mg, Intravenous, EVERY 2 MIN PRN, opioid reversal, Starting on Wed07/06/25 at 172, Administer intravenous route when available and notify provider when administered. For unintended sedation or respiratory depression if all of the below criteria are met: ~ respiratory rate LESS than or EQUAL to 8. ~SaO2 less than 92% and or/end-tidal CO2 is greater than 50. ~ the patient is receiving an opioid, has unintended sedations assessed as RASS (-3), and is currently not on mechanical ventilation. RASS scale moderate (-3) is movement or eye opening to voice but no eye contact. Patient Monitoring Once the patient has demonstrated a response to the naloxone, continue to monitor respiratory rate, depth, oxygen saturation and end-tidal CO2 (if available) every 15 minutes x 2, then every 30 minutes x 2, then every 1 hour x 1 after each naloxone dose. Consider transfer to ICU if patient respiratory parameters have not improved after 4 naloxone doses. Or naloxone (NARCAN) injection 0.4 mgJump to med 0.4 mg, Intravenous, EVERY 2 MIN PRN, opioid reversal, Starting on Wed07/06/25 at 172, Administer intravenous route when available and notify provider when administered. For unintended sedation or respiratory depression if all of the below criteria are met: ~ respiratory rate LESS than or EQUAL to 8. ~ SaO2 less than 92% and or/end-tidal CO2 is greater than 50. ~ the patient is receiving an opioid, has unintended sedation assessed as RASS (-4) or (-5) and patient is currently not on mechanical ventilation. RASS scale (-4) is deep sedation with no response to voice but movement or eye opening to physical stimulation. RASS scale (-5) is unarousable. Patient Monitoring Once the patient has demonstrated a response to the naloxone, continue to monitor respiratory rate, depth, oxygen saturation and end-tidal CO2 (if available) every 15 minutes x 2, then every 30 minutes x 2, then every 1 hour x 1 after each naloxone dose. Consider transfer to ICU if patient respiratory parameters have not improved after 4 naloxone doses. Or naloxone (NARCAN) injection 0.2 mgJump to med 0.2 mg, Intramuscular, EVERY 2 MIN PRN, opioid reversal, Starting on Wed07/06/25 at 1729, Administer intramuscular if an intravenous route is not available and notify provider when administered. For unintended sedation or respiratory depression if all of the below criteria are met: ~ respiratory rate LESS than or EQUAL to 8. ~SaO2 less than 92% and or/end-tidal CO2 is greater than 50. ~ the patient is receiving an opioid, has unintended sedations assessed as RASS (-3), and is currently not on mechanical ventilation. RASS scale moderate (-3) is movement or eye opening to voice but no eye contact. Patient Monitoring Once the patient has demonstrated a response to the naloxone, continue to monitor respiratory rate, depth, oxygen saturation and end-tidal CO2 (if available) every 15 minutes x 2, then every 30 minutes x 2, then every 1 hour x 1 after each naloxone dose. Consider transfer to ICU if patient respiratory parameters have not improved after 4 naloxone doses. Or naloxone (NARCAN) injection 0.4 mgJump to med 0.4 mg, Intramuscular, EVERY 2 MIN PRN, opioid reversal, Starting on Wed07/06/25 at 1729, Administer intramuscular if an intravenous route is not available and notify provider when administered. For unintended sedation or respiratory depression if all of the below criteria are met: ~ respiratory rate LESS than or EQUAL to 8. ~ SaO2 less than 92% and or/end-tidal CO2 is greater than 50. ~ the patient is receiving an opioid, has unintended sedation assessed as RASS (-4) or (-5) and patient is currently not on mechanical ventilation. RASS scale (-4) is deep sedation with no response to voice but movement or eye opening to physical stimulation. RASS scale (-5) is unarousable. Patient Monitoring Once the patient has demonstrated a response to the naloxone, continue to monitor respiratory rate, depth, oxygen saturation and end-tidal CO2 (if available) every 15 minutes x 2, then every 30 minutes x 2, then every 1 hour x 1 after each naloxone dose. Consider transfer to ICU if patient respiratory parameters have not improved after 4 naloxone doses. Group 3: ondansetron (ZOFRAN ODT) ODT tab 4 mgJump to med 4 mg, Oral, EVERY 6 HOURS PRN, nausea/vomiting - 1st line, Starting on Wed07/06/25 at 0429, This is Step 1 of nausea and vomiting management. If nausea not resolved in 15 minutes, go to Step 2 prochlorperazine (COMPAZINE). With dry hands, peel back foil backing and gently remove tablet. Do not push oral disintegrating tablet through foil backing. Administer immediately on tongue and oral disintegrating tablet dissolves in seconds, then swallow with saliva. Liquid not required. Or ondansetron (ZOFRAN) injection 4 mgJump to med 4 mg, Intravenous, EVERY 6 HOURS PRN, nausea/vomiting - 1st line, Administer over 2-5 Minutes, Starting on Wed07/06/25 at 0429, Give IF patient unable to tolerate oral medication. This is Step 1 of nausea and vomiting management. If nausea not resolved in 15 minutes, go to Step 2 prochlorperazine (COMPAZINE). Group 4: prochlorperazine (COMPAZINE) injection 10 mgJump to med 10 mg, Intravenous, EVERY 6 HOURS PRN, nausea/vomiting - 2nd line, Administer over 1-2 Minutes, Starting on Wed07/06/25 at 0429, IF patient unable to tolerate oral medication. This is Step 2 of nausea and vomiting management. Give if nausea not resolved 15 minutes after giving ondansetron (ZOFRAN). Or prochlorperazine (COMPAZINE) tablet 10 mgJump to med 10 mg, Oral, EVERY 6 HOURS PRN, nausea/vomiting - 2nd line, Starting on Wed07/06/25 at 0429, This is Step 2 of nausea and vomiting management. Give if nausea not resolved 15 minutes after giving ondansetron (ZOFRAN). Group 5: senna-docusate (SENOKOT-S/PERICOLACE) 8.6-50 MG per tablet 1 tabletJump to med 1 tablet, Oral, 2 TIMES DAILY PRN, constipation, Starting on Wed07/06/25 at 0429, If no bowel movement in 24 hours, increase to 2 tablets by mouth. IF more than 1 constipation PRN medication is ordered, administer step-riley as indicated, moving to the next step ONLY if prior step ineffective. Step 1: senna-docusate (SENOKOT-S; PERICOLACE) OR bisacodyl (DULCOLAX) EC tablet Step 2: polyethylene glycol (MIRALAX/GLYCOLAX) Step 3: bisacodyl (DULCOLAX) suppository Step 4: enema Hold for loose stools. Or senna-docusate (SENOKOT-S/PERICOLACE) 8.6-50 MG per tablet 2 tabletJump to med 2 tablet, Oral, 2 TIMES DAILY PRN, constipation, Starting on Wed07/06/25 at 0429, IF more than 1 constipation PRN medication is ordered, administer step-riley as indicated, moving to the next step ONLY if prior step ineffective. Step 1: senna-docusate (SENOKOT-S; PERICOLACE) OR bisacodyl (DULCOLAX) EC tablet Step 2: polyethylene glycol (MIRALAX/GLYCOLAX) Step 3: bisacodyl (DULCOLAX) suppository Step 4: enema Hold for loose stools. documented in this encounter Additional Health Concerns Infection Onset Date Last Indicated Resolved Time Rule Out COVID-19 07/05/2025 07/05/2025 07/05/2025 11:34 PM CDT documented as of this encounter Care Teams Retail Reset Merchandiser Relationship Specialty Start Date End Date Brooklynn Madsen APRN CHIEF PROJECTIONIST [id number] [address] PCP - General Family Practice 05/27/16 Helen Monterroso, RN Registered Nurse Infectious Diseases 06/25/22 Carmela Kumar APRN CHIEF PROJECTIONIST [address] [address] Assigned PCP 06/26/24 Manjit Swanson MD Pending sale to [facility] [address] Assigned Pediatric Specialist Provider 06/26/25 documented as of this encounter
--- OUTSIDE RECORDS SUMMARY | 2025-07-23 08:30 | XMS_ITS | Encounter Summary ---
Author Organization [facility] Address [address] [facility] [address] Care Team Providers Care Litharge Supervisor Name Role Phone Brooklynn Niño APRN, CNP Primary Care Provider Helen Monterroso RN Unavailable Unavailab Carmela Heath APRN, CNP Unavailable [phone] Manjit Swanson MD Unavailable [phone] Reason for Referral * Care Coordination (Routine: Next available opening) - Pending Review Specialty Diagnoses / Procedures Referred By Contac t Referred To Contact Diagnoses Quadriplegia, unspecified (H) Decubitus ulcer of right ischial area, stage IV (H) Osteomyelitis of other site, unspecified type (H) Brooklynn Niño APRN CNP [address] [place] [address] Phone: tel: fax: Referral ID Status Reason Start Date Expiration Date V isits Requested Visits Authorized [id number] Pending Review 07/23/2025 07/23/2026 1 1 Question Answer Reason for Referral: Other My Clinical Question Is: pt needs assistance scheduling with plastics and arranging a medical ride. he is wheelchair bound. currently the lift in his van is broken. are there any services available to help with repairs Clinical Staff have discussed the Care Coordination Referral with the patient and/or caregiver: Yes Comments Reason for Visit * Reason Comments Hospital F/U Encounter Details Date Type Department Care Team (Late st Contact Info) Description 07/23/2025 8:30 AM CDT Virtual Visit [facility] [address] [facility] [place] [address] Brooklynn Niño APRN BEREAVEMENT COORDINATOR [address] [place] [address] Quadriplegia following spinal cord injury (Primary Dx); Decubitus ulcer of right ischial area, stage IV (H); Osteomyelitis of other site, unspecified type (H) Social History Tobacco Use Types Packs/Day Years Used Date Smoking Tobacco: Former Cigarettes Q uit: 04/08/2016 Smokeless Tobacco: Never Alcohol Use Standard Drinks/Week Comments Yes 0 (1 standard drink = 0.6 oz pur e alcohol) social PHQ-2 Answer Date Recorded PHQ-2 Score 2 07/23/2025 Adolescent Education Answer Date Record ed Getting [...] Answer Date Recorded Do you have housing? (Housin g is defined as stable permanent housing [...] Sex Assigned at Male 09/04/2021 2:10 PM RADIAGRAPH OPERATOR Legal Sex Male 4:30 AM RADIAGRAPH OPERATOR Gender Identity Male 09/04/2021 2:10 PM RADIAGRAPH OPERATOR Sexual Orientation Straight 09/04/2021 2: 10 PM RADIAGRAPH OPERATOR documented as of this encounter Progress Notes * Brooklynn Niño APRN BEREAVEMENT COORDINATOR - 07/23/2025 8:30 AM CDT Nikhil is a 45 year old who is being evaluated via a billable video visit. How would you like to obtain your AVS? MyChart If the video visit is dropped, the invitation should be resent by: Text to cell phone: [phone] Will anyone else be joining your video visit? No Assessment & Plan Quadriplegia, unspecified (H): - Quadriplegia with ongoing functional limitations and need for assistance with activities of dailyliving. - Continued daily home care services through [facility]. spa experience coordinator to explore additional [facility] services for housekeeping support. Recommendation to arrange medical rides for follow-up appointments. Noted need for assistance with wheelchair lift repair. Will have our critical care registered nurse reach out to help arrange these supports. Decubitus ulcer of right ischial area, stage IV (H): - Stage IV decubitus ulcer of right ischial area with ongoing wound care and daily repacking. - Continued daily wound care and repacking by [facility]. I will sign paperwork to maintain daily home care services. Monitor for signs of infection or worsening. Recommendation for follow-up with plastics specialist; critical care registered nurse to assist with scheduling and transportation. Osteomyelitis of other site, unspecified type (H): - Ongoing infection with drainage, possible contribution to excessive thirst. - Recommendation to recheck laboratory studies. Labs to be drawn in home if possible. Home care and support needs: - Need for ongoing home care, housekeeping assistance, and transportation support due to functionallimitations. - Physician to sign paperwork for continued [facility] services. spa experience coordinator to investigate county services for housekeeping and arrange medical rides for appointments. Noted need for assistancewith wheelchair lift repair. Consent was obtained from the patient to use an AI documentation tool in the creation of this note. MED REC REQUIRED Post Medication Reconciliation Status: BMI Estimated body mass index is 29.26 kg/m?? as calculated from the following: Height as of 06/26/25: 1.575 m (5' 2). Weight as of 07/05/25: 72.6 kg (160 lb). The longitudinal plan of care for the diagnosis(es)/condition(s) as documented were addressed during this visit. Due to the added complexity in care, I will continue to support Nikhil in the subsequentmanagement and with ongoing continuity of care. Rojelio Tejeda is a 45 year old, presenting for the following health issues: Hospital F/U 07/23/2025 8:25 AM Additional Questions Roomed by MR Accompanied by Self Video Start Time: 8:40 AM HPI Status now: Its been tough. Bed sore iis really hard to manage. Lost a lot of energy and motivation due to this and hard to do certain tasks Nurses are coming to his house to help The ointment given doesn't stick very well to his skin due to perspiration Hospital Follow-up Visit: Hospital/Care Home/IP Rehab Facility: [facility] Most Recent Admission Date: 07/05/2025 Most Recent Admission Diagnosis: Decubitus ulcer of right ischial area, stage IV (H) - L89.314 Osteomyelitis of other site, unspecified type (H) - M86.9 Pressure injury of sacral region, stage 4 (H) - L89.154 Most Recent Discharge Date: 07/08/2025 Most Recent Discharge Diagnosis: Osteomyelitis of other site, unspecified type (H) - M86.9 Pressure injury of sacral region, stage 4 (H) - L89.154 Decubitus ulcer of right ischial area, stage IV (H) - L89.314 Decubitus ulcer of right ischial area, stage IV (H) - L89.314 Do you have any other stressors you would like to discuss with your provider? No Problems taking medications regularly: None Medication changes since discharge: Stopped taking Baclofen Started taking Augmentin and Calmoseptine ointment Problems adhering to non-medication therapy: None Summary of hospitalization: [facility] hospital discharge summary reviewed Diagnostic Tests/Treatments reviewed. Follow up needed: plastic surgery Other Healthcare Providers Involved in Patient???s Care: Homecare Update since discharge: stable. Plan of care communicated with patient History of Present Illness Nikhil Palafox, 45-year-old male - Home for 2 weeks prior to visit today - Ongoing wound requiring daily cleaning, repacking, and dressing changes by home care ([facility]) - Reports exhaustion, lack of motivation, and intermittent periods of increased activity followed by fatigue - Occasional sweats and chills, especially after prolonged sitting or bowel movements. Stable. - Finished 10-day course of amoxicillin, last dose taken 07/14 - Reports increased thirst, drinking 3 two-liter bottles of ice water daily, ongoing since hospitalization - Alternates ibuprofen and acetaminophen twice daily for pain; occasional use of oxycodone, tries to avoid regular use - Urinary flow improved, no foul odor - Difficulty maintaining condom catheter, relies on absorbent pads (Chucks) and assistance from nurses for hygiene - Reports significant wound drainage - Torn rotator cuff affecting transfers, dressing adherence, and mobility - Enjoys cooking, does not require meal prep assistance, but overwhelmed by household tasks telecommunications linesworker was into the home to assess for eligibility for services through the [facility]. He has not heard back from them yet. - Reports inability to leave home due to broken wheelchair lift on van, limiting access to follow-up appointments Has not scheduled with plastics yet. He is eating and drinking. Review of Systems Constitutional, HEENT, cardiovascular, pulmonary, gi and gu systems are negative, except as otherwise noted. Objective Vitals: No vitals were obtained today due to virtual visit. Physical Exam GENERAL: alert and no distress EYES: Eyes grossly normal to inspection. No discharge or erythema, or obvious scleral/conjunctival abnormalities. RESP: No audible wheeze, cough, or visible cyanosis. SKIN: Visible skin clear. No significant rash, abnormal pigmentation or lesions. NEURO: Cranial nerves grossly intact. Mentation and speech appropriate for age. PSYCH: Appropriate affect, tone, and pace of words Video-Visit Details Type of service: Video Visit Video End Time:8:53 AM Originating Location (pt. Location): Home Distant Location (provider location): On-site Platform used for Video Visit: [employer] Signed Electronically by: Brooklynn Niño APRN CNP documented in this encounter Plan of Treatment Scheduled Orders Name Type Priority Associated Diagnoses Orde r Schedule Basic metabolic panel (Ca, Cl, CO2, Creat, Gluc, K, Na, BUN) Lab Routine Decubitus ulcer of right ischial area, stage IV (H) Expected: 07/23/2025 (Approximate), Expires: 07/23/2026 CBC with platelets and differential Lab Panel Routine Decubitus ulcer of right ischial area, stage IV (H) Expected: 07/23/2025 (Approximate), Expires: 07/23/2026 CRP, inflammation Lab Routine Decubitus ulcer of right ischial area, stage IV (H) Expected: 07/23/2025 (Approximate), Expires: 07/23/2026 Scheduled Referrals Name Type Priority Associated Diagnoses Orde r Schedule Primary Care - Care Coordination Referral Referral Routine: Next available opening Quadriplegia following spinal cord injury Decubitus ulcer of right ischial area, stage IV (H) Osteomyelitis of other site, unspecified type (H) Expected: 07/23/2025 (Approximate), Expires: 07/23/2026 documented as of this encounter Visit Diagnoses Diagnosis Quadriplegia following spinal cord injury- Primary Quadriplegia, unspecified Decubitus ulcer of right ischial area, stage IV (H) Osteomyelitis of other site, unspecified type (H) documented in this encounter Care Teams Litharge Supervisor Relationship Specialty Start Date End Date Brooklynn Niño APRN CNP [address] [place] [address] PCP - General Family Practice 05/27/16 Helen Monterroso, RN Registered Nurse Infectious Diseases 06/25/22 Carmela Kumar APRN CNP [address] [place] [address] Assigned PCP 06/26/24 Manjit Swanson MD [facility] [address] [place] [address] Assigned Pediatric Specialist Provider 06/26/25 documented as of this encounter
[2025-07-31] VITALS (12 sets, daily range): BP systolic 69–147; BP diastolic 50–108; PULSE 99–126; RESP 16–20; TEMP 35.8–37.1; O2SAT 95–100; BMI 25.6; BMI 26.9
--- NOTE | 2025-07-31 17:13 | ED.GENADULT ---
HPI - General Adult General Chief complaint: Laceration/Wound Stated complaint: bedsore, shoulder pain Time Seen by Provider: 07/31/25 17:11 History of Present Illness HPI narrative: c/o bed sore pt present to the ED today with concerns over a bed sore , on right buttock. pt. states that the wound is smelly, producing green sludge and tunneling. pt . denies any fevers but does endorse chills . pt thinks wound originated in April but did not start treatment/ interventions until may. pt. also endorses pain in both shoulders worse in the left, and states if I don't stay up on the pain meds. I am unable to move them. pt. denies any trauma or injury to the shoulders pain has been 45 year old man presenting to the ER with concern of sacral ulcer/buttock infection. History of incomplete quadriplegia. In April of this year was diagnosed with a tunneling sacral ulcer. There was admission around May. Concern of osteomyelitis. Did have debridement. Reports not receiving more than amoxicillin. Earlier this week began to note a smell. Does have a home health nurse who comes daily. Apparently the wound which had decreased to about 2-3 cm in depth now to at least 4 cm as I understand it. Has not had measured fever but has been chilled and sweating. Increased pain and some of this is in the shoulders. Does have known rotator cuff? injury to right shoulder and left shoulder is waiting further evaluation. Marked increasing green drainage from the sacral/buttock wound. Has been treating pain with acetaminophen and ibuprofen. Was last discharged from [facility] about 3 weeks ago receiving 10 days of Augmentin. Wound VAC was unsuccessful lasting only briefly sounds like due to difficulty with adherence/maintaining suction. Does not self cath; uses condom cath but with diaphoresis recently it has been not staying well placed and using attends otherwise A found summary below from last hospitalization --- Sepsis due to infected sacral decubitus ulcer - Status post surgical debridement this admission - Operative cultures growing Fusobacterium - Being discharged on 10-day course of Augmentin -Being discharged with wound VAC - Referral placed to wound healing [facility] in [place] on discharge Related Data Allergies Allergy/AdvReac Type Severity Reaction Status Date / Time No Known Drug Allergies Allergy Verified 07/31/25 19:31 Review of Systems Status of ROS: Reports: 6 or more systems reviewed and unremarkable except as noted in History and below [facility] Medical History (Updated 07/31/25 @ 22:30 by Gilma Mohr MD) Decubitus ulcer of right ischium, stage 4 ?L89.314 - Pressure ulcer of right buttock, stage 4 (ICD-10) Quadriplegia ?G82.50 - Quadriplegia, unspecified (ICD-10) Surgical History (Updated 07/31/25 @ 22:23 by Gilma Mohr MD) S/P debridement ?Z98.890 - Other specified postprocedural states (ICD-10) Social History (Updated 07/31/25 @ 22:29 by Gilma Mohr MD) Narrative: Lives independently in [place]. Vapes daily. No concerning ETOH use. Sister Kathy would be MDM if needed. Requests Full Code status. Smoking Status: Never smoker How often do you have a drink containing alcohol: never AUDIT-C Alcohol total score: 0 Non-prescribed substance use: denies use Exam Narrative: Exam Narrative: Very pleasant. Contractures noted at the wrists. Does have movement of his arms good strength. Ankles with some trace edema. Appears well perfused. Skin is warm and dry with intermittent goosebumps. Lungs appear clear. Heart in elevated rate and regular rhythm. Abdomen is soft protuberant. Nontender. Rolling to his right on to his worse left shoulder he assists with this. Area in question shows a large dressing placed over the lower sacrum right buttock. Removing this shows copious green drainage and markedly more odiferous with large about 3 cm diameter deep wound. Erythema in the area seems more an irritant than frankly a cellulitis Const: Vital Signs, click to edit/add: Vital Signs - 24 hr 07/31/25 16:40 07/31/25 21:09 07/31/25 21:30 Temperature 96.5 F L 98.7 F Pulse Rate 114 H Pulse Rate [Pulse Oximeter] 108 H Respiratory Rate 16 20 Blood Pressure 146/108 H Blood Pressure [Ri ght Upper Arm] 147/54 H Pulse Oximetry 100 97 Oxygen Delivery Me thod Room Air Documenting provider has reviewed patient's vital signs: yes Course Consultations Consultation #1: Upon leaving the emergency department was noted to be persistently hypotensive. Request from hospitalist to place central line. Please see procedure note Vital Signs Vital signs: Initial Vital Signs Temperature 96.5 F L 07/31/25 16:40 Temperature Source Temporal Artery Scan 07/31/25 16:40 Pulse Rate 108 H 07/31/25 16:40 Respiratory Rate 16 07/31/25 16:40 Blood Pressure 147/54 H 07/31/25 16:40 Blood Pressure Mean 85 07/31/25 16:40 Blood Pressure Position Sitting 07/31/25 16:40 Pulse Oximetry 100 07/31/25 16:40 Oxygen Delivery Method Room Air 07/31/25 16:40 Vital Signs Temperature 96.5 F L 07/31/25 16:40 Pulse Rate 108 H 07/31/25 16:40 Respiratory Rate 16 07/31/25 16:40 Blood Pressure 147/54 H 07/31/25 16:40 Pulse Oximetry 100 07/31/25 16:40 Oxygen Delivery Method Room Air 07/31/25 16:40 Temperature 97.8 F 07/31/25 23:45 Pulse Rate 126 H 07/31/25 23:45 Respiratory Rate 20 07/31/25 23:55 Blood Pressure 125/65 07/31/25 23:45 Pulse Oximetry 100 07/31/25 23:55 Oxygen Delivery Method Room Air 07/31/25 23:55 Medications Administered Medications: Generic Name Dose Route Start Last Admin Trade Name Freq PRN Reason Stop Dose Admin Hydromorphone HCl 0.5 mg 07/31/25 21:48 07/31/25 22:01 Hydromorphone 0.5 Mg/0.5 Ml Inj IVP 0.5 mg Q2H PRN Administration Pain Discontinued Medications Generic Name Dose Route Start Last Admin Trade Name Freq PRN Reason Stop Dose Admin Hydromorphone HCl 0.5 mg 07/31/25 19:10 07/31/25 19:17 Hydromorphone 0.5 Mg/0.5 Ml Inj IVP 07/31/25 19:11 0.5 mg ONCE ONE Administration Sodium Chloride 1,000 mls @ 1,000 mls/hr 07/31/25 17:20 07/31/25 20:46 0.9 % Sodium Chloride 1000 Ml IV 07/31/25 18:19 Infused .Q1H ONE Infusion Piperacillin Sod/Tazobactam 100 mls @ 200 mls/hr 07/31/25 20:52 07/31/25 22:07 Sod 4.5 gm/ Sodium Chloride IVPB 07/31/25 20:53 Infused ONCE ONE Infusion Vancomycin/PEG/NADA/Lysine/Water 1.5 gm in 300 mls @ 200 mls/hr 07/31/25 20:52 07/31/25 22:47 Vancomycin 1.5 Gm/300 Ml IVPB 07/31/25 22:21 200 mls/hr ONCE ONE Administration Protocol Sodium Chloride 1,000 mls @ 1,000 mls/hr 07/31/25 20:53 07/31/25 22:54 0.9 % Sodium Chloride 1000 Ml IV 07/31/25 21:52 Infused .Q1H ONE Infusion Ketorolac Tromethamine 15 mg 07/31/25 17:43 07/31/25 18:47 Ketorolac 15 Mg/Ml Inj IVP 07/31/25 17:44 15 mg ONCE ONE Administration Morphine Sulfate 4 mg 07/31/25 17:43 07/31/25 18:43 Morphine 4 Mg/Ml Inj IVP 07/31/25 17:44 4 mg ONCE ONE Administration Medical Decision Making MDM Narrative Medical decision making narrative: I do not think has cl's gangrene but I would a image looking for this potential along with any other evidence of cellulitis, extension of this wound. Likely continued osteomyelitis. Might require repeat surgical debridement. Assess/monitor for further evidence of sepsis. Initiating IV fluids. I did discuss this case briefly with General surgery anticipating need for admission. Anticipate consultation upon admission. CT of the pelvis with IV contrast reviewed by me with notable subcutaneous air and edema. Radiology over-read of pelvis CT with IV contrast SACRAL TUNNELING WOUND Technique: CT pelvis with IV contrast utilizing 69 mL Isovue 370 Comparison: None Findings: No bowel obstruction or inflammation. Circumferential bladder wall thickening which can be seen with cystitis, correlate with urinalysis. No intra-abdominal or intrapelvic free air, free fluid, or abscess. No abdominopelvic lymphadenopathy. Mild calcific atherosclerosis of the infrarenal abdominal aorta; otherwise, the vasculature is unremarkable. Right perianal/upper posterior thigh skin thickening with subcutaneous gas and edema extending from the skin to the right ischial tuberosity and the soft tissues posterior to the right femoroacetabular joint in addition to punctate foci of gas seen adjacent to the right obturator internus muscle. No focal fluid collections with peripheral enhancement to suggest abscess formation. There is a small calcified granuloma at the area of inflation/subcutaneous gas measuring approximately 8 millimeters in greatest dimension. No right hip joint effusion. Cortical erosion with regions of underlying osteopenia/focal lysis of the right ischial tuberosity, consistent with osteomyelitis. Osseous tunnel in the left femoral head and neck, likely sequela of prior ORIF hardware. There is some heterotopic ossification in the soft tissues adjacent to the bilateral hips and proximal femurs. Impression: 1. Right perianal/upper posterior thigh skin thickening with subcutaneous gas and edema extending from the skin to the right ischial tuberosity and the soft tissues posterior to the right femoroacetabular joint and along the medial aspect of the right pelvic wall. 2. There are no peripherally enhancing fluid collections to suggest the presence of an abscess. 3. Osteomyelitis of the right ischial tuberosity. Please note that all CT scans at this facility use dose modulation, iterative reconstruction, and/or weight-based dosing when appropriate to reduce radiation dose to as low as reasonably achievable. Dictated by Angel Barker MD @ 07/31/2025 8:23:25 PM With high white count and presenting tachycardia along with source being likely sacral wound/abscess/osteomyelitis does meet criteria for sepsis. Finally imaging is available. No cl's noted. Initiating IV antibiotics Discussed with hospitalist for admission. Rechecking pressures prior to departure at 140s/100 Medical Records Medical records reviewed: Yes I reviewed the patient's medical records Lab Data Lab results reviewed: Yes I reviewed the patient's lab results Labs: Lab Results 07/31/25 07/31/25 Range/Units 18:50 19:21 WBC 17.36 H (4.50-11.00) K/uL RBC 4.00 L (4.30-5.90) m/uL Hgb 10.7 L (13.5-17.5) gm/dL Hct 32.9 L (37.0-53.0) % MCV 82 (80-100) fL MCH 27 (26-34) pg MCHC 33 (32-36) gm/dL RDW Coeff of Lisandra 15.6 H (11.5-15.5) % Plt Count 811 H (140-440) K/uL Neut % (Auto) 87.4 H (42.0-72.0) % Lymph % (Auto) 6.2 L (20-44) % Frio % (Auto) 4.6 (0.0-11.0) % Eos % (Auto) 0.6 (0.0-7.0) % Baso % (Auto) 0.2 (0.0-3.0) % Neut # (Auto) 15.20 H (1.7-7.0) K/uL Lymph # (Auto) 1.10 (0.90-2.90) K/uL Frio # (Auto) 0.80 (0.00-0.90) K/UL Eos # (Auto) 0.10 (0.00-0.50) K/uL Baso # (Auto) 0.00 (0.00-0.30) K/uL Abs Immat Gran (auto) 0.20 (0.00-0.30) K/uL Imm/Tot Granulo (auto) 1.0 % Sodium 132 L (135-149) mmol/L Potassium 4.1 (3.6-5.1) mmol/L Chloride 99 (96-114) mmol/L Carbon Dioxide 25 (20-32) mmol/L Anion Gap 8 (7-15) mEq/L BUN 26 H (5-24) mg/dL Creatinine 0.4 L (0.5-1.5) mg/dL Estimated Creat Clear 176.31 Estimated GFR 135 ml/min Glucose 97 (60-115) mg/dL Lactate 1.5 (0.5-1.9) mmol/L Calcium 8.8 (8.4-10.6) mg/dL Total Bilirubin 0.6 (0.1-1.5) mg/dL Direct Bilirubin 0.4 (0.0-0.5) mg/dL AST 32 (12-35) U/L ALT 31 (4-50) U/L Alkaline Phosphatase 87 (40-150) U/L C-Reactive Protein 27.1 H (0.5-1.0) mg/dL Total Protein 7.0 (6.0-8.3) g/dL Albumin 3.1 L (3.3-5.0) g/dL Critical Care Time Critical Care Time Critical Care Time: Yes Attestation: The patient required my highest level preparedness to intervene emergently and I personally spent this critical care time directly and personally managing the patient. This critical care time included: Obtaining a history; Examining the patient; Pulse oximetry; Ordering and reviewing of studies; Arranging urgent treatment with development of a management plan; Evaluation of patients response to treatment; Frequent reassessment discussions with other providers. This critical care time was performed to assess and manage the high probability of imminent life-threatening deterioration that could result in multiorgan failure. It was exclusive of separate billable procedures and treating other patients and teaching time. Total Critical Care Time in Minutes: 80 Discharge Plan Discharge Clinical Impression: Sepsis, Abscess, Osteomyelitis Patient Disposition: Admitted As Inpatient Condition: Stable Procedures Central Line Placement Right IJ: Pre procedure diagnosis: Sepsis and hypotension Post procedure diagnosis: Sepsis and hypotension Written consent by: patient Site marking: site marked Image guidance used: US guidance Verification/time out: correct patient, correct site, correct procedure and time out performed Name of person performing procedure: Raj Sheehan Director [place] [facility], if any: Dr. Salvador Anesthesia: lidocaine 1% Amount of anesthesia used (mL): 5 Patient Placed on Monitor/Pulse Ox: Yes MD Prep: mask, gown, gloves and other (hat) Central Line Prep: Chlorhexidine scrub and sterile drapes applied Ultrasound Used for Placement: Yes Central Line Lumen Inserted: triple Post Procedure: sutured in place, good blood return, all ports aspirated, flushed, capped and sterile dressing applied Post Procedure X-Ray: tip of catheter in good position and no pneumothorax seen Estimated blood loss (if any): less than 5mls (4 mls) Complications: none Patient Tolerated Procedure: well (Secondary to quadriplegia hypesthetic over the right side of his neck in particular. )
--- NOTE | 2025-07-31 17:38 | CRLHL7_ITS ---
For Patients: As a result of the Century Cures Act, medical imaging exams and procedure reports are released immediately into your electronic medical record. You may view this report before your referring provider. If you have questions, please contact your health care provider. Indication: SACRAL TUNNELING WOUND Technique: CT pelvis with IV contrast utilizing 69 mL Isovue 370 Comparison: None Findings: No bowel obstruction or inflammation. Circumferential bladder wall thickening which can be seen with cystitis, correlate with urinalysis. No intra-abdominal or intrapelvic free air, free fluid, or abscess. No abdominopelvic lymphadenopathy. Mild calcific atherosclerosis of the infrarenal abdominal aorta; otherwise, the vasculature is unremarkable. Right perianal/upper posterior thigh skin thickening with subcutaneous gas and edema extending from the skin to the right ischial tuberosity and the soft tissues posterior to the right femoroacetabular joint in addition to punctate foci of gas seen adjacent to the right obturator internus muscle. No focal fluid collections with peripheral enhancement to suggest abscess formation. There is a small calcified granuloma at the area of inflation/subcutaneous gas measuring approximately 8 millimeters in greatest dimension. No right hip joint effusion. Cortical erosion with regions of underlying osteopenia/focal lysis of the right ischial tuberosity, consistent with osteomyelitis. Osseous tunnel in the left femoral head and neck, likely sequela of prior ORIF hardware. There is some heterotopic ossification in the soft tissues adjacent to the bilateral hips and proximal femurs. Impression: 1. Right perianal/upper posterior thigh skin thickening with subcutaneous gas and edema extending from the skin to the right ischial tuberosity and the soft tissues posterior to the right femoroacetabular joint and along the medial aspect of the right pelvic wall. 2. There are no peripherally enhancing fluid collections to suggest the presence of an abscess. 3. Osteomyelitis of the right ischial tuberosity. Please note that all CT scans at this facility use dose modulation, iterative reconstruction, and/or weight-based dosing when appropriate to reduce radiation dose to as low as reasonably achievable. Dictated by Angel Barker MD @ 07/31/2025 8:23:25 PM (Electronically Signed)
--- OUTSIDE RECORDS SUMMARY | 2025-07-31 17:54 | XMS_ITS | Encounter Summary ---
Author Organization [facility] Address [address] [place] [address] Care Team Providers Care Energy Risk Management Analyst Name Role Phone Brooklynn Niño APRN TELEVISION RECEIVER ANALYZER Primary Care Provider Helen Monterroso RN Unavailable Unavailab Carmela Heath APRN, CNP Unavailable [phone] Sariah Nunez RN Unavailable [phone] Manjit Swanson MD Unavailable [phone] Anna Terrell Unavailable [phone] Reason for Visit * Reason Onset Date Comments Home Care/Hospice 07/03/2025 Encounter Details Date Type Department Care Team (Late st Contact Info) Description 07/03/2025 Telephone [facility] [address] [place] [address] Brooklynn Niño APRN [facility] [address] [place] [address] Home Care/Hospice Social History Tobacco Use Types Packs/Day Years [...] in an abandoned building, in an overnight custodial, or couch-surfing.) Yes 05/30/2025 Are you worried [...] Sex Assigned at Male 09/04/2021 2:10 PM GAGE DESIGNER Legal Sex Male 4:30 AM GAGE DESIGNER Gender Identity Male 09/04/2021 2:10 PM GAGE DESIGNER Sexual Orientation Straight 09/04/2021 2: 10 PM GAGE DESIGNER documented as of this encounter Miscellaneous Notes * Telephone Encounter - Eugenia Enciso RN - 07/05/2025 8:43 AM CDT Called patient, left voicemail, and asked patient to call back. Attempt # 3. [email or web address] message was not read. RN called [facility] home appliance installer and LVM. Routing to PCP for next steps. Eugenia Enciso RN 07/05/2025 [facility] * Telephone Encounter - Marito Bangura MD - 07/05/2025 8:26 AM CDT Routing to PCP now that she is back Marito Bangura MD * Telephone Encounter - Eugenia Enciso RN - 07/03/2025 5:25 PM CDT Routing to POD to review. Recommend UC evaluation tonight, but patient has not answered call or read [employer] message. Eugenia Enciso RN [facility] * Telephone Encounter - Eugenia Enciso RN - 07/03/2025 5:01 PM CDT Called patient, left voicemail, and asked patient to call back. Attempt # 1. MyChart sent. Attempt 2/3. Eugenia Enciso RN 07/03/2025 [facility] * Telephone Encounter - Denise Sexton RN - 07/03/2025 4:44 PM CDT Received a call from ZIGGY Rg with [employer] [facility] - ZIGGY Rg providing an update on the condition change - ZIGGY Rg reports that the patient has prieto colored urine, denies odor to the urine - Patient complaining of feeling clammy, intermittent dizziness and some abdominal cramps - Vitals: BP: 90/50 Pulse: 104 R 18 O2: 97% T: 96.8 - Patient was recently hospitalization for sepsis and osteomyelitis - urgent care nurse practitioner advised that the patient be seen by a provider and patient is refusing to be seen - ZIGGY Rg states that the patient's wound does not look infected Routing high priority to the [place] Nurse pool to please huddle with Brooklynn Niño APRN TELEVISION RECEIVER ANALYZER or POD to please review and advise. Should patient be seen in Urgent Care tonight for labs and UA/UC? Denise Kahn RN [employer] documented in this encounter Plan of Treatment Not on file documented as of this encounter Visit Diagnoses Not on filedocumented in this encounter Additional Health Concerns Infection Onset Date Last Indicated Resolved Time Rule Out COVID-19 07/05/2025 07/05/2025 07/05/2025 11:34 PM CDT documented as of this encounter Care Teams Energy Risk Management Analyst Relationship Specialty Start Date End Date Brooklynn Niño APRN TELEVISION RECEIVER ANALYZER [address] [place] [address] PCP - General Family Practice 05/27/16 Helen Monterroso RN Registered Nurse Infectious Diseases 06/25/22 Carmela Kumar APRN TELEVISION RECEIVER ANALYZER [address] [place] [address] Assigned PCP 06/26/24 Sariah Nunez, RN Clinic Boat Dispatcher 06/07/2507/04 Manjit Swanson MD [address] [place] [address] [address], [place] [address] Assigned Pediatric Specialist Provider 06/26/25 Anna Terrell CHW Community Health Worker 07/24/25 documented as of this encounter
--- OUTSIDE RECORDS SUMMARY | 2025-07-31 17:54 | XMS_ITS | Encounter Summary ---
Author Organization [facility] Address [address] [facility] [place] [address] Care Team Providers Care Dry Transfer Worker Name Role Phone Brooklynn Niño APRN, CNP Primary Care Provider Helen Monterroso RN Unavailable Unavailab Carmela Heath APRN, CNP Unavailable [phone] Sariah Nunez RN Unavailable [phone] Manjit Swanson MD Unavailable [phone] Reason for Referral * Med Therapy Management (Routine: Next available opening) - Authorized Specialty Diagnoses / Procedures Referred By Sherwin london Referred To Contact Pharmacist Diagnoses Hospital discharge follow-up Brooklynn Niño APRN CNP [address] [place] [address] Phone: tel: fax: Referral ID Status Reason Start Date Expiration Date V isits Requested Visits Authorized [id number] Authorized 07/02/2025 07/02/2026 1 1 Question Answer Type of MTM: Primary Care Course of Action: Transitions of Care Reason for Referral: Transitions of Care Comments Bulk referral order from discharge report. Encounter Details Date Type Department Care Team (Late st Contact Info) Description 07/02/2025 Orders Only [facility] Pharm D Project [address] [place] [id number] Brooklynn Niño APRN CNP [address] [place] [address] Hospital discharge follow-up Social History Tobacco Use Types Packs/Day Years [...] Date Recorded Do you have housing? (Lisa g is defined as stable permanent housing and does not include staying outside in a car, in a tent, in an abandoned building, in an overnight halfway, or couch-surfing.) Yes 05/30/2025 Are you worried [...] Sex Assigned at Male 09/04/2021 2:10 PM BLENDER HELPER Legal Sex Male 4:30 AM BLENDER HELPER Gender Identity Male 09/04/2021 2:10 PM BLENDER HELPER Sexual Orientation Straight 09/04/2021 2: 10 PM BLENDER HELPER documented as of this encounter Plan of Treatment Scheduled Referrals Name Type Priority Associated Diagnoses Order Schedule MTM Referral - Primary Care - Transitions of Care Referral Routine: Next available opening Hospital discharge follow-up Ordered: 07/02/2025 documented as of this encounter Visit Diagnoses Diagnosis Hospital discharge follow-up Other follow-up examination documented in this encounter Care Teams Dry Transfer Worker Relationship Specialty Start Date End Date Brooklynn Niño APRN HR MANAGER [address] [place] [address] PCP - General Family Practice 05/27/16 Helen Monterroso, RN Registered Nurse Infectious Diseases 06/25/22 Carmela Kumar APRN HR MANAGER [address] [place] [address] Assigned PCP 06/26/24 Sariah Nunez, RN Clinic Principal Planner 06/07/2507/04 Manjit Swanson MD [address] [place] [id number] Assigned Pediatric Specialist Provider 06/26/25 documented as of this encounter
--- OUTSIDE RECORDS SUMMARY | 2025-07-31 17:54 | XMS_ITS ---
Author Organization [facility] enter Care Team Providers Care Drawing Supervisor Name Role Phone Pelon Millard Unavailable Unavailable Adrienne Evans Unavailable Unavailable Allergies and adverse reactions Code CodeSystem Substance Reaction Severity StartDate Concern Status Tegaderm Transparent Dressing (Informational Only) Eruption (code- 647646920, SNOMED CT) Unknown 05/21/2025 active Care Team Name Role Address Phone Organization Dates Adrienne Evans PCP [address] [place] [address] [address], [place], [address], [place] (Office): : : [facility] 06/07/2025 - 06/30/2025 Pelon Mill[facility] [address], [place], [address], [place] (Office): : (Pager): [facility] 06/07/2025 - 06/30/2025 Imaging Narrative Note Date Imaging Narrative No te 06/09/2025 See NotePATIENT REPO RTPhone Fax PATIENT NAMELORENTZ JOSEPHDATE OF BIRTHDATE OF EXAM MRNLPREFFERRING FRAN CORREA DESCRIPTIONCHEST SINGLE VIEWHISTORY PROVIDEDindetermined QFTPage of INDICATIONS Rule out TBFINDINGSThe heart size and mediastinal contours are within normal limits The pulmonary parenchyma is clear without infiltrate or consolidation There is no massidentified There is no pleural effusionSee NoteThere is no acute bone abnormalityIMPRESSIONNo infiltrate effusion or acute findings identified No radiographic evidence for active TBReading PhysicianElectronically Signed by LIBIA ARMENTA at [email or web address] Encounters EncounterType Code CodeSystem Description Performer ServiceDe liveryLocation Date Ambulatory Encounter CPT Code = 66203 L89.154 ICD 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 06/06 Ambulatory Encounter CPT Code = [address] Localized infection of skin AND/OR subcutaneous tissue [facility] Address: [address] [place] [address], [address] [place] [address]. 06/06 Ambulatory Encounter CPT Code = 67472 A41.9 ICD 10 SEPSIS, UNSPECIFIED ORGANISM [facility] Address: [address] [place] [address], [address] [place] [address], [facility]. 06/06 Ambulatory Encounter CPT Code = [address] Tetraplegia [facility] Address: [address] [place] [address], [address] [place] [address], [facility]. 06/06 Ambulatory Encounter CPT Code = [address] Infectious disease [facility] Address: [address] [place] [address], [address] [place] [address]. 06/06 Ambulatory Encounter CPT Code = [address] Nontraumatic rotator cuff tear [facility] Address: [address] [place] [address]. 06/06 Ambulatory Encounter CPT Code = [address] Overweight [facility] Address: [address] [place] [address]. 06/06 Ambulatory Encounter CPT Code = [address] Body mass index 25-29 - overweight [facility] Address: [address] [place] [address]. 06/06 Ambulatory Encounter CPT Code = [address] Malaise [facility] Address: [address] [place] [address]. 06/06 Ambulatory Encounter CPT Code = [address] Muscle weakness [facility] Address: [address] [place] [address]. 06/06 Ambulatory Encounter CPT Code = [address] Abnormal gait [facility] Address: [address] [place] [address]. 06/06 Ambulatory Encounter CPT Code = 40069 Z86.19 ICD 10 PERSONAL HISTORY OF OTHER INFECTIOUS AND PARASITIC DISEASES [facility] Address: [address] [place] [address]. 06/06 Ambulatory Encounter CPT Code = 01224 A41.89 ICD 10 OTHER SPECIFIED SEPSIS [facility] Address: [address] [place] [address], [address] [place] [address]. 06/06 Goals Section Goals Description Status Target Date -Consume 100% of Expedite once daily. Active 09/16/2025 -Consume >/= 50% of at least 2 meals/day. Active 09/16/2025 -Maintain weight, admit weight +/- 5 lb. Active 09/16/2025 Hector will remain free from any physical, mental and emotional harm by review date. Active 09/16/2025 Nikhil will remain free of mood symptoms by the ne xt review date. Active 09/16/2025 Srinivas will be free of any d iscomfort or adverse side effects from pain medication through the review date. Active 09/16/2025 Srinivas will be free of any d iscomfort or adverse side effects of antibiotic therapy through the review date. Active 09/16/2025 Srinivas will improve current level of function Ac tive 09/16/2025 Srinivas will increase level of mobility from base line. Active 09/16/2025 Srinivas will maintain involve ment in cognitive stimulation, social activities as desired through review date. Active 09/16/2025 Srinivas will remain free from pain through the re view date. Active 09/16/2025 Srinivas will show no s/sx of Urinary infection th rough review date. Active 09/16/2025 Res will return to previous living arrangement with necessary services and support as appropriate Active 09/16/2025 Resident will remain safe while device is being used Active 09/16/2025 Will be free of falls through the review date. A ctive 09/16/2025 Will maintain current level of cognitive function through the review date. Active 09/16/2025 Will show no signs of infection by review date A ctive 09/16/2025 Will verbalize adequate reli ef of pain or ability to cope with incompletely relieved pain through the review date. Active Functional Status Code Name Recorded Time Value Entered By Bathing 06/24/2025 Extensive Assistance [id number] 3 Chair/lvg-pr-atiet transfer 06/28/2025 Setup or sneha n-up assistance [id number] Does the resident use a wheelchair and/or scooter? 06/28/2025 Yes (qualifier value) [id number] Dressing 06/28/2025 Supervision [id number] Eating 06/28/2025 Independent [id number] Feeding or Eating 06/28/2025 Independent [id number] Indicate the type of wheelch air or scooter used 06/28/2025 Manual wheelchair (physical object) [id number] Lower body dressing 06/28/2025 Setup or clean-up ass istance [id number] Lying to sitting on side of bed 06/28/2025 Setup or clean-up assistance [id number] Oral hygiene 06/28/2025 Setup or clean-up assistance [id number] Personal hygiene 06/28/2025 Setup or clean-up assist ance [id number] Putting on/taking off footwear 06/28/2025 Setup or c lean-up assistance [id number] Roll left and right 06/28/2025 Setup or clean-up ass istance [id number] Shower/bathe self 06/28/2025 Not assessed [id number] Sit to lying 06/28/2025 Setup or clean-up assistance [id number] Sit to stand 06/28/2025 Setup or clean-up assistance [id number] Toilet transfer 06/28/2025 Setup or clean-up assista nce [id number] Toileting 06/28/2025 Supervision [id number] Toileting hygiene 06/28/2025 Setup or clean-up yuliya tance [id number] Transferring 06/28/2025 Not assessed [id number] Upper body dressing 06/28/2025 Setup or clean-up ass istance [id number] Walk 10 feet 06/28/2025 Not assessed [id number] Walk 150 feet 06/28/2025 Independent [id number] Walk 50 feet 06/28/2025 Independent [id number] Wheel 150 feet 06/28/2025 Setup or clean-up assistan ce [id number] Wheel 50 feet with two turns 06/28/2025 Setup or alex an-up assistance [id number] Immunizations Immunization Status Vaccine Details Vaccine Code CodeSystem Date Notes Tdap completed tetanus toxoid, reduced diphtheria toxoid, and acellular pertussis vaccine, adsorbed lotNumber: [id number] Mfg: [employer] Given 0.5 intramuscularly 115 CVX created date: 06/08/2025 administer ed date: 06/14/2024 doseUOMN oncoded: mL Prevnar 20 cancelled Pneumococcal conjugate vaccine 20-valent (PCV20), polysaccharide [id number] conjugate, adjuvant, preservative free 216 CVX created date: 06/08/2025 consent date: 06/08/2025 Covid Pfizer Formula cancelled SARS-COV-2 (COVID-19) vaccine, mRNA, spike protein, LNP, preservative free, marcos-sucrose, 30 mcg/0.3 mL dose 309 CVX created date: 06/08/2025 consent date: 06/08/2025 Afluria cancelled Influenza, split virus, trivalent, injectable, contains preservative 141 CVX created date: 06/08/2025 consent date: 06/08/2025 Medications Section Medication Name Status Code CodeSystem Dose Route Frequency Admin Type Sig Text Start Date End Date Indication Loperamide HCl Oral Capsule 2 MG active 47795 6 RXNORM 2 mg Oral as needed PRN Give 2 mg orall y as neede d for Diarr hea Four Times Daily PRN 2024 - Diarrhea Acetaminoph en Oral Tablet active 650 mg Oral as needed PRN Give 650 mg by mouth every 4 hours as neede d for Pain 2024 - Pain Cefpodoxime Proxetil Oral Tablet complet ed 400 mg Oral two times a day Routin e Give 400 mg by mouth two times a day for Infec tion for 6 Days 06/13 Infection metroNIDAZO LE Oral Tablet 500 [place] [address] 1 RXNORM 500 mg Oral two times a day Routin e Give 500 mg orall y two times a day for Infec tion for 6 Days 06/13 Infection Sennosides- Docusate Sodium Oral Tablet 8.6-50 MG active 49684 0 RXNORM 1 table t Oral as needed PRN Give 1 table t orall y as neede d for Const ipati on Twice Daily PRN 2024 - Constipatio n oxyCODONE HCl Oral Tablet 5 MG active 37691 21 RXNORM 5 mg Oral as needed PRN Give 5 mg orall y every 4 hours as neede d for Sever e Pain Prior to admin , selec t by saeed r, non-p harm inter venti on tried /offe red:1 . Heat 2.col d 3. repos ition ing 4. distr actio n 5. massa ge 6.Moon p breat melinda 7. Relax ation 8. non opioi d ie, Tylen ol 9. Resid ent decli sophie all offer s of non-p harm 2024 - Severe Pain Baclofen Oral Tablet active 20 mg Oral as needed PRN Give 20 mg by mouth as neede d for Muscl e Spasm s Three Times Daily PRN 2024 - Muscle Spasms Cerovite Senior Oral Tablet active 1 table t Oral one time a day Routin e Give 1 table t by mouth one time a day for Suppl twanent 2024 - Supplement Clotrimazol e AF External Cream 1 % aborted n/a n/a Topica l two times a day Routin e Apply to [facility] [employer] Press ure Ulcer topic ally two times a day for Rash 06/15 Rash Cholecalcif gaye Oral Tablet aborted 53827 unit Oral one time a day Routin e Give 58116 unit by mouth one time a day for Vitam in D Defic iency 06/15 Vitamin D Deficiency Cranberry Oral Tablet aborted 1 table t Oral one time a day Routin e Give 1 table t by mouth one time a day for Suppl twanent OK for home suppl y 06/15 Supplement Calcium-Vit hicks D Oral Tablet active 1 table t Oral one time a day Routin e Give 1 table t by mouth one time a day for Suppl twanent OK for home suppl y 2024 - Supplement Turmeric Oral Tablet aborted 1 table t Oral one time a day Routin e Give 1 table t by mouth one time a day for Suppl twanent OK for home suppl y 06/15 Supplement Cholecalcif gaye Oral Tablet active 83965 unit Oral one time a day Routin e Give 96396 unit by mouth one time a day every Mon for Vitam in D Defic iency 2024 - Vitamin D Deficiency Mental Status Section Date Assessment Total Score Description 06/12/2025 BIMS 15 cognitively int act PHQ-9 00 06/12/2025 BIMS 15 cognitively int act CAM 0 No delirium ind icated PHQ-9 00 Plan of Treatment Section Interventions Intervention Code Code System Display Name Proposed D ate Problems Problem # Description Date of onset Resolved Date Code CodeSystem Concern Status 1 BODY MASS INDEX [BMI] 28.0-28.9, ADULT 113216013 SNOMED CT active 2 LOCAL INFECTION OF THE SKIN AND SUBCUTANEOUS TISSUE, UNSPECIFIED [address] active 3 MUSCLE WEAKNESS (GENERALIZED) [address] active 4 OTHER MALAISE [address] active 5 OVERWEIGHT [address] active 6 PERSONAL HISTORY OF OTHER INFECTIOUS AND PARASITIC DISEASES [address] active 7 PRESSURE ULCER OF RIGHT BUTTOCK, STAGE [address] active 8 QUADRIPLEGIA, UNSPECIFIED [address] active 9 UNSPECIFIED ABNORMALITIES OF GAIT AND MOBILITY [address] active 10 UNSPECIFIED ROTATOR CUFF TEAR OR RUPTURE OF RIGHT SHOULDER, NOT SPECIFIED TRAUMATIC [address] active Reason for Referral No Reasons for Referral Entered Diagnostic Results Result Code Code System Date Test Result Interpretation Reference Range Status Notes 73822-6 [facility] 06/09 Chest, single view Completed Result for: Srinivas Palafox ( 1980, M) 98236-4 [facility] 06/08 Chest, single view Final See NotePATIENT REPORTPhone Fax PATIENT NAMELORCLAUDIA SOLISDATE OF BIRTHDATE OF EXAM MRNLPREFFERRI NG PHYSICIANBINO TTO PHYLICIAEXAM DESCRIPTIONCH EST SINGLE VIEWHISTORY PROVIDEDindet ermined QFTPage of INDICATIONS Rule out TBFINDINGSThe heart size and mediastinal contours are within normal limits The pulmonary parenchyma is clear without infiltrate or consolidation There is no massidentifie d There is no pleural effusionSee NoteThere is no acute bone abnormalityIM PRESSIONNo infiltrate effusion or acute findings identified No radiographic evidence for active TBReading PhysicianElec tronically Signed by LIBIA ARMENTA at [employer] [id number] [facility] 06/08 Quantiferon -TB Gold Plus Collection Cancelled Result for: SRINIVAS PALAFOX Keshia ( 1980, M) [facility] 06/08 Value: Units: Normal Test Code Code System Name Date 06/08/2025 06/08/2025 Social History Social History Observation Description Start Date End Date Code Code System Current Smoking Status Tobacco smoking consumption unknown 588153001 SNOMED CT Sex Assigned At Male 1980 51923-9 [facility] Gender Identity Sexual Orientation Vital Signs Code Code System Vitals Name Values and Units Timing Information 9279-1 [facility] Respiratory Rate Value=16.0 Units=/m in 06/29/2025 8462-4 [facility] Blood Pressure-Diastolic Value=66 Un its=mmHg 06/29/2025 8480-6 [facility] Blood Pressure-Systolic Fkure=456 Un its=mmHg 06/29/2025 8310-5 [facility] Body Temperature Value=97.7 Units= F 06/29/2025 8867-4 [facility] Heart rate Value=74.0 Units=/min 61479-1 [facility] O2 % BldC Oximetry Value=96.0 Units= % 06/29/2025 78287-3 [facility] Pain Level Value=2.0 06/29/2025 49214-8 [facility] Weight Xatqc=150.1 Units=Lbs 8302-2 [facility] Height Value=62.0 Units=Inches 06/08/2025
--- OUTSIDE RECORDS SUMMARY | 2025-07-31 17:54 | XMS_ITS | Encounter Summary ---
Author Organization [facility] Address [address] [place] [address]. [place] [address] Care Team Providers Care Health Unit Clerk Name Role Phone Brooklynn Niño APRN ROCKET MOTOR TESTER Primary Care Provider Helen Monterroso RN Unavailable Unavailab Carmela Heath APRN, CNP Unavailable [phone] Sariah Nunez RN Unavailable [phone] Manjit Swanson MD Unavailable [phone] Anna Terrell Unavailable [phone] Reason for Visit * Reason Onset Date Comments Patient/info Update 06/30/2025 Encounter Details Date Type Department Care Team (Late st Contact Info) Description 06/30/2025 Telephone [facility] [address] [place] [address] Debbie Schwartz RN Patient/info Update Social History Tobacco Use Types Packs/Day Years [...] Sex Assigned at Male 09/04/2021 2:10 PM HISTORY DEPARTMENT CHAIR Legal Sex Male 4:30 AM HISTORY DEPARTMENT CHAIR Gender Identity Male 09/04/2021 2:10 PM HISTORY DEPARTMENT CHAIR Sexual Orientation Straight 09/04/2021 2: 10 PM HISTORY DEPARTMENT CHAIR documented as of this encounter Miscellaneous Notes * Telephone Encounter - Debbie Schwartz RN - 06/30/2025 6:19 PM CDT Patient home care nurse calling in with FYI for patient PCP. Reports patient's pulse today was 120-during this time patient was rolling around in bed and transferred to chair. Nurse states was goingto check pulse again but patient refused. Nurse states other vital signs stable. Patient asymptomatic. Will route to patient PCP as FYI. documented in this encounter Plan of Treatment Not on file documented as of this encounter Visit Diagnoses Not on filedocumented in this encounter Additional Health Concerns Infection Onset Date Last Indicated Resolved Time Rule Out COVID-19 07/05/2025 07/05/2025 07/05/2025 11:34 PM CDT documented as of this encounter Care Teams Health Unit Clerk Relationship Specialty Start Date End Date Brooklynn Niño APRN ROCKET MOTOR TESTER [address] [facility] [place] [address] PCP - General Family Practice 05/27/16 Helen Monterroso, RN Registered Nurse Infectious Diseases 06/25/22 Carmela Kumar APRN ROCKET MOTOR TESTER [address] [place] [address] Assigned PCP 06/26/24 Sariah Nunez, RN Clinic Ward Attendant 06/07/2507/04 Manjit Swanson MD [facility] [address] [place] [address] Assigned Pediatric Specialist Provider 06/26/25 Anna Terrell CHW Community Health Worker 07/24/25 documented as of this encounter
--- OUTSIDE RECORDS SUMMARY | 2025-07-31 17:54 | XMS_ITS | Encounter Summary ---
Author Organization [place] Address [address] [place] [address]. [place] [address] Care Team Providers Care Final Inspection Supervisor Name Role Phone Brooklynn Niño APRN TILE SETTER APPRENTICE Primary Care Provider Helen Monterroso RN Unavailable Unavailab Carmela Heath APRN, CNP Unavailable [phone] Manjit Swanson MD Unavailable [phone] Encounter Details Date Type Department Care Team (Latest Contact Info) Description 07/05/2025 Travel Social History Tobacco Use Types Packs/Day Years [...] in an abandoned building, in an overnight skilled nursing, or couch-surfing.) Yes 05/30/2025 Are you worried [...] Sex Assigned at Male 09/04/2021 2:10 PM INDEX EDITOR Legal Sex Male 4:30 AM INDEX EDITOR Gender Identity Male 09/04/2021 2:10 PM INDEX EDITOR Sexual Orientation Straight 09/04/2021 2: 10 PM INDEX EDITOR documented as of this encounter Plan of Treatment Not on file documented as of this encounter Visit Diagnoses Not on filedocumented in this encounter Additional Health Concerns Infection Onset Date Last Indicated Resolved Time Rule Out COVID-19 07/05/2025 07/05/2025 07/05/2025 11:34 PM CDT documented as of this encounter Care Teams Final Inspection Supervisor Relationship Specialty Start Date End Date Brooklynn Niño APRN TILE SETTER APPRENTICE [address] [place] [address] PCP - General Family Practice 05/27/16 Helen Monterroso RN Registered Nurse Infectious Diseases 06/25/22 Carmela Kumar APRN TILE SETTER APPRENTICE [address] [place] [address] Assigned PCP 06/26/24 Manjit Swanson MD [address] [address] Assigned Pediatric Specialist Provider 06/26/25 documented as of this encounter
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
--- OUTSIDE RECORDS SUMMARY | 2025-07-31 17:55 | XMS_ITS | Encounter Summary ---
Author Organization [place] Address [address] [facility] [place] [address] Care Team Providers Care Rope Silica Machine Operator Name Role Phone Brooklynn Niño APRN INVOICE CHECKER Primary Care Provider Helen Monterroso RN Unavailable Unavailab Carmela Heath APRN INVOICE CHECKER Unavailable [phone] Manjit Swanson MD Unavailable [phone] Anna Terrell CHW Unavailable [phone] Encounter Details Date Type Department Care Team (Late st Contact Info) Description 07/18/2025 [facility] [address] [place] [address] Brooklynn Niño APRN INVOICE CHECKER [address] [place] [address] Social History Tobacco Use Types Packs/Day Years [...] in an abandoned building, in an overnight intermediate, or couch-surfing.) Yes 05/30/2025 Are you worried [...] Sex Assigned at Male 09/04/2021 2:10 PM MODEL AND MOLD MAKER PLASTER Legal Sex Male 4:30 AM MODEL AND MOLD MAKER PLASTER Gender Identity Male 09/04/2021 2:10 PM MODEL AND MOLD MAKER PLASTER Sexual Orientation Straight 09/04/2021 2: 10 PM MODEL AND MOLD MAKER PLASTER documented as of this encounter Miscellaneous Notes * Telephone Encounter - Niru Akhtar - 07/25/2025 4:20 PM CDT Form signed by Provider and faxed to: [employer] Order#[id number] Fax #: [phone] Faxed to cate Akhtar Manufacturing Plant Controller * Telephone Encounter - Candida Chicas - 07/19/2025 8:57 AM CDT Placed in Lara José's in basket. Per 05/28 Home Care encounter, provider agreed to follow patient. Candida Perkins, Manufacturing Plant Controller- [place] [address] Primary Care- Lio Christensen [facility] * Telephone Encounter - Tanika Salvador - 07/18/2025 11:38 AM CDT Forms received from [employer] for Brooklynn Renay. Forms placed in provider 'sign me' folder. Please fax forms to [phone] after completion. Tanika Manufacturing Plant Controller * Telephone Encounter - Unique Maria - 07/18/2025 9:42 AM CDT Forms/Letter Request Type of form/letter: OTHER: [employer] [facility] Order # [id number] Do we have the form/letter: Yes: toll test desk worker in basket Who is the form from? Home care Where did/will the form come from? form was faxed in When is form/letter needed by: CESAR How would you like the form/letter returned: Patient Notified form requests are processed in 5-7 business days:No Could we send this information to you in [facility] or would you prefer to receive a phone call?: No preference Okay to leave a detailed message?: N/A at Other phone number: Unique Maria Patient Bath Steward/Stewardess [facility] Yogi documented in this encounter Plan of Treatment Not on file documented as of this encounter Visit Diagnoses Not on filedocumented in this encounter Care Teams Rope Silica Machine Operator Relationship Specialty Start Date End Date Brooklynn Niño APRN INVOICE CHECKER [address] [address] PCP - General Family Practice 05/27/16 Helen Monterroso, RN Registered Nurse Infectious Diseases 06/25/22 Carmela Kumar APRN [facility] [address] [place] [address] Assigned PCP 06/26/24 Manjit Swanson MD [address] [place] [address] Assigned Pediatric Specialist Provider 06/26/25 Anna Terrell Artur Community Health Worker 07/24/25 documented as of this encounter
--- OUTSIDE RECORDS SUMMARY | 2025-07-31 17:55 | XMS_ITS | Encounter Summary ---
Author Organization [place] Address [address] [place] [address]. [place] [address] Care Team Providers Care Farm Equipment Assembler Name Role Phone Brooklynn Niño APRN FISCAL CLERK Primary Care Provider Helen Monterroso RN Unavailable Unavailab Carmela Heath APRN, CNP Unavailable [phone] Sariah Nunez RN Unavailable [phone] Manjit Swanson MD Unavailable [phone] Reason for Visit * Reason Onset Date Comments Referral 07/04/2025 Unable to reach to schedule MTM Encounter Details Date Type Department Care Team (Late st Contact Info) Description 07/04/2025 Telephone [facility] [address] [place] [address] No Ref-Primary, Physician Referral (Unable to reach to schedule MTM/) Social History Tobacco Use Types Packs/Day Years [...] in an abandoned building, in an overnight residential, or couch-surfing.) Yes 05/30/2025 Are you worried [...] Sex Assigned at Male 09/04/2021 2:10 PM BAGGAGE SCREENER Legal Sex Male 4:30 AM BAGGAGE SCREENER Gender Identity Male 09/04/2021 2:10 PM BAGGAGE SCREENER Sexual Orientation Straight 09/04/2021 2: 10 PM BAGGAGE SCREENER documented as of this encounter Miscellaneous Notes * Telephone Encounter - Odette Dill CMA - 07/04/2025 10:00 AM CDT MTM referral from: Transitions of Care (recent hospital discharge, TCU discharge, or ED visit) MTM referral outreach attempt #2 on July 04, 2025 at 10:00 AM Outcome: Left Message yesterday Use rosemount, Use VBC, TCU Discharge Date: 06/29/25 (sched primary, no recent specialty appt) for the carrier/Plan on the flowsheet Definition 6 Message Sent Moon Kahn Drafting Supervisor-[facility] [phone] documented in this encounter Plan of Treatment Not on file documented as of this encounter Visit Diagnoses Not on filedocumented in this encounter Care Teams Farm Equipment Assembler Relationship Specialty Start Date End Date Brooklynn Niño APRN FISCAL CLERK [address] [place] [address] PCP - General Family Practice 05/27/16 Helen Monterroso, RN Registered Nurse Infectious Diseases 06/25/22 Carmela Kumar APRN FISCAL CLERK [address] [address] [address] Assigned PCP 06/26/24 Sariah Nunez, RN Clinic Tassel Making Machine Operator 06/07/2507/04 Manjit Swanson MD [address] [place] [address] Assigned Pediatric Specialist Provider 06/26/25 documented as of this encounter
--- OUTSIDE RECORDS SUMMARY | 2025-07-31 17:55 | XMS_ITS | Encounter Summary ---
Author Organization [place] Address [address] [place] [place] [address] Care Team Providers Care Millinery Worker Name Role Phone Brooklynn Niño APRN DIRECTOR AIRPORT Primary Care Provider Helen Monterroso RN Unavailable Unavailab Carmela Heath APRN, CNP Unavailable [phone] Manjit Swanson MD Unavailable [phone] Encounter Details Date Type Department Care Team (Late st Contact Info) Description 07/09/2025 Medical Correspondence [facility] Health Information Management [address] [facility] [address] [facility] [address] [place] [address] Scan, Non-Provider Social History Tobacco Use Types Packs/Day Years [...] in an abandoned building, in an overnight longterm, or couch-surfing.) Yes 05/30/2025 Are you worried [...] Sex Assigned at Male 09/04/2021 2:10 PM BIT GRINDER Legal Sex Male 4:30 AM BIT GRINDER Gender Identity Male 09/04/2021 2:10 PM BIT GRINDER Sexual Orientation Straight 09/04/2021 2: 10 PM BIT GRINDER documented as of this encounter Plan of Treatment Not on file documented as of this encounter Visit Diagnoses Not on filedocumented in this encounter Care Teams Millinery Worker Relationship Specialty Start Date End Date Brooklynn Niño APRN DIRECTOR AIRPORT [address] [place] [address] PCP - General Family Practice 05/27/16 Helen Monterroso RN Registered Nurse Infectious Diseases 06/25/22 Carmela Kumar APRN DIRECTOR AIRPORT [address] [place] [address] Assigned PCP 06/26/24 Manjit Swanson MD [address] [place] [address] Assigned Pediatric Specialist Provider 06/26/25 documented as of this encounter
--- OUTSIDE RECORDS SUMMARY | 2025-07-31 17:55 | XMS_ITS | Encounter Summary ---
Author Organization [place] Address [address] [facility] [place] [address] Care Team Providers Care Mental Health Counselor Name Role Phone Brooklynn Niño APRN MILLINERY WORKER Primary Care Provider Helen Monterroso RN Unavailable Unavailab Carmela Heath APRN, CNP Unavailable [phone] Manjit Swanson MD Unavailable [phone] Reason for Visit * Reason Onset Date Comments Forms 07/09/2025 [facility] & Order [id number] [facility] Encounter Details Date Type Department Care Team (Late st Contact Info) Description 07/09/2025 [facility] [address] [place] [address] Brooklynn Niño APRN [facility] [address] [place] [address] Forms ([facility] & Order [id number]- [facility]) Social History Tobacco Use Types Packs/Day Years [...] in an abandoned building, in an overnight half-way, or couch-surfing.) Yes 05/30/2025 Are you worried [...] Sex Assigned at Male 09/04/2021 2:10 PM BOXCAR WEIGHER Legal Sex Male 4:30 AM BOXCAR WEIGHER Gender Identity Male 09/04/2021 2:10 PM BOXCAR WEIGHER Sexual Orientation Straight 09/04/2021 2: 10 PM BOXCAR WEIGHER documented as of this encounter Miscellaneous Notes * Telephone Encounter - Candida Chicas - 07/10/2025 8:06 AM CDT Faxed back to [employer] and abstracting. Placed in tc basket at [email or web address] [facility]. Candida Perkins, [facility]- [place] [address] Primary Care- Lio Christensen [facility] * Telephone Encounter - Giovana Niru L - 07/09/2025 10:35 AM CDT Form placed in Provider basket for review and signature. Form: [employer] [id number] [facility] * Telephone Encounter - Erendira Perera - 07/09/2025 9:19 AM CDT Forms/Letter Request Type of form/letter: OTHER: [employer] [id number] Do we have the form/letter: No Who is the form from? Home Care Where did/will the form come from? form was faxed in When is form/letter needed by: How would you like the form/letter returned: Erendira Perera Patient Feather Separator documented in this encounter Plan of Treatment Not on file documented as of this encounter Visit Diagnoses Not on filedocumented in this encounter Care Teams Mental Health Counselor Relationship Specialty Start Date End Date Brooklynn Niño APRN MILLINERY WORKER [address] [facility] [place] [address] PCP - General Family Practice 05/27/16 Helen Monterroso RN Registered Nurse Infectious Diseases 06/25/22 Carmela Kumar APRN MILLINERY WORKER [address] [place] [address] Assigned PCP 06/26/24 Manjit Swanson MD [address] [place] [address] [place], [place] [address] Assigned Pediatric Specialist Provider 06/26/25 documented as of this encounter
--- OUTSIDE RECORDS SUMMARY | 2025-07-31 17:55 | XMS_ITS | Encounter Summary ---
Author Organization [place] Address [address] [place] [address] Care Team Providers Care Explosives Mixer Operator Name Role Phone Brooklynn Niño APRN WAGON DRIVER Primary Care Provider Helen Monterroso RN Unavailable Unavailab Carmela Heath APRN, CNP Unavailable [phone] Manjit Swanson MD Unavailable [phone] Encounter Details Date Type Department Care Team (Late st Contact Info) Description 07/05/2025 Telephone [facility] [address] [place] [address] Brooklynn Niño APRN [facility] [address] [place] [address] Social History Tobacco Use Types [...] Sex Assigned at Male 09/04/2021 2:10 PM DETAILER Legal Sex Male 4:30 AM DETAILER Gender Identity Male 09/04/2021 2:10 PM DETAILER Sexual Orientation Straight 09/04/2021 2: 10 PM DETAILER documented as of this encounter Miscellaneous Notes * Telephone Encounter - Hansa Chong RN - 07/05/2025 11:35 AM CDT Home Care is calling regarding an established patient with [facility]. Requesting orders from: Brooklynn Niño RN APPROVED: RN able to provide verbal orders. Home Care will send orders for signature. RN will close encounter. Is this a request for a temporary pause in the home care episode? No Orders Requested Occupational Therapy Request for initial certification (first set of orders) Frequency: once a week x 4 weeks RN gave verbal order: Yes Phone number Home Care can be reached at: [phone] Okay to leave a detailed message?: Yes Contacts Contact Date/Time Type Contact Phone/Fax 07/05/2025 11:35 AM CDT Phone (Incoming) [facility] (Home Care) [phone] [facility] Per chart review, patient overdue for appointment. TC has been attempting to contact. Hansa Chong, RN documented in this encounter Plan of Treatment Not on file documented as of this encounter Visit Diagnoses Not on filedocumented in this encounter Care Teams Explosives Mixer Operator Relationship Specialty Start Date End Date Brooklynn Niño APRN WAGON DRIVER [address] [place] [address] PCP - General Family Practice 05/27/16 Helen Monterroso RN Registered Nurse Infectious Diseases 06/25/22 Carmela Kumar APRN WAGON DRIVER [address] [place] [address] Assigned PCP 06/26/24 Manjit Swanson MD [address] [place] [address] Assigned Pediatric Specialist Provider 06/26/25 documented as of this encounter
--- OUTSIDE RECORDS SUMMARY | 2025-07-31 17:55 | XMS_ITS | Encounter Summary ---
Author Organization [place] Address [address] [place] [address]. [place] [address] Care Team Providers Care Food Porter Name Role Phone Brooklynn Niño APRN CARPET INSPECTOR FINISHED Primary Care Provider Helen Monterroso RN Unavailable Unavailab Carmela Heath APRN, CNP Unavailable [phone] Sariah Nunez RN Unavailable [phone] Manjit Swanson MD Unavailable [phone] Anna Terrell Unavailable [phone] Reason for Visit * Reason Onset Date Comments Home care orders 06/30/2025 Encounter Details Date Type Department Care Team (Late st Contact Info) Description 06/30/2025 Telephone [facility] Nurse Advisors [address] [place] [address] Debbie Schwartz RN Home care orders Social History Tobacco Use Types Packs/Day Years [...] in an abandoned building, in an overnight nursing home, or couch-surfing.) Yes 05/30/2025 Are you worried [...] Sex Assigned at Male 09/04/2021 2:10 PM ACETYLENE BURNER Legal Sex Male 4:30 AM ACETYLENE BURNER Gender Identity Male 09/04/2021 2:10 PM ACETYLENE BURNER Sexual Orientation Straight 09/04/2021 2: 10 PM ACETYLENE BURNER documented as of this encounter Miscellaneous Notes * Telephone Encounter - Debbie Schwartz RN - 06/30/2025 6:09 PM CDT Home Care is calling regarding an established patient with [facility]. Requesting orders from: Brooklynn Niño RN APPROVED: RN able to provide verbal orders. Home Care will send orders for signature. RN will close encounter. Is this a request for a temporary pause in the home care episode? No Orders Requested Home Visit by Stratigraphy Teacher (WOC) Daily for two weeks Three times a week for 6 weeks 1 time a week for 1 week With 3 prn visits RN gave verbal order: Yes Physical Therapy Request for initial evaluation and treatment (one time) RN gave verbal order: Yes Occupational Therapy Request for initial evaluation and treatment (one time) RN gave verbal order: Yes AREA ATTENDANT (Home Health Aide) Request for resumption in care. Once a week for 8 weeks RN gave verbal order: Yes Phone number Home Care can be reached at: Okay to leave a detailed message?: Yes Contacts Contact Date/Time Type Contact Phone/Fax 06/30/2025 06:09 PM CDT Phone (Incoming) [facility] (Other) [phone] nurse with [employer]. Ok to leave detailed VM. Debbie Schwartz RN documented in this encounter Plan of Treatment Not on file documented as of this encounter Visit Diagnoses Not on filedocumented in this encounter Additional Health Concerns Infection Onset Date Last Indicated Resolved Time Rule Out COVID-19 07/05/2025 07/05/2025 07/05/2025 11:34 PM CDT documented as of this encounter Care Teams Food Porter Relationship Specialty Start Date End Date Brooklynn Niño APRN CARPET INSPECTOR FINISHED [address] [place] [address] PCP - General Family Practice 05/27/16 Helen Monterroso RN Registered Nurse Infectious Diseases 06/25/22 Carmela Kumar APRN CARPET INSPECTOR FINISHED [address] [place] [address] Assigned PCP 06/26/24 Sariah Nunez, RN Clinic Cnc Mechanic 06/07/2507/04 Manjit Swanson MD [address] [place] [address] [address] [address] Assigned Pediatric Specialist Provider 06/26/25 Anna Terrell CHW Community Health Worker 07/24/25 documented as of this encounter
--- OUTSIDE RECORDS SUMMARY | 2025-07-31 17:55 | XMS_ITS | Encounter Summary ---
Author Organization [place] Address [address] [facility] [place] [address] Care Team Providers Care Licensed Occupational Therapist Name Role Phone Brooklynn Niño APRN HL7 DEVELOPER Primary Care Provider Helen Monterroso RN Unavailable Unavailab Carmela Heath APRN, CNP Unavailable [phone] Manjit Swanson MD Unavailable [phone] Encounter Details Date Type Department Care Team (Late st Contact Info) Description 07/17/2025 Telephone [facility] [address] [place] [address] Brooklynn Niño APRN [facility] [address] [place] [address] Social History Tobacco Use Types [...] Sex Assigned at Male 09/04/2021 2:10 PM OUTBOUND TELEMARKETER Legal Sex Male 4:30 AM OUTBOUND TELEMARKETER Gender Identity Male 09/04/2021 2:10 PM OUTBOUND TELEMARKETER Sexual Orientation Straight 09/04/2021 2: 10 PM OUTBOUND TELEMARKETER documented as of this encounter Miscellaneous Notes * Telephone Encounter - Annie Laura RN - 07/17/2025 2:55 PM CDT Received a call from Dawn a nurse with [facility] [employer] [phone], ok to . See telephone call of 07/16/25. She said she was updating pcp. Advised the pt last saw Brooklynn Niño 03/27/2020. He needs an appt. See telephone call of 05/28/25 also. Advised he needs a hospital follow up - has been in the hospital 3 times since May and an appt for a physical. Dawn was giving an FYI - He had a high heart rate at his visit - 112. He is asymptomatic. She said that is his norm. Advised if he has symptoms or his heart rate continues at this rate or any problems, he should be seen. documented in this encounter Plan of Treatment Not on file documented as of this encounter Visit Diagnoses Not on filedocumented in this encounter Care Teams Licensed Occupational Therapist Relationship Specialty Start Date End Date Brooklynn Niño APRN HL7 DEVELOPER [address] [place] [address] PCP - General Family Practice 05/27/16 Helen Monterroso RN Registered Nurse Infectious Diseases 06/25/22 Carmela Kumar APRN HL7 DEVELOPER [address] [place] [address] Assigned PCP 06/26/24 Manjit Swanson MD [address] [place] [address] [place] [address] Assigned Pediatric Specialist Provider 06/26/25 documented as of this encounter
--- OUTSIDE RECORDS SUMMARY | 2025-07-31 17:55 | XMS_ITS | Encounter Summary ---
Author Organization [place] Address [address] [facility] [place] [address] Care Team Providers Care Wildlife And Game Protector Name Role Phone Brooklynn Niño APRN DISEASE INTERVENTION SPECIALIST Primary Care Provider Helen Monterroso RN Unavailable Unavailab Carmela Heath APRN DISEASE INTERVENTION SPECIALIST Unavailable [phone] Adrienne Evans APRN DISEASE INTERVENTION SPECIALIST Unavailable (Fgs), [facility] Tcu - Servando Unavailable Sariah Nunez RN Unavailable [phone] Encounter Details Date Type Department Care Team (Late st Contact Info) Description 06/18/2025 Orders Only [facility] [address] [place] [address] Brooklynn Niño APRN DISEASE INTERVENTION SPECIALIST [address] [place] [address] DIAGNOSIS NOT YET DEFINED (Primary Dx) Social History Tobacco Use Types Packs/Day Years [...] in an abandoned building, in an overnight fci, or couch-surfing.) Yes 05/30/2025 Are you worried [...] Sex Assigned at Male 09/04/2021 2:10 PM BEEF SPLITTER Legal Sex Male 4:30 AM BEEF SPLITTER Gender Identity Male 09/04/2021 2:10 PM BEEF SPLITTER Sexual Orientation Straight 09/04/2021 2: 10 PM BEEF SPLITTER documented as of this encounter Plan of Treatment Not on file documented as of this encounter Procedures Procedure Name Priority Date/Time Associated Diagnosis Comments IL MD CERTIFICATION PALLIATIVE CARE NURSE PATIENT Routine 06/18/2025 DIAGNOSIS NOT YET DEFINED documented in this encounter Results * MD CERTIFICATION PALLIATIVE CARE NURSE PATIENT (06/18/2025) us Brooklynn Niño APRN DISEASE INTERVENTION SPECIALIST SPECIAL REPORTS Final R esult documented in this encounter Visit Diagnoses Diagnosis DIAGNOSIS NOT YET DEFINED- Primary documented in this encounter Care Teams Wildlife And Game Protector Relationship Specialty Start Date End Date Brooklynn Niño APRN DISEASE INTERVENTION SPECIALIST [address] [place] [address] PCP - General Family Practice 05/27/16 Helen Monterroso RN Registered Nurse Infectious Diseases 06/25/22 Carmela Kumar APRN DISEASE INTERVENTION SPECIALIST [address] [place] [address] Assigned PCP 06/26/24 Adrienne Evans APRN DISEASE INTERVENTION SPECIALIST [address] [place] [address] Nurse Practitioner Family Medicine 06/06/25 06/29/25 (Fgs), [facility] Josy [employer]ando [address] [place] [phone] 06/06/25 06/29/25 Sariah Nunez, RN Clinic Agriculture Consultant 06/07/2507/04 documented as of this encounter
--- OUTSIDE RECORDS SUMMARY | 2025-07-31 17:55 | XMS_ITS | Encounter Summary ---
Author Organization [place] Address [address] [place] [address]. [place] [address] Care Team Providers Care Broadcast Designer Name Role Phone Brooklynn Niño APRN LEGAL TRANSCRIBER Primary Care Provider Helen Monterroso RN Unavailable Unavailab Carmela Heath APRN, CNP Unavailable [phone] Sariah Nunez RN Unavailable [phone] Manjit Swanson MD Unavailable [phone] Anna Trerell Unavailable [phone] Encounter Details Date Type Department Care Team (Late st Contact Info) Description 07/04/2025 MyC Medical Advice [facility] Pharm D Project [address] [place] [address] Odette Dill, CORPORATE ATTORNEY Social History Tobacco Use Types Packs/Day Years [...] in an abandoned building, in an overnight group home, or couch-surfing.) Yes 05/30/2025 Are you [...] Sex Assigned at Male 09/04/2021 2:10 PM CORPORATE SAFETY COORDINATOR Legal Sex Male 4:30 AM CORPORATE SAFETY COORDINATOR Gender Identity Male 09/04/2021 2:10 PM CORPORATE SAFETY COORDINATOR Sexual Orientation Straight 09/04/2021 2: 10 PM CORPORATE SAFETY COORDINATOR documented as of this encounter Plan of Treatment Not on file documented as of this encounter Visit Diagnoses Not on filedocumented in this encounter Additional Health Concerns Infection Onset Date Last Indicated Resolved Time Rule Out COVID-19 07/05/2025 07/05/2025 07/05/2025 11:34 PM CDT documented as of this encounter Care Teams Broadcast Designer Relationship Specialty Start Date End Date Brooklynn Niño APRN LEGAL TRANSCRIBER [address] [address] PCP - General Family Practice 05/27/16 Helen Monterroso RN Registered Nurse Infectious Diseases 06/25/22 Carmela Kumar APRN LEGAL TRANSCRIBER [address] [place] [address] Assigned PCP 06/26/24 Sariah Nunez, RN Clinic Legal Consultant 06/07/2507/04 Manjit Swanson MD [address] [place] [address] Assigned Pediatric Specialist Provider 06/26/25 Anna Terrell CHW Community Health Worker 07/24/25 documented as of this encounter
--- OUTSIDE RECORDS SUMMARY | 2025-07-31 17:55 | XMS_ITS | Encounter Summary ---
Author Organization [place] Address [address] [facility] [place] [address] Care Team Providers Care Transportation Specialist Name Role Phone Brooklynn Niño APRN MECHANICAL ENERGY ENGINEER Primary Care Provider Helen Monterroso RN Unavailable Unavailab Carmela Heath APRN MECHANICAL ENERGY ENGINEER Unavailable [phone] Manjit Swanson MD Unavailable [phone] Anna Terrell Artur Unavailable [phone] Reason for Visit * Reason Onset Date Comments Forms 07/18/2025 [employer] [facility] [id number] Encounter Details Date Type Department Care Team (Late st Contact Info) Description 07/18/2025 Telephone [facility] [address] [place] [address] Brooklynn Niño APRN [facility] [address] [place] [address] Forms ([employer]/[id number]) Social History Tobacco Use Types Packs/Day Years [...] in an abandoned building, in an overnight senior care, or couch-surfing.) Yes 05/30/2025 Are you worried [...] Sex Assigned at Male 09/04/2021 2:10 PM DATA MINING ANALYST Legal Sex Male 4:30 AM DATA MINING ANALYST Gender Identity Male 09/04/2021 2:10 PM DATA MINING ANALYST Sexual Orientation Straight 09/04/2021 2: 10 PM DATA MINING ANALYST documented as of this encounter Miscellaneous Notes * Telephone Encounter - Niru Akhtar - 07/25/2025 3:59 PM CDT Form signed by Provider and faxed to: [employer] [phone] Fax #: [phone] Faxed to cate Akhtar Senior Officer * Telephone Encounter - Carmela Kumar APRN CNP - 07/25/2025 3:31 PM CDT Signed and in my outbox. Thanks- Lara * Telephone Encounter - Candiad Chicas - 07/19/2025 8:54 AM CDT Placed in Lara José's in basket. Per 05/28 Home Care encounter, provider agreed to follow patient. Candida Perkins, Senior Officer- [place] [address] Primary Care- [facility] [facility] * Telephone Encounter - Tanika Salvador - 07/18/2025 8:36 AM CDT Forms received from [employer] for Brooklynn Niño. Forms placed in provider 'sign me' folder. Please fax forms to [phone] after completion. Tanika Senior Officer * Telephone Encounter - Erendira Perera - 07/18/2025 7:39 AM CDT Forms/Letter Request Type of form/letter: OTHER: [facility] [id number] Do we have the form/letter: Yes: Who is the form from? Home care Where did/will the form come from? form was faxed in When is form/letter needed by: How would you like the form/letter returned: Erendira Perera Patient Saturation Equipment Operator documented in this encounter Plan of Treatment Not on file documented as of this encounter Visit Diagnoses Not on filedocumented in this encounter Care Teams Transportation Specialist Relationship Specialty Start Date End Date Brooklynn Niño APRN MECHANICAL ENERGY ENGINEER [address] [address] PCP - General Family Practice 05/27/16 Helen Monterroso, RN Registered Nurse Infectious Diseases 06/25/22 Carmela Kumar APRN MECHANICAL ENERGY ENGINEER [address] [place] [address] Assigned PCP 06/26/24 Manjit Swanson MD [address] [place] [address] Assigned Pediatric Specialist Provider 06/26/25 Anna Terrell, MIGUEL Community Health Worker 07/24/25 documented as of this encounter
--- OUTSIDE RECORDS SUMMARY | 2025-07-31 17:55 | XMS_ITS | Encounter Summary ---
Author Organization [place] Address [address] [facility] [place] [address] Care Team Providers Care Computer Operations Analyst Name Role Phone Brooklynn Niño APRN DIVERSIONAL THERAPIST Primary Care Provider Helen Monterroso RN Unavailable Unavailab Carmela Heath APRN, CNP Unavailable [phone] Manjit Swanson MD Unavailable [phone] Encounter Details Date Type Department Care Team (Late st Contact Info) Description 07/09/[address] [facility] [address] [place] [address] Brooklynn Niño APRN [facility] [address] [place] [address] DIAGNOSIS NOT YET DEFINED (Primary [...] Sex Assigned at Male 09/04/2021 2:10 PM FILLER SHREDDING MACHINE LOADER Legal Sex Male 4:30 AM FILLER SHREDDING MACHINE LOADER Gender Identity Male 09/04/2021 2:10 PM FILLER SHREDDING MACHINE LOADER Sexual Orientation Straight 09/04/2021 2: 10 PM FILLER SHREDDING MACHINE LOADER documented as of this encounter Plan of Treatment Not on file documented as of this encounter Procedures Procedure Name Priority Date/Time Associated Diagnosis Comments [place] MD CERTIFICATION GAME PROTECTOR PATIENT Routine 07/09/2025 DIAGNOSIS NOT YET DEFINED documented in this encounter Results * MD CERTIFICATION GAME PROTECTOR PATIENT (07/09/2025) us Brooklynn Niño APRN, CNP SPECIAL REPORTS Final R esult documented in this encounter Visit Diagnoses Diagnosis DIAGNOSIS NOT YET DEFINED- Primary documented in this encounter Care Teams Computer Operations Analyst Relationship Specialty Start Date End Date Brooklynn Niño APRN CNP [address] [place] [address] PCP - General Family Practice 05/27/16 Helen Monterroso, RN Registered Nurse Infectious Diseases 06/25/22 Carmela Kumar APRN [facility] [address] [place] [address] Assigned PCP 06/26/24 Manjit Swanson MD [address] [place] [address] Assigned Pediatric Specialist Provider 06/26/25 documented as of this encounter
--- OUTSIDE RECORDS SUMMARY | 2025-07-31 17:55 | XMS_ITS | Encounter Summary ---
Author Organization [place] Address [address] [place] [address]. [place] [address] Care Team Providers Care Capsule Filling Machine Operator Name Role Phone RenayMichelle landaverdebeny MCKEON IN CLASS SPECIAL EDUCATION TEACHER Primary Care Provider Helen Monterroso RN Unavailable Unavailab Carmela Heath APRN IN CLASS SPECIAL EDUCATION TEACHER Unavailable [phone] Adrienne Evans PROCESS IMPROVEMENT MANAGER IN CLASS SPECIAL EDUCATION TEACHER Unavailable (Fgs), [facility] Tcu - Servando Unavailable Sariah Nunez RN Unavailable [phone] Manjit Swanson MD Unavailable [phone] Anna Terrell CHArtur Unavailable [phone] Encounter Details Date Type Department Care Team (Late st Contact Info) Description 11/30/2024 MyC Medical Advice [facility] [address] [place] [address] Keri Medina MA Social History Tobacco Use Types Packs/Day Years Used Date Smoking Tobacco: Former Cigarettes Q uit: 04/08/2016 Smokeless Tobacco: Never Alcohol Use Standard Drinks/Week Comments Yes 0 (1 standard drink = 0.6 oz pur e alcohol) social PHQ-2 Answer Date Recorded PHQ-2 Score 1 06/14/2024 Adolescent Education Answer Date Record ed Getting School Help Needed Not on file 07/17 Interpersonal Safety Answer Date Record ed Do you feel physically and e motionally safe where you currently live? Yes 06/14/2024 Within the past 12 months, h ave you been hit, slapped, kicked or otherwise physically hurt by someone? No 06/14/2024 Within the past 12 months, h ave you been humiliated or emotionally abused in other ways by your partner or ex-partner? No 06/14/2024 Sex and Gender Information Value Date Recorded Sex Assigned at Male 09/04/2021 2:10 PM SHOP ESTIMATOR Legal Sex Male 4:30 AM SHOP ESTIMATOR Gender Identity Male 09/04/2021 2:10 PM SHOP ESTIMATOR Sexual Orientation Straight 09/04/2021 2: 10 PM SHOP ESTIMATOR documented as of this encounter Plan of Treatment Not on file documented as of this encounter Visit Diagnoses Not on filedocumented in this encounter Additional Health Concerns Infection Onset Date Last Indicated Resolved Time Rule Out C-difficile 05/22/2025 05/23/2025 025 7:27 PM CDT Rule Out COVID-19 07/05/2025 07/05/2025 07/05/2025 11:34 PM CDT documented as of this encounter Care Teams Capsule Filling Machine Operator Relationship Specialty Start Date End Date Brooklynn Niño APRN IN CLASS SPECIAL EDUCATION TEACHER [address] [place] [address] PCP - General Family Practice 05/27/16 Helen Monterroso RN Registered Nurse Infectious Diseases 06/25/22 Carmela Kumar APRN IN CLASS SPECIAL EDUCATION TEACHER [address] [place] [address] Assigned PCP 06/26/24 Adrienne Evans APRN IN CLASS SPECIAL EDUCATION TEACHER [address] [place] [address] Nurse Practitioner Family Medicine 06/06/25 06/29/25 (Fgs), [facility] Josy Al [address] [phone] 06/06/25 06/29/25 Sariah Nunez, RN Clinic [place] Machine Operator 06/07/2507/04 Manjit Swanson MD [address] [place] [address] Assigned Pediatric Specialist Provider 06/26/25 Anna Terrell, MIGUEL Community Health Worker 07/24/25 documented as of this encounter
--- OUTSIDE RECORDS SUMMARY | 2025-07-31 17:55 | XMS_ITS | Encounter Summary ---
Author Organization [place] Address [address] [facility] [address] Care Team Providers Care Dean Of Instruction Name Role Phone Brooklynn Niño APRN MEDICAL ASSISTANT PER DIEM Primary Care Provider Helen Monterroso RN Unavailable Unavailab Carmela Heath APRN MEDICAL ASSISTANT PER DIEM Unavailable [phone] Adrienne Evans APRN MEDICAL ASSISTANT PER DIEM Unavailable (Fgs), [facility] Tcu - Servando Unavailable Sariah Nunez RN Unavailable [phone] Reason for Visit * Reason Onset Date Comments Forms [facility]/13/[id number] Encounter Details Date Type Department Care Team (Late st Contact Info) Description 06/13/2025 Telephone [facility] [address] [place] [address] Brooklynn Niño APRN MEDICAL ASSISTANT PER DIEM [address] [place] [address] Forms ([facility] center[facility]/[id number]) Social History Tobacco Use Types Packs/Day Years [...] in an abandoned building, in an overnight care home, or couch-surfing.) Yes 05/30/2025 Are you [...] Sex Assigned at Male 09/04/2021 2:10 PM DIRECTOR ONLINE MARKETING Legal Sex Male 4:30 AM DIRECTOR ONLINE MARKETING Gender Identity Male 09/04/2021 2:10 PM DIRECTOR ONLINE MARKETING Sexual Orientation Straight 09/04/2021 2: 10 PM DIRECTOR ONLINE MARKETING documented as of this encounter Miscellaneous Notes * Telephone Encounter - Niru Akhtar - 06/18/2025 4:18 PM CDT Form signed by Provider and faxed to: Form: [facility] [id number] Form faxed to cate. Casandra Akhtar Third Rail Installer * Telephone Encounter - Carmela Kumar APRN CNP - 06/18/2025 3:07 PM CDT Signed and in my outbox. Thanks- Lara * Telephone Encounter - Candida Chicas - 06/18/2025 8:38 AM CDT After chart review- appears that patient is in TCU. Attempts have been made to contact for appointment however no return call or MyChart from patient. RE: 05/28 Home Care TE Carmela Kumar APRN CNP Yes I am following him and will continue to do so. However he also needs to schedule a routine physical with me. Will place orders in Lara's basket for signature. Candida Fernandez Third Rail Installer- [place] [address] Primary Care- [facility] * Telephone Encounter - Candida Chicas - 06/15/2025 8:00 AM CDT Sent MyChart x2 attempt. Candida Fernandez Third Rail Installer- [place] [address] Primary Care- [facility] * Telephone Encounter - Candida Chicas - 06/14/2025 1:48 PM CDT LVM x1 Contacts Contact Date/Time Type Contact Phone/Fax 06/13/2025 07:07 AM CDT Fax (Incoming) Jose Siddiqui [phone] [facility] [id number] 06/14/2025 01:47 PM CDT Phone (Outgoing) Nikhil Palafox (Self) [phone] (M) Left Message Attempted to reach patient to: Schedule an appointment When patient returns call, please take this action: Assist with scheduling Reason for the visit: Hospital/ED Follow-up When to schedule: Within 14 days Additional comments/info: Needs hospital follow up visit- can be VIDEO. - patient has MEDICARE- appt can only be in person or VIDEO to satisfy medicare's face to face policy. If unable to schedule: Transfer to [facility] (or update telephone encounter in after-hours) Candida Fernandez Third Rail Installer- [place] [address] Primary Care- [facility] * Telephone Encounter - Candida Chicas - 06/14/2025 1:45 PM CDT Received note from provider: Brooklynn Niño APRN CNP to [facility] (Selected Message) 06/14/25 1:29 PM Needs visit. PAULINA *states virtual okay* Candida Fernandez Third Rail Installer- [address] Care- [facility] * Telephone Encounter - Niru Akhtar - 06/13/2025 7:52 AM CDT Forwarding to Provider for follow-up and signature. Form: TORIA [id number] Casandra Akhtar Third Rail Installer * Telephone Encounter - Erendira Perera - 06/13/2025 7:07 AM CDT Forms/Letter Request Type of form/letter: OTHER: [facility] [id number] Do we have the form/letter: Yes: Who is the form from? Home care Where did/will the form come from? form was faxed in When is form/letter needed by: How would you like the form/letter returned: Erendira Perera Patient Grain Elevator Superintendent documented in this encounter Plan of Treatment Not on file documented as of this encounter Visit Diagnoses Not on filedocumented in this encounter Care Teams Dean Of Instruction Relationship Specialty Start Date End Date Brooklynn Niño APRN MEDICAL ASSISTANT PER DIEM [address] [place] [address] PCP - General Family Practice 05/27/16 Helen Monterroso RN Registered Nurse Infectious Diseases 06/25/22 Carmela Kumar APRN MEDICAL ASSISTANT PER DIEM [address] [place] [address] Assigned PCP 06/26/24 Adrienne Evans APRN MEDICAL ASSISTANT PER DIEM [address] [place] [address] Nurse Practitioner Family Medicine 06/06/25 06/29/25 (Fgs), [facility]ando [address] [place] [phone] 06/06/25 06/29/25 Sariah Nunez, RN Clinic Fish Hatchery Laborer 06/07/2507/04 documented as of this encounter
--- OUTSIDE RECORDS SUMMARY | 2025-07-31 17:55 | XMS_ITS | Encounter Summary ---
Author Organization [place] Address [address] [place] [address]. [place] [address] Care Team Providers Care Sausage Meat Trimmer Name Role Phone RenayBrooklynn landaverde MIKE SOFTWARE APPLICATIONS SPECIALIST Primary Care Provider Helen Monterroso RN Unavailable Unavailab Carmela Heath APRN SOFTWARE APPLICATIONS SPECIALIST Unavailable [phone] Adrienne Evans APRN SOFTWARE APPLICATIONS SPECIALIST Unavailable (Fgs), [facility] Tcu - Servando Unavailable Sariah Nunez RN Unavailable [phone] Manjit Swanson MD Unavailable [phone] Encounter Details Date Type Department Care Team (Latest Contact Info) Description 06/26/2025 Travel Social History Tobacco Use Types Packs/Day [...] in an abandoned building, in an overnight [facility], or couch-surfing.) Yes 05/30/2025 Are you worried [...] Sex Assigned at Male 09/04/2021 2:10 PM ASSEMBLER SANDAL PARTS Legal Sex Male 4:30 AM ASSEMBLER SANDAL PARTS Gender Identity Male 09/04/2021 2:10 PM ASSEMBLER SANDAL PARTS Sexual Orientation Straight 09/04/2021 2: 10 PM ASSEMBLER SANDAL PARTS documented as of this encounter Plan of Treatment Not on file documented as of this encounter Visit Diagnoses Not on filedocumented in this encounter Care Teams Sausage Meat Trimmer Relationship Specialty Start Date End Date Brooklynn Niño APRN SOFTWARE APPLICATIONS SPECIALIST [address] [address] [address] PCP - General Family Practice 05/27/16 Helen Monterroso RN Registered Nurse Infectious Diseases 06/25/22 Carmela Kumar APRN SOFTWARE APPLICATIONS SPECIALIST [address] [address] [address] Assigned PCP 06/26/24 Adrienne Evans APRN SOFTWARE APPLICATIONS SPECIALIST [address] [place] [address] Nurse Practitioner Family Medicine 06/06/25 06/29/25 (Fgs), [facility] [address] [phone] 06/06/25 06/29/25 Sariah Nunez, RN Clinic Predator Control Trapper 06/07/2507/04 Manjit Swanson MD [address] [facility] [address] [place] [address] Assigned Pediatric Specialist Provider 06/26/25 documented as of this encounter
--- OUTSIDE RECORDS SUMMARY | 2025-07-31 17:55 | XMS_ITS | Encounter Summary ---
Author Organization [place] Address [address] [facility] [place] [address] Care Team Providers Care Ed Manager Name Role Phone Brooklynn Niño APRN ENGINEERING WRITER Primary Care Provider Helen Monterroso RN Unavailable Unavailab Carmela Heath APRN ENGINEERING WRITER Unavailable [phone] Manjit Swanson MD Unavailable [phone] Reason for Visit * Reason Onset Date Comments Home Care/Hospice 07/19/2025 Encounter Details Date Type Department Care Team (Late st Contact Info) Description 07/19/2025 Telephone [facility] [address] [place] [address] Brooklynn Niño APRN ENGINEERING WRITER [address] [place] [address] Home Care/Hospice () Social History Tobacco Use Types Packs/Day Years [...] in an abandoned building, in an overnight snf, or couch-surfing.) Yes 05/30/2025 Are you worried [...] Sex Assigned at Male 09/04/2021 2:10 PM MECHANICAL STRIPER Legal Sex Male 4:30 AM MECHANICAL STRIPER Gender Identity Male 09/04/2021 2:10 PM MECHANICAL STRIPER Sexual Orientation Straight 09/04/2021 2: 10 PM MECHANICAL STRIPER documented as of this encounter Miscellaneous Notes * Telephone Encounter - Earle Shaw RN - 07/19/2025 8:47 AM CDT [place]. Home Care is calling regarding an established patient with [facility]. Requesting orders from: Brooklynn Niño RN APPROVED: RN able to provide verbal orders. Home Care will send orders for signature. RN will close encounter. Is this a request for a temporary pause in the home care episode? No Orders Requested Social Work Request for continuation of care with increase in frequency Frequency: 1x a month for 1 month beginning 07/23/25. RN gave verbal order: Yes Phone number Home Care can be reached at: [phone] Okay to leave a detailed message?: Yes Earle Shaw RN documented in this encounter Plan of Treatment Not on file documented as of this encounter Visit Diagnoses Not on filedocumented in this encounter Care Teams Ed Manager Relationship Specialty Start Date End Date Brooklynn Niño APRN ENGINEERING WRITER [address] [place] [address] PCP - General Family Practice 05/27/16 Helen Monterroso RN Registered Nurse Infectious Diseases 06/25/22 Carmela Kumar APRN ENGINEERING WRITER [address] [place] [address] Assigned PCP 06/26/24 Manjit Swanson MD [address] [place] [address] [place] [address] Assigned Pediatric Specialist Provider 06/26/25 documented as of this encounter
--- OUTSIDE RECORDS SUMMARY | 2025-07-31 17:55 | XMS_ITS | Encounter Summary ---
Author Organization [place] Address [address] [facility] [place] [address] Care Team Providers Care Motorcyles Final Inspector Name Role Phone Brooklynn Niño APRN ANSWERING SERVICE OPERATOR Primary Care Provider Helen Monterroso RN Unavailable Unavailab Carmela Heath APRN ANSWERING SERVICE OPERATOR Unavailable [phone] Manjit Swanson MD Unavailable [phone] Anna Terrell Artur Unavailable [phone] Reason for Visit * Reason Onset Date Comments Forms 07/16/2025 [employer] [facility]#[id number]:[phone] Encounter Details Date Type Department Care Team (Late st Contact Info) Description 07/16/2025 Telephone [facility] [address] [place] [address] Brooklynn Niño APRN [facility] [address] [place], [place] [id number] Forms ([employer] [facility]/Order#[id number]/Ph one:[phone] /) Social History Tobacco Use Types Packs/Day Years [...] in an abandoned building, in an overnight long-term, or couch-surfing.) Yes 05/30/2025 Are you worried [...] Sex Assigned at Male 09/04/2021 2:10 PM LIVE IN HOUSEKEEPER Legal Sex Male 4:30 AM LIVE IN HOUSEKEEPER Gender Identity Male 09/04/2021 2:10 PM LIVE IN HOUSEKEEPER Sexual Orientation Straight 09/04/2021 2: 10 PM LIVE IN HOUSEKEEPER documented as of this encounter Miscellaneous Notes * Telephone Encounter - Niru Akhtar - 07/25/2025 3:43 PM CDT Form signed by Provider and faxed to: [employer] Order#[id number] Fax #: [phone] Casandra Akhtar Software Requirements Engineer * Telephone Encounter - Carmela Kumar APRN CNP - 07/25/2025 3:26 PM CDT Signed and in my outbox. Thanks- Lara * Telephone Encounter - Candida Chicas - 07/17/2025 1:11 PM CDT Per 05/28 home care encounter Lara Kumar is signing home care orders. Placed in her basket for signature. Candida Perkins, Software Requirements Engineer- [place] [address] Primary Care- [facility] Services * Telephone Encounter - Candida Chicas - 07/16/2025 11:10 AM CDT Home care orders in provider basket for signature. Candida Perkins, Software Requirements Engineer- [place] [address] Primary Care- [facility] Services * Telephone Encounter - Umu Frost - 07/16/2025 8:34 AM CDT Forms/Letter Request Type of form/letter: OTHER: Order#[id number] Do we have the form/letter: Yes: motel front desk attendant basket Who is the form from? [facility] Where did/will the form come from? form was faxed in When is form/letter needed by: [facility] How would you like the form/letter returned: Umu Frost Patient Rep. documented in this encounter Plan of Treatment Not on file documented as of this encounter Visit Diagnoses Not on filedocumented in this encounter Care Teams Motorcyles Final Inspector Relationship Specialty Start Date End Date Brooklynn Niño APRN ANSWERING SERVICE OPERATOR [address] [place] [address] PCP - General Family Practice 05/27/16 Helen Monterroso, RN Registered Nurse Infectious Diseases 06/25/22 Carmela Kumar APRN ANSWERING SERVICE OPERATOR [address] [facility] [address] Assigned PCP 06/26/24 Manjit Swanson MD [facility] [facility] [address], [place] [address] Assigned Pediatric Specialist Provider 06/26/25 Anna Terrell CHW Community Health Worker 07/24/25 documented as of this encounter
--- OUTSIDE RECORDS SUMMARY | 2025-07-31 17:55 | XMS_ITS | Encounter Summary ---
Author Organization [place] Address [address] [facility] [place] [address] Care Team Providers Care Design Cell Engineer Name Role Phone RenayBrooklynn landaverde MIKE CAR SHAGGER Primary Care Provider Helen Monterroso RN Unavailable Unavailab Carmela Heath APRN CAR SHAGGER Unavailable [phone] Adrienne Evans APRN CAR SHAGGER Unavailable (Fgs), [facility] Unavailable Sariah Nunez RN Unavailable [phone] Encounter Details Date Type Department Care Team (Latest Contact Info) Description 06/19/2025 Travel Social History Tobacco Use Types Packs/Day [...] Sex Assigned at Male 09/04/2021 2:10 PM HVAC PROJECT MANAGER Legal Sex Male 4:30 AM HVAC PROJECT MANAGER Gender Identity Male 09/04/2021 2:10 PM HVAC PROJECT MANAGER Sexual Orientation Straight 09/04/2021 2: 10 PM HVAC PROJECT MANAGER documented as of this encounter Plan of Treatment Not on file documented as of this encounter Visit Diagnoses Not on filedocumented in this encounter Care Teams Design Cell Engineer Relationship Specialty Start Date End Date Brooklynn Niño APRN CAR SHAGGER [address] [place] [address] PCP - General Family Practice 05/27/16 Helen Monterroso RN Registered Nurse Infectious Diseases 06/25/22 Carmela Kumar APRN CAR SHAGGER [address] [place] [address] Assigned PCP 06/26/24 Adrienne Evans APRN CAR SHAGGER [address] [place] [address] Nurse Practitioner Family Medicine 06/06/25 06/29/25 (Fgs), [facility] [address] [phone] 06/06/25 06/29/25 Sariah Nunez, RN Clinic Retail Operations Specialist 06/07/2507/04 documented as of this encounter
--- OUTSIDE RECORDS SUMMARY | 2025-07-31 17:55 | XMS_ITS | Encounter Summary ---
Author Organization [place] Address [address] [facility] [place] [address] Care Team Providers Care Mammalogist Name Role Phone Brooklynn Niño APRN REVENUE MANAGER Primary Care Provider Helen Monterroso RN Unavailable Unavailab Carmela Heath APRN, CNP Unavailable [phone] Manjit Swanson MD Unavailable [phone] Encounter Details Date Type Department Care Team (Late st Contact Info) Description 07/05/2025 Telephone [facility] [address] [place] [address] Brooklynn Niño APRN [facility] [address] [place] [address] Social History Tobacco Use Types [...] Answer Date Recorded Do you have housing? (Lias solares is defined as stable permanent housing and does not include staying outside in a car, in a tent, in an abandoned building, in an overnight retirement, or couch-surfing.) Yes 05/30/2025 Are you worried [...] Sex Assigned at Male 09/04/2021 2:10 PM WADER BOOT TOP ASSEMBLER Legal Sex Male 4:30 AM WADER BOOT TOP ASSEMBLER Gender Identity Male 09/04/2021 2:10 PM WADER BOOT TOP ASSEMBLER Sexual Orientation Straight 09/04/2021 2: 10 PM WADER BOOT TOP ASSEMBLER documented as of this encounter Miscellaneous Notes * Telephone Encounter - Micaela Mccarthy RN - 07/05/2025 1:25 PM CDT Home Care is calling regarding an established patient with [facility]. Requesting orders from: Brooklynn Niño RN APPROVED: RN able to provide verbal orders. Home Care will send orders for signature. RN will close encounter. Is this a request for a temporary pause in the home care episode? No Orders Requested WILLOWER (Home Health Aide) Request for discontinuation of care Goals have been met/progressing. Bathing Assistance RN gave verbal order: Yes Phone number Home Care can be reached at: [phone] Okay to leave a detailed message?: Yes Micaela Mccarthy, ZIGGY documented in this encounter Plan of Treatment Not on file documented as of this encounter Visit Diagnoses Not on filedocumented in this encounter Care Teams Mammalogist Relationship Specialty Start Date End Date Brooklynn Niño APRN CNP [address] [facility] [place] [address] PCP - General Family Practice 05/27/16 Helen Monterroso RN Registered Nurse Infectious Diseases 06/25/22 Carmela Kumar APRN REVENUE MANAGER [address] [place] [address] Assigned PCP 06/26/24 Manjit Swanson MD [address] [place] [address] Assigned Pediatric Specialist Provider 06/26/25 documented as of this encounter
--- OUTSIDE RECORDS SUMMARY | 2025-07-31 17:55 | XMS_ITS | Encounter Summary ---
Author Organization [place] Address [facility] [place] [address] Care Team Providers Care Grinding Supervisor Name Role Phone Brooklynn Niño APRN NOVELTY BALLOON ASSEMBLER AND PACKER Primary Care Provider Helen Monterroso RN Unavailable Unavailab Carmela Heath APRN NOVELTY BALLOON ASSEMBLER AND PACKER Unavailable [phone] Manjit Swanson MD Unavailable [phone] Anna Terrell Artur Unavailable [phone] Reason for Visit * Reason Onset Date Comments Forms 07/18/2025 [employer]#[id number]:[phone] Encounter Details Date Type Department Care Team (Late st Contact Info) Description 07/18/2025 Telephone [facility] [address] [place] [address] Brooklynn Niño APRN [facility] [address] [place] [address] Forms ([facility]/Order#[id number]/Ph one:[phone] /) Social History Tobacco Use Types Packs/Day [...] Sex Assigned at Male 09/04/2021 2:10 PM ON AIR HOST Legal Sex Male 4:30 AM ON AIR HOST Gender Identity Male 09/04/2021 2:10 PM ON AIR HOST Sexual Orientation Straight 09/04/2021 2: 10 PM ON AIR HOST documented as of this encounter Miscellaneous Notes * Telephone Encounter - Niru Akhtar - 07/25/2025 4:27 PM CDT Form signed by Provider and faxed to: [employer] Order#[id number] Fax #: [phone] Faxed to [employer]. Casandra Akhtar Environmental Health Manager * Telephone Encounter - Candida Chicas - 07/19/2025 8:57 AM CDT Placed in Lara José's in basket. Per 05/28 Home Care encounter, provider agreed to follow patient. Candida Perkins, Environmental Health Manager- [place] [address] Primary Care- [facility] * Telephone Encounter - Tanika Salvador - 07/18/2025 11:40 AM CDT Forms received from [employer] for Brooklynn Niño. Forms placed in provider 'sign me' folder. Please fax forms to [phone] after completion. Tanika Environmental Health Manager * Telephone Encounter - Umu Frost - 07/18/2025 10:29 AM CDT Forms/Letter Request Type of form/letter: OTHER: Order#[id number] Do we have the form/letter: Yes: desk operator basket Who is the form from? [facility] Where did/will the form come from? form was faxed in When is form/letter needed by: [facility] How would you like the form/letter returned: Umu Frost Patient Rep. documented in this encounter Plan of Treatment Not on file documented as of this encounter Visit Diagnoses Not on filedocumented in this encounter Care Teams Grinding Supervisor Relationship Specialty Start Date End Date Brooklynn Niño APRN NOVELTY BALLOON ASSEMBLER AND PACKER [address] [place] [address] PCP - General Family Practice 05/27/16 Helen Monterroso, RN Registered Nurse Infectious Diseases 06/25/22 Carmela Kumar APRN [facility] [address] [place] [address] Assigned PCP 06/26/24 Manjit Swanson MD [address] [id number] Assigned Pediatric Specialist Provider 06/26/25 Anna Terrell CHW Community Health Worker 07/24/25 documented as of this encounter
--- OUTSIDE RECORDS SUMMARY | 2025-07-31 17:56 | XMS_ITS | Encounter Summary ---
Author Organization [place] Address [address] [place] [address]. [place] [address] Care Team Providers Care Universal Winding Machine Operator Name Role Phone RenayBrooklynn landaverde MIKE GRAVEL MACHINE OPERATOR Primary Care Provider Helen Monterroso RN Unavailable Unavailab Carmela Heath APRN GRAVEL MACHINE OPERATOR Unavailable [phone] Adrienne Evans APRN GRAVEL MACHINE OPERATOR Unavailable (Fgs), [facility] - Serv[facility] Unavailable Sariah Nunez RN Unavailable [phone] Encounter Details Date Type Department Care Team (Late st Contact Info) Description 05/26/2025 Medical Correspondence [facility] Health Information Management [address] [facility] [address] [place] [address] Scan, Non-Provider [facility] Social History Tobacco Use Types Packs/Day Years [...] Sex Assigned at Male 09/04/2021 2:10 PM TUGGER OPERATOR Legal Sex Male 4:30 AM TUGGER OPERATOR Gender Identity Male 09/04/2021 2:10 PM TUGGER OPERATOR Sexual Orientation Straight 09/04/2021 2: 10 PM TUGGER OPERATOR documented as of this encounter Plan of Treatment Not on file documented as of this encounter Visit Diagnoses Not on filedocumented in this encounter Care Teams Universal Winding Machine Operator Relationship Specialty Start Date End Date Brooklynn Niño APRN GRAVEL MACHINE OPERATOR [address] [place] [address] PCP - General Family Practice 05/27/16 Helen Monterroso RN Registered Nurse Infectious Diseases 06/25/22 Carmela Kumar APRN GRAVEL MACHINE OPERATOR [address] [place] [address] Assigned PCP 06/26/24 Adrienne Evans APRN GRAVEL MACHINE OPERATOR [facility] [place] [address] Nurse Practitioner Family Medicine 06/06/25 06/29/25 (Fgs), [facility] Servando [address] [place] [phone] 06/06/25 06/29/25 Sariah Nunez, RN Clinic Auto Body Mechanic Apprentice 06/07/2507/04 documented as of this encounter
--- OUTSIDE RECORDS SUMMARY | 2025-07-31 17:56 | XMS_ITS | Clinical Summary ---
Author Organization [place] Address [address] [facility] [place] [address] Care Team Providers Care Teacher Assistant Name Role Phone Brooklynn Niño APRN DOCTOR ASSISTANT Primary Care Provider Helen Monterroso RN Unavailable Unavailab Carmela Heath APRN DOCTOR ASSISTANT Unavailable [phone] Manjit Swanson MD Unavailable [phone] Anna Terrell W Unavailable [phone] Allergies Active Allergy Reactions Criticality Noted Date Comments Tegaderm Transparent Dressin g (Informational Only) Rash High 05/21/2025 Medications TURMERIC PO Take 1 capsule by mouth daily. Active CRANBERRY PO Take 1 tablet by mouth daily. Active VITAMIN D PO Take 1 tablet by mouth every 7 days. Takes on Wednesday-doesn't know strength Active wound support modular (EXPEDITE) LIQD bottleIndicatio ns:Decubitus ulcer of right ischial area, stage IV (H) Take 60 mLs by mouth daily. 60 mL 5 Active menthol-zinc oxide (CALMOSEPTINE) 0.44-20.6 % OINT ointmentIndicat ions:Decubitus ulcer of right ischial area, stage IV (H) Apply topically 4 times daily as needed for skin protection. 113 g 5 Active UNABLE TO FIND MEDICATION NAME: Premier Protein Shake Active UNABLE TO FIND MEDICATION NAME: Calcium/Zinc/V itamin D supplement Active loperamide (IMODIUM) 2 MG capsuleIndicati ons:Diarrhea, unspecified type Take 1 capsule (2 mg) by mouth 4 times daily as needed for diarrhea. 30 capsule 5 Discontinu ed(Med Rec(No AVS / No eCancel)) acetaminophen (TYLENOL) 325 MG tabletIndicatio ns:Quadriplegia , unspecified (H) Take 2 tablets (650 mg) by mouth every 4 hours as needed for mild pain or other (and adjunct with moderate or severe pain or per patient request). 5 Discontinu ed(Med Rec(No AVS / No eCancel)) multivitamin w/minerals (THERA-VIT-M) tabletIndicatio ns:Quadriplegia , unspecified (H) Take 1 tablet by mouth daily. 5 Discontinu ed(Med Rec(No AVS / No eCancel)) senna-docusate (SENOKOT-S/ANUM COLACE) 8.6-50 MG tabletIndicatio ns:Quadriplegia , unspecified (H) Take 1 tablet by mouth 2 times daily as needed for constipation. 5 Discontinu ed(Med Rec(No AVS / No eCancel)) wound support modular (EXPEDITE) LIQD bottleIndicatio ns:Decubitus ulcer of right ischial area, stage IV (H) Take 60 mLs by mouth daily. 5 Discontinu ed(Med Rec(No AVS / No eCancel)) oxyCODONE (ROXICODONE) 5 MG tabletIndicatio ns:Pressure injury of skin of left hip, unspecified injury stage Take 1 tablet (5 mg) by mouth every 4 hours as needed for severe pain (IF pain not managed with non-pharmacolo gical and non-opioid interventions) . 30 tablet 5 Discontinu ed(Med Rec(No AVS / No eCancel)) baclofen (LIORESAL) 20 MG tabletIndicatio ns:Quadriplegia , unspecified (H) Take 1 tablet (20 mg) by mouth 3 times daily as needed for muscle spasms. 60 tablet 5 025 Discontinu ed(Med Rec(No AVS / No eCancel)) UNKNOWN TO PATIENT Take 1 tablet by mouth daily. Patient unsure of name but thought something like Hibiscus - uses for urinary issues 025 Discontinu ed(Stop at Discharge) amoxicillin-cla vulanate (AUGMENTIN) 875-125 MG tabletIndicatio ns:Skin and Soft Tissue Infection Take 1 tablet by mouth every 12 hours for 10 days. 20 tablet 5 025 Active Problems Problem Noted Date Diagnosed Date Osteomyelitis of other site, unspecified type Chills 05/29/2025 Sepsis 05/29/2025 Decubitus ulcer of right ischial area, stage IV 05/17/2025 PICC line infection 07/04/2022 Left arm cellulitis 07/04/2022 Complication associated with peripherally inserted central catheter (PICC), initial encounter 07/04/2022 Thigh abscess 06/25/2022 Osteomyelitis 06/24/2022 Urethral catheter present for long-term use 01/02 Closed displaced transverse fracture of shaft of left femur 03/06/2021 Quadriplegia following spinal cord injury 2012 Overview (07/08/2020): Since 1999, partial transection at C5/6. IMO Regulatory Load JUL 2020 Resolved Problems Problem Noted Date Diagnosed Date Resolved Date Decubitus ulcer of hip 05/27/202205/29 Wound infection 05/26/2022 05/29/2025 History of femur fracture 12/20/2014 Paraplegia 06/12/2010 05/23/2013 Overview (06/12/2010): Since 1999, partial transection at C5/6. CARDIOVASCULAR SCREENING; LD L GOAL LESS THAN 160 06/12/2010 06/14/2024 Overview (06/12/2010): [place] 10-year CHD Risk Score: 1% (-9 Total Points) Values used to calculate score: Age: 30 years -- Points: -9 Total Cholesterol: N/A mg/dL -- Points: 0 HDL Cholesterol: N/A mg/dL -- Points: 0 Systolic BP (untreated): mmHg -- Points: 0 Encounters Date Type Department Care Team Description 07/25/2025 Medical Correspondence [facility] Information Management [address] [facility] [address] [place] [address] Scan, Non-Provider 07/25/2025 Telephone [facility] [address] [place] [address] Brooklynn Niño APRN DOCTOR ASSISTANT Home Care/Hospice 07/24/2025 Telephone [facility] [address] [place] [address] Brooklynn Niño APRN DOCTOR ASSISTANT Referral 07/24/2025 Telephone [facility] [address] [place] [address] Brooklynn Niño APRN DOCTOR ASSISTANT Forms (Home Care Orders:/[id number] 0) 07/23/2025 8:30 AM CDT [facility] [address] [place] [address] Brooklynn Niño APRN CNP Quadriplegia following spinal cord injury (Primary Dx); Decubitus ulcer of right ischial area, stage IV (H); Osteomyelitis of other site, unspecified type (H) 07/23/2025 MyC Medical Advice [facility] [address] [place] [address] Hansa Chong, RN 07/23/2025 Telephone [facility] [address] [place] [address] Brooklynn Niño APRN DOCTOR ASSISTANT Orders 07/20/2025 Telephone [facility] [address] [place] [address] Brooklynn Niño APRN DOCTOR ASSISTANT 07/19/2025 Telephone [facility] [address] [place] [address] Brooklynn Niño APRN DOCTOR ASSISTANT Home Care/Hospice 07/19/2025 Telephone [facility] [address] [place] [address] Brooklynn Niño APRN DOCTOR ASSISTANT Home Care/Hospice () 07/18/2025 Telephone [facility] [address] [place] [address] Brooklynn Niño APRN DOCTOR ASSISTANT Forms ([facility]/Order#[id number]/ /) 07/18/2025 Telephone [facility] [address] [place] [address] Brooklynn Niño APRN DOCTOR ASSISTANT 07/18/2025 Telephone [facility] [address] [place] [address] Brooklynn Niño APRN DOCTOR ASSISTANT Forms ([facility]/[id number] ) 07/17/2025 Telephone [facility] [address] [place] [address] Brooklynn Niño APRN DOCTOR ASSISTANT 07/16/2025 Telephone [facility] [address] [place] [address] Brooklynn Niño APRN DOCTOR ASSISTANT Home Care/Hospice 07/16/2025 Telephone [facility] [address] [place] [address] Brooklynn Niño APRN DOCTOR ASSISTANT Forms ([facility]/Order#[id number]/ /) 07/09/2025 Orders Only [facility] [address] [place] [address] Brooklynn Niño APRN DOCTOR ASSISTANT DIAGNOSIS NOT YET DEFINED (Primary Dx) 07/09/2025 Medical Correspondence [facility] Information Management [address] [facility] [address] [place] [address] Scan, Non-Provider 07/09/2025 Telephone [facility] [address] [place] [address] Brooklynn Niño APRN DOCTOR ASSISTANT Forms ([facility] & Order [id number]- [facility]) 07/05/2025 9:30 PM CDT - 07/08/2025 4:07 PM CDT Hospital Encounter [place] [address] [facility] [address] [place] [address] Anthony Rocha MD Oljira, Amanuel Giragn, MD Osteomyelitis of other site, unspecified type (H) (Primary Dx); Pressure injury of sacral region, stage 4 (H); Decubitus ulcer of right ischial area, stage IV (H) [L89.314]; Decubitus ulcer of right ischial area, stage IV (H) Discharge Disposition: [place] [facility] 07/05/2025 6:00 PM CDT Office Visit [facility] [address] [facility] [address] [place] [address] Jenelle Martinez MD Quadriplegia following spinal cord injury (Primary Dx); Pressure injury of skin of right buttock, unspecified injury stage; Autonomic instability; Diaphoresis 07/05/2025 Travel 07/05/2025 Telephone [facility] [address] [place] [address] Brooklynn Niño APRN DOCTOR ASSISTANT 07/05/2025 Telephone [facility] [address] [place] [address] Brooklynn Niño APRN DOCTOR ASSISTANT 07/04/2025 MyC Medical Advice [facility] [address] [place] [address] Odette Dill CMA 07/04/2025 Telephone [facility] [address] [place] [address] No Ref-Primary, Physician Referral (Unable to reach to schedule MTM/) 07/03/2025 Telephone [facility] [address] [place] [address] Brooklynn Niño APRN CNP Home Care/Hospice 07/02/2025 Orders Only [facility] [address] [place] [address] Brooklynn Niño APRN CNP Hospital discharge follow-up 06/30/2025 Telephone [facility] [address] [place] [address] Debbie Schwartz, ZIGGY Patient/info Update 06/30/2025 Telephone [facility] [address] [place] [address] Debbie Schwartz RN Home care orders 06/26/2025 7:00 AM CDT Discharge Summary [facility] [address] [address] Adrienne Evans APRN CNP Discharge Summary [facility] 06/26/2025 Travel 06/19/2025 7:00 AM CDT Transitional Care Unit Visit [address] [address] Pelon Millard MD Decubitus ulcer of right ischial area, stage IV (H) (Primary Dx); Quadriplegia following spinal cord injury 06/19/2025 Travel 06/18/2025 Orders Only [facility] [address] [place] [address] Brooklynn Niño APRN CNP DIAGNOSIS NOT YET DEFINED (Primary Dx) 06/14/2025 9:30 AM CDT Transitional Care Unit Visit [address] [address] Adrienne vEans APRN CNP Decubitus ulcer of right ischial area, stage IV (H) (Primary Dx); Pressure injury, stage 4, with infection (H); Quadriplegia following spinal cord injury; Physical deconditioning 06/14/2025 Travel 06/13/2025 Telephone [facility] [address] [place] [address] Brooklynn Niño APRN DOCTOR ASSISTANT Forms ([facility]/[id number]) 06/08/2025 Medical Correspondence [facility] Information Management [address] [facility] [address] [place] [address] Scan, Non-Provider 06/08/2025 Telephone [facility] [address] [place] [address] Brooklynn Niño APRN DOCTOR ASSISTANT Forms (Order [id number] - [facility]) 06/08/2025 Telephone [facility] [address] [place] [address] Manjit Swanson MD WOUND CARE 06/08/2025 Telephone [facility] [address] [place] [address] Brooklynn Niño APRN DOCTOR ASSISTANT 06/07/2025 10:00 AM CDT Transitional Care Unit Visit [facility] [address] [place] [address] Adrienne Evans APRN DOCTOR ASSISTANT Decubitus ulcer of right ischial area, stage IV (H) (Primary Dx); Pressure injury, stage 4, with infection (H); Traumatic tear of right rotator cuff, unspecified tear extent, subsequent encounter; Quadriplegia following spinal cord injury; Physical deconditioning 06/07/2025 Travel 06/06/2025 Documentation Only [facility] [address] [place] [address] Yulia German [facility] Tracker 06/01/2025 MyC Medical Advice [facility] [address] [place] [address] Sariah Milton 05/29/2025 7:52 PM CDT - 06/06/2025 6:23 PM CDT Hospital Encounter [facility] [address] [place] [phone] Yosef Gomez MD Bray, Scott, MD Chills (Primary Dx); Abscess, gluteal, right; Decubitus ulcer of right ischial area, stage IV (H) [L89.314]; Decubitus ulcer of right ischial area, stage IV (H); Quadriplegia following spinal cord injury; Pressure injury of skin of left hip, unspecified injury stage Discharge Disposition: Senior Care Facility 05/29/2025 1:40 PM CDT Office Visit [facility] [address] [place] [address] Manjit Swanson MD Decubitus ulcer of right ischial area, stage IV (H) (Primary Dx); Decubitus ulcer of ischial area, right, unspecified pressure ulcer stage 05/29/2025 Travel 2025 Telephone [facility] [address] [place] [address] Brooklynn Niño APRN DOCTOR ASSISTANT Home Care/Hospice ([facility] ) 05/26/2025 Medical Correspondence [facility] Information Management [address] [facility] [address] [place] [address] Scan, Non-Provider [facility] 05/26/2025 Telephone [facility] [address] [place] [address] Ansley Kolb RN Orders 05/25/2025 Telephone [facility] [address] [place] [address] Brooklynn Niño APRN DOCTOR ASSISTANT Home Care/Hospice 05/23/2025 Results Follow-Up [facility] [place] [address] Aga Solorzano PA-C 05/22/2025 Telephone [facility] [place] [address] DARVIN Hernandez [phone] [place], W[facility] Healing 05/17/2025 11:01 AM CDT Anesthesia Event [facility] [address] [place] [address] Jordy Pierce MD Johnson, Robin Rachell, MANAGER [employer] STORE DRYING ROOM ATTENDANT 05/17/2025 9:40 AM CDT - 05/17/2025 11:00 AM CDT Surgery [facility] [address] [place] [address] Surendra Amato MD Debridement of right gluteal abscess 05/16/2025 10:03 PM CDT - 05/24/2025 4:41 PM CDT Hospital Encounter [facility] 3 Medical Surgical [address] [place] [address] Gary Chandler DO Gerardo, MD Geraldo Jeter Sean M, DO Decubitus ulcer of ischial area, right, unspecified pressure ulcer stage (Primary Dx); Right shoulder pain, unspecified chronicity; Pressure injury of right ischium, stage 4 (H) [L89.314]; Nontraumatic tear of right rotator cuff, unspecified tear extent; Diarrhea, unspecified type; Left arm cellulitis; Pressure injury of skin of left hip, unspecified injury stage Discharge Disposition: [place] [facility] [place]/16/20[place] Travel from Last 3 Months Immunizations Immunization Administration Dates Next Due Flu, Unspecified 06/16/2019 Historical DTP/aP 03/14/1984, 0,02/18/1979,1978,1978 Influenza Vaccine, 6+MO IM (QUADRIVALENT W/PRESERVATIVES) 09/04/2014 MMR (MMRII) 12/29/1995,01/18/1980 OPV, trivalent, live 04/15/1984,04/11/19 80,1978,1977 TDAP (Adacel,Boostrix) 06/14/2024 TDAP Vaccine (Adacel) 06/12/2010 Td (Adult), Adsorbed 12/29/1995 Family History Medical History Relation Comments Cancer Father Skin cancer Cancer Maternal Grandfather Cancer Paternal Aunt 2 aunts-Skin Cancer Paternal Grandfather Skin Cancer Paternal Uncle 2 uncles-Skin Relation Status Comments Father Maternal Grandfather Paternal Aunt Paternal Grandfather Paternal Uncle Social History Tobacco Use Types Packs/Day Years Used Date Smoking Tobacco: Former Cigarettes Q uit: 04/08/2016 Smokeless Tobacco: Never Tobacco Cessation:Counseling Given: Not Answered Alcohol Use Standard Drinks/Week Comments Yes 0 [...] an abandoned building, in an overnight senior living, or couch-surfing.) Yes 05/30/2025 Are you worried [...] Sex Assigned at Male 09/04/2021 2:10 PM LEHR LOADER Legal Sex Male 4:30 AM LEHR LOADER Gender Identity Male 09/04/2021 2:10 PM LEHR LOADER Sexual Orientation Straight 09/04/2021 2: 10 PM LEHR LOADER Last Filed Vital Signs Vital Sign Reading Time Taken Comments Blood Pressure 103/61 07/08/2025 7:00 AM CDT Pulse 85 07/08/2025 7:00 AM CDT Temperature 36.4 C (97.5 F) 07/08/2025 3:00 PM CDT Respiratory Rate 20 07/08/2025 7:00 AM CDT Oxygen Saturation 96% 07/08/2025 7:00 AM CDT Inhaled Oxygen Concentration - - Weight 72.6 kg (160 lb) 07/05/2025 6:28 PM CDT Height 157.5 cm (5' 2) 06/26/2025 9:07 AM CDT Body Mass Index 29.26 06/26/2025 9:07 AM CDT Plan of Treatment Health Maintenance Due Date Last Done Comments CT COLONOGRAPHY 1978 FIT 1978 FLEX SIG 1978 sDNA (Cologuard) 1978 COLONOSCOPY 1988 COLORECTAL CANCER SCREENING 1988 HEPATITIS C SCREENING 1996 HEPATITIS B VACCINE (1 of 3 - 19+ 3-dose series) 1997 MEDICARE ANNUAL WELLNESS VISIT 12/10/2020 12/11/2019 LIPID 12/10/2024 12/11/2019, 09/04/2014 COVID-19 VACCINE ( season) 2025 INFLUENZA VACCINE (#1) 2025 06/16/2019, 2013 ADVANCE CARE PLANNING 03/06/2026 03/06/2021 (Decline d) ANNUAL REVIEW OF HM ORDERS 07/23/202607/23, 06/14/2024, 03/06/2021 ZOSTER VACCINE (1 of 2) 2028 DIABETES SCREENING 07/07/2028 07/07/2025, 1 , 06/01/2025, Additional history exists DTAP/TDAP/TD VACCINE (8 - Td or Tdap) 06/14/2034 06/14/2024, 06/12/2010, 12/29/1995, Additional history exists HIV SCREENING Completed 02/15/2014 PHQ-2 (once per calendar year) Completed 07/23/2025, 06/14/2024, 12/18/2021, Additional history exists HPV VACCINE (No Doses Required) Completed MENINGITIS VACCINE Aged Out No longer eligible based on patient's age to complete this topic PNEUMOCOCCAL VACCINE: PEDIATRICS (0 to 5 YEARS) AND AT-RISK PATIENTS (6 to 49 YEARS) Aged Out No longer eligible based on patient's age to complete this topic Medical Devices Implanted Type Area Physically Impaired Teacher Device Identifier Shelf Expiration Date Model / Serial / Lot Imp Scr Syn 5.0 Ti Lock T25 Stardrive 52mm 04.005.542s - [id number] Implanted:Qty: 1 on 03/07/2021 by Anant Camacho MD at [facility] Metallic Hardware/Anc hor Left: Femur SYNTHES-STRATEC 11/03/2027 04.005.54 2S / / [id number] Imp Cable Dall Miles 2.0 Ss 3704-0-510 - [id number] Implanted:Qty: 1 on 03/07/2021 by Anant Camacho MD at [facility] Metallic Hardware/Anc hor Left: Femur [employer] 02/26/2024 3704-0-51 0 / / [id number] Imp Nail Syn Can Fem Prox Tfna [id number] 125d Lt 04.037.127s - [id number] Implanted:Qty: 1 on 03/07/2021 by Anant Camacho MD at [facility] Metallic Hardware/Anc hor Left: Femur SYN[employer]ES-STRATEC 01/31/2027 04.037.12 7S / / [id number] Imp Scr Syn Tfna Fenestrated Lag 90mm 04.038.190s - [id number] Implanted:Qty: 1 on 03/07/2021 by Anant Camacho MD at [facility] Metallic Hardware/Anc hor Left: Femur SYN[employer]ES-STRATEC 01/31/2031 04.038.19 0S / / [id number] Imp Scr Syn 5.0 Ti Lock T25 Stardrive 76mm 04.005.566s - [id number] Implanted:Qty: 1 on 03/07/2021 by Anant Camacho MD at [facility] Metallic Hardware/Anc hor Left: Femur SYN[employer]ES-STRATEC 01/31/2026 04.005.56 6S / / [id number] Imp Scr Syn 5.0 Ti Lock T25 Stardrive 46mm 04.005.536s - [id number] Implanted:Qty: 1 on 03/07/2021 by Anant Camacho MD at [facility] Metallic Hardware/Anc hor Left: Femur SYN[employer]ES-STRATEC 05/03/2029 04.005.53 6S / / [id number] Explanted Type Area Physically Impaired Teacher Device Identifier Shelf Expiration Date Model / Serial / Lot Imp Nail Syn Can Femoral Retrograde [id number] Implanted:Qty: 1 on 12/21/2014 by Ari Wells MD at [facility] Explanted:Qty: 1 on 03/07/2021 by Anant Camacho MD at [facility] Left: Femur SYN[employer]ES-STRATEC 12/30/2022 04.013.744 S / / [id number] Imp Blade Syn Spiral 70mm Ti For Femoral Can Nail Implanted:Qty: 1 on 12/21/2014 by Ari Wells MD at [facility] Explanted:Qty: 1 on 03/07/2021 by Anant Camacho MD at [facility] Left: Femur SYN[employer]ES-STRAT[employer] 11/03/2020 04.013.046 S / / [id number] Imp End Cap Syn Fem Nail Ex T40 Stardrive 0mm 04.013.000s Implanted:Qty: 1 on 12/21/2014 by Ari Wells MD at [facility] Explanted:Qty: 1 on 03/07/2021 by Anant Camacho MD at [facility] Left: Femur SYN[employer]ES-STRAT[employer] 03/02/2023 04.013.000 S / / [id number] Imp Scr Syn 5.0 Ti Lock T25 Stardrive 30mm 04.005.520s Implanted:Qty: 1 on 12/21/2014 by Ari Wells MD at [facility] Explanted:Qty: 1 on 03/07/2021 by Anant Camacho MD at [facility] Left: Femur SYNTHES-STRATEC 05/02/2022 04.005.520 S / / [id number] Procedures Procedure Name Priority Date/Time Associated Diagnosis Comments DE MD CERTIFICATION CASE FINISHING MACHINE ADJUSTER PATIENT Routine 07/09/2025 DIAGNOSIS NOT YET DEFINED CBC WITH PLATELETS (LIMITED OCCURRENCES) Routine 07/07/2025 12:57 PM CDT CRP INFLAMMATION Routine 07/07/2025 12:5 7 PM CDT BASIC METABOLIC PANEL (LIMITED OCCURRENCES) Routine 07/07/2025 12:57 PM CDT ROUTINE UA WITH MICROSCOPIC REFLEX [...] VENOUS POCT STAT 07/05/2025 10:03 PM CDT CBC WITH PLATELETS AND DIFFERENTIAL (LIMITED OCCURRENCES) STAT 07/05/2025 9:57 PM CDT CRP INFLAMMATION STAT 07/05/2025 9:57 PM CDT ERYTHROCYTE SEDIMENTATION RATE AUTO STAT 07/05/2025 9:57 PM CDT PROCALCITONIN STAT 07/05/2025 9:57 PM CDT EXTRA GREEN TOP (LITHIUM HEPARIN) ON ICE STAT 07/05/2025 9:57 PM CDT EXTRA RED TOP TUBE STAT 07/05/2025 9: 57 PM CDT EXTRA BLUE TOP TUBE STAT 07/05/2025 9 :57 PM CDT CBC WITH PLATELETS AND DIFFERENTIAL STAT 07/05/2025 9:57 PM CDT EXTRA TUBE STAT 07/05/2025 9:57 PM CDT BASIC METABOLIC PANEL (LIMITED OCCURRENCES) STAT 07/05/2025 9:57 PM CDT JUANITA ELMORE CERTIFICATION CASE FINISHING MACHINE ADJUSTER PATIENT Routine 06/18/2025 DIAGNOSIS NOT YET DEFINED MAGNESIUM Timed 06/01/2025 8:19 AM CDT POTASSIUM Timed 06/01/2025 8:19 AM CDT CRP INFLAMMATION Routine 06/01/2025 8:19 AM CDT CBC WITH PLATELETS Routine 06/01/2025 8: 19 AM CDT BASIC METABOLIC PANEL (LIMITED OCCURRENCES) Routine 06/01/2025 8:19 AM CDT MAGNESIUM Routine 05/31/2025 7:09 AM CDT CRP INFLAMMATION Routine 05/31/2025 7:09 AM CDT CBC WITH PLATELETS Routine 05/31/2025 7: 09 AM CDT BASIC METABOLIC PANEL (LIMITED OCCURRENCES) Routine 05/31/2025 7:09 AM CDT MAGNESIUM STAT 05/30/2025 7:53 AM CDT CRP INFLAMMATION STAT 05/30/2025 7:53 AM CDT CBC WITH PLATELETS STAT 05/30/2025 7: 53 AM CDT BASIC METABOLIC PANEL (LIMITED OCCURRENCES) STAT 05/30/2025 7:53 AM CDT MR PELVIC BONES W/O & W CONTRAST STAT 05/29/2025 11:05 PM CDT BLOOD CULTURE STAT 05/29/2025 9:28 PM CDT CBC WITH PLATELETS AND DIFFERENTIAL (LIMITED OCCURRENCES) STAT 05/29/2025 8:55 PM CDT BLOOD CULTURE STAT 05/29/2025 8:55 PM CDT CBC WITH PLATELETS AND DIFFERENTIAL STAT 05/29/2025 8:55 PM CDT LACTIC ACID WHOLE BLOOD WITH 1X REPEAT IN 2 HR WHEN >2 STAT 05/29/2025 8:55 PM CDT CBC WITH PLATELETS AND DIFFERENTIAL (LIMITED OCCURRENCES) STAT 05/29/2025 7:04 PM CDT MAGNESIUM (LIMITED OCCURRENCES) Add-On 05/29/2025 7:04 PM CDT CRP INFLAMMATION STAT 05/29/2025 7:04 PM CDT COMPREHENSIVE METABOLIC PANEL (LIMITED OCCURRENCES) STAT 05/29/2025 7:04 PM CDT EXTRA RED TOP TUBE STAT 05/29/2025 7: 04 PM CDT EXTRA BLUE TOP TUBE STAT 05/29/2025 7 :04 PM CDT CBC WITH PLATELETS AND DIFFERENTIAL STAT 05/29/2025 7:04 PM CDT EXTRA TUBE STAT 05/29/2025 7:04 PM CDT BASIC METABOLIC PANEL (LIMITED OCCURRENCES) STAT 05/29/2025 7:04 PM CDT C. DIFFICILE TOXIN B PCR WITH REFLEX TO C. DIFFICILE EIA Routine 05/23/2025 2:30 PM CDT EXTRA PURPLE TOP TUBE Routine 05/21/2025 6:57 AM CDT EXTRA TUBE Routine 05/21/2025 6:57 AM CDT CREATININE Routine 05/21/2025 6:57 AM CDT CRP INFLAMMATION Add-On 05/20/2025 7:33 AM CDT WBC COUNT Routine 05/20/2025 7:33 AM CDT CREATININE Routine 05/20/2025 7:33 AM CDT MR SHOULDER RIGHT W/O CONTRAST Routine 05/19/2025 3:34 PM CDT EXTRA PURPLE TOP TUBE Routine 05/19/2025 11:11 AM CDT EXTRA TUBE Routine 05/19/2025 11:11 AM CDT CYSTATIN C WITH GFR Routine 05/19/2025 1 1:11 AM CDT CREATININE Routine 05/19/2025 11:11 AM CDT CBC WITH PLATELETS AND DIFFERENTIAL (LIMITED OCCURRENCES) Routine 05/18/2025 8:40 AM CDT CBC WITH PLATELETS AND DIFFERENTIAL Routine 05/18/2025 8:40 AM CDT CREATININE Routine 05/18/2025 7:34 AM CDT GLUCOSE BY METER Routine 05/17/2025 7:21 PM CDT AEROBIC BACTERIAL CULTURE ROUTINE Routine 05/17/2025 11:41 AM CDT ANAEROBIC BACTERIAL CULTURE ROUTINE Routine 05/17/2025 11:41 AM CDT ANE AIRWAY ETT PERFORMABLE Routine 05/17/2025 11:10 AM CDT IRRIGATION AND DEBRIDEMENT, TORSO 05/17/2025 11:05 AM CDT Decubitus ulcer of ischial area, right, unspecified pressure ulcer stage GLUCOSE BY METER STAT 05/17/2025 8:39 AM CDT BASIC METABOLIC PANEL (LIMITED OCCURRENCES) STAT 05/17/2025 7:58 AM CDT CBC WITH PLATELETS STAT 05/17/2025 7: 58 AM CDT EXTRA PURPLE TOP TUBE STAT 05/17/2025 12:49 AM CDT EXTRA TUBE STAT 05/17/2025 12:49 AM CDT CRP INFLAMMATION STAT 05/17/2025 12:4 9 AM CDT LIPASE STAT 05/17/2025 12:49 AM CDT COMPREHENSIVE METABOLIC PANEL (LIMITED OCCURRENCES) STAT 05/17/2025 12:49 AM CDT BLOOD CULTURE STAT 05/17/2025 12:27 AM CDT ROUTINE UA WITH MICROSCOPIC REFLEX TO CULTURE STAT 05/17/2025 12:[address] ABDOMEN PELVIS W CONTRAST STAT 05/16/2025 11:56 PM CDT XR SHOULDER RIGHT G/E 3 VIEWS STAT 05/16/2025 11:50 PM CDT CBC WITH PLATELETS AND DIFFERENTIAL (LIMITED OCCURRENCES) STAT 05/16/2025 11:05 PM CDT CBC WITH PLATELETS AND DIFFERENTIAL STAT 05/16/2025 11:05 PM CDT BLOOD CULTURE STAT 05/16/2025 11:04 PM CDT ISTAT GASES LACTATE VENOUS POCT STAT 05/16/2025 11:04 PM CDT LIPID REFLEX TO DIRECT LDL PANEL Routine 12/11/2019 12:02 PM CDT Routine general medical examination at a [facility] care facility HIV ANTIGEN ANTIBODY COMBO Routine 02/15/2014 3:15 PM CDT Screening examination for venereal disease from Last 3 Months or Most Recently Relevant to Health Maintenance Results * MD CERTIFICATION CASE FINISHING MACHINE ADJUSTER PATIENT (07/09/2025) Only the most recent of2 resultswithin the time period is included. us Brooklynn Niño MANAGER RETAIL STORE DOCTOR ASSISTANT SPECIAL REPORTS Final R esult * (ABNORMAL) CBC with Platelets (Limited Occurrences) (07/07/2025 12:57 PM CDT) Pathologist [facility] WBC Count 6.69 4.00 - 11.00 10e3/uL [...] - 36.5 g/dL 07/07/2025 1:13 PM CDT LABORATORY RDW 15.4(H) 10.0 - 15.0 % 07/07/2025 1:13 PM CDT [facility] LAB[facility]ATORY Platelet Count 423 150 - 450 10e3/uL 07/07/2025 1:13 PM CDT LABORATORY Blood STRUCTURE OF LEFT HAND / Unknown Venipuncture / Unknown 07/07/2025 12:57 PM CDT 07/07/2025 1:01 PM CDT us Britta Peña DO LAB - BLOOD ORDERABLE S Final Result LABORATORY [facility] [address] Lab (1st floor, no room number) [place] [address] * (ABNORMAL) Basic Metabolic Panel (Limited Occurrences) (07/07/2025 12:57 PM CDT) Only the most recent of7 resultswithin the time period is included. Sodium 134(L) 135 - 145 mmol/L 07/07/2025 [...] - 1.17 mg/dL 07/07/2025 1:28 PM CDT [facility]AT[facility] GFR Estimate >90 >60 mL/min/1.7 3m2 07/07/2025 1:28 PM CDT [facility] LAB[facility]ATORY Comment:eGFR calculated us2020 CKD-EPI equation. Calcium 9.0 8.8 - 10.4 mg/dL 07/07/2025 1:28 PM CDT LABORATORY Glucose 118(H) 70 - 99 mg/dL 07/07/2025 1:28 PM CDT LABORATORY Blood STRUCTURE OF LEFT HAND / Unknown Venipuncture / Unknown 07/07/2025 12:57 PM CDT 07/07/2025 1:01 PM CDT Kuldip Guerrero MD LAB - BLOOD ORDERABLES Final Result Performing Organization Address City/[facility]/ZIP Co de Phone Number [facility] [address] Lab (1st floor, no room number) [place] [phone] * (ABNORMAL) CRP inflammation (07/07/2025 12:57 PM CDT) Only the most recent of8 resultswithin the time period is included. CRP Inflammation 71.69(H) <5.00 mg/L 07/07/2025 1:28 PM CDT LABORATORY Blood STRUCTURE OF LEFT HAND / Unknown Venipuncture / Unknown 07/07/2025 12:57 PM CDT 07/07/2025 1:01 PM CDT Kuldip Guerrero MD LAB - BLOOD ORDERABLES Final Result [facility] [address] Lab (1st floor, no room number) [place] [address] * (ABNORMAL) UA with Microscopic reflex to Culture (07/06/2025 12:28 AM CDT) Only the most recent of2 resultswithin the time period is included. Color Urine Yellow Colorless, Straw, Light Yellow, Yellow 07/06/2025 12:44 AM CDT LABORATORY Appearance Urine Clear Clear 07/06/20 12:44 AM CDT [facility] LAB[facility]ATORY Glucose Urine Negative Negative mg/dL 07/06/2025 12:44 AM CDT [facility] LAB[facility]AT[facility] Bilirubin Urine Negative Negative 12:44 AM CDT [facility] LAB[facility]ATORY Ketones Urine Negative Negative mg/dL 07/06/2025 12:44 AM CDT [facility] LABORATORY Specific [place] Urine 1.005 1.003 - 1.035 VISHNU 07/06/2025 12:44 AM CDT [facility] LAB[facility]ATORY Blood Urine Negative Negative 07/06/2025 12:44 AM CDT [facility] LAB[facility] pH Urine 6.5 5.0 - 7.0 07/06/2025 12:44 AM CDT [facility] LABORAT[facility] Protein Albumin Urine 30(A) Negative mg/dL 07/06/2025 12:44 AM CDT [facility] LABORATORY Urobilinogen Urine Normal Normal mg/dL 07/06/2025 12:44 AM CDT [facility] LAB[facility]AT[facility] Nitrite Urine Negative Negative 07/06/2025 12:44 AM CDT [facility] LAB[facility]ORY Leukocyte Esterase Urine Negative Negative 07/06/2025 12:44 AM CDT LABORATORY Bacteria Urine Few(A) None Seen /HPF 07/06/2025 12:44 AM CDT LABORATORY Mucus Urine Present(A) None Seen /LPF 07/06/2025 12:44 AM CDT [facility] LABORATORY RBC Urine 2 <=2 /HPF 07/06/2025 12:44 AM CDT [facility] LABORATORY WBC Urine 1 <=5 /HPF 07/06/2025 12:44 AM CDT LABORATORY Squamous Epithelials Urine <1 <=1 /HPF 07/06/2025 12:44 AM CDT LABORATORY Urine MID-STREAM URINE SPECIMEN / Unknown Non-blood Collection / Unknown 07/06/2025 12:28 AM CDT 07/06/2025 12:32 AM CDT Narrative [facility] LABORATORY - 07/06/2025 12:44 AM CDT Urine Culture not indicated us Anthony Rocha MD LAB - URINE ORDERABLES Final Res ult LABORATORY [facility] [address] Lab (1st floor, no room number) [place] [address], [place] * XR Chest 1 View (07/05/2025 11:31 PM CDT) Anatomical Region Laterality Modality Chest Digital Radiogra phy 07/05/2025 11:3 1 PM CDT Impressions 07/05/2025 11:35 PM CDT IMPRESSION: Negative chest. Narrative 07/05/2025 11:35 PM CDT EXAM: XR CHEST 1 VIEW LOCATION: [facility] DATE: 07/05/2025 INDICATION: Fever COMPARISON: 06/17/2022 Procedure Note Raj Tena MD - 07/05/2025 EXAM: XR CHEST 1 VIEW LOCATION: [facility] DATE: 07/05/2025 INDICATION: Fever COMPARISON: 06/17/2022 IMPRESSION: Negative chest. us Anthony Rocha MD IMG DIAGNOSTIC IMAGING ORDERABLE S Final Result * CT Abdomen Pelvis w Contrast (07/05/2025 11:23 PM CDT) Only the most recent of2 resultswithin the time period is included. Anatomical Region Laterality Modality Abdomen/Pelvis, SUBRAD CT [...] EXAM: CT ABDOMEN PELVIS W CONTRAST LOCATION: [facility] DATE: 07/05/2025 INDICATION: Abdominal pain, eval for [...] EXAM: CT ABDOMEN PELVIS W CONTRAST LOCATION: [facility] DATE: 07/05/2025 INDICATION: Abdominal pain, eval for [...] There is no hydronephrosis. Anthony Rocha MD IMG CT ORDERABLES Final Result * Influenza A/B, RSV and SARS-CoV2 PCR (COVID-19) Nasopharyngeal (07/05/2025 10:47 PM CDT) Influenza A PCR Negative Negative 07/05/2025 11:34 PM CDT [facility] LAB[facility]ATORY Influenza B PCR Negative Negative 07/05/2025 11:34 PM CDT [facility] LAB[facility] RSV PCR Negative Negative 07/05/2025 11:34 PM CDT [facility] LAB[facility]AT[facility] SARS CoV2 PCR Negative Negative 07/05/2025 11:34 PM CDT [facility] LAB[facility]ATORY Comment:NEGATIVE: SARS-CoV-2 (COVID-19) RNA not detected, presumed negative. Swab NASOPHARYNGEAL STRUCTURE / Unknown Non-blood Collection / Unknown 07/05/2025 10:47 PM CDT 07/05/2025 10:56 PM CDT [facility] LABORATORY - 07/05/2025 11:34 PM CDT Testing was performed using the Xpert Xpress CoV2/Flu/RSV Assay on the Markerly GeneXpert Instrument. This test should be ordered [...] management. This test was validated by the [facility]. These laboratories are certified under the Clinical Laboratory Improvement Amendments of 1988 (CLIA-88) as qualified to perfom high complexity laboratory testing. Anthony Rocha MD LAB - MICRO GENERAL ORDERABLES F inal Result LABORATORY [facility] [address] [facility] ([facility] floor, no room number) [place] [address] * Blood Culture Peripheral blood (BC) Arm, Right (07/05/2025 10:46 PM CDT) Only the most recent of6 resultswithin the time period is included. Culture No Growth 07/11/2025 2:46 AM CDT [facility] Peripheral blood (BC) STRUCTURE OF RIGHT UPPER LIMB / Unknown Venipuncture / Unknown 07/05/2025 10:46 PM CDT 07/05/2025 10:54 PM CDT Anthony Rocha MD LAB - MICRO GENERAL ORDERABLES F inal Result [facility] LABORATORY [facility] Inf. Diseases Diag. Lab [address] [place] [address] * (ABNORMAL) iStat Gases (lactate) venous, POCT (07/05/2025 10:03 PM CDT) Only the most recent of2 resultswithin the time period is included. Lactic Acid POCT 1.6 0.7 - 2.0 [...] 10:03 PM CDT 07/05/2025 10:10 PM CDT Anthonysmita HUERTA - BEAKER POCT Final Result [facility] LABORATORY POC [facility] [address] Lab (1st floor, no room number) [address] * Extra Green Top ([place] Heparin) ON ICE (07/05/2025 9:57 PM CDT) Hold Specimen JI 07/05/2025 11:18 PM CDT [facility] LABORATORY Blood STRUCTURE OF RIGHT UPPER LIMB / Unknown Venipuncture / Unknown 07/05/2025 9:57 PM CDT 07/05/2025 10:11 PM CDT us Anthony Rocha MD LAB - BLOOD ORDERABLES Final Res ult Performing Organization Address [facility]/ZIP Co de Phone Number LABORATORY [facility] Lab [address] Lab (1st floor, no room number) [address] * Extra Red Top Tube (07/05/2025 9:57 PM CDT) Only the most recent of2 resultswithin the time period is included. Hold Specimen [facility] 07/05/2025 11:18 PM CDT [facility] LABORATORY Blood STRUCTURE OF RIGHT UPPER LIMB / Unknown Venipuncture / Unknown 07/05/2025 9:57 PM CDT 07/05/2025 10:11 PM CDT us Anthony Rocha MD LAB - BLOOD ORDERABLES Final Res ult [facility] LABORATORY [facility] [address] Lab (1st floor, no room number) [address] * Extra Blue Top Tube (07/05/2025 9:57 PM CDT) Only the most recent of2 resultswithin the time period is included. Hold Specimen [facility] 07/05/2025 11:18 PM CDT [facility] LABORATORY Blood STRUCTURE OF RIGHT UPPER LIMB / Unknown Venipuncture / Unknown 07/05/2025 9:57 PM CDT 07/05/2025 10:11 PM CDT us Anthony Rocha MD LAB - BLOOD ORDERABLES Final Res ult RH LABORATORY [facility] [address] Lab (1st floor, no room number) [place] [address], [facility] * (ABNORMAL) CBC with platelets and differential (07/05/2025 9:57 PM CDT) Only the most recent of5 resultswithin the time period is included. WBC Count 9.49 4.00 - 11.00 10e3/uL [...] - BLOOD ORDERABLES Final Res ult LABORATORY [facility] [address] Lab (1st floor, no room number) [place] [address], [facility] * Procalcitonin (07/05/2025 9:57 PM CDT) Procalcitonin 0.09 <0.50 ng/mL 07/05/2025 11:46 PM CDT [facility] LABORATORY Comment: Interpretation and Recommendations <0.5 ng/mL: Systemic bacterial infection unlikely. Local bacterial infection is possible. 0.5-1.99 ng/mL: Systemic bacterial infection possible, but various other conditions are known to induce PCT as well. >=2.00 ng/mL: Systemic bacterial infection likely, unless other causes are known. Decision to start antibiotics should not be based on procalcitonin level alone. See Procalcitonin Guidance document for more details. [email or web address] Factors that may affect PCT levels (not [...] LAB - BLOOD ORDERABLES Final Res ult [facility] [address] Lab (1st floor, no room number) [place] [address] * (ABNORMAL) Erythrocyte sedimentation rate auto (07/05/2025 9:57 PM CDT) [facility] Erythrocyte Sedimentation Rate 64(H) 0 - 15 mm/hr 07/06/2025 12:54 AM CDT LABORATORY Blood BLOOD SPECIMEN / Unknown Venipuncture / Unknown 07/05/2025 9:57 PM CDT 07/05/2025 10:11 PM CDT us Anthony Rocha MD LAB - BLOOD ORDERABLES Final Res ult [facility] [address] Lab (1st floor, no room number) [place] [address] * Potassium (06/01/2025 8:19 AM CDT) Potassium 4.4 3.4 - 5.3 mmol/L 06/01/2025 9:16 AM CDT LABORATORY Blood STRUCTURE OF LEFT HAND / Unknown Venipuncture / Unknown 06/01/2025 8:19 AM CDT 06/01/2025 8:52 AM CDT Marito Veronica MD LAB - BLOOD ORDERABLES Final Res ult Performing Organization Address [facility] Co de Phone Number [facility] [address] Lab (1st floor, no room number) [place] [phone] * Magnesium (06/01/2025 8:19 AM CDT) Only the most recent of3 resultswithin the time period is included. Magnesium 2.0 1.7 - 2.3 mg/dL 06/01/2025 9:13 AM CDT LABORATORY Blood STRUCTURE OF LEFT HAND / Unknown Venipuncture / Unknown 06/01/2025 8:19 AM CDT 06/01/2025 8:52 AM CDT Marito Veronica MD LAB - BLOOD ORDERABLES Final Res ult Performing Organization Address [facility]/ZIP Co de Phone Number [facility] [address] Lab (1st floor, no room number) [place] [phone] * (ABNORMAL) CBC with platelets (06/01/2025 8:19 AM CDT) Only the most recent of4 resultswithin the time period is included. WBC Count 6.60 4.00 - 11.00 10e3/uL 06/01/2025 8:55 AM CDT LABORATORY RBC Count 4.42 4.40 - 5.90 10e6/uL 06/01/2025 8:55 AM CDT [facility] LABORATORY Hemoglobin 12.3(L) 13.3 - 17.7 g/dL 06/01/2025 8:55 AM CDT [facility] LABORATORY Hematocrit 37.6(L) 40.0 - 53.0 % 06/01/2025 8:55 AM CDT [facility] LABORATORY MCV 85.1 78.0 - 100.0 fL 06/01/2025 8:55 AM CDT [facility] LABORATORY MCH 27.8 26.5 - 33.0 pg 06/01/2025 8:55 AM CDT [facility] LABORATORY MCHC 32.7 31.5 - 36.5 g/dL 06/01/2025 8:55 AM CDT [facility] LABORATORY RDW 15.1(H) 10.0 - 15.0 % 06/01/2025 8:55 AM CDT [facility] LAB[facility]ATORY Platelet Count 546(H) 150 - 450 10e3/uL 06/01/2025 8:55 AM CDT [facility] LABORATORY Blood STRUCTURE OF LEFT HAND / Unknown Venipuncture / Unknown 06/01/2025 8:19 AM CDT 06/01/2025 8:52 AM CDT us Marito Veronica MD LAB - BLOOD ORDERABLES Final Res ult LABORATORY [facility] [address] [facility] Lab (1st floor, no room number) [place] [address], [facility] * MR Pelvis Bone wo & w Contrast (05/29/2025 11:05 PM CDT) Anatomical Region Laterality Modality Abdomen/Pelvis, SUBRAD MR MS K, UMP MR MSK, UMP MR BODY, SUBRAD MR BODY, RAD MR Magnetic Resonance 05/29/2025 11:0 5 PM CDT Impressions 05/29/2025 11:42 PM CDT IMPRESSION: 1. Right ischial decubitus ulceration, with associated osteomyelitis of the right ischial tuberosity. No evidence of abscess or osteonecrosis. 2. 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 3. Mild, nonenhancing edema within the right greater than left adductor compartment musculature, which may be reactive or secondary to a low-grade strains. Narrative 05/29/2025 11:42 PM CDT EXAM: MRI PELVIS WITHOUT AND WITH IV CONTRAST LOCATION: [facility] DATE: 05/29/2025 INDICATION: Right gluteal and sacral decubitus ulcerations; quadriplegia. COMPARISON: CT abdomen/pelvis 05/16/2025. TECHNIQUE: Routine MRI pelvis without and with IV contrast. Axial, sagittal, and coronal high-resolution T2 and post gadolinium T1 with fat saturation. CONTRAST: 10 ml Gadavist. FINDINGS: There is a right ischial decubitus ulceration, which is incompletely visualized inferiorly. There is mild enhancement of the surrounding subcutaneous fat, consistent with soft tissue infection. There is enhancing osteomyelitis of the right ischial tuberosity, extending up to 3 cm in depth. No evidence of abscess or osteonecrosis. No evidence of fracture or stress fracture. There is linear T2 hyperintensity within the intramedullary canal of the visualized left femur, representing the sequela of previous left intramedullary nail. Mild polyarticular chondrosis. No hip joint effusions. No displaced labral tears. There is susceptibility artifact lateral to the right greater trochanter, likely secondary to a calcific tendinitis of the lateral aspect of the right gluteus reny insertion. There is some mildly enhancing edema within the adjacent right gluteus reny muscle belly. Mild, nonenhancing edema within the right greater than left adductor compartment musculature. Mild diffuse sarcopenia. Gluteal, iliopsoas, and bilateral common hamstring tendon origins appear intact. Bilateral sciatic nerves appear normal. Procedure Note Anderson Goins MD - 05/29/2025 EXAM: MRI PELVIS WITHOUT AND WITH IV CONTRAST LOCATION: [facility] DATE: 05/29/2025 INDICATION: Right gluteal and sacral decubitus ulcerations;quadriplegia. COMPARISON: CT abdomen/pelvis 05/16/2025. TECHNIQUE: Routine MRI pelvis without and with IV contrast. Axial,sagittal, and coronal high-resolution T2 and post gadolinium T1 with fatsaturation. CONTRAST: 10 ml Gadavist. FINDINGS: There is a right ischial decubitus ulceration, which isincompletely visualized inferiorly. There is mild enhancement of thesurrounding subcutaneous fat, consistent with soft tissue infection. Thereis enhancing osteomyelitis of the right ischial tuberosity, extending up to 3 cm in depth. No evidence of abscess or osteonecrosis. No evidence of fracture or stress fracture. There is linear [id number] within the intramedullary canal of the visualized leftfemur, representing the sequela of previous left intramedullary nail. Mild polyarticular chondrosis. No hip joint effusions. No displaced labraltears. There is susceptibility artifact lateral to the right greater trochanter,likely secondary to a calcific tendinitis of the lateral aspect of theright gluteus reny insertion. There is some mildly enhancing edemawithin the adjacent right gluteus reny muscle belly. Mild, nonenhancing edema within the right greater than left adductorcompartment musculature. Mild diffuse sarcopenia. Gluteal, iliopsoas, and bilateral common hamstring tendon origins appearintact. Bilateral sciatic nerves appear normal. IMPRESSION: 1. Right ischial decubitus ulceration, with associated osteomyelitis ofthe right ischial tuberosity. No evidence of abscess or osteonecrosis. 2. Calcific tendinitis of the lateral aspect of the right gluteus maximusinsertion, with mild adjacent myositis. 3. Mild, nonenhancing edema within the right greater than left adductorcompartment musculature, which may be reactive or secondary to a low-gradestrains. Yosef Gomez MD G MRI ORDERABLES Final Result * Lactic acid whole blood with 1x repeat in 2 hr when >2 (05/29/2025 8:55 PM CDT) Lactic Acid, Initial 1.1 0.7 - 2.0 mmol/L 05/29/2025 9:07 PM CDT [facility] LABORATORY Blood BLOOD SPECIMEN / Unknown Venipuncture / Unknown 05/29/2025 8:55 PM CDT 05/29/2025 9:02 PM CDT Yosef Gomez MD LAB - BLOOD ORDERABLES F inal Result RH LABORATORY [facility] [address] Lab (1st floor, no room number) [place] [address], [facility] * (ABNORMAL) Comprehensive Metabolic Panel (Limited Occurrences) (05/29/2025 7:04 PM CDT) Only the most recent of2 resultswithin the time period is included. Sodium 134(L) 135 - 145 mmol/L 05/29/2025 8:31 PM CDT LABORATORY Potassium 4.2 3.4 - 5.3 mmol/L 05/29/2025 8:31 PM CDT LABORATORY Carbon Dioxide (CO2) 22 22 - 29 mmol/L 05/29/2025 8:31 PM CDT LABORATORY Anion Gap 15 7 - 15 mmol/L 05/29/2025 8:31 PM CDT LABORATORY Urea Nitrogen 15.9 6.0 - 20.0 mg/dL 05/29/2025 8:31 PM CDT LABORATORY Creatinine 0.83 0.67 - 1.17 mg/dL 05/29/2025 8:31 PM CDT LABORATORY GFR Estimate >90 >60 mL/min/1.7 3m2 05/29/2025 8:31 PM CDT LABORATORY Comment: eGFR calculated using 2020 CKD-EPI equation. eGFR calculated using 2020 CKD-EPI equation. Calcium 9.3 8.8 - 10.4 mg/dL 05/29/2025 8:31 PM CDT LABORATORY Chloride 97(L) 98 - 107 mmol/L 05/29/2025 8:31 PM CDT LABORATORY Glucose 123(H) 70 - 99 mg/dL 05/29/2025 8:31 PM CDT LABORATORY Alkaline Phosphatase 65 40 - 150 U/L 05/29/2025 8:31 PM CDT LABORATORY AST 26 0 - 45 U/L 05/29/2025 8:31 PM CDT LABORATORY ALT 25 0 - 70 U/L 05/29/2025 8:31 PM CDT LABORATORY Protein Total 7.4 6.4 - 8.3 g/dL 05/29/2025 8:31 PM CDT LABORATORY Albumin 3.9 3.5 - 5.2 g/dL 05/29/2025 8:31 PM CDT LABORATORY Bilirubin Total 0.3 <=1.2 mg/dL 05/29/2025 8:31 PM CDT LABORATORY Blood STRUCTURE OF LEFT UPPER LIMB / Unknown Venipuncture / Unknown 05/29/2025 7:04 PM CDT 05/29/2025 7:11 PM CDT Yosef Gomez MD LAB - BLOOD ORDERABLES F inal Result LABORATORY [facility] [address] [facility] Lab (1st floor, no room number) [place] [address] * Magnesium (Limited Occurrences) (05/29/2025 7:04 PM CDT) Magnesium 2.0 1.7 - 2.3 mg/dL 05/29/2025 10:20 PM CDT LABORATORY Blood STRUCTURE OF LEFT UPPER LIMB / Unknown Venipuncture / Unknown 05/29/2025 7:04 PM CDT 05/29/2025 7:11 PM CDT Marito Veronica MD LAB - BLOOD ORDERABLES Final Res ult LABORATORY [facility] Lab [address] Lab (1st floor, no room number) [place] [address] * C. difficile Toxin B PCR with reflex to C. difficile EIA (05/23/2025 2:30 PM CDT) C Difficile Toxin B by PCR Negative Negative 05/23/2025 7:27 PM CDT [facility] Comment:A negative result do es not exclude actual disease due to C. difficile and may be due to improper collection, handling and storage of the specimen or the number of organisms in the specimen is below the detection limit of the assay. Stool RECTAL CONTENTS / Unknown Non-blood Collection / Unknown 05/23/2025 2:30 PM CDT 05/23/2025 2:37 PM CDT Narrative [facility] - 05/23/2025 7:27 PM CDT The CepMesoCoatid Xpert C. difficile Assay, performed on the Marker[employer] GeneXSiklu Instrument Systems, is a qualitative in vitro diagnostic test for rapid detection of toxin B gene sequences from unformed (liquid or soft) stool specimens collected from patients suspected of having Clostridioides difficile infection (CDI). The test utilizes automated real-time polymerase chain reaction (PCR) to detect toxin gene sequences associated with toxin producing C. difficile. The Xpert C. difficile Assay is intended as an aid in the diagnosis of CDI. us Sancho Kraft MD LAB - MICRO GENERAL ORDERABLES F inal Result IDD LABORATORY [facility] Inf. Diseases Diag. Lab [address] [place] [address] * Extra Purple Top Tube (05/21/2025 6:57 AM CDT) Only the most recent of3 resultswithin the time period is included. Hold Specimen JI 05/21/2025 9:03 AM CDT LABORATORY Blood STRUCTURE OF LEFT UPPER LIMB / Unknown Venipuncture / Unknown 05/21/2025 6:57 AM CDT 05/21/2025 7:58 AM CDT Vern Carrillo MD LAB - BLOOD ORDERABLES F inal Result LABORATORY [facility] [address] [facility] Lab (1st floor, no room number) [place] [address] * Creatinine (05/21/2025 6:57 AM CDT) Only the most recent of4 resultswithin the time period is included. Creatinine 0.96 0.67 - 1.17 mg/dL 05/21/2025 7:40 AM CDT LABORATORY GFR Estimate >90 >60 mL/min/1.7 3m2 05/21/2025 7:40 AM CDT LABORATORY Comment:eGFR calculated usin 2020 CKD-EPI equation. Blood STRUCTURE OF LEFT UPPER LIMB / Unknown Venipuncture / Unknown 05/21/2025 6:57 AM CDT 05/21/2025 7:15 AM CDT Surendra Amato MD LAB - BLOOD ORDERABLES Final Result [facility] [address] Lab (1st floor, no room number) [place] [phone] * WBC count (05/20/2025 7:33 AM CDT) [facility] WBC Count 8.16 4.00 - 11.00 10e3/uL 05/20/2025 7:38 AM CDT LABORATORY MCV 83.7 78.0 - 100.0 fL 05/20/2025 7:38 AM CDT LABORATORY Blood STRUCTURE OF RIGHT UPPER LIMB / Unknown Venipuncture / Unknown 05/20/2025 7:33 AM CDT 05/20/2025 7:36 AM CDT Manijt Kenyon MD LAB - BLOOD ORDERABLES Final Result Performing Organization Address [facility] [facility] Co de Phone Number [facility] [address] Lab (1st floor, no room number) [address] * MR Shoulder Right w/o Contrast (05/19/2025 3:34 PM CDT) Anatomical Region Laterality Modality Right Shoulder, SUBRAD MR MSK, UMP MR MSK, RAD M R Magnetic Resonance 05/19/2025 3:34 PM CDT Impressions 05/19/2025 5:13 PM CDT IMPRESSION: 1. Full-thickness, retracted critical zone fibers tear of the entire AP dimension of the supraspinatus tendon as described. 2. Chronic appearing high-grade retracted tear of the distal subscapularis tendon with underlying tendinopathy and attritional thinning. Mild to moderate fatty atrophy of the muscle. 3. Advanced infraspinatus tendinopathy with superimposed poorly defined mild to moderate partial-thickness interstitial tear along the footprint. 4. Medial subluxation long head of the biceps tendon with tendinopathy and low- grade partial tear. 5. Mild glenohumeral joint degenerative change. 6. Moderate glenohumeral joint effusion. Narrative 05/19/2025 5:13 PM CDT EXAM: MR SHOULDER RIGHT W/O CONTRAST LOCATION: [facility] DATE: 05/19/2025 INDICATION: Right shoulder pain. Eval for rotator cuff injury. COMPARISON: 05/16/2025. TECHNIQUE: Unenhanced. FINDINGS: ROTATOR CUFF: -Supraspinatus: Full-thickness tear critical zone fibers of the supraspinatus tendon involving the complete AP dimension with up to 1.5 cm of proximal fiber retraction. Severe underlying supraspinatus tendinopathy. No significant loss of supraspinatus muscle bulk with mild fatty streaks. There is some peripheral myofascial edema. -Infraspinatus: Advanced supraspinatus tendinopathy with a poorly defined mild to moderate partial-thickness articular-sided and interstitial tear along the footprint. Muscle bulk is maintained. -Subscapularis: Chronic appearing high-grade retracted tear of the distal subscapularis tendon with underlying tendinopathy and attritional thinning. There is mild to moderate fatty atrophy of the muscle. -Teres minor: Fatty atrophy of the teres minor. Tendon is normal. No mass in the quadrilateral space. CORACOACROMIAL ARCH: -Morphology: Type II acromion. No subacromial spur. Subacromial and subcoracoid space are normal. -Bursa: Fluid extends into the subacromial/subdeltoid bursa. ACROMIOCLAVICULAR JOINT: -Mild to moderate AC joint arthrosis. LONG HEAD OF BICEPS TENDON: -Medial subluxation long head of the biceps tendon, perched on the medial intertubercular groove/lesser tuberosity region. Bicipital tendinopathy and low- grade partial tear. Bicipital tenosynovitis. GLENOHUMERAL JOINT: -Labrum: Degeneration and poorly defined free margin tear superior labrum. Intrasubstance degeneration inferior labrum without a well-defined linear tear. -Cartilage: No high-grade cartilage defects. There are some scattered low-grade chondrosis along the posterior and superior humeral head as well as portions of the central glenoid. -Joint space: Moderate glenohumeral joint effusion. -Glenohumeral ligaments and capsule: Inferior glenohumeral ligaments are intact. BONES: -No evidence of an acute fracture or concerning marrow replacing lesion. SOFT TISSUES: -Normal deltoid muscle bulk. Normal visualized chest wall and axilla. Procedure Note Charlie Gutierrez MD - 05/19/2025 EXAM: MR SHOULDER RIGHT W/O CONTRAST LOCATION: [facility] DATE: 05/19/2025 INDICATION: Right shoulder pain. Eval for rotator cuff injury. COMPARISON: 05/16/2025. TECHNIQUE: Unenhanced. FINDINGS: ROTATOR CUFF: -Supraspinatus: Full-thickness tear critical zone fibers of thesupraspinatus tendon involving the complete AP dimension with up to 1.5 cmof proximal fiber retraction. Severe underlying supraspinatustendinopathy. No significant loss of supraspinatus muscle bulk with mild fatty streaks. There is some peripheral myofascialedema. -Infraspinatus: Advanced supraspinatus tendinopathy with a poorly definedmild to moderate partial-thickness articular-sided and interstitial tearalong the footprint. Muscle bulk is maintained. -Subscapularis: Chronic appearing high-grade retracted tear of the distalsubscapularis tendon with underlying tendinopathy and attritionalthinning. There is mild to moderate fatty atrophy of the muscle. -Teres minor: Fatty atrophy of the teres minor. Tendon is normal. No massin the quadrilateral space. CORACOACROMIAL ARCH: -Morphology: Type II acromion. No subacromial spur. Subacromial andsubcoracoid space are normal. -Bursa: Fluid extends into the subacromial/subdeltoid bursa. ACROMIOCLAVICULAR JOINT: -Mild to moderate AC joint arthrosis. LONG HEAD OF BICEPS TENDON: -Medial subluxation long head of the biceps tendon, perched on the medialintertubercular groove/lesser tuberosity region. Bicipital tendinopathyand low-grade partial tear. Bicipital tenosynovitis. GLENOHUMERAL JOINT: -Labrum: Degeneration and poorly defined free margin tear superior labrum.Intrasubstance degeneration inferior labrum without a well-defined lineartear. -Cartilage: No high-grade cartilage defects. There are some scatteredlow-grade chondrosis along the posterior and superior humeral head as wellas portions of the central glenoid. -Joint space: Moderate glenohumeral joint effusion. -Glenohumeral ligaments and capsule: Inferior glenohumeral ligaments areintact. BONES: -No evidence of an acute fracture or concerning marrow replacing lesion. SOFT TISSUES: -Normal deltoid muscle bulk. Normal visualized chest wall and axilla. IMPRESSION: 1. Full-thickness, retracted critical zone fibers tear of the entire APdimension of the supraspinatus tendon as described. 2. Chronic appearing high-grade retracted tear of the distalsubscapularis tendon with underlying tendinopathy and attritionalthinning. Mild to moderate fatty atrophy of the muscle. 3. Advanced infraspinatus tendinopathy with superimposed poorly definedmild to moderate partial-thickness interstitial tear along thefootprint. 4. Medial subluxation long head of the biceps tendon with tendinopathyand low- grade partial tear. 5. Mild glenohumeral joint degenerative change. 6. Moderate glenohumeral joint effusion. Marito Coates MD [facility] MRI ORDERABLES Final Result * (ABNORMAL) Cystatin C with GFR (05/19/2025 11:11 AM CDT) Cystatin C 1.2(H) 0.6 - 1.0 mg/L 05/19/2025 4:29 PM CDT [facility] GFR Calculated with Cystatin C 65 >=60 mL/min/1.7 3m2 05/19/2025 4:29 PM CDT [facility] Blood STRUCTURE OF RIGHT UPPER LIMB / Unknown Venipuncture / Unknown 05/19/2025 11:11 AM CDT 05/19/2025 11:30 AM CDT Narrative [facility] - 05/19/2025 4:29 PM CDT eGFRcys in adults is calculated using the 2012 CKD-EPI cystatin c equation which includes age and gender (Diana et al., NEJ, DOI: 10.1056/MJKJvk7650872) Marito Coates MD LAB - BLOOD ORDERABLES Fi nal Result [facility] [place] [facility] [address] [facility], [address] [place] [address], [facility] * (ABNORMAL) Glucose by meter (05/17/2025 7:21 PM CDT) Only the most recent of2 resultswithin the time period is included. GLUCOSE BY METER POCT 189(H) 70 - 99 mg/dL 05/17/2025 7:28 PM CDT LABORATORY POC Blood, Capillary BLOOD SPECIMEN / Unknown 05/17/2025 7:21 PM CDT 05/17/2025 7:28 PM CDT Gilberto MCCANN - BEAKER POCT Final Result Performing Organization Address City/[facility]/ZIP Co de Phone Number LABORATORY POC [facility] [address] Lab (1st floor, no room number) [place] [address], [facility] * (ABNORMAL) Tissue Aerobic Bacterial Culture Routine (05/17/2025 11:41 AM CDT) Culture 2+ Normal wili 05/21/2025 1:29 PM CDT [facility] Culture Isolated in broth only Bacteroides ovatus/xylanis olvens(A) 05/21/2025 1:29 PM CDT [facility] Comment: On day 2 of incubation Susceptibilities not routinely done, refer to antibiogram to view typical susceptibility profiles Tissue STRUCTURE OF RIGHT BUTTOCK / Unknown Non-blood Collection / Unknown 05/17/2025 11:41 AM CDT 05/17/2025 12:01 PM CDT Surendra Amato MD LAB - MICRO GENERAL ORDERABL ES Edited Result - Final [facility] Inf. Diseases Diag. Lab [address] [facility], Room [place] [id number] * (ABNORMAL) Anaerobic Bacterial Culture Routine (05/17/2025 11:41 AM CDT) Culture 3+ Fusobacterium nucleatum(A) 05/20/2025 11:51 AM CDT [facility] Comment:Susceptibilities not routinely done, refer to antibiogram to view typical susceptibility profiles Culture 4+ Mixed Aerobic and Anaerobic wili 05/20/2025 11:51 AM CDT [facility] Tissue STRUCTURE OF RIGHT BUTTOCK / Unknown Non-blood Collection / Unknown 05/17/2025 11:41 AM CDT 05/17/2025 12:01 PM CDT Surendra Amato MD LAB - MICRO GENERAL ORDERABL ES Final Result Performing Organization Address City/[facility] Co de Phone Number [facility] Inf. Diseases Diag. Lab [address] [facility], Room [place] [id number] * ANE AIRWAY ETT PERFORMABLE (05/17/2025 11:10 AM CDT) Narrative Cholo Malik APRN CRNA - 05/17/2025 11:10 AM CDT Cholo Malik APRN CRNA 05/17/2025 12:12 PM Airway Patient location during procedure: OR Procedure Start/Stop Times: 05/17/2025 11:10 AM Staff - DRYING ROOM ATTENDANT: Cholo Malik APRN CRNA Performed By: DRYING ROOM ATTENDANT Consent for Airway Urgency: elective Indications and Patient Condition Indications for airway management: anum-procedural Induction type:intravenous Mask difficulty assessment: 1 - vent by mask Final Airway Details Final airway type: endotracheal airway Successful airway: ETT - single and Oral Endotracheal Airway Details ETT size (mm): 8.0 Cuffed: yes Cuff volume (mL): 6 Successful intubation technique: video laryngoscopy VL Blade Size: Glidescope 4 Grade View of Cords: 1 Adjucts: stylet Position: Right Measured from: gums/teeth Secured at (cm): 22 Bite block used: Soft Post intubation assessment Placement verified by: capnometry, equal breath sounds and chest rise Number of attempts at approach: 2 Number of other approaches attempted: 1 Secured with: tape Ease of procedure: easy Dentition: Intact and Unchanged Medication(s) Administered Medication Administration Time: 05/17/2025 11:10 AM us Jordy Pierce MD DE ANESTHESIA Final Resu lt * Lipase (05/17/2025 12:49 AM CDT) Lipase 26 13 - 60 U/L 05/17/2025 1:24 AM CDT LABORATORY Blood BLOOD SPECIMEN / Unknown Venipuncture / Unknown 05/17/2025 12:49 AM CDT 05/17/2025 1:02 AM CDT us Gary Chandler DO LAB - BLOOD ORDERABLES Final Res ult LABORATORY [facility] [address] [facility] Lab (1st floor, no room number) [place] [address] * XR Shoulder Right G/E 3 Views (05/16/2025 11:50 PM CDT) Anatomical Region Laterality Modality Shoulder, Right Shoulder Right Digital Radiography 05/16/2025 11:5 0 PM CDT Impressions 05/17/2025 12:07 AM CDT IMPRESSION: No acute fracture or dislocation. Mild degenerative changes of the acromioclavicular joint. Anterior cervical spinal fusion. Narrative 05/17/2025 12:07 AM CDT EXAM: XR SHOULDER RIGHT G/E 3 VIEWS LOCATION: [facility] DATE: 05/16/2025 INDICATION: right shoulder pain injury COMPARISON: None. Procedure Note Jose Ratliff MD - 05/17/2025 EXAM: XR SHOULDER RIGHT G/E 3 VIEWS LOCATION: [facility] DATE: 05/16/2025 INDICATION: right shoulder pain injury COMPARISON: None. IMPRESSION: No acute fracture or dislocation. Mild degenerative changes ofthe acromioclavicular joint. Anterior cervical spinal fusion. us Gary Chandler IMG DIAGNOSTIC IMAGING ORDERABLE S Final Result * (ABNORMAL) Lipid panel reflex to direct LDL Fasting (12/11/2019 12:02 PM CDT) Cholesterol 218(H) <200 mg/dL 12/12/2019 7:[address] [facility] Comment:Desirable: <200 mg/d l Triglycerides 191(H) <150 mg/dL 12/12/2019 7:[address] [facility] Comment: Borderline high: 150-199 mg/dl High: 200-499 mg/dl Very high: >499 mg/dl Fasting specimen HDL Cholesterol 34(L) >39 mg/dL 0 7:[address] [facility] LDL Cholesterol Calculated 146(H) <100 mg/dL 12/12/2019 7:[address] [facility] Comment: Above desirable: 100-129 mg/dl Borderline High: 130-159 mg/dL High: 160-189 mg/dL Very high: >189 mg/dl Non HDL Cholesterol 184(H) <130 mg/dL 12/12/2019 7:[address] [facility] Comment: Above Desirable: 130-159 mg/dl Borderline high: 160-189 mg/dl High: 190-219 mg/dl Very high: >219 mg/dl Blood specimen (specimen) 12/11/2019 12:02 PM CDT 12/11/2019 12:03 PM CDT us Brooklynn Niño MANAGER RETAIL STORE DOCTOR ASSISTANT LAB - BLOOD ORDERABLES Final Result [facility] [address] [place], [place] [id number] * HIV Antigen Antibody Combo (02/15/2014 3:15 PM CDT) HIV Antigen Antibody Combo Nonreactive HIV-1 p24 Ag & HIV-1/HIV-2 Ab Not Detected NR [facility] Blood specimen (specimen) 02/15/2014 3:15 PM CDT 02/15/2014 3:16 PM CDT us Brooklynn Niño MANAGER RETAIL STORE DOCTOR ASSISTANT LAB - BLOOD ORDERABLES Final Result [facility] [address] [place] [address] from Last 3 Months or Most Recently Relevant to Health Maintenance Insurance MEDICARE MEDICARE Advance Directives For more information, please contact: [phone] * Full Code (Latest Code Status on File) Date Activated Date Inactivated Comments 07/06/2025 4:29 AM 07/08/2025 6:07 PM All basic an d advanced life-sustaining interventions are performed as appropriate Question Answer Comments Code status determined by: Discussion with patie nt/ legal decision maker * Full Code Date Activated Date Inactivated Comments 06/14/2025 1:00 PM 07/05/2025 9:18 PM Question Answer Comments Code status determined by: Discussion with patie nt/legal decision maker Code status determined by: Discussion with patie nt/ legal decision maker * Full Code Date Activated Date Inactivated Comments 05/29/2025 9:57 PM 06/06/2025 8:28 PM All basic and advanced life-sustaining interventions are performed as appropriate Question Answer Comments Code status determined by: Discussion with patie nt/ legal decision maker * Full Code Date Activated Date Inactivated Comments 05/17/2025 2:28 AM 05/24/2025 6:41 PM All basic an d advanced life-sustaining interventions are performed as appropriate Question Answer Comments Code status determined by: Discussion with patie nt/ legal decision maker * Full Code Date Activated Date Inactivated Comments 07/05/2022 9:06 AM 07/07/2022 9:09 PM All basic a nd advanced life-sustaining interventions are performed as appropriate Question Answer Comments Code status determined by: Discussion with patie nt/ legal decision maker Care Teams Teacher Assistant Relationship Specialty Start Date End Date Brooklynn Niño APRN DOCTOR ASSISTANT [address] [place] [address] PCP - General Family Practice 05/27/16 Helen Monterroso RN Registered Nurse Infectious Diseases 06/25/22 Carmela Kumar APRN DOCTOR ASSISTANT [address] [place] [address] Assigned PCP 06/26/24 Manjit Swanson MD [address] [place] [id number] Assigned Pediatric Specialist Provider 06/26/25 Anna Terrell CHW Community Health Worker 07/24/25
--- OUTSIDE RECORDS SUMMARY | 2025-07-31 17:56 | XMS_ITS | Encounter Summary ---
Author Organization [facility] Address [address] [place] [address] Care Team Providers Care Ice Handler Name Role Phone Brooklynn Niño APRN CONFIGURATION MANAGEMENT ADVISOR Primary Care Provider Helne Monterroso RN Unavailable Unavailab Carmela Heath APRN, CNP Unavailable [phone] Manjit Swanson MD Unavailable [phone] Anna Terrell CHArtur Unavailable Reason for Visit * Reason Onset Date Comments Referral 07/24/2025 Encounter Details Date Type Department Care Team (Late st Contact Info) Description 07/24/2025 Telephone [facility] [address] [place] [address] Brooklynn Niño APRN [facility] [address] [place] [address] Referral Social History Tobacco Use Types Packs/Day Years [...] Sex Assigned at Male 09/04/2021 2:10 PM MUFFLER TENDER Legal Sex Male 4:30 AM MUFFLER TENDER Gender Identity Male 09/04/2021 2:10 PM MUFFLER TENDER Sexual Orientation Straight 09/04/2021 2: 10 PM MUFFLER TENDER documented as of this encounter Miscellaneous Notes * Telephone Encounter - Tanika Salvador - 07/25/2025 3:07 PM CDT Contacts Contact Date/Time Type Contact Phone/Fax 07/24/2025 10:42 PM CDT Phone (Incoming) Luigi Meyers RN from [employer] [facility], 07/25/2025 02:30 PM CDT Phone (Incoming) Adelina TRIHN with [employer] [phone] Attempted to reach patient to: Schedule an appointment When patient returns call, please take this action: Assist with scheduling Reason for the visit: labs When to schedule: Next available Additional comments/info: Patient has future order from Brooklynn Niño. Please assist with scheduling. If unable to schedule: Transfer to TC line (or update telephone encounter in after-hours) Tanika [employer] * Telephone Encounter - Denise Thorne RN - 07/25/2025 2:30 PM CDT ZIGGY Sahu with [employer] calling with update on lab draw. States she was also unsuccessful with lab draw today. States since RN was unsuccessful with lab draw yesterday as well, they advise patient present to the clinic lab fro draw. States they have a 2-attempt policy and cannot attempt again. States patient is aware of this and should be calling to schedule lab draw. MA/TC please call patient and schedule lab draw at clinic. Denise Thorne RN * Telephone Encounter - Tanika Salvador - 07/25/2025 10:32 AM CDT Forwarding to provider as BRANT. Tanika [employer] * Telephone Encounter - Bobby Zepeda - 07/24/2025 10:43 PM CDT General Call Contacts Contact Date/Time Type Contact Phone/Fax 07/24/2025 10:42 PM CDT Phone (Incoming) Luigi Meyers RN from [employer], Reason for Call: draw lab in home What are your questions or concerns: ZIGGY Meyers, from [employer], called to report that today, she was unable to draw the patient's blood as per the order. Per Luigi, there was an order to draw labs at home. Please call if you have questions. Date of last appointment with provider: N/A Could we send this information to you in [employer] or would you prefer to receive a phone call?: prefer a phone call Okay to leave a detailed message?: Yes at phone number Telephone Information: [phone] documented in this encounter Plan of Treatment Not on file documented as of this encounter Visit Diagnoses Not on filedocumented in this encounter Care Teams Ice Handler Relationship Specialty Start Date End Date Brooklynn Niño APRN CONFIGURATION MANAGEMENT ADVISOR [address] [address] PCP - General Family Practice 05/27/16 Helen Monterroso, RN Registered Nurse Infectious Diseases 06/25/22 Carmela Kumar APRN CONFIGURATION MANAGEMENT ADVISOR [address] [place] [address] Assigned PCP 06/26/24 Manjit Swanson MD [address] [place] [address], [place] [address] Assigned Pediatric Specialist Provider 06/26/25 Anna Terrell CHW Community Health Worker 07/24/25 documented as of this encounter
--- OUTSIDE RECORDS SUMMARY | 2025-07-31 17:56 | XMS_ITS | Encounter Summary ---
Author Organization [facility] Address [address] [facility] [place] [address] Care Team Providers Care Antichecking Iron Worker Name Role Phone Brooklynn Niño APRN DIRECTOR OF CATEGORY MANAGEMENT Primary Care Provider Helen Monterroso RN Unavailable Unavailab Carmela Heath APRN DIRECTOR OF CATEGORY MANAGEMENT Unavailable [phone] Manjit Swanson MD Unavailable [phone] Anna Terrell CHW Unavailable [phone] Encounter Details Date Type Department Care Team (Late st Contact Info) Description 07/20/2025 [facility] [address] [place] [address] Brooklynn Niño APRN DIRECTOR OF CATEGORY MANAGEMENT [address] [place] [address] Social History Tobacco Use Types [...] in an abandoned building, in an overnight correction, or couch-surfing.) Yes 05/30/2025 Are you worried [...] Sex Assigned at Male 09/04/2021 2:10 PM CONTENT MANAGEMENT CONSULTANT Legal Sex Male 4:30 AM CONTENT MANAGEMENT CONSULTANT Gender Identity Male 09/04/2021 2:10 PM CONTENT MANAGEMENT CONSULTANT Sexual Orientation Straight 09/04/2021 2: 10 PM CONTENT MANAGEMENT CONSULTANT documented as of this encounter Miscellaneous Notes * Telephone Encounter - Niru Akhtar - 07/25/2025 4:08 PM CDT Form signed by Provider and faxed to: [employer] [facility] Order # [id number] Form faxed to [employer]. Casandra Akhtar Emergency Management Program Specialist * Telephone Encounter - Carmela Kumar APRN CNP - 07/25/2025 3:31 PM CDT Signed and in my outbox. Thanks- Lara * Telephone Encounter - Tanika Salvador - 07/20/2025 10:32 AM CDT Forms received from [employer] for Carmela Kumar CNP. Forms placed in provider 'in-basket'. Please fax forms to [phone] after completion. Order Number: [id number] [employer] Emergency Management Program Specialist * Telephone Encounter - Unique Maria - 07/20/2025 9:39 AM CDT Forms/Letter Request Type of form/letter: OTHER: [facility] Order # [id number] Do we have the form/letter: Yes: help desk internship in basket Who is the form from? Home care Where did/will the form come from? form was faxed in When is form/letter needed by: [facility] How would you like the form/letter returned: Patient Notified form requests are processed in 5-7 business days:No Could we send this information to you in [facility] or would you prefer to receive a phone call?: No preference Okay to leave a detailed message?: N/A at Other phone number: Unique Maria Patient History Professor [facility] documented in this encounter Plan of Treatment Not on file documented as of this encounter Visit Diagnoses Not on filedocumented in this encounter Care Teams Antichecking Iron Worker Relationship Specialty Start Date End Date Brooklynn Niño APRN CNP [address] [address] PCP - General Family Practice 05/27/16 Helen Monterroso, RN Registered Nurse Infectious Diseases 06/25/22 Carmela Kumar APRN [facility] [address] [place] [address] Assigned PCP 06/26/24 Manjit Swanson MD [facility] [address] Assigned Pediatric Specialist Provider 06/26/25 Anna Terrell CHW Community Health Worker 07/24/25 documented as of this encounter
--- OUTSIDE RECORDS SUMMARY | 2025-07-31 17:56 | XMS_ITS | Encounter Summary ---
Author Organization [place] Address [address] [place] [address]. [place] [address] Care Team Providers Care Soil Chemist Name Role Phone RenayBrooklynn landaverde MIKE FULL STACK SOFTWARE ENGINEER Primary Care Provider Helen Monterroso RN Unavailable Unavailab Carmela Heath APRN FULL STACK SOFTWARE ENGINEER Unavailable [phone] Adrienne Evans SINTER FEEDER FULL STACK SOFTWARE ENGINEER Unavailable (Fgs), [facility] Tcu - Servando Unavailable Sariah Nunez RN Unavailable [phone] Manjit Swanson MD Unavailable [phone] Encounter Details Date Type Department Care Team (Late st Contact Info) Description 05/23/2025 Results Follow-Up [facility] Services - General Medicine & Pediatrics [address] [place] [address] Aga Solorzano PA-C [address] [place] [address] Social History Tobacco Use Types Packs/Day Years [...] Assigned at Male 09/04/2021 2:10 PM DIRECTOR OF CONTENT MARKETING Legal Sex Male 4:30 AM DIRECTOR OF CONTENT MARKETING Gender Identity Male 09/04/2021 2:10 PM DIRECTOR OF CONTENT MARKETING Sexual Orientation Straight 09/04/2021 2: 10 PM DIRECTOR OF CONTENT MARKETING documented as of this encounter Plan of Treatment Not on file documented as of this encounter Visit Diagnoses Not on filedocumented in this encounter Additional Health Concerns Infection Onset Date Last Indicated Resolved Time Rule Out C-difficile 05/22/2025 05/23/2025 025 7:27 PM CDT Rule Out COVID-19 07/05/2025 07/05/2025 07/05/2025 11:34 PM CDT documented as of this encounter Care Teams Soil Chemist Relationship Specialty Start Date End Date Brooklynn Niño APRN FULL STACK SOFTWARE ENGINEER [address] [place] [address] PCP - General Family Practice 05/27/16 Helen Monterroso, RN Registered Nurse Infectious Diseases 06/25/22 Carmela Kumar APRN FULL STACK SOFTWARE ENGINEER [address] [place] [address] Assigned PCP 06/26/24 Adrienne Evans APRN FULL STACK SOFTWARE ENGINEER [facility] [place] [address] Nurse Practitioner Family Medicine 06/06/25 06/29/25 (Fgs), [facility] [address] [address] 06/06/25 06/29/25 Sariah Nunez, RN Clinic Dial Screw Assembler 06/07/2507/04 Manjit Swanson MD [address] [facility] [address] [place] [address] Assigned Pediatric Specialist Provider 06/26/25 documented as of this encounter
--- OUTSIDE RECORDS SUMMARY | 2025-07-31 17:56 | XMS_ITS | Encounter Summary ---
Author Organization [place] Address [address] [place] [address]. [place] [address] Care Team Providers Care Sdet Name Role Phone Brooklynn Niño SCRAPER HAND EMERGENCY VETERINARIAN Primary Care Provider Pelon Lawrence PA-C Unavailable [phone] Helen Monterroso RN Unavailable Unavailab Jordy Acosta MD Unavailable [phone] Carmela Kumar APRN EMERGENCY VETERINARIAN Unavailable [phone] Adrienne Evans SCRAPER HAND EMERGENCY VETERINARIAN Unavailable (Fgs), [facility] Tcu - Servando Unavailable Sariah Nunez RN Unavailable [phone] Manjit Swanson MD Unavailable [phone] Anna Terrell Unavailable [phone] Encounter Details Date Type Department Care Team (Late st Contact Info) Description 01/29/2022 [facility] [address] [place] [address] Olesya Gerardo RN Social History Tobacco Use Types Packs/Day Years Used Date Smoking Tobacco: Former Cigarettes Q uit: 04/08/2016 Smokeless Tobacco: Never Alcohol Use Standard Drinks/Week Comments Yes 0 (1 standard drink = 0.6 oz pur e alcohol) social PHQ-2 Answer Date Recorded PHQ-2 Score 2 12/18/2021 Sex and Gender Information Value Date Recorded Sex Assigned at Male 09/04/2021 2:10 PM ADMINISTRATOR HEALTH CARE FACILITY Legal Sex Male 4:30 AM ADMINISTRATOR HEALTH CARE FACILITY Gender Identity Male 09/04/2021 2:10 PM ADMINISTRATOR HEALTH CARE FACILITY Sexual Orientation Straight 09/04/2021 2: 10 PM ADMINISTRATOR HEALTH CARE FACILITY COVID-19 Exposure Response Date Recorded In the last 10 days, have yo u been in contact with someone who was confirmed or suspected to have Coronavirus/COVID-19? No / Unsure 01/29/2022 1:42 PM CDT documented as of this encounter Plan of Treatment Not on file documented as of this encounter Visit Diagnoses Not on filedocumented in this encounter Additional Health Concerns Infection Onset Date Last Indicated Resolved Time Rule Out COVID-19 05/26/2022 05/26/2022 05/26/2022 11:00 PM CDT Rule Out C-difficile 06/30/2022 07/01/2022 022 9:44 AM CDT Rule Out COVID-19 07/03/2022 07/03/2022 07/03/2022 5:35 PM CDT Rule Out C-difficile 05/22/2025 05/23/2025 025 7:27 PM CDT Rule Out COVID-19 07/05/2025 07/05/2025 07/05/2025 11:34 PM CDT documented as of this encounter Care Teams Sdet Relationship Specialty Start Date End Date Brooklynn Niño APRN EMERGENCY VETERINARIAN [address] [address] PCP - General Family Practice 05/27/16 Pelon Larwence PA-C [address] [address] [address] Assigned PCP 12/21/21 06/25/24 Helen Monterroso, RN Registered Nurse Infectious Diseases 06/25/22 Jordy Saravia MD [address] [place], [place] [address] Assigned Infectious Disease Provider 07/18/22 01/24/24 Carmela Kumar APRN EMERGENCY VETERINARIAN [address] [place] [address] Assigned PCP 06/26/24 Adrienne Evans APRN EMERGENCY VETERINARIAN [facility] [place] [address] Nurse Practitioner Family Medicine 06/06/25 06/29/25 (Fgs), [facility] [address] [place] [phone] 06/06/25 06/29/25 Sariah Nunez RN Clinic Sports Medicine Trainer 06/07/2507/04 Manjit Swanson MD [facility] [facility] [address] [place] [address] Assigned Pediatric Specialist Provider 06/26/25 Anna Terrell CHW Community Health Worker 07/24/25 documented as of this encounter
--- OUTSIDE RECORDS SUMMARY | 2025-07-31 17:56 | XMS_ITS | Encounter Summary ---
Author Organization [place] Address [address] [place] [address]. [place] [address] Care Team Providers Care Caser In Name Role Phone RenayBrooklynn landaverde MIKE ANIMAL SCIENCE INSTRUCTOR Primary Care Provider Helen Monterroso RN Unavailable Unavailab Carmela Heath APRN ANIMAL SCIENCE INSTRUCTOR Unavailable [phone] Adrienne Evans APRN ANIMAL SCIENCE INSTRUCTOR Unavailable (Fgs), [facility] Tcu - Servando Unavailable Sariah Nunez RN Unavailable [phone] Manjit Swanson MD Unavailable [phone] Reason for Visit * Reason Onset Date Comments Geriatrics Tracker 06/06/2025 Encounter Details Date Type Department Care Team (Late st Contact Info) Description 06/06/2025 Documentation Only [facility] [address] [place] [phone] Yulia German [address] [place] [address] Geriatrics Tracker Social History Tobacco Use Types Packs/Day Years Used Date Smoking Tobacco: Former Cigarettes Q uit: 04/08/2016 Smokeless Tobacco: Never Alcohol Use Standard Drinks/Week Comments Yes 0 (1 standard drink = 0.6 oz pur e alcohol) social PHQ-2 Answer Date Recorded PHQ-2 Score 1 06/14/2024 Adolescent Education Answer Date Record ed Getting School Help Needed Not on file 10/14 /2023 Food Insecurity Answer Date Recorded Within the [...] Sex Assigned at Male 09/04/2021 2:10 PM URGENT CARE PHYSICIAN ASSISTANT Legal Sex Male 4:30 AM URGENT CARE PHYSICIAN ASSISTANT Gender Identity Male 09/04/2021 2:10 PM URGENT CARE PHYSICIAN ASSISTANT Sexual Orientation Straight 09/04/2021 2: 10 PM URGENT CARE PHYSICIAN ASSISTANT documented as of this encounter Plan of Treatment Not on file documented as of this encounter Visit Diagnoses Not on filedocumented in this encounter Care Teams Caser In Relationship Specialty Start Date End Date Brooklynn Niño APRN ANIMAL SCIENCE INSTRUCTOR [address] [address] [address] PCP - General Family Practice 05/27/16 Helen Monterroso, RN Registered Nurse Infectious Diseases 06/25/22 Carmela Kumar APRN ANIMAL SCIENCE INSTRUCTOR [address] [place] [address] Assigned PCP 06/26/24 Adrienne Evans APRN ANIMAL SCIENCE INSTRUCTOR [address] [place] [address] Nurse Practitioner Family Medicine 06/06/25 06/29/25 (Fgs), [facility] [address] [id number] 06/06/25 06/29/25 Sariah Nunez, RN Clinic Pulmonology Technician 06/07/2507/04 Manjit Swanson MD [address] [facility] [address] [place] [address] Assigned Pediatric Specialist Provider 06/26/25 documented as of this encounter
--- OUTSIDE RECORDS SUMMARY | 2025-07-31 17:56 | XMS_ITS | Encounter Summary ---
Author Organization [place] Address [address] [place] [address] Care Team Providers Care Rinkman Name Role Phone Brooklynn Niño APRN BOWL SANDER Primary Care Provider Helen Monterroso RN Unavailable Unavailab Carmela Heath APRN BOWL SANDER Unavailable [phone] Manjit Swanson MD Unavailable [phone] Reason for Visit * Reason Onset Date Comments Home Care/Hospice 07/19/2025 Encounter Details Date Type Department Care Team (Late st Contact Info) Description 07/19/2025 Telephone [facility] [address] [place] [address] Brooklynn Niño APRN BOWL SANDER [address] [place] [address] Home Care/Hospice Social History Tobacco [...] in an abandoned building, in an overnight detention, or couch-surfing.) Yes 05/30/2025 Are you worried [...] Sex Assigned at Male 09/04/2021 2:10 PM COLLECTION SYSTEMS MODELER Legal Sex Male 4:30 AM COLLECTION SYSTEMS MODELER Gender Identity Male 09/04/2021 2:10 PM COLLECTION SYSTEMS MODELER Sexual Orientation Straight 09/04/2021 2: 10 PM COLLECTION SYSTEMS MODELER documented as of this encounter Miscellaneous Notes * Telephone Encounter - Candida Chicas - 07/23/2025 3:54 PM CDT Patient had video visit today 07/23, with Brooklynn Niño. Closing encounter. Candida Perkins, Per Diem Physical Therapist Assistant- [place] [address] Primary Care- Lio [facility] * Telephone Encounter - Candida Chicas - 07/20/2025 7:20 AM CDT Sent MyChart x2 attempt. Candida Perkins, Per Diem Physical Therapist Assistant- [address] Care- [facility] Services * Telephone Encounter - Candida Chicas - 07/19/2025 1:38 PM CDT LVM x1 Contacts Contact Date/Time Type Contact Phone/Fax 07/19/2025 10:56 AM CDT Phone (Incoming) ELLIOT Miles (Home Care) [phone] [facility] 07/19/2025 12:58 PM CDT Phone (Outgoing) ELLIOT Miles (Home Care) [phone] Left Message 07/19/2025 01:38 PM CDT Phone (Outgoing) Nikhil Palafox (Self) [phone] (M) Left Message Attempted to reach patient to: Schedule an appointment When patient returns call, please take this action: Assist with scheduling Reason for the visit: Hospital/ED Follow-up- can be video When to schedule: Within 15 days Additional comments/info: Needs hospital follow up with Lara Kumar in order to receive home care. Schedule in person or virtually with Lara GUERRERO. If unable to schedule: Transfer to TC line (or update telephone encounter in after-hours) Candida Perkins, Per Diem Physical Therapist Assistant- [address]- [facility] Services * Telephone Encounter - Hansa Chong RN - 07/19/2025 1:00 PM CDT Returned call to home care PT. Left detailed VM with order approval per provider. Routing to TC. Pt needs to schedule hospital follow up. In person preferred but at minimum, needs virtual. Hansa Chong RN on 07/19/2025 at 1:00 PM * Telephone Encounter - MalAga arzate APRN CNP - 07/19/2025 12:47 PM CDT Lara is out of the office the rest of the week. Ok to give verbal for delay in care. Pt last seen over a year ago so needs appointment for further home care orders. Virtual is typically acceptable for face to face visit. * Telephone Encounter - Hansa Chong RN - 07/19/2025 10:56 AM CDT Home Care is calling regarding an established patient with [facility]. Requesting orders from: Lara Kumar PROVIDER AUTHORIZATION REQUIRED: RN unable to provide verbal approval for all orders. See below foradditional information. RN will contact Home care with information after provider review. Is this a request for a temporary pause in the home care episode? No Orders Requested Physical Therapy Request for delay in care, service to be provided within 7 days of previously Service rescheduled to 07/23/25 RN gave verbal order: No: Routing Need to confirm if Lara José willing to give verbal order. She was the last provider to see patient 1 year ago. Patient had been contacted many times to schedule-nothing scheduled at this point. Phone number Home Care can be reached at: [phone] Okay to leave a detailed message?: Yes Contacts Contact Date/Time Type Contact Phone/Fax 07/19/2025 10:56 AM CDT Phone (Incoming) E[facility] Miles (Home Care) [phone] [facility] Hansa Chong RN documented in this encounter Plan of Treatment Not on file documented as of this encounter Visit Diagnoses Not on filedocumented in this encounter Care Teams Rinkman Relationship Specialty Start Date End Date Brooklynn Niño APRN CNP [address] [address] [address] PCP - General Family Practice 05/27/16 Helen Monterroso RN Registered Nurse Infectious Diseases 06/25/22 Carmela Kumar APRN [facility] [address] [place] [address] Assigned PCP 06/26/24 Manjit Swanson MD [facility] [address] Assigned Pediatric Specialist Provider 06/26/25 documented as of this encounter
--- OUTSIDE RECORDS SUMMARY | 2025-07-31 17:56 | XMS_ITS ---
Author Organization [place] Address [address] [place] [address]. [place] [address] Care Team Providers Care Supervisor Concrete Pipe Plant Name Role Phone Brooklynn Niño APRN COMMISSARY OFFICER Primary Care Provider Helen Monterroso RN Unavailable Unavailab Carmela Heath APRN, CNP Unavailable [phone] Manjit Swanson MD Unavailable [phone] Anna Terrell Unavailable [phone] Transitional Care Management Status:Closed (Closed) Start date:07/02/2025 Enrollment date:07/03/2025 End date:07/16/2025 Close reason:Goals met Continued Care and Services Coordination
--- OUTSIDE RECORDS SUMMARY | 2025-07-31 17:56 | XMS_ITS ---
Author Organization [place] Address [address] [place] [address]. [place] [address] Care Team Providers Care Product Marketing Director Name Role Phone Brooklynn Niño APRN MAPLE PRODUCTS SUPERVISOR Primary Care Provider Helen Monterroso RN Unavailable Unavailab Carmela Heath APRN, CNP Unavailable [phone] Manjit Swanson MD Unavailable [phone] Anna Terrell Unavailable [phone] Primary Care Care Coordination Status:Identified (Enrolling) Start date:07/31/2025 Case Team Name Relationship Phone Anna RIVERA(Responsible Staff) [facility] Worker [phone] Continued Care and Services Coordination
--- OUTSIDE RECORDS SUMMARY | 2025-07-31 17:56 | XMS_ITS | Encounter Summary ---
Author Organization [place] Address [address] [facility] [place] [address] Care Team Providers Care Diesel Technician Mechanic Name Role Phone Brooklynn Niño APRN SOLUTIONS MANAGER Primary Care Provider Helen Monterroso RN Unavailable Unavailab Carmela Heath APRN SOLUTIONS MANAGER Unavailable [phone] Manjit Swanson MD Unavailable [phone] Anna Terrell Artur Unavailable [phone] Reason for Visit * Reason Onset Date Comments Forms 07/24/2025 Home Care Orders :[id number] Encounter Details Date Type Department Care Team (Late st Contact Info) Description 07/24/2025 Telephone [facility] [address] [place] [address] Brooklynn Niño APRN [facility] [address] [place] [address] Forms (Home Care Orders:/[id number]) Social History Tobacco Use Types Packs/Day Years [...] Sex Assigned at Male 09/04/2021 2:10 PM JOB SERVICE SPECIALIST Legal Sex Male 4:30 AM JOB SERVICE SPECIALIST Gender Identity Male 09/04/2021 2:10 PM JOB SERVICE SPECIALIST Sexual Orientation Straight 09/04/2021 2: 10 PM JOB SERVICE SPECIALIST documented as of this encounter Miscellaneous Notes * Telephone Encounter - Niru Akhtar - 07/25/2025 4:13 PM CDT Form signed by Provider and faxed to: [email or web address] Orders: [id number] Fax #: [phone] Faxed to abstraction Casandra Akhtar Assistant Coach * Telephone Encounter - Carmela Kumar APRN CNP - 07/25/2025 3:31 PM CDT Signed and in my outbox. Thanks- Lara * Telephone Encounter - Tanika Salvador - 07/24/2025 10:49 AM CDT Forms received from [facility] for Carmela Kumar CNP. Forms placed in provider 'in-basket'. Please fax forms to [phone] after completion. Orders: [id number] Tanika Assistant Coach * Telephone Encounter - Unique Maria - 07/24/2025 9:45 AM CDT Forms/Letter Request Type of form/letter: OTHER: [facility] Order # [id number] Order # [id number] Do we have the form/letter: Yes: helpdesk technician in basket Who is the form from? Home care Where did/will the form come from? form was faxed in When is form/letter needed by: CESAR How would you like the form/letter returned: Patient Notified form requests are processed in 5-7 business days:No Could we send this information [place] you [place] or would you prefer to receive a phone call?: No preference Okay to leave a detailed message?: No at Other phone number: Unique Maria Patient Tongue Carrier [facility] documented in this encounter Plan of Treatment Not on file documented as of this encounter Visit Diagnoses Not on filedocumented in this encounter Care Teams Diesel Technician Mechanic Relationship Specialty Start Date End Date Brooklynn Niño APRN CNP [address] [place] [address] PCP - General Family Practice 05/27/16 Helen Monterroso, RN Registered Nurse Infectious Diseases 06/25/22 Carmela Kumar APRN SOLUTIONS MANAGER [address] [place] [address] Assigned PCP 06/26/24 Manjit Swanson MD [facility] [facility] [address] [place] [address] Assigned Pediatric Specialist Provider 06/26/25 Anna Terrell CHW Community Health Worker 07/24/25 documented as of this encounter
--- OUTSIDE RECORDS SUMMARY | 2025-07-31 17:56 | XMS_ITS | Encounter Summary ---
Author Organization [place] Address [address] [facility] [place] [address] Care Team Providers Care Grain Blender Name Role Phone Brooklynn Niño APRN INSPECTOR WREATH Primary Care Provider Helen Monterroso RN Unavailable Unavailab Carmela Heath APRN, CNP Unavailable [phone] Manjit Swanson MD Unavailable [phone] Anna Terrell Unavailable [phone] Reason for Visit * Reason Onset Date Comments Home Care/Hospice 07/25/2025 Encounter Details Date Type Department Care Team (Late st Contact Info) Description 07/25/2025 Telephone [facility] [address] [place] [address] Brooklynn Niño APRN [facility] [address] [place] [address] Home Care/Hospice Social History Tobacco [...] Sex Assigned at Male 09/04/2021 2:10 PM TRANSFORMER COIL WINDER Legal Sex Male 4:30 AM TRANSFORMER COIL WINDER Gender Identity Male 09/04/2021 2:10 PM TRANSFORMER COIL WINDER Sexual Orientation Straight 09/04/2021 2: 10 PM TRANSFORMER COIL WINDER documented as of this encounter Miscellaneous Notes * Telephone Encounter - Zora Maria RN - 07/25/2025 11:13 AM CDT Home Care is calling regarding an established patient with [facility]. Requesting orders from: Brooklynn Niño RN APPROVED: RN able to provide verbal orders. Home Care will send orders for signature. RN will close encounter. Is this a request for a temporary pause in the home care episode? No Orders Requested Physical Therapy Request for initial evaluation and treatment (one time) to address chronic right shoulder pain and upper extremity strengthening RN gave verbal order: Yes Phone number Home Care can be reached at: [phone] Okay to leave a detailed message?: Yes Contacts Contact Date/Time Type Contact Phone/Fax 07/25/2025 11:13 AM CDT Phone (Incoming) Priscilla Eisenberg (Home Care) [phone] Confidential VM, ok to leave detailed message. Zora Maria RN documented in this encounter Plan of Treatment Not on file documented as of this encounter Visit Diagnoses Not on filedocumented in this encounter Care Teams Grain Blender Relationship Specialty Start Date End Date Brooklynn Niño APRN INSPECTOR WREATH [address] [place] [address] PCP - General Family Practice 05/27/16 Helen Monterroso RN Registered Nurse Infectious Diseases 06/25/22 Carmela Kumar APRN INSPECTOR WREATH [address] [place] [address] Assigned PCP 06/26/24 Manjit Swanson MD [address] [place] [address] Assigned Pediatric Specialist Provider 06/26/25 Anna Terrell CHW Community Health Worker 07/24/25 documented as of this encounter
--- OUTSIDE RECORDS SUMMARY | 2025-07-31 17:56 | XMS_ITS ---
Author Organization [place] Address [address] [place] [address]. [place] [address] Care Team Providers Care Program Consultant Name Role Phone Brooklynn Niño APRN BANQUET FOOD SERVER Primary Care Provider Helen Monterroso RN Unavailable Unavailab Carmela Heath APRN, CNP Unavailable [phone] Manjit Swanson MD Unavailable [phone] Anna Terrell Unavailable [phone] Transitional Care Management Status:Closed (Closed) Start date:07/09/2025 Enrollment date:07/10/2025 End date:07/23/2025 Close reason:Goals met Continued Care and Services Coordination
--- OUTSIDE RECORDS SUMMARY | 2025-07-31 17:56 | XMS_ITS | Encounter Summary ---
Author Organization [place] Address [address] [facility] [place] [address] Care Team Providers Care Manager Credit Name Role Phone Brooklynn Niño APRN INSURANCE REPRESENTATIVE Primary Care Provider Helen Monterroso RN Unavailable Unavailab Carmela Heath APRN INSURANCE REPRESENTATIVE Unavailable [phone] Manjit Swanson MD Unavailable [phone] Reason for Visit * Reason Onset Date Comments Orders 07/23/2025 Encounter Details Date Type Department Care Team (Late st Contact Info) Description 07/23/[address] [facility] [address] [place] [address] Brooklynn Niño APRN INSURANCE REPRESENTATIVE [address] [place] [address] Orders Social History Tobacco Use Types Packs/Day Years [...] Sex Assigned at Male 09/04/2021 2:10 PM KARDEX CLERK Legal Sex Male 4:30 AM KARDEX CLERK Gender Identity Male 09/04/2021 2:10 PM KARDEX CLERK Sexual Orientation Straight 09/04/2021 2: 10 PM KARDEX CLERK documented as of this encounter Miscellaneous Notes * Telephone Encounter - Tanika Salvador - 07/23/2025 12:00 PM CDT Orders printed and faxed as requested. Tanika Doctor Of Optometry * Telephone Encounter - Hansa Chong RN - 07/23/2025 9:40 AM CDT Images from the original note were not included. Brooklynn Niño APRN CNP [facility] [place] Nurse Pool - Primary Care I ordered labs. He has a home health nurse coming daily. Can these orders be sent to them so they can complete the blood draw in his home? PAULINA Spoke to home care nurse Dawn, with [facility]. They can draw labs in home. Need orders faxed to [phone]. Will route to . Can you print and fax lab orders placed today to the number above? Hansa Chong, RN on 07/23/2025 at 9:54 AM documented in this encounter Plan of Treatment Not on file documented as of this encounter Visit Diagnoses Not on filedocumented in this encounter Care Teams Manager Credit Relationship Specialty Start Date End Date Brooklynn Niño APRN INSURANCE REPRESENTATIVE [address] [place] [address] PCP - General Family Practice 05/27/16 Helen Monterroso RN Registered Nurse Infectious Diseases 06/25/22 Carmela Kumar APRN INSURANCE REPRESENTATIVE [address] [place] [address] Assigned PCP 06/26/24 Manjit Swanson MD [address] [place] [address] Assigned Pediatric Specialist Provider 06/26/25 documented as of this encounter
--- OUTSIDE RECORDS SUMMARY | 2025-07-31 17:56 | XMS_ITS ---
Author Organization [facility] Address [address] [place] [address]. [place] [address] Care Team Providers Care Pelt Inspector Name Role Phone Renay, Brooklynn MCKEON TAX LAWYER Primary Care Provider Helen Monterroso RN Unavailable Unavailab Carmela Heath APRN, CNP Unavailable [phone] Manjit Swanson MD Unavailable [phone] Anna Terrell Unavailable [phone] Primary Care Care Coordination Status:Closed (Closed) Start date:06/07/2025 End date:07/04/2025 Close reason:Unable to reach patient Overview ADD TCM PROGRAM WITHIN 14 DAYS OF TCU DISCHARGE - [facility] Continued Care and Services Coordination
--- OUTSIDE RECORDS SUMMARY | 2025-07-31 17:56 | XMS_ITS | Encounter Summary ---
Author Organization [facility] Address [address] [place] [address]. [place] [address] Care Team Providers Care Sales Training Representative Name Role Phone Renay, Brooklynn MCKEON BOOSTER ASSEMBLER Primary Care Provider Helen Monterroso RN Unavailable Unavailab Carmela Heath APRN BOOSTER ASSEMBLER Unavailable [phone] Adrienne Evans GRAVEL TRUCK DRIVER BOOSTER ASSEMBLER Unavailable (Fgs), [facility] T[facility] - [facility] Unavailable Sariah Nunez RN Unavailable [phone] Manjit Swanson MD Unavailable [phone] Anna Terrell Unavailable [phone] Encounter Details Date Type Department Care Team (Late st Contact Info) Description 06/01/2025 MyC Medical Advice [facility] [address] [place] [address] Sariah Milton Social History Tobacco Use Types Packs/Day Years [...] Sex Assigned at Male 09/04/2021 2:10 PM THEATRICAL TROUPER Legal Sex Male 4:30 AM THEATRICAL TROUPER Gender Identity Male 09/04/2021 2:10 PM THEATRICAL TROUPER Sexual Orientation Straight 09/04/2021 2: 10 PM THEATRICAL TROUPER documented as of this encounter Plan of Treatment Not on file documented as of this encounter Visit Diagnoses Not on filedocumented in this encounter Additional Health Concerns Infection Onset Date Last Indicated Resolved Time Rule Out COVID-19 07/05/2025 07/05/2025 07/05/2025 11:34 PM CDT documented as of this encounter Care Teams Sales Training Representative Relationship Specialty Start Date End Date Brooklynn Niño APRN BOOSTER ASSEMBLER [address] [place] [address] PCP - General Family Practice 05/27/16 Helen Monterroso, RN Registered Nurse Infectious Diseases 06/25/22 Carmela Kumar APRN BOOSTER ASSEMBLER [address] [place] [address] Assigned PCP 06/26/24 Adrienne Evans APRN BOOSTER ASSEMBLER [address] [place] [address] Nurse Practitioner Family Medicine 06/06/25 06/29/25 (Fgs), [facility] [address] [phone] 06/06/25 06/29/25 Sariah Nunez, RN Clinic Quality Control Lab Tech 06/07/2507/04 Manjit Swanson MD [address] [place] [address] [address], [place] [address] Assigned Pediatric Specialist Provider 06/26/25 Anna Terrell CHW Community Health Worker 07/24/25 documented as of this encounter
--- OUTSIDE RECORDS SUMMARY | 2025-07-31 17:56 | XMS_ITS ---
Author Organization [facility] Address [address] [place] [address]. [place] [address] Care Team Providers Care Bilingual Counter Sales Retail Name Role Phone Brooklynn Niño APRN WEARING APPAREL PRESSER Primary Care Provider Helen Monterroso RN Unavailable Unavailab Carmela Heath APRN, CNP Unavailable [phone] Manjit Swanson MD Unavailable [phone] Anna Terrell Unavailable [phone] Primary Care Care Coordination Status:Closed (Closed) Start date:07/23/2025 End date:07/31/2025 Close reason:Unable to reach patient Case Team Name Relationship Phone Anna Terrell CHW(Responsible Staff) [facility] Worker [phone] Continued Care and Services Coordination
--- OUTSIDE RECORDS SUMMARY | 2025-07-31 17:56 | XMS_ITS | Encounter Summary ---
Author Organization [facility] Address [address] [facility] [place] [address] Care Team Providers Care Ux Research Associate Name Role Phone Brooklynn Niño APRN MANAGER ACCOUNT MANAGEMENT Primary Care Provider Helen Monterroso RN Unavailable Unavailab Carmela Heath APRN, CNP Unavailable [phone] Manjit Swanson MD Unavailable [phone] Anna Terrell CHArtur Unavailable [phone] Encounter Details Date Type Department Care Team (Late st Contact Info) Description 07/23/2025 MyC Medical Advice [facility] [address] [place] [address] Hansa Chong RN Social History Tobacco Use Types Packs/Day [...] Sex Assigned at Male 09/04/2021 2:10 PM CERTIFIED HEALTH EDUCATION SPECIALIST Legal Sex Male 4:30 AM CERTIFIED HEALTH EDUCATION SPECIALIST Gender Identity Male 09/04/2021 2:10 PM CERTIFIED HEALTH EDUCATION SPECIALIST Sexual Orientation Straight 09/04/2021 2: 10 PM CERTIFIED HEALTH EDUCATION SPECIALIST documented as of this encounter Plan of Treatment Not on file documented as of this encounter Visit Diagnoses Not on filedocumented in this encounter Care Teams Ux Research Associate Relationship Specialty Start Date End Date Brooklynn Niño APRN MANAGER ACCOUNT MANAGEMENT [address] [place] [address] PCP - General Family Practice 05/27/16 Helen Monterroso, RN Registered Nurse Infectious Diseases 06/25/22 Carmela Kumar APRN MANAGER ACCOUNT MANAGEMENT [address] [place] [address] Assigned PCP 06/26/24 Manjit Swanson MD [facility] [facility] [address] [place] [address] Assigned Pediatric Specialist Provider 06/26/25 Anna Terrell CHW Community Health Worker 07/24/25 documented as of this encounter
--- OUTSIDE RECORDS SUMMARY | 2025-07-31 17:56 | XMS_ITS | Encounter Summary ---
Author Organization [facility] Address [address] [facility] [address] Care Team Providers Care Charter Representative Name Role Phone Brooklynn Niño APRN JAVA J2EE SOFTWARE ENGINEER Primary Care Provider Helen Monterroso RN Unavailable Unavailab Carmela Heath APRN JAVA J2EE SOFTWARE ENGINEER Unavailable [phone] Manjit Swanson MD Unavailable [phone] Anna Terrell CHW Unavailable [phone] Encounter Details Date Type Department Care Team (Late st Contact Info) Description 07/25/2025 Medical Correspondence [facility] Health Information Management [address] [facility] [address] [place] [address] Scan, Non-Provider Social History Tobacco Use Types [...] Sex Assigned at Male 09/04/2021 2:10 PM DRIVER STARTING GATE Legal Sex Male 4:30 AM DRIVER STARTING GATE Gender Identity Male 09/04/2021 2:10 PM DRIVER STARTING GATE Sexual Orientation Straight 09/04/2021 2: 10 PM DRIVER STARTING GATE documented as of this encounter Plan of Treatment Not on file documented as of this encounter Visit Diagnoses Not on filedocumented in this encounter Care Teams Charter Representative Relationship Specialty Start Date End Date Brooklynn Niño APRN JAVA J2EE SOFTWARE ENGINEER [address] [place] [address] PCP - General Family Practice 05/27/16 Helen Monterroso RN Registered Nurse Infectious Diseases 06/25/22 Carmela Kumar APRN JAVA J2EE SOFTWARE ENGINEER [address] [place] [address] Assigned PCP 06/26/24 Manjit Swanson MD [address] [facility] [address] [place] [address] Assigned Pediatric Specialist Provider 06/26/25 Anna Terrell Artur Community Health Worker 07/24/25 documented as of this encounter
--- OUTSIDE RECORDS SUMMARY | 2025-07-31 17:57 | XMS_ITS | Encounter Summary ---
Author Organization [facility] Address [address] [place] [address]. [place] [address] Care Team Providers Care Gasoline Plant Operator Name Role Phone Brooklynn Niño APRN CONTENT PRODUCTION SPECIALIST Primary Care Provider Brooklynn Niño APRN CONTENT PRODUCTION SPECIALIST Unavailable [phone] Britney Johnson PA-C Unavailable [phone] Pelon Lawrence PA-C Unavailable [phone] Helen Monterroso RN Unavailable Unavailab Jordy Acosta MD Unavailable [phone] Carmela Kumar APRN CONTENT PRODUCTION SPECIALIST Unavailable [phone] Adrienne Evans MACHINE COREMAKER CONTENT PRODUCTION SPECIALIST Unavailable (Fgs), [facility] Tcu - Servando Unavailable Sariah Nunez RN Unavailable [phone] Manjit Swanson MD Unavailable [phone] Anna Terrell Unavailable [phone] Encounter Details Date Type Department Care Team (Late st Contact Info) Description 06/23/2019 [facility] U[facility] Clinic [address] [place] [address] Britney Johnson PA-C [address] [facility] [address] [place] [address] Social History Tobacco Use Types Packs/Day Years Used Date Smoking Tobacco: Former Cigarettes Q uit: 04/08/2016 Smokeless Tobacco: Never Alcohol Use Standard Drinks/Week Comments Yes 0 (1 standard drink = 0.6 oz pur e alcohol) social PHQ-2 Answer Date Recorded PHQ-2 Score 0 06/14/2019 Sex and Gender Information Value Date Recorded Sex Assigned at Male 09/04/2021 2:10 PM ASTRONOMY INSTRUCTOR Legal Sex Male 4:30 AM ASTRONOMY INSTRUCTOR Gender Identity Male 09/04/2021 2:10 PM ASTRONOMY INSTRUCTOR Sexual Orientation Straight 09/04/2021 2: 10 PM ASTRONOMY INSTRUCTOR documented as of this encounter Plan of [...] documented as of this encounter Care Teams Gasoline Plant Operator Relationship Specialty Start Date End Date Brooklynn Niño APRN CONTENT PRODUCTION SPECIALIST [address] [place] [address] [address] PCP - General Family Practice 05/27/16 Brooklynn Niño APRN CONTENT PRODUCTION SPECIALIST [address] [place] [address] Assigned PCP 10/03/17 12/20/21 Britney Johnson, HANS [address] [place] [address] Assigned OBGYN Provider 12/18/20 1 Pelon Lawrence PA-C [address] [place] [address] Assigned PCP 12/21/21 06/25/24 Helen Monterroso, RN Registered Nurse Infectious Diseases 06/25/22 Jordy Saravia MD [address] [place] [address] Assigned Infectious Disease Provider 07/18/22 01/24/24 Carmela Kumar APRN CONTENT PRODUCTION SPECIALIST [address] [place] [address] Assigned PCP 06/26/24 Adrienne Evans APRN CONTENT PRODUCTION SPECIALIST [address] [place] [address] Nurse Practitioner Family Medicine 06/06/25 06/29/25 (Fgs), [facility] Servando [address] [phone] 06/06/25 06/29/25 Sariah Nunez, RN Clinic Emanations Analysis Technician 06/07/2507/04 Manjit Swanson MD [facility] [address] [place] [address] Assigned Pediatric Specialist Provider 06/26/25 Anna Terrell CHW Community Health Worker 07/24/25 documented as of this encounter
--- OUTSIDE RECORDS SUMMARY | 2025-07-31 17:57 | XMS_ITS | Encounter Summary ---
Author Organization [facility] Address [address] [place] [address]. [place] [address] Care Team Providers Care Customer Contact Representative Name Role Phone Brooklynn Niño APRN SUPERVISOR ALUM PLANT Primary Care Provider Brooklynn Niño APRN SUPERVISOR ALUM PLANT Unavailable [phone] Britney JohnsonC Unavailable [phone] Pelon Lawrence PA-C Unavailable [phone] Helen Monterroso RN Unavailable Unavailab Jordy Acosta MD Unavailable [phone] Carmela Kumar APRN SUPERVISOR ALUM PLANT Unavailable [phone] Adrienne Evans BOAT GARNISHER SUPERVISOR ALUM PLANT Unavailable (Fgs), [facility] Tcu - Servando Unavailable Sariah Nunez RN Unavailable [phone] Manjit Swanson MD Unavailable [phone] Anna Terrell Unavailable [phone] Reason for Visit * Reason Onset Date Comments Refill Request 11/09/2019 Encounter Details Date Type Department Care Team (Late st Contact Info) Description 11/09/2019 [facility] Urology Clinic [address] [place] [address] Britney Johnson PA-C [address], [place] [address] Refill Request Social History Tobacco Use Types Packs/Day Years Used Date Smoking Tobacco: Former Cigarettes Q uit: 04/08/2016 Smokeless Tobacco: Never Alcohol Use Standard Drinks/Week Comments Yes 0 (1 standard drink = 0.6 oz pur e alcohol) social PHQ-2 Answer Date Recorded PHQ-2 Score 0 06/14/2019 Sex and Gender Information Value Date Recorded Sex Assigned at Male 09/04/2021 2:10 PM SUPERINTENDENT NONSELLING Legal Sex Male 4:30 AM SUPERINTENDENT NONSELLING Gender Identity Male 09/04/2021 2:10 PM SUPERINTENDENT NONSELLING Sexual Orientation Straight 09/04/2021 2: 10 PM SUPERINTENDENT NONSELLING documented as of this encounter Plan of Treatment Not on file documented as of this encounter Visit Diagnoses Diagnosis Incomplete bladder emptying documented in this encounter Additional Health Concerns [...] documented as of this encounter Care Teams Customer Contact Representative Relationship Specialty Start Date End Date Brooklynn Niño APRN SUPERVISOR ALUM PLANT [address] [place] [address] [address] PCP - General Family Practice 05/27/16 Brooklynn Niño APRN SUPERVISOR ALUM PLANT [address] [place] [address] Assigned PCP 10/03/17 12/20/21 Britney Johnosn PA-C [address] [facility] [address] [place] [address] Assigned OBGYN Provider 12/18/20 5/ 1 Pelon Lawrence PA-C [address] [place] [address] Assigned PCP 12/21/21 06/25/24 Helen Monterroso, RN Registered Nurse Infectious Diseases 06/25/22 Jordy Saravia MD [address] [place] [address] Assigned Infectious Disease Provider 07/18/22 01/24/24 Carmela Kumar APRN SUPERVISOR ALUM PLANT [address] [place] [address] Assigned PCP 06/26/24 Adrienne Evans APRN SUPERVISOR ALUM PLANT [address] [place] [address] Nurse Practitioner Family Medicine 06/06/25 06/29/25 (Fgs), [facility] Josy Servando [address] [phone] 06/06/25 06/29/25 Sariah Nunez, RN Clinic Policyholder Information Clerk 06/07/2507/04 Manjit Swanson MD [facility] [address] [place] [address] Assigned Pediatric Specialist Provider 06/26/25 Anna Terrell, MANUELW Community Health Worker 07/24/25 documented as of this encounter
[2025-07-31] MEDS: MORPHINE 4 MG/ML INJ IVP (18:43)
[2025-07-31 19:16] LABS: Hematocrit* 32.9 % (37.0-53.0); Hemoglobin* 10.7 gm/dL (13.5-17.5); Immature Granulocytes Pct Auto 1.0 %; Mean Corpuscular HGB Conc 33 gm/dL (32-36); Mean Corpuscular Hemoglobin 27 pg (26-34); Mean Corpuscular Volume 82 fL (80-100); RDW Coefficient of Variation % 15.6 % (11.5-15.5); Red Blood Count* 4.00 m/uL (4.30-5.90); White Blood Count* 17.36 K/uL (4.50-11.00)
[2025-07-31 19:20] LABS: Immature Granulocytes Abs Auto 0.20 K/uL (0.00-0.30); Lymphocytes Absolute Auto 1.10 K/uL (0.90-2.90)
[2025-07-31 19:21] LABS: Slide Review Reflex No
[2025-07-31 19:27] LABS: Albumin* 3.1 g/dL (3.3-5.0); Chloride* 99 mmol/L (96-114); Potassium* 4.1 mmol/L (3.6-5.1); Sodium* 132 mmol/L (135-149)
[2025-07-31 19:30] LABS: Alanine Aminotransferase* 31 U/L (4-50); Alkaline Phosphatase* 87 U/L (40-150); Anion Gap 8 mEq/L (7-15); Aspartate Amino Transferase* 32 U/L (12-35); Bilirubin Direct* 0.4 mg/dL (0.0-0.5); Bilirubin Total* 0.6 mg/dL (0.1-1.5); Blood Urea Nitrogen* 26 mg/dL (5-24); Carbon Dioxide* 25 mmol/L (20-32); Creatinine* 0.4 mg/dL (0.5-1.5); Est. Creatinine Clearance* 176.31; Estimated Glomerular Filt Rate 135 ml/min; Total Protein* 7.0 g/dL (6.0-8.3)
[2025-07-31 19:31] LABS: Calcium* 8.8 mg/dL (8.4-10.6); Glucose* 97 mg/dL (60-115)
[2025-07-31 20:33] LABS: Lactate* 1.5 mmol/L (0.5-1.9)
[2025-07-31] MEDS: PIPERACILLIN/TAZOBACTAM 4.5 GM in 0.9 % SODIUM CHLORIDE Mini-bag 100 ML IVPB (21:22)
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
[2025-07-31] MEDS: VANCOMYCIN 1.5 GM/300 ML 1.5 GM/300 ML PIGGYBACK IVPB (22:47)
--- NOTE | 2025-07-31 23:55 | CRLHL7_ITS ---
For Patients: As a result of the Cures Act, medical imaging exams and procedure reports are released immediately into your electronic medical record. You may view this report before your referring provider. If you have questions, please contact your health care provider. INDICATION: Line placement. TECHNIQUE: Chest 1 view. COMPARISON: None. FINDINGS: Lines and tubes: Right IJ central venous catheter tip projects over the SVC. Cardiovascular and mediastinum: Cardiomediastinal silhouette is within normal limits. Lungs and pleural spaces: Lungs are clear. No sign of infiltrate or mass. No sign of pleural effusion. No pneumothorax. Bones and soft tissues: Lower cervical ACDF. IMPRESSION: Right IJ central venous catheter tip projects over the SVC. No pneumothorax. Dictated by Sanjay Keen MD @ 08/01/2025 1:33:17 AM (Electronically Signed)
[2025-08-01] VITALS (15 sets, daily range): BP systolic 98–161; BP diastolic 56–123; PULSE 81–109; RESP 16–20; TEMP 36.4–38.1; O2SAT 93–97
[2025-08-01 00:47] LABS: Appearance Urine Clear (Clear)
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
[2025-08-01] MEDS: BACLOFEN 10 MG TABLET PO ×3 (01:19→16:24)
[2025-08-01] MEDS: LACTATED RINGERS 1000 ML 1,000 ML 125 ML IV ×3 (01:21→16:46)
[2025-08-01] MEDS: PIPERACILLIN/TAZOBACTAM 3.375 GM in 0.9 % SODIUM CHLORIDE Mini-bag 100 ML IVPB ×3 (02:52→14:23)
[2025-08-01] MEDS: ACETAMINOPHEN 325 MG TABLET 975 MG PO (04:10)
[2025-08-01 06:27] LABS: Lactate* 1.3 mmol/L (0.5-1.9)
[2025-08-01 06:32] LABS: Hematocrit* 28.9 % (37.0-53.0); Hemoglobin* 9.5 gm/dL (13.5-17.5); Immature Granulocytes Pct Auto 0.4 %; Mean Corpuscular HGB Conc 33 gm/dL (32-36); Mean Corpuscular Hemoglobin 28 pg (26-34); Mean Corpuscular Volume 84 fL (80-100); RDW Coefficient of Variation % 15.7 % (11.5-15.5); Red Blood Count* 3.45 m/uL (4.30-5.90); White Blood Count* 16.52 K/uL (4.50-11.00)
[2025-08-01 06:33] LABS: Immature Granulocytes Abs Auto 0.10 K/uL (0.00-0.30); Lymphocytes Absolute Auto 1.20 K/uL (0.90-2.90); Slide Review Reflex No
[2025-08-01 07:02] LABS: Albumin* 2.6 g/dL (3.3-5.0); Chloride* 100 mmol/L (96-114); Potassium* 3.8 mmol/L (3.6-5.1)
[2025-08-01 07:05] LABS: Alanine Aminotransferase* 24 U/L (4-50); Alkaline Phosphatase* 111 U/L (40-150); Aspartate Amino Transferase* 32 U/L (12-35); Bilirubin Total* 0.2 mg/dL (0.1-1.5); Blood Urea Nitrogen* 13 mg/dL (5-24); Carbon Dioxide* 26 mmol/L (20-32); Creatinine* 0.5 mg/dL (0.5-1.5); Est. Creatinine Clearance* 141.05; Estimated Glomerular Filt Rate 127 ml/min; Total Protein* 5.8 g/dL (6.0-8.3)
[2025-08-01 07:06] LABS: Calcium* 7.9 mg/dL (8.4-10.6); Glucose* 122 mg/dL (60-115)
--- NOTE | 2025-08-01 07:14 | PC.NURSE ---
Addendum entered by Ursula Nolen RN 08/01/25 07:33: Pt refused to have allergy band placed upon admission despite education stating, I think that's stupid that you have to put that on when I don't have any allergies. Original Note: End of shift note [id number]: Pt A&Ox4 and able to make needs known. Tele in place with sinus tachycardia noted at times throughout the shift. He has been on RA throughout the shift. PRN Tylenol administered for one febrile episode. I/J catheter placed by ED MD and placement was confirmed by imaging before using. I/J to R side of neck noted to be patent. Pt?s sister spent the night at bedside. Pt has refused to have frequent blood pressures assessed at times despite sepsis education provided though has been compliant with CCU VS Q2H. He also has been refusing to be repositioned at times with RN providing education regarding the importance of repositioning for wound healing and to help prevent further skin breakdown. Pt incontinent of bladder though external catheter was also placed last evening. PRN medications given for pain- see EMAR. Wound care completed to R buttock last evening with MD Mohr present- copious amount of purulent drainage noted. B/P noted to be slightly elevated this morning though pt noted to be having pain- was given PRN Oxycodone and refused to have blood pressure reassessed despite education provided. Call light within reach.
[2025-08-01 07:22] LABS: Procalcitonin* 0.79 ng/mL (<0.50)
[2025-08-01 07:28] LABS: Sodium* 133 mmol/L (135-149)
[2025-08-01 07:29] LABS: Anion Gap 7 mEq/L (7-15)
[2025-08-01 08:08] LABS: Erythrocyte SedimentationRate* > 102 mm/hr (2-15)
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
--- NOTE | 2025-08-01 09:09 | W.PC.NUTR.NO ---
Nutrition Progress Note Progress Note Progress Note: RDN with nutrition screen related to positive skin risk score. Patient admitted for sepsis, osteomyelitis, and Decubitus ulcer of right ischium, stage 4. History of quadriplegia since age of 20. Current weight 67.132 kg; height 157.48 cm; BMI 27.1 kg/m2. No weight history in chart to assess. BMI is normal. Current diet is NPO in anticipation for OR today. Not appropriate for visit or nutrition interventions at this time. Will continue to monitor and follow-up at later date.
[2025-08-01] MEDS: SODIUM CHLORIDE 0.9 % (FLUSH) 10 ML SYRINGE 5 ML IVF (09:12)
[2025-08-01] MEDS: VANCOMYCIN 1 GM/200 ML 1 GM/200 ML PIGGYBACK IVPB (09:56)
--- NOTE | 2025-08-01 11:02 | REH.OT ---
OT orders received. Not appropriate for OT today as pt recieving wound debridement this AM per interdisplinary rounds. Will evaluate tomorrow(08/02) if medically appropriate.
--- NOTE | 2025-08-01 12:52 | PC.SOCIAL ---
Addendum entered and electronically signed by Tamie Ferro LCSW 08/01/25 15:31: KHANG called and updated [facility] that patient is transferring to [facility] in [place]. Addendum entered and electronically signed by Tamie Ferro LCSW 08/01/25 14:02: Discharge planning: KHANG called [facility] and informed them that patient would be transferring to [facility] system sometime today and that they will need to coordinate with them upon discharge. KHANG explained that she would try to update when the hospital is known. [facility] states that they have access to [facility]'s system and will try to figure out where he is. Original Note: Discharge planning: KHANG received a call from Jane at [facility] who states that patient is currently receiving RN services for them for daily wound care. Jane states they will need a resumption of care order for patient upon discharge. If additional services are needed, such as OT/PT they will need orders for those. Jane states their phone number is [phone] and fax is [phone]. KHANG met with patient who informed SW that he will be transferring but has not heard where to yet. SW inquired about any resources/supports needed for home and patient states that he has no needs or concerns at this time. SW informed patient that she would update [facility] to where patient will be transferred so they can connect with the medical social consultant at that hospital. SW to assist with any needs that arise while patient is hospitalized here.
--- NOTE | 2025-08-01 15:03 | PC.NURSE ---
end of shift. pt has been very pleasant. he is alert x4. he had left shoulder pain. he got po and IV pain meds. tele shows NSR> dressing wounds where changed. I/J to R side of neck noted to be patent. Pt?s sister has been here all day. he has been incontinent and changed every 2-3 hours. Wound care completed to R buttock., he is a ccu pt. he is npo. IS and I-J are patent.
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
--- NOTE | 2025-08-01 18:22 | PC.NURSE ---
Addendum entered by Lee Ann Verdugo RN 08/01/25 18:44: BP 161/123, updated MD. Original Note: Discharge Summary: Patient pleasant and cooperative. Afebrile. Rating pain 5/10 and PRN Oxycodone and Baclofen given x1. Turn and reposition in bed bed and coccyx dressing changed x1. Incontinent x1. Patient NPO. Patient transferred to [facility] by [facility] at 1655 with all personal belongings accompanied by sister. Nurse to nurse report give by previous RN and updated with discharge time.
--- OUTSIDE RECORDS SUMMARY | 2025-08-27 19:00 | XMS_ITS | Clinical Summary ---
Author Organization Unknown Care Team Providers Care Roll Setter Name Role Phone STEPHANIE THOMAS Unavailable Unavailable DIONICIO PT, INDIRA Unavailable Unavailable HANS LPN CARE MANAGER, SHIRA Unavailable Unavailable JONATHON OT, ALESSANDRO Unavailable Unavailable SON RN, HERBERT Unavailable Unavailable NEY LONGITUDINAL FLOAT OPERATOR, JOHN Unavailable Unavailable CODY TRINH, LUCIAN Unavailable Unavailable WENDY TRINH, JANINE Unavailable Unavailable Payers Payer Name Policy Type Policy Number Effective Date Expira tion Date MEDICARE PDGM [id number] Problems Condition Name Condition Details Condition Category Status Onset Date Resolution Date Last Treatment Date Treating Clinician Comments OTHER CHRONIC OSTEOMYELITI S, RIGHT THIGH Active 2024-10 0- 00:00: 00 PRESSURE ULCER OF RIGHT BUTTOCK, STAGE 4 Active 2024-10 0- 00:00: 00 CELLULITIS OF BUTTOCK Active 2024-10 0- 00:00: 00 QUADRIPLEGIA , UNSPECIFIED Active 05-29 00:00: 00 FAMILIAL DYSAUTONOMIA [CONCHITA-DAY] Active 2024-10 0- 00:00: 00 UNSP INJURY AT C4 LEVEL OF CERVICAL SPINAL CORD, SUBS ENCNTR Active 2024-10 0- 00:00: 00 UNSP INJURY AT C5 LEVEL OF CERVICAL SPINAL CORD, SUBS ENCNTR Active 2024-10 0-07 00:00: 00 OVERWEIGHT Active - 00:00: 00 LOCAL INFECTION OF THE SKIN AND SUBCUTANEOUS TISSUE, UNSP Active 05-29 00:00: 00 STRAIN OF MUSC/TEND THE ROTATOR CUFF OF RIGHT SHOULDER, SUBS Active - 00:00: 00 DEHYDRATION Active 2024-10 0-07 00:00: 00 OTHER NEUROMUSCULA R DYSFUNCTION OF BLADDER Active 2024-10 0-07 00:00: 00 BODY MASS INDEX [BMI] 29.0-29.9, ADULT Active 2024-10 0 00:00: 00 DEPENDENCE ON WHEELCHAIR Active 2024-10 0 00:00: 00 PERSONAL HISTORY OF NICOTINE DEPENDENCE Active 2024-10 00:00: 00 PROBLEMS RELATED TO LIVING ALONE Active 2024-10 0 00:00: 00 Allergies, Adverse Reactions, Alerts Allergy Name Allergy Type Status Severity Reaction(s) Onset Date Inactive Date Treating Clinician Comments TEGADERM TRANSPARENT DRESSING Propensity to adverse reactions Active 06-30 13:58: 20 Medications Ordered Medication Name Filled Medication Name Start Date Stop Date Current Medication? Ordering Clinician Indication Dosage Frequency Signature (SIG) Comments Components acetaminoph en 325 mg tablet 05-26 00:00: 00 06-26 23:59 :00 No [id number] PAIN 2 tablet PRN Q 6HRS 2 tablet PRN Q 6HRS (route: oral) Med Classific ation: Analgesic , Anti-infl ammatory or Antipyret ic amoxicillin 875 mg-potassiu m clavulanate 125 mg tablet 05-26 00:00: 00 06-02 23:59 :00 No [id number] INFECTION OF THE SKIN AND/OR SOFT TISSUE 1 tablet 2 TIMES DAILY 1 tablet 2 TIMES DAILY (route: oral) Med Classific ation: Anti-Infe ctive Agents baclofen 10 mg tablet 05-26 00:00: 00 06-26 23:59 :00 No [id number] MUSCLE SPASMS 1 tablet NEEDED 1 tablet NEEDED (route: oral) Med Classific ation: Locomotor System Culturelle 10 billion cell capsule 05-26 00:00: 00 06-26 23:59 :00 No [id number] SUPPLEMENT 1 capsule 2 TIMES DAILY 1 capsule 2 TIMES DAILY (route: oral) Med Classific ation: Gastroint estinal Therapy Agents diclofenac 1 % topical gel 05-26 00:00: 00 06-26 23:59 :00 No [id number] PAIN Per instruc tions 4 TIMES DAILY Per instructio ns 4 TIMES DAILY (route: topical) Med Classific ation: Dermatolo gical loperamide 2 mg capsule 05-26 00:00: 06-26 23:59 :00 No [id number] DIARRHEA 1 capsule NEEDED 1 capsule NEEDED (route: oral) Med Classific ation: Gastroint estinal Therapy Agents oxycodone 5 mg tablet 05-26 00:00: 00 06-26 23:59 :00 No [id number] PAIN 1 tablet PRN Q 4HRS 1 tablet PRN Q 4HRS (route: oral) Med Classific ation: Analgesic , Anti-infl ammatory or Antipyret ic acetaminoph en 325 mg tablet 06-30 00:00: 00 07-17 23:59 :00 No [id number] PAIN 2 tablet EVERY 4 HOURS 2 tablet EVERY 4 HOURS (route: oral) Med Classific ation: Analgesic , Anti-infl ammatory or Antipyret ic baclofen 20 mg tablet 06-30 00:00: 00 07-17 23:59 :00 No [id number] MUSCLE SPASMS 1 tablet 3 TIMES DAILY 1 tablet 3 TIMES DAILY (route: oral) Med Classific ation: Locomotor System loperamide 2 mg capsule 06-30 00:00: 00 07-17 23:59 :00 No [id number] DIARRHEA 1 capsule 4 TIMES DAILY 1 capsule 4 TIMES DAILY (route: oral) Med Classific ation: Gastroint estinal Therapy Agents oxycodone 5 mg tablet 06-30 00:00: 07-17 23:59 :00 No [id number] PAIN 1 tablet EVERY 4 HOURS 1 tablet EVERY 4 HOURS (route: oral) Med Classific ation: Analgesic , Anti-infl ammatory or Antipyret ic senna-docus ate sodium 8.6 mg-50 mg tablet 06-30 00:00: 00 07-17 23:59 :00 No [id number] CONSTIPATIO N Per instruc tions 2 TIMES DAILY Per instructio ns 2 TIMES DAILY (route: oral) Med Classific ation: Gastroint estinal Therapy Agents Super Thera Sheri M tablet 06-30 00:00: 00 07-17 23:59 :00 No [id number] SUPPLEMENT 1 tablet DAILY 1 tablet DAILY (route: oral) Med Classific ation: Electroly te Balance-N utritiona l Products WOUND SUPPORT MODULAR (EXPEDITE) LIQUID BOTTLE 927 00:00: 00 Yes [id number] WOUND HEALING 60 mL DAILY 60 mL DAILY (route: BY MOUTH) Med Classific ation: NONE cranberry 450 mg tablet 2024-10 0-14 00:00: 00 Yes [id number] SUPPLEMENT 1 tablet DAILY 1 tablet DAILY (route: oral) Med Classific ation: Alternati ve Therapy turmeric root extract 500 mg capsule 2024-1014 00:00: 00 Yes [id number] SUPPLEMENT 1 capsule DAILY 1 capsule DAILY (route: oral) Med Classific ation: Alternati ve Therapy Vitamin D3 10 mcg (400 unit) tablet 2024-10 00:00: 00 07-17 16:14 :16.7 87 No [id number] SUPPLEMENT 1 tablet DAILY 1 tablet DAILY (route: oral) Med Classific ation: Electroly te Balance-N utritiona l Products amoxicillin 875 mg-potassiu m clavulanate 125 mg tablet 2024-10 0-05 00:00: 00 07-17 23:59 :00 No [id number] ANTIBIOTIC 1 tablet EVERY 12 HOURS 1 tablet EVERY 12 HOURS (route: oral) Med Classific ation: Anti-Infe ctive Agents menthol 0.44 %-zinc oxide 20.6 % topical ointment 2024-10 007 00:00: 00 Yes [id number] SKIN PROTECTION Per instruc tions NEEDED Per instructio ns NEEDED (route: topical) Med Classific ation: Dermatolo gical Vitamin D3 10 mcg (400 unit) tablet 2024-10 007 00:00: 00 Yes [id number] SUPPLEMENT 1 tablet WEEKLY 1 tablet WEEKLY (route: oral) Med Classific ation: Electroly te Balance-N utritiona l Products Immunizations Ordered Immunization Name Filled Immunization Name Date Status Comments Refusal Reason INFLUENZA, TIV (INACTIVATED) 2014-09-04 00:00:00 Vital Signs Vital Name Observation Time Observation Value Commen ts Temperature 2025-07-29 18:08:00.000 97.5 [degF] Temperature 2025-07-29 12:51:00.000 97.3 [degF] Temperature 2025-07-28 13:33:00.000 97.3 [degF] Temperature 2025-07-27 11:55:00.000 97.8 [degF] Temperature 2025-07-25 13:38:00.000 96.4 [degF] Temperature 2025-07-24 19:27:00.000 97.6 [degF] Temperature 2025-07-23 12:08:00.000 97.4 [degF] Temperature 2025-07-22 11:41:00.000 97.5 [degF] Temperature 2025-07-21 13:11:00.000 98 [degF] Temperature 2025-07-19 14:02:00.000 96.9 [degF] Temperature 2025-07-18 12:28:00.000 98.2 [degF] Temperature 2025-07-17 14:21:00.000 98.1 [degF] Temperature 2025-07-16 12:26:00.000 97.2 [degF] Temperature 2025-07-15 13:51:00.000 97.6 [degF] Temperature 2025-07-14 12:08:00.000 97.3 [degF] Temperature 2025-07-13 12:05:00.000 98.1 [degF] Temperature 2025-07-12 16:00:00.000 98 [degF] Temperature 2025-07-11 18:41:00.000 96.8 [degF] Temperature 2025-07-10 13:24:00.000 97.1 [degF] Temperature 2025-07-05 13:39:00.000 97.5 [degF] Temperature 2025-07-05 13:38:00.000 97.5 [degF] Temperature 2025-07-03 21:44:00.000 96.8 [degF] Temperature 2025-07-02 16:22:00.000 98.2 [degF] Temperature 2025-07-01 15:27:00.000 96.9 [degF] Temperature 2025-06-30 14:54:00.000 96.8 [degF] BMI (%) 2025-07-10 13:24:00.000 27 kg/m2 BMI (%) 2025-06-30 13:35:05.000 29 kg/m2 Height 2025-07-10 13:24:00.000 62 [in_us] Height 2025-06-30 13:34:54.000 62 [in_us] Pulse 2025-07-29 12:51:00.000 96 /min Pulse 2025-07-28 13:33:00.000 110 /min Pulse 2025-07-27 11:55:00.000 89 /min Pulse 2025-07-25 13:38:00.000 91 /min Pulse 2025-07-23 12:08:00.000 99 /min Pulse 2025-07-22 11:41:00.000 110 /min Pulse 2025-07-21 13:11:00.000 108 /min Pulse 2025-07-19 14:02:00.000 68 /min Pulse 2025-07-18 12:28:00.000 96 /min Pulse 2025-07-17 14:21:00.000 112 /min Pulse 2025-07-16 12:26:00.000 103 /min Pulse 2025-07-15 13:51:00.000 99 /min Pulse 2025-07-14 12:08:00.000 81 /min Pulse 2025-07-13 12:05:00.000 95 /min Pulse 2025-07-12 16:00:00.000 96 /min Pulse 2025-07-11 18:41:00.000 98 /min Pulse 2025-07-10 13:24:00.000 95 /min Pulse 2025-07-05 13:39:00.000 97 /min Pulse 2025-07-05 13:38:00.000 97 /min Pulse 2025-07-03 21:44:00.000 104 /min Pulse 2025-07-02 16:22:00.000 97 /min Pulse 2025-07-01 15:27:00.000 114 /min Pulse 2025-06-30 14:54:00.000 122 /min O2 Saturation (%) 2025-07-29 12:51:00.000 97 % O2 Saturation (%) 2025-07-28 13:33:00.000 97 % O2 Saturation (%) 2025-07-27 11:55:00.000 97 % O2 Saturation (%) 2025-07-25 13:38:00.000 96 % O2 Saturation (%) 2025-07-23 12:08:00.000 95 % O2 Saturation (%) 2025-07-22 11:41:00.000 96 % O2 Saturation (%) 2025-07-21 13:11:00.000 96 % O2 Saturation (%) 2025-07-19 14:02:00.000 99 % O2 Saturation (%) 2025-07-18 12:28:00.000 96 % O2 Saturation (%) 2025-07-15 13:51:00.000 92 % O2 Saturation (%) 2025-07-14 12:08:00.000 98 % O2 Saturation (%) 2025-07-13 12:05:00.000 96 % O2 Saturation (%) 2025-07-12 16:00:00.000 97 % O2 Saturation (%) 2025-07-11 18:41:00.000 96 % O2 Saturation (%) 2025-07-05 13:39:00.000 94 % O2 Saturation (%) 2025-07-05 13:38:00.000 94 % O2 Saturation (%) 2025-07-03 21:44:00.000 97 % O2 Saturation (%) 2025-07-02 16:22:00.000 99 % O2 Saturation (%) 2025-07-01 15:27:00.000 98 % O2 Saturation (%) 2025-06-30 14:54:00.000 94 % Respirations 2025-07-29 18:08:00.000 20 /min Respirations 2025-07-29 12:51:00.000 18 /min Respirations 2025-07-28 13:33:00.000 16 /min Respirations 2025-07-27 11:55:00.000 18 /min Respirations 2025-07-25 13:38:00.000 18 /min Respirations 2025-07-23 12:08:00.000 16 /min Respirations 2025-07-22 11:41:00.000 16 /min Respirations 2025-07-21 13:11:00.000 14 /min Respirations 2025-07-19 14:02:00.000 18 /min Respirations 2025-07-18 12:28:00.000 18 /min Respirations 2025-07-17 14:21:00.000 18 /min Respirations 2025-07-16 12:26:00.000 18 /min Respirations 2025-07-15 13:51:00.000 16 /min Respirations 2025-07-14 12:08:00.000 16 /min Respirations 2025-07-13 12:05:00.000 16 /min Respirations 2025-07-12 16:00:00.000 16 /min Respirations 2025-07-11 18:41:00.000 20 /min Respirations 2025-07-10 13:24:00.000 18 /min Respirations 2025-07-05 13:39:00.000 16 /min Respirations 2025-07-05 13:38:00.000 16 /min Respirations 2025-07-03 21:44:00.000 18 /min Respirations 2025-07-02 16:22:00.000 16 /min Respirations 2025-07-01 15:27:00.000 18 /min Respirations 2025-06-30 14:54:00.000 22 /min Weight (lbs) 2025-07-10 13:24:00.000 148 [lb_av] Weight (lbs) 2025-06-30 13:35:05.000 160.5 [lb_av] Systolic Blood Pressure 2025-07-29 12:51:00.000 112 mm [Hg] Systolic Blood Pressure 2025-07-28 13:33:00.000 100 mm [Hg] Systolic Blood Pressure 2025-07-27 11:55:00.000 110 mm [Hg] Systolic Blood Pressure 2025-07-25 13:38:00.000 106 mm [Hg] Systolic Blood Pressure 2025-07-23 12:41:00.000 93 mm[ Hg] Systolic Blood Pressure 2025-07-22 11:41:00.000 110 mm [Hg] Systolic Blood Pressure 2025-07-21 13:11:00.000 128 mm [Hg] Systolic Blood Pressure 2025-07-19 14:02:00.000 140 mm [Hg] Systolic Blood Pressure 2025-07-18 12:28:00.000 118 mm [Hg] Systolic Blood Pressure 2025-07-17 14:21:00.000 102 mm [Hg] Systolic Blood Pressure 2025-07-16 12:26:00.000 117 mm [Hg] Systolic Blood Pressure 2025-07-15 13:51:00.000 128 mm [Hg] Systolic Blood Pressure 2025-07-14 12:08:00.000 144 mm [Hg] Systolic Blood Pressure 2025-07-13 12:05:00.000 110 mm [Hg] Systolic Blood Pressure 2025-07-12 16:00:00.000 134 mm [Hg] Systolic Blood Pressure 2025-07-11 18:41:00.000 100 mm [Hg] Systolic Blood Pressure 2025-07-10 19:02:00.000 101 mm [Hg] Systolic Blood Pressure 2025-07-05 13:39:00.000 84 mm[ Hg] Systolic Blood Pressure 2025-07-05 13:38:00.000 84 mm[ Hg] Systolic Blood Pressure 2025-07-03 21:44:00.000 90 mm[ Hg] Systolic Blood Pressure 2025-07-02 16:22:00.000 128 mm [Hg] Systolic Blood Pressure 2025-07-01 15:27:00.000 136 mm [Hg] Systolic Blood Pressure 2025-06-30 14:54:00.000 108 mm [Hg] Diastolic Blood Pressure 2025-07-29 12:51:00.000 68 mm [Hg] Diastolic Blood Pressure 2025-07-28 13:33:00.000 60 mm [Hg] Diastolic Blood Pressure 2025-07-27 11:55:00.000 68 mm [Hg] Diastolic Blood Pressure 2025-07-25 13:38:00.000 64 mm [Hg] Diastolic Blood Pressure 2025-07-23 12:41:00.000 56 mm [Hg] Diastolic Blood Pressure 2025-07-22 11:41:00.000 70 mm [Hg] Diastolic Blood Pressure 2025-07-21 13:11:00.000 74 mm [Hg] Diastolic Blood Pressure 2025-07-19 14:02:00.000 80 mm [Hg] Diastolic Blood Pressure 2025-07-18 12:28:00.000 78 mm [Hg] Diastolic Blood Pressure 2025-07-17 14:21:00.000 60 mm [Hg] Diastolic Blood Pressure 2025-07-16 12:26:00.000 88 mm [Hg] Diastolic Blood Pressure 2025-07-15 13:51:00.000 86 mm [Hg] Diastolic Blood Pressure 2025-07-14 12:08:00.000 87 mm [Hg] Diastolic Blood Pressure 2025-07-13 12:05:00.000 70 mm [Hg] Diastolic Blood Pressure 2025-07-12 16:00:00.000 62 mm [Hg] Diastolic Blood Pressure 2025-07-11 18:41:00.000 72 mm [Hg] Diastolic Blood Pressure 2025-07-10 19:02:00.000 70 mm [Hg] Diastolic Blood Pressure 2025-07-05 13:39:00.000 68 mm [Hg] Diastolic Blood Pressure 2025-07-05 13:38:00.000 68 mm [Hg] Diastolic Blood Pressure 2025-07-03 21:44:00.000 50 mm [Hg] Diastolic Blood Pressure 2025-07-02 16:22:00.000 72 mm [Hg] Diastolic Blood Pressure 2025-07-01 15:27:00.000 72 mm [Hg] Diastolic Blood Pressure 2025-06-30 14:54:00.000 64 mm [Hg] Plan of Treatment Planned Activity Planned Date Details Comments Future Scheduled Test SKILLED NU RSE TO EVALUATE AND DEVELOP PLAN OF CARE TO BE COUNTERSIGNED BY PHYSICIAN. SKILLED NURSE TO ASSESS/EVALUATE CO-MORBID CONDITIONS INCLUDING STAGE 4 PRESSURE ULCER OF R BUTTOCK AND OTHER CONDITIONS THAT PRESENT THEMSELVES DURING THE COURSE OF THIS EPISODE TO IDENTIFY CHANGES AND INTERVENE TO MINIMIZE COMPLICATIONS. HOME HEALTH AGENCY MAY ACCEPT ORDERS FROM THE FOLLOWING PHYSICIANS AND THEIR ASSOCIATES: DR TRISTON MADSEN EMERGENCY PREPAREDNESS PLAN: REVIEWED EMERGENCY PREPAREDNESS PLAN, CLIENT WILL EVACUATE TO FAMILY HOME EVACUATION PLAN IN THE EVENT OF AN EMERGENCY. ACUITY STATUS: 3 WITHIN WEEK- POC SUMMARY: ADMITTING (RESUMING) REASON FOR HOME HEALTH- CLIENT IS A 45YO MALE REFERRED TO [facility] FOLLOWING HOSPITALIZATION AND SNF STAY FOR SEPSIS AND OSTEOMYLISTIS OF R BUTTOCK STAGE 4 PRESSURE WOUND. HX OF QUADRAPLEGIA FOLLOWING INJURY 25 YEARS AGO AND R SHOULDER ROTATOR CUFF TEAR. PRIOR TO HIS HOSPTIALIZATION HE HAD [facility] FOR WOUND VAC MANAGEMENT WHICH DID NOT WORK WELL FOR CLIENT. LIVES ALONE IN SINGLE FAMILY HOME. USES MOTORIZED WHEELCHAIR FOR MOBILITY. EDUCATION NEEDED THROUGOUT EPISODE: WOUND MANAGEMENT AND PRESSURE ULCER PREVENTION, S/S INFECTION AND PREVENTION. RECIEVED AT SOC WITHOUT DRESSING ON, STATES IT IS VERY DIFFICULT FOR HIM TO KEEP ON DUE TO FREQUENT SLIDING IN BED AND ON CHAIR. CALL TO SCHEDULE: CLIENT [phone] OTHER REMINDERS TO COMPLETE EACH VISIT: REFERRAL PAPERWORK STATES THAT CLIENT MAY RESUME SUPPLEMENTS INCULUDING VIT D + CALCIUM, CRANBERRY, AND TUMERIC. CLIENT HAD NOT STARTED THEM YET DURING SOC, MAY NEED TO REASSESS AND UPDATE MED LIST LATER ON. STARTING WITH DAILY WOUND CARE X2 WEEKS. CLIENT AGREEABLE TO FIND TEACHABLE REPUBLICAN IF DAILY WOUND CARE NEEDS TO CONTINUE. SKILLED NEED- WOUND CARE TO R BUTTOCK PRESSURE ULCER. INFECTION MONITORING AND EDUCATION JOINED BY: SELF / CAREGIVER NAME SISTER BAKARI PRESENT BUT DOING HOUSEKEEPING- NOT INVOLVED IN VISIT. REFERRAL FOR HOME CARE FROM: (HOSPITAL OR CLINIC ) [facility] PRIMARY MEDICAL DIAGNOSIS FOR HOME HEALTH EPISODE (LIST ONLY ONE DX) PRESSURE ULCER OF RIGHT BUTTOCK STAGE 4. PAST MEDICAL HISTORY/CO-MORBIDITES AFFECTING SKILLED NEED- QUADRAPLEGIA, R SHOULDER ROTATOR CUFF INJURY ALLERGIES: TEGADERM CODE STATUS OR HCD: FULL CODE DME AVAILABLE IN HOME: MOTORIZED WHEELCHAIR, SHOWER CHAIR (ALSO FITS OVER TOILET) CLIENT IS HOMEBOUND: Y / N , IF NO WHY Y, DUE TO QUADRAPLEGIA AND DECONDITIONING FROM RECENT INFECTION AND HOSPTIALIZATION CLIENT REQUIRES A WHEELCHAIR AND ASSIST OF ANOTHER PERSON FOR ANY OUTINGS LABS/DRAINS/LINES:NONE VO REQUESTED FOR SN DAILY FOR 2 WEEKS, 3WEEK6 1WEEK1, MAJOR ACCOUNT MANAGER 1WEEK8, PT EVAL, OT EVAL FROM TRIST[facility] MADSEN. RECIEVED VO CONFIRMATION FROM JOEL TRINH. ANY UPCOMING APPOINTMENTS: NONE ADDITIONAL DISCIPLINES ORDERED AND SKILLED NEED- PT/OT FOR DECONDITIONING, HX QUADRAPLEGIA MEDICATION RECONCILIATION RESULTS- REFERRAL PAPERWORK STATES THAT CLIENT MAY RESUME SUPPLEMENTS INCULUDING VIT D + CALCIUM, CRANBERRY, AND TUMERIC. CLIENT HAD NOT STARTED THEM YET DURING SOC, MAY NEED TO REASSESS AND UPDATE MED LIST LATER ON. OTHERWISE NO CONCERNS WHAT MEDICATION LIST WAS USED TO RECONCILE (REFERRAL PAGE/DATE OR MEDLIST UPLOADED ) 2-3 WHO IS MANAGING CLIENT MEDICATIONS SELF IS CLIENT IN NEED FOR MED-SET UP NO PSYCHOSOCIAL NEEDS- NONE LONGITUDINAL FLOAT OPERATOR REFERRAL N SUPPLIES ORDERED/SUPPLY NOTE ADDED VASHE, TAPE, ABDS, 4X4 FOAM BORDERED DRESSINGS ASSISTIVE DEVICE USED MOTORIZED WC MACH 10 SCORE- 4 PLEASE NOTE IF SCORE 7 OR ABOVE, FOLLOWING QUESTIONS MUST BE ANSWERED, FOR OF SCORE 4-6- HIGHLY RECOMMENDED TO ANSWER: 1> WHAT SPECIFIC INTERVENTIONS ARE IN PLAN OF CARE TO PREVENT A FALL 2> DOES THERAPY NEED TO BE INVOLVED (IF NOT ALREADY ORDERED) 3> IS LEVEL OF CARE APPROPRIATE FOR CLIENT TO PREVENT FALLS 4> ANY ADDITIONAL EQUIPMENT NEEDED TO PREVENT FALLS 5> HOW MANY FALLS HAS CLIENT HAD SINCE [facility] ADMISSION 6> IF TONY OR RECERT, HOW MANY FALLS HAS CLIENT HAD SINCE LAST OASIS ASSESSMENT DME PROVIDER- [employer] REVIEWED SOC BINDER INCLUDING BILL OF RIGHTS, HOW TO CONTACT [facility] AND WHEN TO CALL 911. EMERGENCY PLANNING REVIEWED WITH CLIENT. CLIENT WILL EVACUATE TO FAMILY HOME IN EVENT OF AN EMERGENCY. [code = SKILLED NURSE TO EVALUATE AND DEVELOP PLAN OF CARE TO BE COUNTERSIGNED BY PHYSICIAN. SKILLED NURSE TO ASSESS/EVALUATE CO-MORBID CONDITIONS INCLUDING STAGE 4 PRESSURE ULCER OF R BUTTOCK AND OTHER CONDITIONS THAT PRESENT THEMSELVES DURING THE COURSE OF THIS EPISODE TO IDENTIFY CHANGES AND INTERVENE TO MINIMIZE COMPLICATIONS. HOME HEALTH AGENCY MAY ACCEPT ORDERS FROM THE FOLLOWING PHYSICIANS AND THEIR ASSOCIATES: DR TRISTON MADSEN EMERGENCY PREPAREDNESS PLAN: REVIEWED EMERGENCY PREPAREDNESS PLAN, CLIENT WILL EVACUATE TO FAMILY HOME EVACUATION PLAN IN THE EVENT OF AN EMERGENCY. ACUITY STATUS: 3 WITHIN WEEK- POC SUMMARY: ADMITTING (RESUMING) REASON FOR HOME HEALTH- CLIENT IS A 45YO MALE REFERRED TO [facility] FOLLOWING HOSPITALIZATION AND SNF STAY FOR SEPSIS AND OSTEOMYLISTIS OF R BUTTOCK STAGE 4 PRESSURE WOUND. HX OF QUADRAPLEGIA FOLLOWING INJURY 25 YEARS AGO AND R SHOULDER ROTATOR CUFF TEAR. PRIOR TO HIS HOSPTIALIZATION HE HAD [facility] FOR WOUND VAC MANAGEMENT WHICH DID NOT WORK WELL FOR CLIENT. LIVES ALONE IN SINGLE FAMILY HOME. USES MOTORIZED WHEELCHAIR FOR MOBILITY. EDUCATION NEEDED THROUGOUT EPISODE: WOUND MANAGEMENT AND PRESSURE ULCER PREVENTION, S/S INFECTION AND PREVENTION. RECIEVED AT SOC WITHOUT DRESSING ON, STATES IT IS VERY DIFFICULT FOR HIM TO KEEP ON DUE TO FREQUENT SLIDING IN BED AND ON CHAIR. CALL TO SCHEDULE: CLIENT [phone] OTHER REMINDERS TO COMPLETE EACH VISIT: REFERRAL PAPERWORK STATES THAT CLIENT MAY RESUME SUPPLEMENTS INCULUDING VIT D + CALCIUM, CRANBERRY, AND TUMERIC. CLIENT HAD NOT STARTED THEM YET DURING SOC, MAY NEED TO REASSESS AND UPDATE MED LIST LATER ON. STARTING WITH DAILY WOUND CARE X2 WEEKS. CLIENT AGREEABLE TO FIND TEACHABLE REPUBLICAN IF DAILY WOUND CARE NEEDS TO CONTINUE. SKILLED NEED- WOUND CARE TO R BUTTOCK PRESSURE ULCER. INFECTION MONITORING AND EDUCATION JOINED BY: SELF / CAREGIVER NAME SISTER BAKARI PRESENT BUT DOING HOUSEKEEPING- NOT INVOLVED IN VISIT. REFERRAL FOR HOME CARE FROM: (HOSPITAL OR CLINIC ) [facility] PRIMARY MEDICAL DIAGNOSIS FOR HOME HEALTH EPISODE (LIST ONLY ONE DX) PRESSURE ULCER OF RIGHT BUTTOCK STAGE 4. PAST MEDICAL HISTORY/CO-MORBIDITES AFFECTING SKILLED NEED- QUADRAPLEGIA, R SHOULDER ROTATOR CUFF INJURY ALLERGIES: TEGADERM CODE STATUS OR HCD: FULL CODE DME AVAILABLE IN HOME: MOTORIZED WHEELCHAIR, SHOWER CHAIR (ALSO FITS OVER TOILET) CLIENT IS HOMEBOUND: Y / N , IF NO WHY Y, DUE TO QUADRAPLEGIA AND DECONDITIONING FROM RECENT INFECTION AND HOSPTIALIZATION CLIENT REQUIRES A WHEELCHAIR AND ASSIST OF ANOTHER PERSON FOR ANY OUTINGS LABS/DRAINS/LINES:NONE VO REQUESTED FOR SN DAILY FOR 2 WEEKS, 3WEEK6 1WEEK1, MAJOR ACCOUNT MANAGER 1WEEK8, PT EVAL, OT EVAL FROM [facility] AMDSEN. RECIEVED VO CONFIRMATION FROM JOEL TRINH. ANY UPCOMING APPOINTMENTS: NONE ADDITIONAL DISCIPLINES ORDERED AND SKILLED NEED- PT/OT FOR DECONDITIONING, HX QUADRAPLEGIA MEDICATION RECONCILIATION RESULTS- REFERRAL PAPERWORK STATES THAT CLIENT MAY RESUME SUPPLEMENTS INCULUDING VIT D + CALCIUM, CRANBERRY, AND TUMERIC. CLIENT HAD NOT STARTED THEM YET DURING SOC, MAY NEED TO REASSESS AND UPDATE MED LIST LATER ON. OTHERWISE NO CONCERNS WHAT MEDICATION LIST WAS USED TO RECONCILE (REFERRAL PAGE/DATE OR MEDLIST UPLOADED ) 2-3 WHO IS MANAGING CLIENT MEDICATIONS SELF IS CLIENT IN NEED FOR MED-SET UP NO PSYCHOSOCIAL NEEDS- NONE LONGITUDINAL FLOAT OPERATOR REFERRAL N SUPPLIES ORDERED/SUPPLY NOTE ADDED VASHE, TAPE, ABDS, 4X4 FOAM BORDERED DRESSINGS ASSISTIVE DEVICE USED MOTORIZED WC MACH 10 SCORE- 4 PLEASE NOTE IF SCORE 7 OR ABOVE, FOLLOWING QUESTIONS MUST BE ANSWERED, FOR OF SCORE 4-6- HIGHLY RECOMMENDED TO ANSWER: 1> WHAT SPECIFIC INTERVENTIONS ARE IN PLAN OF CARE TO PREVENT A FALL 2> DOES THERAPY NEED TO BE INVOLVED (IF NOT ALREADY ORDERED) 3> IS LEVEL OF CARE APPROPRIATE FOR CLIENT TO PREVENT FALLS 4> ANY ADDITIONAL EQUIPMENT NEEDED TO PREVENT FALLS 5> HOW MANY FALLS HAS CLIENT HAD SINCE [facility] ADMISSION 6> IF TONY OR RECERT, HOW MANY FALLS HAS CLIENT HAD SINCE LAST OASIS ASSESSMENT DME PROVIDER- [employer] REVIEWED SOC BINDER INCLUDING BILL OF RIGHTS, HOW TO CONTACT [facility] AND WHEN TO CALL 911. EMERGENCY PLANNING REVIEWED WITH CLIENT. CLIENT WILL EVACUATE TO FAMILY HOME IN EVENT OF AN EMERGENCY.] Future Scheduled Test SKILLED NU RSE TO OBSERVE AND ASSESS NEUROLOGICAL SYSTEM TO IDENTIFY CHANGES AND INTERVENE TO MINIMIZE COMPLICATIONS R/T [employer] SKILLED NURSE TO PROVIDE SKILLED TEACHING RELATED TO ALTERED NEUROLOGICAL STATUS INCLUDING PATHOPHYSIOLOGY, NUTRITION, MEDICATION REGIMEN AND PERMITTED ACTIVITIES. SKILLED NURSE TO REPORT SIGNIFICANT CHANGES IN NEUROLOGICAL STATUS TO MD FOR EARLY INTERVENTION. [code = SKILLED NURSE TO OBSERVE AND ASSESS NEUROLOGICAL SYSTEM TO IDENTIFY CHANGES AND INTERVENE TO MINIMIZE COMPLICATIONS R/T QU[place] SKILLED NURSE TO PROVIDE SKILLED TEACHING RELATED TO ALTERED NEUROLOGICAL STATUS INCLUDING PATHOPHYSIOLOGY, NUTRITION, MEDICATION REGIMEN AND PERMITTED ACTIVITIES. SKILLED NURSE TO REPORT SIGNIFICANT CHANGES IN NEUROLOGICAL STATUS TO MD FOR EARLY INTERVENTION.] Future Scheduled Test SKILLED NU RSE FOR OBSERVATION/ASSESSMENT OF PAIN, EFFECTIVENESS OF PAIN MANAGEMENT REGIMEN AND SKILLED TEACHING RELATED TO PAIN MANAGEMENT. NURSE TO INTERVENE TO MINIMIZE COMPLICATIONS IF PAIN LEVEL INCREASES. [code = SKILLED NURSE FOR OBSERVATION/ASSESSMENT OF PAIN, EFFECTIVENESS OF PAIN MANAGEMENT REGIMEN AND SKILLED TEACHING RELATED TO PAIN MANAGEMENT. NURSE TO INTERVENE TO MINIMIZE COMPLICATIONS IF PAIN LEVEL INCREASES.] Future Scheduled Test SKILLED NU RSE TO PERFORM OBSERVATION/ASSESSMENT OF GENITOURINARY STATUS AND INTERVENE TO MINIMIZE COMPLICATIONS OF DISEASE PROCESS. SKILLED NURSE TO PROVIDE INSTRUCTION REGARDING MANAGEMENT OF DISEASE PROCESS, INCLUDING PATHOPHYSIOLOGY, NUTRITIONAL/FLUID REQUIREMENTS AND MEDICATION REGIMEN. [code = SKILLED NURSE TO PERFORM OBSERVATION/ASSESSMENT OF GENITOURINARY STATUS AND INTERVENE TO MINIMIZE COMPLICATIONS OF DISEASE PROCESS. SKILLED NURSE TO PROVIDE INSTRUCTION REGARDING MANAGEMENT OF DISEASE PROCESS, INCLUDING PATHOPHYSIOLOGY, NUTRITIONAL/FLUID REQUIREMENTS AND MEDICATION REGIMEN.] Future Scheduled Test SKILLED NU RSE TO OBSERVE AND ASSESS INTEGUMENTARY STATUS TO IDENTIFY CHANGES AND INTERVENE TO MINIMIZE COMPLICATIONS. SKILLED NURSE TO PROVIDE SKILLED TEACHING RELATED TO ALTERED SKIN INTEGRITY INCLUDING PATHOPHYSIOLOGY, NUTRITION, MEDICATION REGIMEN. SKILLED NURSE TO REPORT SIGNIFICANT CHANGES IN STATUS TO PHYSICIAN FOR EARLY INTERVENTION. [code = SKILLED NURSE TO OBSERVE AND ASSESS INTEGUMENTARY STATUS TO IDENTIFY CHANGES AND INTERVENE TO MINIMIZE COMPLICATIONS. SKILLED NURSE TO PROVIDE SKILLED TEACHING RELATED TO ALTERED SKIN INTEGRITY INCLUDING PATHOPHYSIOLOGY, NUTRITION, MEDICATION REGIMEN. SKILLED NURSE TO REPORT SIGNIFICANT CHANGES IN STATUS TO PHYSICIAN FOR EARLY INTERVENTION.] Future Scheduled Test SKILLED NU RSE TO PERFORM/TEACH PRESSURE INJURY CARE TO R BUTTOCK STAGE 4 ULCER. CLEANSE WITH VASHE. APPLY SKIN BARRIER PREP TO SURROUNDING SKIN. PACK WOUND WITH VASHE MOISTENED GAUZE. COVER WITH ABD PAD OR FOAM DRESSING. USING CLEAN/ASEPTIC TECHNIQUE. CHANGE DRESSING EVERY DAY AND PRN. OK TO DECREASE SUPPLIES WOUNDS HEAL AND UPON DISCHARGE. [code = SKILLED NURSE TO PERFORM/TEACH PRESSURE INJURY CARE TO R BUTTOCK STAGE 4 ULCER. CLEANSE WITH VASHE. APPLY SKIN BARRIER PREP TO SURROUNDING SKIN. PACK WOUND WITH VASHE MOISTENED GAUZE. COVER WITH ABD PAD OR FOAM DRESSING. USING CLEAN/ASEPTIC TECHNIQUE. CHANGE DRESSING EVERY DAY AND PRN. OK TO DECREASE SUPPLIES WOUNDS HEAL AND UPON DISCHARGE.] Future Scheduled Test SKILLED NU RSE TO INSTRUCT ON INFECTION CONTROL MEASURES [code = SKILLED NURSE TO INSTRUCT ON INFECTION CONTROL MEASURES] Future Scheduled Test SKILLED NU RSE FOR OBSERVATION / ASSESSMENT HOSPITALIZATION RISKS TO IDENTIFY CHANGES AND INTERVENE TO MINIMIZE COMPLICATIONS RELATED TO IDENTIFIED HOSPITALIZATION RISKS OF MULTIPLE HOSPITALIZATIONS AND / OR MULTIPLE EMERGENCY DEPARTMENT VISITS IN THE PAST SIX MONTHS SKILLED NURSE TO PROVIDE SKILLED TEACHING RELATED TO THESE HOSPITALIZATION RISKS INCLUDING ADDRESSING ASSESSMENT OF CAUSITIVE DIAGNOSES, IDENTIFY CLIENT SPECIFIC BARRIERS INCREASING RISK AND ENSURING CLIENTS ABILITY TO IDENTIFY SYMPTOMS FOR FOLLOW UP. [code = SKILLED NURSE FOR OBSERVATION / ASSESSMENT HOSPITALIZATION RISKS TO IDENTIFY CHANGES AND INTERVENE TO MINIMIZE COMPLICATIONS RELATED TO IDENTIFIED HOSPITALIZATION RISKS OF MULTIPLE HOSPITALIZATIONS AND / OR MULTIPLE EMERGENCY DEPARTMENT VISITS IN THE PAST SIX MONTHS SKILLED NURSE TO PROVIDE SKILLED TEACHING RELATED TO THESE HOSPITALIZATION RISKS INCLUDING ADDRESSING ASSESSMENT OF CAUSITIVE DIAGNOSES, IDENTIFY CLIENT SPECIFIC BARRIERS INCREASING RISK AND ENSURING CLIENTS ABILITY TO IDENTIFY SYMPTOMS FOR FOLLOW UP.] Future Scheduled Test SKILLED NU RSE TO PROVIDE INSTRUCT REGARDING INTERVENTION(S) TO PREVENT PRESSURE ULCERS. [code = SKILLED NURSE TO PROVIDE INSTRUCT REGARDING INTERVENTION(S) TO PREVENT PRESSURE ULCERS.] Future Scheduled Test SKILLED NU RSE TO PROVIDE AND INSTRUCT REGARDING FALL PREVENTION INTERVENTIONS. [code = SKILLED NURSE TO PROVIDE AND INSTRUCT REGARDING FALL PREVENTION INTERVENTIONS.] Future Scheduled Test SKILLED NU RSE TO PROVIDE/INSTRUCT REGARDING INTERVENTION(S) TO MONITOR AND MITIGATE PAIN. [code = SKILLED NURSE TO PROVIDE/INSTRUCT REGARDING INTERVENTION(S) TO MONITOR AND MITIGATE PAIN.] Future Scheduled Test [facility] FOR ASSISTANCE WITH PERSONAL CARE, HYGIENE AND ACTIVITIES OF DAILY LIVING. [code = HOME HEALTH AIDE SERVICE FOR ASSISTANCE WITH PERSONAL CARE, HYGIENE AND ACTIVITIES OF DAILY LIVING.] Future Scheduled Test OCCUPATION AL THERAPIST TO EVALUATE FOR OT SERVICES AND DEVELOP PLAN OF CARE FOR PHYSICIAN SIGNATURE TO INCLUDE PHYSICAL AND PSYCHOSOCIAL TEST RESULTS, ESTABLISHMENT OF A PLAN OF TREATMENT, REHABILITATION GOALS, AND EVALUATING THE HOME ENVIRONMENT FOR ACCESSIBILITY AND SAFETY AND RECOMMENDING MODIFICATION. THERAPIST MAY PERFORM O2 SATURATION LEVEL AT EVALUATION VISIT AND PRN FOR SIGNS AND/OR SYMPTOMS OF POSSIBLE RESPIRATORY COMPLICATIONS OR WITH O2 USE. [code = OCCUPATIONAL THERAPIST TO EVALUATE FOR OT SERVICES AND DEVELOP PLAN OF CARE FOR PHYSICIAN SIGNATURE TO INCLUDE PHYSICAL AND PSYCHOSOCIAL TEST RESULTS, ESTABLISHMENT OF A PLAN OF TREATMENT, REHABILITATION GOALS, AND EVALUATING THE HOME ENVIRONMENT FOR ACCESSIBILITY AND SAFETY AND RECOMMENDING MODIFICATION. THERAPIST MAY PERFORM O2 SATURATION LEVEL AT EVALUATION VISIT AND PRN FOR SIGNS AND/OR SYMPTOMS OF POSSIBLE RESPIRATORY COMPLICATIONS OR WITH O2 USE.] Future Scheduled Test OCCUPATION AL THERAPIST TO PROVIDE/INSTRUCT REGARDING INTERVENTION(S) TO MONITOR AND MITIGATE PAIN. OCCUPATIONAL THERAPIST TO INSTRUCT ON INFECTION CONTROL MEASURES. OCCUPATIONAL THERAPIST TO EVALUATE PATIENT FOR OT SERVICES AND DEVELOP PLAN OF CARE PLAN OF CARE TO BE SIGNED BY THE PHYSICIAN. RECEIVED VERBAL OK FOR OT 1W4 FROM CLINIC FUR TRIMMING MACHINE OPERATOR PER PCP AT 11:36AM. OCCUPATIONAL THERAPY TO ESTABLISH/UPGRADE HOME EXERCISE PROGRAM AND PROVIDE THERAPEUTIC EXERCISES AND/OR SOFT TISSUE/JOINT MOBILIZATION DESIGNED TO RESTORE FUNCTIONAL STRENGTH AND ROM. OK TO USE THERABAND, THERAPUTTY, KINESIOTAPE AND MANUAL TECHNIQUES. OCCUPATIONAL THERAPIST TO PROVIDE PATIENT / CAREGIVER WITH ADL TRAINING TO INCREASE INDEPENDENCE. [code = OCCUPATIONAL THERAPIST TO PROVIDE/INSTRUCT REGARDING INTERVENTION(S) TO MONITOR AND MITIGATE PAIN. OCCUPATIONAL THERAPIST TO INSTRUCT ON INFECTION CONTROL MEASURES. OCCUPATIONAL THERAPIST TO EVALUATE PATIENT FOR OT SERVICES AND DEVELOP PLAN OF CARE PLAN OF CARE TO BE SIGNED BY THE PHYSICIAN. RECEIVED VERBAL OK FOR OT 1W4 FROM CLINIC FUR TRIMMING MACHINE OPERATOR PER PCP AT 11:36AM. OCCUPATIONAL THERAPY TO ESTABLISH/UPGRADE HOME EXERCISE PROGRAM AND PROVIDE THERAPEUTIC EXERCISES AND/OR SOFT TISSUE/JOINT MOBILIZATION DESIGNED TO RESTORE FUNCTIONAL STRENGTH AND ROM. OK TO USE THERABAND, THERAPUTTY, KINESIOTAPE AND MANUAL TECHNIQUES. OCCUPATIONAL THERAPIST TO PROVIDE PATIENT / CAREGIVER WITH ADL TRAINING TO INCREASE INDEPENDENCE.] Future Scheduled Test PHYSICAL T HERAPIST TO EVALUATE TO DETERMINE CONDITION, PHYSICAL THERAPY PLANS AND REHABILITATION POTENTIAL; EVALUATE HOME ENVIRONMENT TO ELIMINATE STRUCTURAL BARRIERS AND IMPROVE SAFETY TO INCREASE FUNCTIONAL INDEPENDENCE (RAMPS, ADAPTIVE WHEELCHAIR, BATHROOM AIDES) AND DEVELOP PHYSICAL THERAPY PLAN OF CARE TO BE SIGNED BY THE PHYSICIAN. THERAPIST MAY PERFORM O2 SATURATION LEVELS AT EVALUATION VISIT AND PRN FOR SIGNS AND/OR SYMPTOMS OF POSSIBLE RESPIRATORY COMPLICATIONS OR WITH O2 USE. [code = PHYSICAL THERAPIST TO EVALUATE TO DETERMINE CONDITION, PHYSICAL THERAPY PLANS AND REHABILITATION POTENTIAL; EVALUATE HOME ENVIRONMENT TO ELIMINATE STRUCTURAL BARRIERS AND IMPROVE SAFETY TO INCREASE FUNCTIONAL INDEPENDENCE (RAMPS, ADAPTIVE WHEELCHAIR, BATHROOM AIDES) AND DEVELOP PHYSICAL THERAPY PLAN OF CARE TO BE SIGNED BY THE PHYSICIAN. THERAPIST MAY PERFORM O2 SATURATION LEVELS AT EVALUATION VISIT AND PRN FOR SIGNS AND/OR SYMPTOMS OF POSSIBLE RESPIRATORY COMPLICATIONS OR WITH O2 USE.] Future Scheduled Test PT EVALUAT ION PERFORMED. NO ADDITIONAL VISITS REQUIRED. [code = PT EVALUATION PERFORMED. NO ADDITIONAL VISITS REQUIRED.] Future Scheduled Test HERBERT BASS RN 07/05/2025 VO VIA AGENT RN FOR TRISTON MARTINEZ ORDER TO DC MAJOR ACCOUNT MANAGER [code = HERBERT CLINE RN 07/05/2025 VO VIA AGENT RN FOR TRISTON MARTINEZ ORDER TO DC MAJOR ACCOUNT MANAGER] Goal 2025-07-10 Patient Goal - HEAL MY WOUND Goal Patient Goal - HEAL MY WOUND Goal Provider Goal - A PLAN OF CARE WILL BE ESTABLISHED THAT MEETS THE PATIENT'S NURSING NEEDS AND COUNTERSIGNED BY PHYSICIAN. ALL GOALS TO BE MET BY END OF CURRENTLY APPROVED PLAN OF CARE. Goal Provider Goal - CHANGES IN NEUROLOGICAL STATUS WILL BE IDENTIFIED AND REPORTED TO THE PHYSICIAN FOR PROMPT INTERVENTION. PATIENT/CAREGIVER WILL VERBALIZE/DEMONSTRATE APPROPRIATE MEASURES TO MANAGE NEUROLOGICAL DISEASE EVIDENCED BY DECREASED SYMPTOMS AND NO HOSPITALIZATIONS BY DISCHARGE. Goal Provider Goal - INCREASED PAIN OR INEFFECTIVE PAIN CONTROL MEASURES WILL BE IDENTIFIED AND PROMPTLY REPORTED TO THE PHYSICIAN. PATIENT/CAREGIVER WILL VERBALIZE UNDERSTANDING OF PHARMACOLOGIC AND NON-PHARMACOLOGIC PAIN CONTROL MEASURES EVIDENCED BY PAIN LEVEL BELOW 4(PARAMETER ACCEPTABLE TO PATIENT) BY DISCHARGE. Goal Provider Goal - GENITOURINARY SYSTEM WILL BE EVALUATED AND EXACERBATIONS IDENTIFIED WITH INTERVENTIONS IMPLEMENTED TO MINIMIZE COMPLICATIONS. PATIENT/CAREGIVER WILL VERBALIZE/DEMONSTRATE ABILITY MANAGE GENITOURINARY DISEASE EVIDENCED BY DECREASED SYMPTOMS AND NO UNPLANNED HOSPITALIZATIONS BY DISCHARGE Goal Provider Goal - CHANGES IN SKIN INTEGRITY WILL BE IDENTIFIED AND REPORTED TO THE PHYSICIAN FOR PROMPT INTERVENTION. PATIENT/CAREGIVER WILL VERBALIZE/DEMONSTRATE APPROPRIATE MEASURES TO PROMOTE SKIN INTEGRITY AND PREVENT INJURY EVIDENCED BY NO SKIN BREAKDOWN BY DISCHARGE Goal Provider Goal - PATIENT / CAREGIVER WILL VERBALIZE / DEMONSTRATE ABILITY TO PERFORM WOUND CARE. WOUND STATUS WILL IMPROVE EVIDENCED BY A DECREASE IN SIZE, DRAINAGE, ABSENCE OF INFECTION, AND DECREASED PAIN BY DISCHARGE. Goal Provider Goal - PATIENT / CAREGIVER WILL VERBALIZE UNDERSTANDING / DEMONSTRATE APPROPRIATE INFECTION CONTROL MEASURES. Goal Provider Goal - HOSPITALIZATION RISKS WILL BE IDENTIFIED PROMPTLY AND INTERVENTIONS INITIATED TO MINIMIZE ASSOCIATED RISKS. PATIENT / CAREGIVER WILL VERBALIZE/DEMONSTRATE AN ABILITY TO MANAGE RISKS FOR HOSPITALIZATION EVIDENCED BY NO UNPLANNED HOSPITALIZATIONS. Goal Provider Goal - CHANGES IN PATIENT CO-MORBID STATUS WILL BE PROMPTLY IDENTIFIED AND REPORTED TO THE PHYSICIAN. PATIENT/CAREGIVER VERBALIZE/DEMONSTRATE MEASURES TO PREVENT PRESSURE ULCERS BY DISCHARGE. Goal Provider Goal - CHANGES IN PATIENT CO-MORBID STATUS WILL BE PROMPTLY IDENTIFIED AND REPORTED TO THE PHYSICIAN. PATIENT/CAREGIVER VERBALIZE/DEMONSTRATE MEASURES TO PREVENT FALLS BY DISCHARGE. Goal Provider Goal - CHANGES IN PATIENT CO-MORBID STATUS WILL BE PROMPTLY IDENTIFIED AND REPORTED TO THE PHYSICIAN. PATIENT/CAREGIVER VERBALIZE/DEMONSTRATE ABILITY TO PROPERLY MANAGE PAIN BY DISCHARGE. Goal Provider Goal - PATIENT WILL RECEIVE ASSISTANCE WITH PERSONAL CARE AND HYGIENE AND OTHER ACTIVITIES OF DAILY LIVING NEEDED. Goal Provider Goal - AN OCCUPATIONAL THERAPY EVALUATION WILL BE COMPLETED AND A PLAN OF CARE WILL BE ESTABLISHED FOR THE PHYSICIAN'S SIGNATURE FOR THE ENHANCEMENT OF THE PATIENT'S REHABILITATION POTENTIAL, AND ELIMINATION OF SAFETY HAZARDS TO INCREASE FUNCTIONAL INDEPENDENCE. Goal Provider Goal - CHANGES IN PATIENT CO-MORBID STATUS WILL BE PROMPTLY IDENTIFIED AND REPORTED TO THE PHYSICIAN. PATIENT/CAREGIVER VERBALIZE/DEMONSTRATE ABILITY TO PROPERLY MANAGE PAIN. PATIENT / CAREGIVER WILL VERBALIZE UNDERSTANDING / DEMONSTRATE APPROPRIATE INFECTION CONTROL MEASURES. OCCUPATIONAL THERAPY EVALUATION WILL BE COMPLETED. PLAN OF CARE WILL BE ORDERED BY PHYSICIAN AND PROVIDED BY OCCUPATIONAL THERAPIST. ALL GOALS TO BE MET BY END OF CURRENTLY APPROVED PLAN OF CARE. PATIENT WILL DEMONSTRATE IMPROVED FUNCTION IN RESPONSE TO SPECIFIC EXERCISE(S) AND/OR MANUAL THERAPY TECHNIQUE(S), EVIDENCED BY INCREASED INDEPENDENCE IN ACTIVITIES OF DAILY LIVING (IN 4 WEEKS). PATIENT WILL DEMONSTRATE INCREASED INDEPENDENCE IN ACTIVITIES OF DAILY LIVING (IN 4 WEEKS) Goal Provider Goal - A PHYSICAL THERAPY EVALUATION WILL BE COMPLETED AND A PLAN OF CARE TO INCREASE FUNCTIONAL INDEPENDENCE WILL BE ESTABLISHED FOR THE PHYSICIAN'S REVIEW AND SIGNATURE. Goal Provider Goal - NONE Progress Notes Progress Notes <paragraph>[Visit Date: 2024 by LUCIAN CHRIS RN]:</paragraph><paragraph>SUBSEQUENT SKILLED NURSE VISIT FOR OBSERVATION AND ASSESSEMENT AND WOUND CARE TO PRESSURE INJURY AND BURN SITE ON RIGHT THORACIC SITE</paragraph><paragraph></paragraph><paragraph>VS- HR ELEVATED DUE TO PAIN LEVEL, OTHER VS WNL</paragraph><paragraph>LS - CLEAR EQUAL BILATERALLY</paragraph><paragraph>SOB- DENIES</paragraph><paragraph>EDEMA- NONE ASSESSED</paragraph><paragraph>PAIN- EXTREME LEFT SHOULDER PAIN DUE TO LACK OF FUNCTIONAL ABILITY AND OVERUSE TO COMPENSATE. </paragraph><paragraph>FALLS- NO FALLS SINCE LAST VISIT</paragraph><paragraph>/GI- INCONTINENT OF URINE AND STOOL, WNL.</paragraph><paragraph></paragraph><paragraph>WOUND CARE- PROVIDED PER ORDERS. TO PRESSURE INJURY: CLEANSE WITH VASHE AND SOAK GAUZE SOCKED VASHE IN WOUND BED FOR 10 MINUTES. REMOVE AND APPLY AQUACELL/SIMILAR LIGHTLY IN WOUND BED, COVER TOP OF WOUND WITH DRAWTEX, COVER AND SECURE WITH SUPER ABSORBANT DRESSING AND SECURE WITH PINC ZINC TAPE.</paragraph><paragraph></paragraph><paragraph>RT SIDE BURN: WOUND CARE TO RT UPPER SIDE BURN TO CLEANSE WITH WOUND CLEANSER, PAT DRY, COVER WITH STERILE HONEY AND BORDERED FOAM DRESSING 3X WEEKLY, CLIENT DECLINED CARE TODAY. </paragraph><paragraph></paragraph><paragraph>WOUND TO BUTTOCKZ IS SHOWING NO PROGRESS, NECROTIC WITH HEAVY DRAINAGE, LIKELY A CHRONIC WOUND. </paragraph><paragraph>CLIENT STILL HAS NOT MADE AN APPOINTMENT WITH THE WOUND CLINIC. </paragraph><paragraph></paragraph><paragraph>MEDICATION CHANGES- NO CHANGES TO MEDICATION</paragraph><paragraph>MEDICATIONS SET UP BY AGENCY (Y/N) - N/A</paragraph><paragraph>IF MEDS SET UP BY AGENCY, DATE RANGE OF MEDS SET (ENTER N/A IF MEDS NOT SET) - N/A</paragraph><paragraph></paragraph><paragraph>APPOINTMENTS- CLIENT IN NEED OF MAKING APPOINTMENT WITH WOUND CLINIC SO BUTTOCK WOUND CAN HAVE A DEBRIDEMENT</paragraph><paragraph></paragraph><paragraph>LABS/WHERE DROPPED OFF- NA</paragraph><paragraph></paragraph><paragraph>CHANGE IN CONDITION- CLIENT HAS UNFORTUNATELY HAD A PROGRESSIVE DECLINE IN FUNCTIONAL ABILITY, LACK OF HELP IN THE HOME, INCREASED PAIN, AND WOUND NOT HEALING ARE ALL REASONS WHY HEALTH SPECIALIST IS RECOMMENDING VERY STRONGLY CLIENT GO INTO THE ER TO RECIEVE A HIGHER LEVEL OF CARE AND TRANSITION TO A TCU. </paragraph><paragraph></paragraph><paragraph>EDUCATION PROVIDED- WOUND CARE, INFECTION CONTROL, HYDRATION, POC</paragraph><paragraph></paragraph><paragraph>CHANGE TO POC- NA</paragraph><paragraph></paragraph><paragraph>DISCHARGE DISCUSSION/PLAN FOR NEXT VISIT- GENERAL HEALTH ASSESSMENT AND WOUND CARE TOMORROW, WILL REDISCUSS NEED FOR HOSPITALIZATION AND HOPEFULLY ASSIST IN CALLING EMS FOR CLIENT TO BE BROUGHT TO THE HOSPITAL FOR HIGHER LEVEL OF CARE.</paragraph> <paragraph>[Visit Date: 2024 by LUCIAN CHRIS RN]:</paragraph><paragraph>SUBSEQUENT SKILLED NURSE VISIT FOR OBSERVATION AND ASSESSEMENT AND WOUND CARE TO PRESSURE INJURY AND BURN SITE ON RIGHT THORACIC SITE</paragraph><paragraph></paragraph><paragraph>VS- WNL</paragraph><paragraph>LS - CLEAR EQUAL BILATERALLY</paragraph><paragraph>SOB- DENIES</paragraph><paragraph>EDEMA- NONE ASSESSED</paragraph><paragraph>PAIN- LEFT SHOULDER PAIN DUE TO LACK OF FUNCTIONAL ABILITY AND OVERUSE TO COMPENSATE. PAIN HAS IMPROVED FROM YESTERDAYS VISIT.</paragraph><paragraph>FALLS- NO FALLS SINCE LAST VISIT</paragraph><paragraph>/GI- INCONTINENT OF URINE AND STOOL, WNL. PT WAS WEARING BRIEF.</paragraph><paragraph></paragraph><paragraph>WOUND CARE- PROVIDED PER ORDERS. TO PRESSURE INJURY: CLEANSE WITH VASHE AND SOAK GAUZE SOCKED VASHE IN WOUND BED FOR 10 MINUTES. REMOVE AND APPLY AQUACELL/SIMILAR LIGHTLY IN WOUND BED, COVER TOP OF WOUND WITH DRAWTEX, COVER AND SECURE WITH SUPER ABSORBANT DRESSING AND SECURE WITH PINC ZINC TAPE.</paragraph><paragraph></paragraph><paragraph>RT SIDE BURN: WOUND CARE TO RT UPPER SIDE BURN TO CLEANSE WITH WOUND CLEANSER, PAT DRY, COVER WITH STERILE HONEY AND BORDERED FOAM DRESSING 3X WEEKLY, CLIENT DECLINED CARE TODAY.</paragraph><paragraph></paragraph><paragraph>WOUND TO BUTTOCKZ IS SHOWING NO PROGRESS, NECROTIC WITH HEAVY DRAINAGE, LIKELY A CHRONIC WOUND.</paragraph><paragraph>CLIENT STILL HAS NOT MADE AN APPOINTMENT WITH THE WOUND CLINIC.</paragraph><paragraph></paragraph><paragraph>MEDICATION CHANGES- NO CHANGES TO MEDICATION</paragraph><paragraph>MEDICATIONS SET UP BY AGENCY (Y/N) - N/A</paragraph><paragraph>IF MEDS SET UP BY AGENCY, DATE RANGE OF MEDS SET (ENTER N/A IF MEDS NOT SET) - N/A</paragraph><paragraph></paragraph><paragraph>APPOINTMENTS- CLIENT IN NEED OF MAKING APPOINTMENT WITH WOUND CLINIC SO BUTTOCK WOUND CAN HAVE A DEBRIDEMENT</paragraph><paragraph></paragraph><paragraph>LABS/WHERE DROPPED OFF- NA</paragraph><paragraph></paragraph><paragraph>CHANGE IN CONDITION- CLIENT ENDORSES THAT HE HAS FRIENDS AVAILABLE TO ASSISIT WITH WOUND CARE ON DAYS THERE IS NO SNV PLANNED. YESTERDAY AFTER SNV CLIENT WAS ABLE TO HAVE FRIENDS COME ASSIST WITH CLEANING HOUSE, WOUND CARE, AND ASSIST WITH PUTTING BRIEF ON CLIENT. CLIENT EDUCATED THAT HE'LL CONTINUE TO NEED SUPPORT FROM FRIENDS SN IS UNABLE TO CONTINUE DAILY VISITS AFTER 07.31.25, CLIENT VU.</paragraph><paragraph></paragraph><paragraph>EDUCATION PROVIDED- WOUND CARE, INFECTION CONTROL, HYDRATION, POC</paragraph><paragraph></paragraph><paragraph>CHANGE TO POC- NA</paragraph><paragraph></paragraph><paragraph>DISCHARGE DISCUSSION/PLAN FOR NEXT VISIT- GENERAL HEALTH ASSESSMENT AND WOUND CARE TOMORROW</paragraph> <paragraph>[Visit Date: 2024 by HERBERT CLINE RN]:</paragraph><paragraph>SUBSEQUENT SKILLED NURSE VISIT FOR OBSERVATION AND ASSESSEMENT AND WOUND CARE TO PRESSURE INJURY </paragraph><paragraph></paragraph><paragraph>VS- DECLINED</paragraph><paragraph>LS - CLEAR EQUAL BILATERALLY</paragraph><paragraph>SOB- DENIES</paragraph><paragraph>EDEMA- NONE ASSESSED</paragraph><paragraph>PAIN- LEFT SHOULDER PAIN DUE TO LACK OF FUNCTIONAL ABILITY AND OVERUSE TO COMPENSATE. </paragraph><paragraph>FALLS- NO FALLS SINCE LAST VISIT</paragraph><paragraph>/GI- INCONTINENT OF URINE AND STOOL, WNL. PT WAS WEARING BRIEF.</paragraph><paragraph></paragraph><paragraph>WOUND CARE- PROVIDED PER ORDERS. TO PRESSURE INJURY: CLEANSE WITH VASHE AND SOAK GAUZE SOCKED VASHE IN WOUND BED FOR 10 MINUTES. REMOVE AND APPLY AQUACELL/SIMILAR LIGHTLY IN WOUND BED, COVER TOP OF WOUND WITH DRAWTEX, COVER AND SECURE WITH SUPER ABSORBANT DRESSING AND SECURE WITH PINC ZINC TAPE.</paragraph><paragraph></paragraph><paragraph>RT SIDE BURN: WOUND CARE TO RT UPPER SIDE BURN TO CLEANSE WITH WOUND CLEANSER, PAT DRY, COVER WITH STERILE HONEY AND BORDERED FOAM DRESSING 3X WEEKLY, CLIENT DECLINED CARE TODAY.</paragraph><paragraph></paragraph><paragraph>WOUND TO BUTTOCKS IS SHOWING NO PROGRESS, NECROTIC WITH HEAVY DRAINAGE, LIKELY A CHRONIC WOUND.</paragraph><paragraph>CLIENT STILL HAS NOT MADE AN APPOINTMENT WITH THE WOUND CLINIC.</paragraph><paragraph></paragraph><paragraph>MEDICATION CHANGES- NO CHANGES TO MEDICATION</paragraph><paragraph>MEDICATIONS SET UP BY AGENCY (Y/N) - N/A</paragraph><paragraph>IF MEDS SET UP BY AGENCY, DATE RANGE OF MEDS SET (ENTER N/A IF MEDS NOT SET) - N/A</paragraph><paragraph></paragraph><paragraph>APPOINTMENTS- CLIENT IN NEED OF MAKING APPOINTMENT WITH WOUND CLINIC SO BUTTOCK WOUND CAN HAVE A DEBRIDEMENT</paragraph><paragraph></paragraph><paragraph>LABS/WHERE DROPPED OFF- NA</paragraph><paragraph></paragraph><paragraph>CHANGE IN CONDITION- CLIENT ENDORSES THAT HE HAS FRIENDS AVAILABLE TO ASSISIT WITH WOUND CARE ON DAYS THERE IS NO SNV PLANNED. CLIENT EDUCATED THAT HE'LL CONTINUE TO NEED SUPPORT FROM FRIENDS SN IS UNABLE TO CONTINUE DAILY VISITS AFTER 10.28.25, CLIENT VU. </paragraph><paragraph>CLIENT AND HEALTH SPECIALIST DISCUSSED HIM GOING INTO ER THIS EVENING DUE TO SHOULDER PAIN AND WOUND CONCERNS, CLIENT IS STRONGLY THINKING ABOUT IT AND WILL HAVE HIS FRIEND BRING HIM IN, HE VERBALIZED HE WILL KEEP HEALTH SPECIALIST UODATED. </paragraph><paragraph></paragraph><paragraph>EDUCATION PROVIDED- WOUND CARE, INFECTION CONTROL, HYDRATION, POC</paragraph><paragraph></paragraph><paragraph>CHANGE TO POC- NA</paragraph><paragraph></paragraph><paragraph>DISCHARGE DISCUSSION/PLAN FOR NEXT VISIT- GENERAL HEALTH ASSESSMENT AND WOUND CARE TOMORROW</paragraph> Encounters Start Date/Time End Date/Time Encounter Type Admission Type Attending [facility] Care Facility Care Department Encounter ID Discharge Date Discharge Status Discharge Condition Discharge Reason Percent Goals Met 2025-06-30 00:00:00 2025-08-28 00:00:00 Outpatient HERBERT EMERSON [facility] [id number]
== END 2025-08-01 16:55 | disposition home or self-care (01) | DRG 871 ==
LOC: ED 20:56 → MEDSURG 08-01 07:22
PROVIDERS: Admitting Provider Family Medicine; Emergency Provider Family Medicine; Visit Provider Family Medicine
DX: A41.9 Sepsis, unspecified organism (principal); G82.50 Quadriplegia, unspecified; L89.314 Pressure ulcer of right buttock, stage 4; M86.18 Other acute osteomyelitis, other site; M25.512 Pain in left shoulder; T21.03XD Burn of unspecified degree of upper back, subsequent encounter; B95.0 Streptococcus, group A, as the cause of diseases classified elsewhere; B96.29 Other Escherichia coli [E. coli] as the cause of diseases classified elsewhere; B96.89 Other specified bacterial agents as the cause of diseases classified elsewhere
CPT/HCPCS: 36556; 36415; 71045; 72193; 80048; 80053; 80076; 81001; 83605; 83735; 84145; 85025; 85651; 86140; 87040; 87070; 87086; 87186; 97162; 99284; 99291; A9270; J1171; J1885; J2270; J2543; J3375; J7030; J7120; Q9967

== ENCOUNTER 2025-08-01 16:40 | Outpatient (CLI) | payer MEDICARE, SELFPAY | END 2025-08-01 16:41 | disposition home or self-care (01) | LOC: AMB 08-02 09:18 | PROVIDERS: Visit Provider Family Medicine | DX: M86.9 Osteomyelitis, unspecified (principal); A41.9 Sepsis, unspecified organism | CPT/HCPCS: A0425; A0427 ==